=== PATIENT | female | born 1995 | race Caucasian/White ===

== ENCOUNTER 2019-03-22 20:12 | Outpatient (CLI) | payer MEDICAID, SELFPAY ==
[2019-03-22 20:41] VITALS: BMI 41.5
[2019-03-22 21:14] LABS: Color, Urine Yellow (Yellow); Glucose, Dipstick Normal (Normal); Ketone-Dipstick 5 mg/dl (Negative); Leukocyte Esterase-Dipstick 100 /ul (Negative); Nitrite-Dipstick Negative (Negative); Occult Blood-Urine 10 /ul (Negative); Protein-Dipstick 15 mg/dl (Negative); Urine Bilirubin Dipstick Negative (Negative); Urine Clarity Cloudy (Clear); Urine Urobilinogen Normal (Normal)
[2019-03-22] MEDS: Nitrofurantoin Macrocrystals 100 MG Capsule PO (22:02)
--- NOTE | 2019-03-23 09:49 | OB.TRI.HP_ITS ---
- Problem List (1) Pelvic pain affecting in third trimester, antepartum Status: Acute (2) Hematuria due to cystitis Status: Acute History of Present Illness Date of Service: 03/22/19 Was patient seen by the physician?: No Reason For Visit: PAIN/PRESSURE Date of Service: 03/22/19 Final YANCY: 05/05/19 Final YANCY Source: US <20 weeks Gestational age: 33 Weeks and 6 Days History of Present Illness: Patient presents to triage for evaluation today reporting increase in lower pelvic pressure and pain. Patient denies dysuria, denies vaginal bleeding or loss of fluid. Patient reports +FM. Denies any other vaginal discharge at this time. Allergies codeine Adverse Reaction (Verified 03/22/19 20:39) Vomiting naproxen [From Naprosyn] Adverse Reaction (Verified 03/22/19 20:39) Nausea/Vom/Diarrhea Laboratory Studies: Laboratory Tests 03/22/19 Range/Units 20:27 Urine Color Yellow (Yellow) Urine Clarity Cloudy (Clear) Urine pH 6.0 (5.0 - 8.0) Ur Specific [place] 1.020 (1.002-1.030) Urine Protein 15 H (Negative) mg/dl Urine Glucose (UA) Normal (Normal) mg/dl Urine Ketones 5 H (Negative) mg/dl Urine Occult Blood 10 H (Negative) /ul Urine Nitrite Negative (Negative) Urine Bilirubin Negative (Negative) mg/dL Urine Urobilinogen Normal (Normal) mg/dl Ur Leukocyte Esterase 100 H (Negative) /ul Review of Systems Unable to obtain accurate/complete ROS d/t: See nursing note for ROS Physical Exam Vitals: VSS, Afebrile - see nursing note Negative CVAT Mild tenderness in pubic and suprapubic area when palpated Macrodip suggestive of UTI - culture sent NST - FHR Rate Baby A Baseline: 130 Variability:: Moderate Accelerations:: 15 x 15 Decelerations:: None NST Reactive:: Yes, Appropriate for gestational age FHR Category:: Category I Uterine Activity:: Uterine irritability noted on tocometer, per nursing staff irregular contractions moderately palpable. Patient does not feel contractions. Impression/Plan 23 y/o, @ 33+5 weeks, Lower Abdominal/Pelvic pain likely due to UTI, Category I FHT P: 1) Discharge patient to home with UTI precautions - patient to push fluids 2) Macrobid 100mg PO BID x 7 days #14disp no RF to Vishal Downs called in for patient 3) PTL precautions reviewed 4) Patient to follow-up in [facility] office as scheduled Liberty CHAUDHARY
== END 2019-03-22 22:05 | disposition home or self-care (01) ==
LOC: WPOUT 20:20 → WP 20:20
PROVIDERS: Family Provider Pediatrics; PCP Pediatrics; Referring Provider Obstetrics & Gynecology; Visit Provider Obstetrics & Gynecology
DX: O26.893 Other specified pregnancy related conditions, third trimester (principal); R10.2 Pelvic and perineal pain; R10.9 Unspecified abdominal pain; Z3A.33 33 weeks gestation of pregnancy
CPT/HCPCS: 59025; 59050; 81002; 99218; G0378

== ENCOUNTER 2019-04-07 06:32 | Inpatient (IN) | payer MEDICAID, SELFPAY ==
[2019-04-07 06:32] VITALS: BMI 41.8
[2019-04-07 06:53] LABS: Mucous, Urine 0 SEEN /hpf (<or=2+)
[2019-04-07 06:56] LABS: Absolute Lymphocyte Count 1.73 X10^3/ul (0.83-4.51); Absolute Neutrophil Count 13.3 X10^3/uL (2.0-7.7); Basophil# 0.01 X10^3/uL; Basophil% 0.1 % (0-1); Eosinophil# 0.08 X10^3/uL; Eosinophils% 0.5 % (0-5); Hematocrit 37.2 % (37-47); Hemoglobin 12.4 g/dl (12.0-15.0); Lymphocyte # 1.73 X10^3/ul (4.0); Lymphocyte % 10.5 % (19-41); Mean Corp Hgb Conc 33.3 g/gl (32-36); Mean Corpuscular Hgb 28.8 pg (27.0-32.0); Mean Corpuscular Volume 86.3 fL (81-99); Mean Platelet Vol. 10.6 fl (6.2-12.0); Monocyte# 1.21 X10^3/uL; Monocyte% 7.4 % (0-10); Neutrophil # 13.32 X10^3/uL (2.7-7.7); Platelet Count 192 K/mm3 (150-450); RBC Distribution Width CV 14.2 % (11.6-14.6); RBC Distribution Width SD 44.9 fl (35.1-43.9); Red Blood Count 4.31 M/mm3 (4.2-5.4); White Blood Count 16.4 K/mm3 (4.4-11.0)
[2019-04-07 06:57] LABS: POSITIVE COUNT NO; POSITIVE DIFFERENTIAL NO; POSITIVE MORPHOLOGY NO
[2019-04-07] MEDS: Betamethasone/Betamethasone 30 MG/5 ML Vial 12 MG IM (06:57)
[2019-04-07] MEDS: Lactated Ringers 1,000 ML 50 ML IV ×3 (07:00→09:46)
[2019-04-07 07:12] LABS: ALB/GLOB Ratio 0.5 RATIO (0.9-2.4); AST(SGOT) 12 U/L (15-37); Alanine Aminotransfer ALT/SGPT 10 U/L (13-56); Albumin, Serum 2.5 g/dL (3.2-5.0); Alkaline Phosphatase 161 U/L (45-117); Anion Gap 10 (5-15); BUN 11 mg/dL (7-18); BUN/Creat Ratio 16.8 RATIO (10-20); Calcium,Total 9.1 mg/dL (8.5-10.1); Chloride 106 mmol/L (98-107); Creatinine, Serum 0.65 mg/dL (0.55-1.02); EST Glomerular Filtration Rate 121 mL/min (>60); Est Glom Filt Rate - Afr Amer 147 mL/min (>60); Estimated Creatinine Clearance 118.22 ml/min; Globulin 4.6 g/dL (2.2-4.2); Glucose 100 mg/dL (74-106); Protein, Total 7.1 g/dL (6.4-8.2); Sodium Level 136 mmol/L (136-145)
[2019-04-07 07:15] LABS: Color, Urine Yellow (Yellow); Glucose, Dipstick Normal (Normal); Ketone-Dipstick Negative (Negative); Leukocyte Esterase-Dipstick 25 /ul (Negative); Nitrite-Dipstick Negative (Negative); Occult Blood-Urine 250 /ul (Negative); Protein-Dipstick 15 mg/dl (Negative); Urine Bilirubin Dipstick Negative (Negative); Urine Clarity Sl. Cloudy (Clear); Urine Urobilinogen Normal (Normal)
[2019-04-07 07:24] LABS: White Blood Cells 0-5 SEEN /hpf (0-5)
[2019-04-07 07:25] LABS: Bacteria 1+ /hpf (None Seen); Red Blood Cells-Urine 5-10 SEEN /hpf (0-5); Squamous Epithelial Cells - UA 5-10 SEEN /hpf (5-10)
[2019-04-07 07:29] LABS: Amphetamine Urine VISTA NEGATIVE (<1000 ng/mL); Barbiturate Urine VISTA NEGATIVE (< 200 ng/mL); Benzodiazepine Urine VISTA NEGATIVE (< 200 ng/mL); Cocaine Urine VISTA NEGATIVE (< 300 ng/mL); Ecstacy Urine VISTA NEGATIVE (< 500 ng/mL); Methadone Urine VISTA NEGATIVE (< 300 ng/mL); PCP Urine VISTA NEGATIVE (< 25 ng/mL); THC Urine VISTA NEGATIVE (< 50 ng/mL); Vista UDS pH Range 5
[2019-04-07] MEDS: fentaNYL-bupivacaine (epidural) 100 ML BAG EPIDURAL ×2 (07:58→12:02)
[2019-04-07 08:13] LABS: Group B Strep DNA By PCR Negative (Negative); Internal Control PASS; Probe Check PASS; Specimen Processing Control PASS
--- NOTE | 2019-04-07 09:34 | PCM.HP.OB ---
- Problem List (1) premature rupture of membranes Status: Acute (2) Active labor Status: Acute History Date of Admission: 04/07/19 Final YANCY: 05/05/19 Final YANCY Source: US <20 weeks Gestational age: 36 Weeks and 0 Days History of this : This is a 23 year-old, G [1], P [0], at 36 weeks gestational age. Presented with possible ROM yesterday at 2pm. Presented to L&D with complaint of regular uterine contractions that were painful. Allergies azithromycin [From Zithromax] Allergy (Verified 04/07/19 06:36) Hives codeine Adverse Reaction (Verified 03/22/19 20:39) Vomiting naproxen [From Naprosyn] Adverse Reaction (Verified 03/22/19 20:39) Nausea/Vom/Diarrhea Home Medications: Home Medications Omeprazole 20 mg PO DAILY 03/22/19 Vits [Prenatabs FA] 1 tablet PO DAILY 03/22/19 Smoking Status: Former smoker Alcohol: None Substance Use Type: Marijuana Number of Fetus(es): 1 Heart Tracin, moderate variability, accels, no decels, Category 1 TOCO: Irregular mild History Past Pregnancies: Past Pregnancies Delivery Date Name GA/Weeks Outcome Route Weight Gender Labor Length Anesthesia Delivery Location Provider FOB Labs: RPR negative Rubella Immune HBsAG negative HIV negative O positive GC/CT negative GBS unknown. Rapid GBS done upon admission, negative. Review of Systems Constitutional: Denies: Chills, Fever, Weight Change HEENT: Denies: Head Aches, Sinus Congestion, Sinus Drainage Cardiovascular: Denies: Chest Pain, Palpitations Respiratory: Denies: Cough, Shortness of breath at rest, Sputum production Gastrointestinal: Reports: Abdominal Pain Genitourinary: Denies: Dysuria Psychiatric: Denies: Anxiety, Depression, Homicidal Ideations, Suicidal Ideations Physical Exam General: Alert, Oriented x3, Cooperative HEENT: Atraumatic, Normocephalic Cardiovascular: Regular rate, Regular Rhythm, Normal S1, Normal S2 Lungs: Clear to auscultation, Normal air movement, No rhonchi, No wheeze Abdomen: Gravid Extremities:: No edema Estimated gestational size: Appropriate for gestational size Presentation: Cephalic Cervix Dilation (cm): 6 Station: -1 Effacement (%): 90 Assessment/Plan All Active Problems Pelvic pain affecting in third trimester, antepartum (Acute) Hematuria due to cystitis (Acute) premature rupture of membranes (Acute) Active labor (Acute) This is a 23 year-old, G [1], P [0], at 36 weeks gestational age. P: 1) Admit to L&D. Continuous monitoring. 2) Epidural for pain management 3) Consider pitocin due to spacing of uterine contractions. If contractions not regular in next 30 minutes, will start Pitocin. Reviewed risks, benefits, and alternatives with patient. 4) Dr. Saavedra notified of patient in labor.
[2019-04-07] MEDS: Oxytocin 30 units/NS 500 ml 30 UNITS/500 ML IV.SOLN IV (10:37)
[2019-04-07] MEDS: Oxytocin 30 units/NS 500 ml 30 UNITS/500 ML IV.SOLN 334 UNITS IV (12:45)
[2019-04-07] MEDS: Oxytocin 30 units/NS 500 ml 30 UNITS/500 ML IV.SOLN 167 UNITS IV (13:15)
--- NOTE | 2019-04-07 13:21 | PCM.OPRPT ---
Problem List (1) premature rupture of membranes Status: Acute (2) Active labor Status: Acute (3) Vaginal delivery Status: Acute (4) Second degree perineal laceration Status: Acute Vaginal Delivery Maternal Presentation: Active Labor, Spontaneous Rupture of Membranes Amniotic Membrane Rupture Type: Spontaneous at home Amniotic Fluid Description: Clear Final YANCY: 05/05/19 Gestational age: 36 Weeks and 0 Days Date of Procedure: 04/07/19 Pre-Operative Diagnosis: PPROM Post-Operative Diagnosis: Surgery/ Procedure Performed: Spontaneous Vaginal Delivery Type of Anesthesia: Epidural, Local with 1% lidocaine Description of Procedure: Progressed to complete with urge to push. of viable male over 2nd degree perineal laceration. APGARS 8,9. Infant head delivered with maternal effort, body forth coming. placed on maternal abdomen, strong cry. Mouth and nares suctioned for secretions. Cord clamped and cut by grandmother after pulsations ceased, delayed cord clamping. Pitocin started for active 3rd stage management. Placenta delivered with maternal effort, via darion, intact, 3 vessel cord. Perineum inspected and revealed 2nd degree perineal laceration. 1% Lidocaine administered to perineum for patient comfort. Repaired with 3.0 vicryl, well approximated and hemostasis achieved. Patient tolerated well. Fundus firm, EBL 400ml. Vaginal sweep completed. Sponge and instrument count correct. Mother and baby stable, planning to breastfeed. Bonding well. notified of delivery. Presentation: Vertex Placental Delivery Description: Spontaneous Placenta Disposition: [facility] Cord Vessel Description: 3 Vessels Cord Entanglement: None Estimated Blood Loss: 400ml A gender: Male (1 minute): 8 (5 minute): 9 Episiotomy Description: None Laceration: Perineal Extension/lac, 2nd degree Medications given after delivery: IV Pitocin Complications: None
[2019-04-07 19:52] VITALS: BP 128/74; PULSE 108; RESP 18; TEMP 36.6
[2019-04-07 23:50] VITALS: BP 116/68; PULSE 100; RESP 16; TEMP 36.6
[2019-04-08 04:25] VITALS: BP 113/63; PULSE 100; RESP 16; TEMP 36.7
[2019-04-08 05:52] LABS: Hematocrit 30.6 % (37-47); Hemoglobin 10.1 g/dl (12.0-15.0); Mean Corpuscular Hgb 28.5 pg (27.0-32.0); Mean Corpuscular Volume 86.4 fL (81-99); Mean Platelet Vol. 10.4 fl (6.2-12.0); Platelet Count 186 K/mm3 (150-450); RBC Distribution Width CV 14.3 % (11.6-14.6); RBC Distribution Width SD 45.7 fl (35.1-43.9); Red Blood Count 3.54 M/mm3 (4.2-5.4); White Blood Count 18.4 K/mm3 (4.4-11.0)
[2019-04-08 05:53] LABS: Scan Indicated on CBC? Y/N NO
--- NOTE | 2019-04-08 08:22 | PCM.PN.OB ---
Patient Problems: Active and Suspected Problems premature rupture of membranes (Acute) Active labor (Acute) Vaginal delivery (Acute) Second degree perineal laceration (Acute) Subjective: pt seen at bedside, doing well. Patient reports good pain control. Mild lochia. No difficulty with urinating. Denies chest pain shortness of breath or dizziness. She is breast-feeding. Baby is in the special care nursery for blood sugar control. - Physical Exam General: Alert, Oriented x3 Abdomen: Soft, Non Tender, Non-Distended, - - fundus firm Extremities: No Calf Tenderness Vital Signs Temp Pulse Resp BP 98.0 F 100 16 113/63 04/08/19 04:25 04/08/19 04:25 04/08/19 04:25 04/08/19 04:25 Weight: 110.677 kg Body Mass Index (BMI) 41.8 Intake and Output for Last 24 Hours 04/06/19 04/07/19 04/08/19 23:59 23:59 23:59 Intake Total 3081 / 3081 Output Total 1225 / 1225 Balance 1856 / 1856 Laboratory Tests Past 24 Hrs 04/07/19 04/08/19 06:30 05:30 WBC 18.4 H RBC 3.54 L Hgb 10.1 L Hct 30.6 L MCV 86.4 MCH 28.5 MCHC 33.0 RDW 14.3 RDW Differential 45.7 H Plt Count 186 MPV 10.4 Blood Type O POSITIVE Antibody Screen NEGATIVE Medical Necessity - Tobacco Use Smoking Status: Former smoker Assessment/Plan All Active Problems Pelvic pain affecting in third trimester, antepartum (Acute) Hematuria due to cystitis (Acute) premature rupture of membranes (Acute) Active labor (Acute) Vaginal delivery (Acute) Second degree perineal laceration (Acute) PPD#1, doing well routine care pain mgmt ambulation
[2019-04-08] MEDS: Ibuprofen 600 MG Tablet PO ×2 (09:09→21:26)
[2019-04-08] MEDS: Senna/Docusate Sodium 1 Tablet PO (09:10)
[2019-04-08 09:17] VITALS: BP 109/66; PULSE 99; RESP 18; TEMP 36.4
[2019-04-08 13:54] VITALS: BP 115/69; PULSE 113; RESP 16; TEMP 36.2
[2019-04-08 21:00] VITALS: BP 126/81; PULSE 90; RESP 16; TEMP 36.3; O2SAT 97
[2019-04-09 02:00] VITALS: BP 139/62; PULSE 90; RESP 18; TEMP 36.3; O2SAT 97
[2019-04-09 08:30] VITALS: BP 122/73; PULSE 108; RESP 16; TEMP 36.2
[2019-04-09] MEDS: Ibuprofen 600 MG Tablet PO ×2 (08:45→16:56)
--- NOTE | 2019-04-09 08:56 | PCM.PN.OB ---
Patient Problems: Active and Suspected Problems premature rupture of membranes (Acute) Active labor (Acute) Vaginal delivery (Acute) Second degree perineal laceration (Acute) Subjective: pain well controlled, average lochia - Physical Exam General: Alert, Cooperative, No apparent distress Abdomen: Soft, Non-Distended Extremities: Edema - trace Vital Signs Temp Pulse Resp BP Pulse Ox 97.4 F L 90 18 139/62 H 97 04/09/19 02:00 04/09/19 02:00 04/09/19 02:00 04/09/19 02:00 04/09/19 02:00 Oxygen Delivery Method Room Air Weight: 110.677 kg Body Mass Index (BMI) 41.8 Intake and Output for Last 24 Hours 04/07/19 04/08/19 04/09/19 23:59 23:59 23:59 Intake Total 3081 / 3081 Output Total 1225 / 1225 Balance 1856 / 1856 Medical Necessity - Tobacco Use Smoking Status: Former smoker Assessment/Plan All Active Problems Pelvic pain affecting in third trimester, antepartum (Acute) Hematuria due to cystitis (Acute) premature rupture of membranes (Acute) Active labor (Acute) Vaginal delivery (Acute) Second degree perineal laceration (Acute) PPD#2 s/p doing well in SCN
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
[2019-04-09 16:30] VITALS: BP 140/84; PULSE 111; RESP 16; TEMP 36.8; O2SAT 97
--- NOTE | 2019-04-09 17:23 | DCINST_ITS ---
Discharge Diet: No Restrictions Discharge Activity: Return to Normal Activity, May not drive while taking narcotic pain medications., May Shower May resume sexual activity in: 4-6 weeks Additional Activity Instructions:: Nothing in the vagina for 4-6 weeks. You may return to work/school in 6 weeks. Call your doctor if your incision/area has: Continuous Slow Oozing, Sudden Increased Bleeding, Increased Pain/ Swelling, Increased Redness, Foul Smelling Discharge Additional Instructions: If you experience any of the following, contact your healthcare provider. * Bleeding that soaks a pad every hour for 2 hours * Fever 100.4 or higher * Unrelieved incision or abdominal pain * Swelling, redness, discharge or bleeding from your incision or episiotomy site * Your incision begins to separate * Problems urinating (including inability to urinate or burning while urinating). * Visual changes * Severe headache * Flu-like symptoms * Pain or redness in one of both of your breasts * Pain, warmth, tenderness or swelling in your legs, especially the calf area * Frequent nausea and vomiting * Symptoms of depression or anxiety If you experience any of the following, call 911 or go to the nearest Emergency Room. * Chest pain * Problems breathing * Seizure activity * Partial or complete paralysis of a body part, slurred speech, weakness or drooping of the face, or a sudden inability to walk or hold your balance Allergies/Adverse Reactions: Allergies azithromycin [From Zithromax] Allergy (Verified 04/07/19 06:36) Hives codeine Adverse Reaction (Verified 03/22/19 20:39) Vomiting naproxen [From Naprosyn] Adverse Reaction (Verified 03/22/19 20:39) Nausea/Vom/Diarrhea Medications to take at Discharge Omeprazole 20 mg PO DAILY 03/22/19 Vits [Prenatabs FA ] 1 tablet PO DAILY 03/22/19 Ibuprofen [Motrin] 600 mg PO Q6H PRN #60 tablet 04/09/19 Ibuprofen [Motrin] 800 mg PO TID PRN PRN #60 tablet 04/09/19 The following prescriptions were given: Ibuprofen [Motrin] 800 mg PO TID PRN PRN #60 tablet PRN Reason: Pain Ibuprofen [Motrin] 600 mg PO Q6H PRN #60 tablet PRN Reason: Pain Please Follow Up With: Selam Viera CNM - [phone] When: Call to make an appointment with your doctor in 1-2 and 6 weeks Primary Care Physician: Lety Saleh MD [Primary Care Provider] - Test Results: Test results from this visit will be discussed in further detail at your follow-up appointment, if applicable.
== END 2019-04-09 18:00 | disposition home or self-care (01) | DRG 560 ==
LOC: WPOUT 06:32
PROVIDERS: Advanced Practice Midwife; Obstetrics & Gynecology; Admitting Provider Obstetrics & Gynecology; Family Provider Pediatrics; PCP Pediatrics; Referring Provider Obstetrics & Gynecology; Visit Provider Obstetrics & Gynecology
DX: O60.14X0 Preterm labor third trimester with preterm delivery third trimester, not applicable or unspecified (principal); O42.013 Preterm premature rupture of membranes, onset of labor within 24 hours of rupture, third trimester; O70.1 Second degree perineal laceration during delivery; Z3A.36 36 weeks gestation of pregnancy; Z37.0 Single live birth
CPT/HCPCS: 59050; 80053; 80307; 81001; 85025; 85027; 86850; 86900; 87081; 87653; 99218; J7120; G0378; J0702

== ENCOUNTER 2020-06-21 14:03 | Emergency (ER) | payer MEDICAID, SELFPAY ==
[2020-06-21 14:06] VITALS: BP 131/98; PULSE 105; RESP 17; TEMP 36.3; O2SAT 97; BMI 42.7
--- NOTE | 2020-06-21 14:20 | ED.VIS.GEN ---
History of Present Illness Chief Complaint: Complaint Informant: Patient Onset: Days Context: Gradual Onset Current Severity: Mild Maximum Severity: Moderate Narrative: Patient presents with dysuria for the past 4 days. She also describes urinary frequency and a strong odor to her urine. She denies fever or chills. She has back pain secondary to scoliosis but no change from her baseline. She reports her last menstrual cycle was sometime last month. She has been irregular since stopping control recently. - Past Medical History (1) Scoliosis Status: Chronic Past Medical History - Allergies and Home Meds Allergies/Adverse Reactions: Allergies azithromycin [From Zithromax] Allergy (Verified 06/21/20 14:05) Hives codeine Adverse Reaction (Verified 06/21/20 14:05) Vomiting naproxen [From Naprosyn] Adverse Reaction (Verified 06/21/20 14:05) Nausea/Vom/Diarrhea Primary Care Physician: Yves Parker MD [Primary Care Provider] - Prior records reviewed: Yes Lives: With Family Smoking Status: Former smoker Review of Systems General: Denies: Chills, Fever Eyes: Denies: Visual changes - bilaterally ENT: Denies: Bilateral ear pain Cardiovascular: Denies: Chest pain Respiratory: Denies: Dyspnea, Cough Gastrointestinal: Reports: Abdominal pain. Denies: Nausea, Vomiting, Diarrhea Genitourinary: Reports: Dysuria, Frequency Musculoskeletal: Denies: Swelling, Extremity Pain Skin: Denies: Rash Neurological: Denies: Headache Hematologic: Denies: Easy bruising, Easy bleeding Allergy: Denies: Uticaria Physical Exam Vital Signs/Narrative: Vital Signs Temp Pulse Resp BP Pulse Ox 06/21/20 14:06 97.4 F L 105 H 17 131/98 H 97 Inital Vital Signs reviewed: Yes General: Well nourished, Well developed Head: Normocephalic ENT: Moist mucous membranes Neck: Supple Cardiovascular: Regular rate, Regular rhythm Respiratory: No distress, CTA bilaterally Abdomen: Soft, Normal bowel sounds, Tender - Mild suprapubic tenderness. Back: Nontender. Negative for: CVA tenderness Extremities: Nontender Skin: Normal color Neurological: Alert, Oriented x3 Psychological: Normal affect Diagnostic/Tx/Re-eval Laboratory Results 06/21/20 06/21/20 14:30 14:30 Urine Color Yellow Urine Clarity Cloudy Urine pH 6.0 Ur Specific [place] 1.015 Urine Protein 30 H Urine Glucose (UA) Normal Urine Ketones Negative Urine Occult Blood 250 H Urine Nitrite Negative Urine Bilirubin Negative Urine Urobilinogen Normal Ur Leukocyte Esterase 500 H Urine RBC 25-50 SEEN Urine WBC 25-50 SEEN Ur Squamous Epith Cells 5-10 SEEN Urine Bacteria 1+ Urine Mucus RARE Urine Test Negative - Medical Decision Making Test results discussed with the patient. She does have evidence of UTI. She will be treat with a 3-day course of Bactrim, first dose given here. ED Disposition - Plan for ED Patient: Disposition: Home or Assisted Living Instructions: ED CYSTITIS Female Adult Prescriptions: Smz/Tmp Ds [Bactrim Ds] 1 tab PO BID #6 tab Transmission Status: Pending to [facility]30 Referrals: Yves Parker MD [Primary Care Provider] - 1 Week if not improving
[2020-06-21 14:37] LABS: Color, Urine Yellow (Yellow); Glucose, Dipstick Normal (Normal); Ketone-Dipstick Negative (Negative); Leukocyte Esterase-Dipstick 500 /ul (Negative); Nitrite-Dipstick Negative (Negative); Occult Blood-Urine 250 /ul (Negative); Protein-Dipstick 30 mg/dl (Negative); Specific Gravity, Urine 1.015 (1.002-1.030); Urine Bilirubin Dipstick Negative (Negative); Urine Clarity Cloudy (Clear); Urine Urobilinogen Normal (Normal)
[2020-06-21 14:40] LABS: Internal QC Validated? YES +Cl - CLEAR BKGD; Pregnancy, Urine Negative Negative
[2020-06-21 14:44] LABS: Bacteria 1+ /hpf (None Seen); Mucous, Urine RARE /hpf (<or=2+); Red Blood Cells-Urine 25-50 SEEN /hpf (0-5); Squamous Epithelial Cells - UA 5-10 SEEN /hpf (5-10); White Blood Cells 25-50 SEEN /hpf (0-5)
[2020-06-21] MEDS: Smz/Tmp Ds Tablet 1 TABLET PO (15:21)
== END 2020-06-21 15:22 | disposition home or self-care (01) ==
PROVIDERS: Emergency Provider Emergency Medicine; PCP Family Medicine
DX: N39.0 Urinary tract infection, site not specified (principal); Z87.891 Personal history of nicotine dependence
CPT/HCPCS: 81001; 81025; 87086; 87088; 99283

== ENCOUNTER 2020-08-23 17:56 | Emergency (ER) | payer MEDICAID, SELFPAY ==
[2020-08-23 17:56] VITALS: BP 142/81; PULSE 119; RESP 18; TEMP 36.6; O2SAT 100; BMI 42.0
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
[2020-08-23] MEDS: HYDROcodone Bitartrate/Apap 5/325 Tablet PO (19:53)
--- NOTE | 2020-08-23 19:58 | ED.VISSUMM ---
- ER Visit Summary Date of Service: 08/23/20 Chief Complaint: Back pain History of Present Illness: The patient is a [address] Parker. She reports that 3 days ago she was wrestling with someone and landed on her back while doing this. She reports that she had low back pain since that time that is 8 out of 10 in severity. Says sharp, aching pain. Is worsened by movement. She taken Advil with minimal relief. There is no radiation to her legs. No numbness or weakness. No groin numbness. Patient denies any other injuries. No blow to the head or loss of consciousness. No neck pain. She denies red flags. Physical Examination: Vitals: Stable. Afebrile. General: A&O x 3. NAD. Cardiovascular exam: Regular rate and rhythm, no murmur, rub or gallop. Respiratory exam: Clear to auscultation bilaterally. No wheezes or stridor. Abdominal exam: Soft, nontender, nondistended, normal bowel sounds. No peritoneal signs. Back: Diffuse moderate tenderness to palpation over the lumbar spine and the paraspinous musculature in the lumbar region. No point tenderness. Negative straight leg bilaterally. 5/5 DF, PF, EHL bilaterally. Normal sensation to light touch throughout. Extremity: No clubbing, cyanosis, or edema. Test Results: Clinical Impression(s) from Imaging Studies Lumbar Spine X-Ray 08/23/20 19:43 IMPRESSION: No acute or significant process. Electronically Signed: Jerry Reveles MD at 20:42 EDT , Service support , Emergency Department Course and Treatment: An OARRS report was obtained which was negative. She was given a dose of Belmar here. Treatment Plan: Patient will be discharged with prescription for 10 Belmar. Instructed continue ibuprofen. We discussed symptomatic management with warm compresses and a TENS unit. Follow-up with her primary care physician in 3 to 5 days if not improving. The signs and symptoms of cauda equina syndrome were discussed. She is instructed to return for these. Disposition: To home in improved and stable condition. Impression: 1. Low back pain. 2. Fall. This note was generated with SpotMeation software. It may contain incorrect words, spelling, and punctuation that were not noted in review of the chart prior to signing ED Disposition - Plan for ED Patient: Disposition: Home or Assisted Living Instructions: ED Back Pain Acute or Chronic Prescriptions: Hydrocodone Bitart/Apap 5-325 [Belmar 5MG-325MG] 1 tab PO Q4H PRN PRN 2 Days #10 tab PRN Reason: Pain Prescription Printed Referrals: Yves Parker MD [Primary Care Provider] - 1 Week if not improving
[2020-08-23 20:17] VITALS: RESP 16
== END 2020-08-23 20:17 | disposition home or self-care (01) ==
PROVIDERS: Emergency Provider Emergency Medicine; PCP Family Medicine
DX: M54.5 Low back pain (principal); F17.200 Nicotine dependence, unspecified, uncomplicated
CPT/HCPCS: 72100; 99283

== ENCOUNTER 2020-09-05 15:18 | Emergency (ER) | payer MEDICAID, SELFPAY ==
[2020-09-05 15:18] VITALS: BP 118/81; PULSE 111; RESP 16; TEMP 36.2; O2SAT 99; BMI 41.1
--- NOTE | 2020-09-05 15:44 | CT_ITS ---
STUDY: CT ABDOMEN AND PELVIS WITH CONTRAST REASON FOR EXAM: Female, 24 years old. Right lower quadrant pain RADIATION DOSAGE (If Supplied By Facility): CTDIvol = ( 17.05 ) mGy, DLP = ( 1267.95 ) mGycm TECHNIQUE: CT images were obtained from the dome of the diaphragm to the symphysis pubis without oral contrast. IV 100mL Isovue-300 was administered. Sagittal and coronal images were reconstructed. Individualized dose optimization techniques were used for this CT. COMPARISON: None. FINDINGS: The visualized lung bases are unremarkable. The visualized portions of the heart are within normal limits. Normal liver. There are multiple gallstones without biliary dilation or inflammation.. Normal spleen. Normal pancreas. Normal bilateral adrenal glands. 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 There are no renal lesions, stones or hydronephrosis. Normal visualized stomach. Normal small intestine. Normal colon. The appendix is visualized and appears normal. Normal abdominal aorta. Normal inferior vena cava. BMI severely elevated with abdominal lipomatosis. Normal urinary bladder. Normal abdominal wall. Normal osseous structures. CT/Abdomen/Pelvis W IV Cont ONLY IMPRESSION: 1. Cholecystolithiasis. 2. Normal appendix. Electronically Signed: Edi Landis, at 17:57 EDT Tel , Service support ,
--- NOTE | 2020-09-05 15:45 | ED.VIS.GI ---
History of Present Illness Chief Complaint: Abd Pain Informant: Patient - Abdominal Pain/Flank Pain Onset: Days Context: Gradual Onset Timing: Continuous Quality: Sharp, Stabbing Location: RLQ - Nausea/Vomiting/Emesis GI Symptom: Negative for: Nausea, Vomiting - Diarrhea/Melena/Hematochezia GI Symptom: Negative for: Diarrhea, Melena, Hematochezia Associated Symptoms: Negative for: Dysuria, Frequency, Hematuria Narrative: Patient is a 24-year-old female that denies any significant past medical history presented with 3 days of right lower quadrant abdominal pain. She states it progressively has worsened and was significantly worse this morning. She states that sharp and stabbing in nature. It does not radiate. She notes is actually more mild currently and she is feeling better but she figured she might as well get evaluated because her family was concerned she could have appendicitis. She denies any associated symptoms such as nausea or vomiting. She states she had normal bowel movements. She denies any chest pain, shortness of breath, urinary symptoms or back pain. Her last menstrual period was August 25 normal. She has not think she could be . No other complaints at this time. She did not take anything for pain prior to arrival. Past Medical History - Allergies and Home Meds Allergies/Adverse Reactions: Allergies azithromycin [From Zithromax] Allergy (Verified 09/05/20 15:20) Hives codeine Adverse Reaction (Verified 09/05/20 15:20) Vomiting naproxen [From Naprosyn] Adverse Reaction (Verified 09/05/20 15:20) Nausea/Vom/Diarrhea Primary Care Physician: Yves Parker MD [Primary Care Provider] - Past Medical History: None Surgical History: noncontributory Lives: With Family Smoking Status: Current every day smoker Review of Systems General: Denies: Chills, Fever, Sweats Eyes: Denies: Visual changes - bilaterally, Diplopia ENT: Denies: Rhinorrhea, Sore throat Cardiovascular: Denies: Chest pain, Palpitations Respiratory: Denies: Dyspnea, Cough, Dyspnea on exertion Gastrointestinal: Reports: Abdominal pain. Denies: Nausea, Vomiting, Diarrhea, Melena, Hematochezia Genitourinary: Denies: Dysuria, Hematuria, Frequency Musculoskeletal: Denies: Back pain, Extremity Pain Skin: Denies: Rash, Wounds Neurological: Denies: Headache, Weakness, Numbness Physical Exam Vital Signs/Narrative: Vital Signs Temp Pulse Resp BP Pulse Ox 09/05/20 15:18 97.1 F L 111 H 16 118/81 H 99 Inital Vital Signs reviewed: Yes General: Well nourished, Well developed, Obese, No Acute Distress Head: Normocephalic, Atraumatic Eyes: Perrl, EOMI ENT: Moist mucous membranes, No rhinorrhea Neck: Supple, Nontender Cardiovascular: Regular rate, Regular rhythm, No murmurs Respiratory: No distress, CTA bilaterally, Chest nontender Abdomen: Soft, Nondistended, Normal bowel sounds, Tender, - - Pain with palpation of the right lower quadrant. Negative for: Guarding, Rebound tenderness Back: Nontender, Normal Inspection. Negative for: CVA tenderness, Spinal tenderness Extremities: Nontender, No edema Skin: Normal color, No rash Neurological: Alert, Oriented x3, Cranial nerves II-XII grossly intact, Normal Strength, Normal Sensation Psychological: Normal affect, Normal Mood Diagnostic/Tx/Re-eval Clinical Impression(s) from Imaging Studies Abdomen/Pelvis CT 09/05/20 15:44 IMPRESSION: 1. Cholecystolithiasis. 2. Normal appendix. Electronically Signed: Edi Landis, at 17:57 EDT Tel , Service support , Laboratory Data 09/05/20 09/05/20 09/05/20 15:55 15:55 15:55 WBC 10.4 RBC 4.72 Hgb 13.9 Hct 42.9 MCV 90.9 MCH 29.4 MCHC 32.4 RDW Std Deviation 42.1 RDW Coeff of Aaron 12.6 Plt Count 320 MPV 10.0 Immature Gran % (Auto) 0.500 Neut % (Auto) 69.8 Lymph % (Auto) 23.0 [place] % (Auto) 5.2 Eos % (Auto) 0.9 Baso % (Auto) 0.6 Absolute Neuts (auto) 7.3 Absolute Lymphs (auto) 2.39 Nucleated RBC % 0 Sodium 138 Potassium 3.8 Chloride 108 H Carbon Dioxide 25.0 Anion Gap 5 BUN 10 Creatinine 0.89 Estim Creat Clear Calc 85.62 Est GFR (MDRD) Af Amer 101 Est GFR (MDRD) Non-Af 84 BUN/Creatinine Ratio 11.2 Glucose 97 Lactic Acid 1.3 Calcium 8.4 L Total Bilirubin 0.10 L AST 8 L ALT 18 Alkaline Phosphatase 138 H Total Protein 7.7 Albumin 3.5 Globulin 4.2 Albumin/Globulin Ratio 0.8 L Lipase 108 Urine Color Urine Clarity Urine pH Ur Specific [place] U Specif Grav (Refrac) Urine Protein Urine Glucose (UA) Urine Ketones Urine Occult Blood Urine Nitrite Urine Bilirubin Urine Urobilinogen Ur Leukocyte Esterase Urine RBC Urine WBC Ur Squamous Epith Cells Ur Transition Epith Cell Ur Renal Epithelial Cell Calcium Oxalate Crystal Uric Acid Crystals Triple Phos Crystals Other Crystals Amorphous Sediment Urine Bacteria Hyaline Casts Fine Granular Casts Coarse Granular Casts Waxy Casts RBC Casts WBC Casts Urine Mucus Urine Trichomonas Urine Yeast Urine Test 09/05/20 09/05/20 16:03 18:01 WBC RBC Hgb Hct MCV MCH MCHC RDW Std Deviation RDW Coeff of Aaron Plt Count MPV Immature Gran % (Auto) Neut % (Auto) Lymph % (Auto) [place] % (Auto) Eos % (Auto) Baso % (Auto) Absolute Neuts (auto) Absolute Lymphs (auto) Nucleated RBC % Sodium Potassium Chloride Carbon Dioxide Anion Gap BUN Creatinine Estim Creat Clear Calc Est GFR (MDRD) Af Amer Est GFR (MDRD) Non-Af BUN/Creatinine Ratio Glucose Lactic Acid Calcium Total Bilirubin AST ALT Alkaline Phosphatase Total Protein Albumin Globulin Albumin/Globulin Ratio Lipase Urine Color Cancelled Yellow Urine Clarity Cancelled Sl. Cloudy Urine pH Cancelled 6.5 Ur Specific [place] Cancelled 1.010 U Specif Grav (Refrac) Cancelled Urine Protein Cancelled Negative Urine Glucose (UA) Cancelled Normal Urine Ketones Cancelled Negative Urine Occult Blood Cancelled 10 H Urine Nitrite Cancelled Negative Urine Bilirubin Cancelled Negative Urine Urobilinogen Cancelled Normal Ur Leukocyte Esterase Cancelled 100 H Urine RBC Cancelled 0-5 SEEN Urine WBC Cancelled 25-50 SEEN Ur Squamous Epith Cells Cancelled 0-5 SEEN Ur Transition Epith Cell Cancelled Ur Renal Epithelial Cell Cancelled Calcium Oxalate Crystal Cancelled Uric Acid Crystals Cancelled Triple Phos Crystals Cancelled Other Crystals Cancelled Amorphous Sediment Cancelled Urine Bacteria Cancelled RARE Hyaline Casts Cancelled Fine Granular Casts Cancelled Coarse Granular Casts Cancelled Waxy Casts Cancelled RBC Casts Cancelled WBC Casts Cancelled Urine Mucus Cancelled 0 SEEN Urine Trichomonas Cancelled Urine Yeast Cancelled Urine Test Negative - Medical Decision Making Patient is evaluated for 3 days of right lower quadrant abdominal pain. Her pain is actually better currently however given that she had worsening pain and instantly relieved I think she needs to be ruled out for ruptured appendectomy. She is slightly tachycardic on arrival. Abdominal exam is benign. Work-up is largely negative with no signs of any acute surgical process. Urinalysis does show some leukoesterase and white blood cells association we put on a short course of Keflex and urine culture sent this patient also had a questionable UTI 1 month ago. That time she was on Bactrim. Patient will follow up with her primary care doctor. Patient is counseled on signs and symptoms requiring return to the emergency room. Patient verbalizes agreement and understand this plan. Patient discharged home in stable and improved condition. ED Disposition - Plan for ED Patient: Disposition: Home or Assisted Living Diagnosis: Abdominal pain of unknown cause, UTI (urinary tract infection) Instructions: ED Abdominal Pain Unkn Cause Fem, ED CYSTITIS Female Adult Prescriptions: Cephalexin [Keflex] 500 mg PO BID #6 cap Transmission Status: Received by [id number] Referrals: Yves Parker MD [Primary Care Provider] -
[2020-09-05] MEDS: 0.9% Normal Saline 1,000 ML 1000 ML IV (16:16)
[2020-09-05 16:17] LABS: Absolute Lymphocyte Count 2.39 X10^3/uL (0.83-4.51); Absolute Neutrophil Count 7.3 X10^3/uL (2.0-7.7); Basophil# 0.06 X10^3/uL; Basophil% 0.6 % (0-1); Eosinophil# 0.09 X10^3/uL; Eosinophils% 0.9 % (0-5); Hematocrit 42.9 % (37-47); Hemoglobin 13.9 g/dL (12.0-15.0); Lymphocyte # 2.39 X10^3/ul (4.0); Mean Corp Hgb Conc 32.4 g/dL (32-36); Mean Corpuscular Hgb 29.4 pg (27.0-32.0); Mean Corpuscular Volume 90.9 fL (81-99); Monocyte# 0.54 X10^3/uL; Monocyte% 5.2 % (0-10); NRBC Flagged by Analyzer 0 % (0-5); Neutrophil # 7.27 X10^3/uL (2.7-7.7); Neutrophil % 69.8 % (47-70); Platelet Count 320 K/mm3 (150-450); RBC Distribution Width CV 12.6 % (11.6-14.6); RBC Distribution Width SD 42.1 fl (35.1-43.9); Red Blood Count 4.72 M/mm3 (4.2-5.4); White Blood Count 10.4 K/mm3 (4.4-11.0)
[2020-09-05 16:21] LABS: ALB/GLOB Ratio 0.8 RATIO (0.9-2.4); AST(SGOT) 8 U/L (15-37); Alanine Aminotransfer ALT/SGPT 18 U/L (13-56); Albumin, Serum 3.5 g/dL (3.2-5.0); Alkaline Phosphatase 138 U/L (45-117); Anion Gap 5 (5-15); BUN 10 mg/dL (7-18); BUN/Creat Ratio 11.2 RATIO (10-20); Calcium,Total 8.4 mg/dL (8.5-10.1); Chloride 108 mmol/L (98-107); Creatinine, Serum 0.89 mg/dL (0.55-1.02); EST Glomerular Filtration Rate 84 mL/min (>60); Est Glom Filt Rate - Afr Amer 101 mL/min (>60); Estimated Creatinine Clearance 85.62 ml/min; Globulin 4.2 g/dL (2.2-4.2); Glucose 97 mg/dL (74-106); Lipase 108 U/L (73-393); Potassium 3.8 mmol/L (3.5-5.1); Protein, Total 7.7 g/dL (6.4-8.2); Sodium Level 138 mmol/L (136-145)
[2020-09-05 16:28] LABS: Internal QC Validated? YES +Cl - CLEAR BKGD; Pregnancy, Urine Negative Negative
[2020-09-05 16:43] LABS: Lactic Acid 1.3 mmol/L (0.4-1.9)
[2020-09-05 18:10] LABS: Color, Urine Yellow (Yellow); Glucose, Dipstick Normal (Normal); Ketone-Dipstick Negative (Negative); Leukocyte Esterase-Dipstick 100 /ul (Negative); Mucous, Urine 0 SEEN /hpf (<or=2+); Nitrite-Dipstick Negative (Negative); Occult Blood-Urine 10 /ul (Negative); Protein-Dipstick Negative (Negative); Urine Bilirubin Dipstick Negative (Negative); Urine Clarity Sl. Cloudy (Clear); Urine Urobilinogen Normal (Normal); Urine pH 6.5 (5.0 - 8.0)
[2020-09-05 18:22] LABS: Bacteria RARE /hpf (None Seen); Red Blood Cells-Urine 0-5 SEEN /hpf (0-5); Squamous Epithelial Cells - UA 0-5 SEEN /hpf (5-10); White Blood Cells 25-50 SEEN /hpf (0-5)
[2020-09-05 19:05] VITALS: RESP 18
== END 2020-09-05 19:07 | disposition home or self-care (01) ==
PROVIDERS: Emergency Provider Emergency Medicine; PCP Family Medicine
DX: R10.31 Right lower quadrant pain (principal); N39.0 Urinary tract infection, site not specified; E66.9 Obesity, unspecified; F17.200 Nicotine dependence, unspecified, uncomplicated
CPT/HCPCS: 74177; 80053; 81001; 81025; 83605; 83690; 85025; 87086; 87088; 96360; 96361; 99283; J7030; Q9967

== ENCOUNTER 2020-11-01 17:49 | Emergency (ER) | payer MEDICAID, SELFPAY ==
[2020-11-01 17:50] VITALS: BP 141/92; PULSE 82; RESP 16; TEMP 36.3; O2SAT 99; BMI 39.4
--- NOTE | 2020-11-01 18:05 | ED.VIS.GEN ---
History of Present Illness Chief Complaint: Ear Problem Informant: Patient Narrative: Patient states she has right ear pain. She states that she is hears a fizzing bubbling noise in her right ear. No fever cough runny nose. No drainage from the ear. Past Medical History - Allergies and Home Meds Allergies/Adverse Reactions: Allergies azithromycin [From Zithromax] Allergy (Verified 11/01/20 17:52) Hives codeine Adverse Reaction (Verified 11/01/20 17:52) Vomiting naproxen [From Naprosyn] Adverse Reaction (Verified 11/01/20 17:52) Nausea/Vom/Diarrhea Primary Care Physician: Yves Parker MD [Primary Care Provider] - Prior records reviewed: Yes Past Medical History: None Surgical History: noncontributory Lives: With Family Smoking Status: Current every day smoker Drugs: None Review of Systems General: Denies: Chills, Fever, Sweats Eyes: Denies: Visual changes - bilaterally, Diplopia ENT: Reports: Right ear pain. Denies: Rhinorrhea, Sore throat Cardiovascular: Denies: Chest pain, Palpitations Respiratory: Denies: Dyspnea, Cough, Dyspnea on exertion Gastrointestinal: Denies: Abdominal pain, Nausea, Vomiting, Diarrhea, Melena, Hematochezia Genitourinary: Denies: Dysuria, Hematuria, Frequency Musculoskeletal: Denies: Back pain, Extremity Pain Skin: Denies: Rash, Wounds Neurological: Denies: Headache, Weakness, Numbness Physical Exam Vital Signs/Narrative: Vital Signs Temp Pulse Resp BP Pulse Ox 11/01/20 17:50 97.3 F L 82 16 141/92 H 99 Inital Vital Signs reviewed: Yes General: Well nourished, Well developed, No Acute Distress Head: Normocephalic, Atraumatic Eyes: Perrl, EOMI ENT: Moist mucous membranes, No rhinorrhea, - - Right eardrum demonstrates a effusion with some mild erythema. Neck: Supple, Nontender Cardiovascular: Regular rate, Regular rhythm, No murmurs Respiratory: No distress, CTA bilaterally, Chest nontender Abdomen: Soft, Nontender, Nondistended, Normal bowel sounds Back: Nontender, Normal Inspection Extremities: Nontender, No edema Skin: Normal color, No rash Neurological: Alert, Oriented x3, Cranial nerves II-XII grossly intact, Normal Strength, Normal Sensation Psychological: Normal affect, Normal Mood Diagnostic/Tx/Re-eval - Medical Decision Making Patient be started on amoxicillin. Tylenol or Motrin for pain. Follow-up with primary care ED Disposition - Plan for ED Patient: Disposition: Home or Assisted Living Diagnosis: Otitis media Instructions: ED Otitis Media Antibiotic ... Prescriptions: Amoxicillin 875 mg PO BID #20 tab Prescription Printed Referrals: Yves Parker MD [Primary Care Provider] - As Needed
[2020-11-01 18:22] VITALS: O2SAT 98
== END 2020-11-01 18:23 | disposition home or self-care (01) ==
PROVIDERS: Emergency Provider Emergency Medicine; PCP Family Medicine
DX: H66.91 Otitis media, unspecified, right ear (principal); F17.200 Nicotine dependence, unspecified, uncomplicated
CPT/HCPCS: 99282

== ENCOUNTER 2021-03-19 20:07 | Emergency (ER) | payer MEDICAID, SELFPAY ==
[2021-03-19 20:09] VITALS: BP 169/124; PULSE 110; RESP 16; TEMP 36.4; O2SAT 100; BMI 39.9
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
[2021-03-19] MEDS: Acetaminophen 500 MG Tablet 1000 MG PO (20:50)
[2021-03-19 21:23] VITALS: BP 156/60; PULSE 78; RESP 18
== END 2021-03-19 21:23 | disposition home or self-care (01) ==
PROVIDERS: Emergency Provider Emergency Medicine; PCP Family Medicine
DX: S09.90XA Unspecified injury of head, initial encounter (principal); F17.200 Nicotine dependence, unspecified, uncomplicated; V89.2XXA Person injured in unspecified motor-vehicle accident, traffic, initial encounter
CPT/HCPCS: 70450; 99283

== ENCOUNTER 2021-08-10 06:10 | Emergency (ER) | payer MEDICAID, SELFPAY ==
[2021-08-10 06:11] VITALS: BP 121/88; PULSE 88; RESP 18; TEMP 36.2; O2SAT 98; BMI 40.4
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
[2021-08-10] MEDS: DiphenhydrAMINE 25 MG Capsule 50 MG PO (06:25)
== END 2021-08-10 06:40 | disposition home or self-care (01) ==
LOC: ED 06:39
PROVIDERS: Emergency Provider Emergency Medicine; PCP Family Medicine
DX: R21 Rash and other nonspecific skin eruption (principal); F17.200 Nicotine dependence, unspecified, uncomplicated; E66.9 Obesity, unspecified
CPT/HCPCS: 99283

== ENCOUNTER 2021-11-05 14:33 | Emergency (ER) | payer MEDICAID, SELFPAY ==
[2021-11-05 14:35] VITALS: BP 120/88; PULSE 138; RESP 18; TEMP 35.9; O2SAT 97; BMI 39.4
--- NOTE | 2021-11-05 14:42 | EDS_ITS ---
HPI History of Present Illness Chief Complaint: Upper Extremity Injury Narrative Narrative: Patient presenting for evaluation secondary to a left hand injury. Patient reports that she was roughhousing with her child yesterday and stubbed her small digit on her left hand. He developed bruising. Now there is pain on palpation and movement. Patient is right-hand dominant. Pain is sharp and moderate. Patient denies any other injuries. Review of systems otherwise negative. PFSH PFS Home Medications NK 03/19/21 [History Last Taken Unknown] Allergy/AdvReac Type Severity Reaction Status Date / Time azithromycin [From Zithromax] Allergy Hives Verified 11/05/21 14:34 codeine AdvReac Vomiting Verified 11/05/21 14:34 naproxen [From Naprosyn] AdvReac Nausea/Vom/ Verified 11/05/21 14:34 Diarrhea Social History Smoking Status: Former smoker ROS ROS ED Constitutional Constitutional ED: Denies fever(s) Respiratory/Chest Respiratory/Chest: Denies cough or dyspnea Musculoskeletal Musculoskeletal: Reports other Details: Left small digit injury Integumentary Denies Abrasions or rash Neurologic Neurologic: Denies paresthesias or weakness Hematologic/Lymphatic Hematologic/Lymphatic: Denies easy bleeding or easy bruising EXAM Physical Exam Const Vital Signs: 11/05/21 14:35 Temperature 96.7 F L Temperature Source Temporal Pulse Rate 138 H Respiratory Rate 18 Blood Pressure 120/88 H Blood Pressure Mean 98 Pulse Ox 97 Oxygen Delivery Method Room Air Positive well nourished and well developed General Appearance ED: well developed HEENT normocephalic and atraumatic Eyes EOMs intact bilaterally Neck full ROM Resp normal respiratory effort Cardio Rate: tachycardic Extremity Extremity Narrative: Examination of the patient's left hand demonstrates bruising over the distal phalanx of the small digit with tenderness palpation in that area and somewhat limited range of motion of that finger. No signs of m allet finger boutonniere deformity. No skin breakdown. Neuro oriented x3 Sensorium / Orientation: alert Psych mental status grossly normal Skin Rashes: no rashes MDM MDM MDM Narrative Medical decision making narrative: Patient presented secondary to a finger injury. Radiographs from a personal review as well as radiology are negative for bony injury. Patient does not seem to have evidence of a tendon injury, she has limited flexion and extension but does have it intact. Patient was recommended range of motion exercises ice ibuprofen. Patient was discharged. Discharge Plan Triage Chief Complaint: Upper Extremity Injury ED Provider: Bertrand Pope Dx/Rx/DC Orders Clinical Impression: Finger sprain Instructions: ED Finger Sprain Prescriptions: No Action NK RF: 0 Primary Care Provider: Yves Parker Referrals: Yves Parker MD [Primary Care Provider] - As Needed Disposition Disposition: Home, Self Care
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
[2021-11-05 14:56] VITALS: PULSE 112; O2SAT 99
[2021-11-05 15:33] VITALS: RESP 16
--- NOTE | 2021-11-05 15:33 | ED.RN ---
REVIEWED D/C INSTRUCTIONS, FOLLOW UP CARE, AND S/S THAT WOULD WARRANT A RETURN TO THE ED WITH PT. PT VERBALIZED AN UNDERSTANDING AND DENIES FURTHER QUESTIONS FOR THIS RN. PT SKIN P/W/D, RESP EVEN AND UNLABORED, PT A&O X 3, NO DISTRESS NOTED. PT AMBULATED OUT OF ED, GAIT STEADY.
== END 2021-11-05 15:34 | disposition home or self-care (01) ==
PROVIDERS: Emergency Provider Emergency Medicine; PCP Family Medicine
DX: S63.617A Unspecified sprain of left little finger, initial encounter (principal); X58.XXXA Exposure to other specified factors, initial encounter; Z87.891 Personal history of nicotine dependence
CPT/HCPCS: 73130; 99282

== ENCOUNTER 2022-01-15 18:10 | Outpatient (CLI) | payer MEDICAID, SELFPAY ==
[2022-01-15 18:17] VITALS: BMI 19.0
--- NOTE | 2022-01-15 21:23 | OB.TRI.NOTE ---
HPI - General HPI Narrative REMIGIO LEO, is a 26 F at 27.0 weeks gestation who presents to triage for a fall last night. Patient reports that she [place] She did not hit her abdomen. She denies any cramping, loss of fluid or vaginal bleeding. Positive movement. She wanted to just make sure everything was alright. Maternal Data Information YANCY Calculator Estimated Delivery Date Method Current WG Current Estimate 04/16/22 Manual 27w 0d PFSH PFSH Home Medications aspirin 81 mg PO DAILY 01/15/22 [History Last Taken 01/15/22 06:00] famotidine 20 mg PO BID 01/15/22 [History Last Taken 01/14/22 21:00] [id number] [] tab PO 01/15/22 [History Last Taken 01/15/22 06:00] Allergy/AdvReac Type Severity Reaction Status Date / Time azithromycin [From Zithromax] Allergy Hives Verified 01/15/22 18:19 codeine AdvReac Vomiting Verified 01/15/22 18:19 naproxen [From Naprosyn] AdvReac Nausea/Vom/ Verified 01/15/22 18:19 Diarrhea Social History Smoking Status: Former smoker History Elective abortions Hx Para 0 Spontaneous abortions Hx # Term Pregnancies Ectopic pregnancies Hx # Pregnancies Multiple births # of living children ROS Eyes Eyes: Denies blurry vision Cardiovascular Cardiovascular: Reports none; Denies chest pain at rest, chest pain with activity or dizziness Respiratory/Chest Respiratory/Chest: Denies cough or dyspnea Gastrointestinal Gastrointestinal: Reports none and other; Denies diarrhea or vomiting Genitourinary Genitourinary: Denies dysuria Musculoskeletal Musculoskeletal: Reports none Integumentary Integumentary: Reports none; Denies rash Neurologic Neurologic: Denies dizziness, headache(s) or other visual disturbances Psychiatric Psychiatric: Reports none Physical Exam Const alert and no apparent distress General Appearance: cooperative Orientation / Consciousness: awake Exam Limitations: no limitations HEENT normocephalic Eyes General Eye: normal appearance of both eyes Neck full ROM Chest inspection of chest normal Resp normal respiratory effort and normal air movement Effort and Inspection: symmetric chest movement Auscultation: clear to auscultation bilaterally Cardio regular rate GI soft to palpation, non-tender and non-distended Inspection: and other Back/Spine normal ROM Extremity full ROM, normal capillary refill and no calf tenderness Skin no rashes or lesions noted Neuro oriented x3 and CN's II-XII intact bilaterally Psych mental status grossly normal NST FHR Rate Baby A Baseline: 145 Variability:: Moderate Accelerations:: 15 x 15 and 10 x 10 Decelerations:: None NST Reactive:: Yes FHR Category:: Category I Uterine Activity:: None noted via TOCO or palpated Assessment & Plan (1) 27 weeks gestation of : (2) Fall: QUALIFIERS: Encounter type: initial encounter Qualified Code(s): W19.XXXA - Unspecified fall, initial encounter PLAN: NST reactive- No contractions noted via TOCO or palpated Abdomen non-tender On EFM x 60 min D/C home with follow up in office
== END 2022-01-15 23:59 | disposition home or self-care (01) ==
LOC: WPOUT 18:13 → WP 18:13
PROVIDERS: PCP Family Medicine; Visit Provider Advanced Practice Midwife
DX: O26.892 Other specified pregnancy related conditions, second trimester (principal); Z87.891 Personal history of nicotine dependence; Z3A.27 27 weeks gestation of pregnancy; Z79.82 Long term (current) use of aspirin; Z79.899 Other long term (current) drug therapy
CPT/HCPCS: 59025; 59050; 99218; G0378

== ENCOUNTER 2022-01-29 16:55 | Outpatient (CLI) | payer MEDICAID, SELFPAY ==
[2022-01-29] VITALS (23 sets, daily range): BP systolic 123–142; BP diastolic 67–75; PULSE 99–129; TEMP 36.4–36.7; O2SAT 96–98; BMI 41.4
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
== END 2022-01-29 23:59 | disposition home or self-care (01) ==
LOC: WPOUT 16:57 → WP 16:58
PROVIDERS: PCP Family Medicine; Referring Provider Advanced Practice Midwife; Visit Provider Advanced Practice Midwife
DX: O26.93 Pregnancy related conditions, unspecified, third trimester (principal); Z87.891 Personal history of nicotine dependence; Z3A.29 29 weeks gestation of pregnancy; Z79.82 Long term (current) use of aspirin; Z79.899 Other long term (current) drug therapy
CPT/HCPCS: 59025; 59050; 99218; G0378

== ENCOUNTER 2022-02-11 14:05 | Outpatient (CLI) | payer MEDICAID, SELFPAY ==
[2022-02-11 14:21] VITALS: BMI 41.3
[2022-02-11 14:31] VITALS: BP 108/68; PULSE 128; PULSE 130; TEMP 36.2; O2SAT 97
[2022-02-11 15:03] LABS: Fetal Fibronectin Negative
--- NOTE | 2022-02-12 21:04 | OB.TRI.NOTE ---
HPI - General HPI Narrative REMIGIO LEO, is a 26 F who presents for rule out PTL. Maternal Data Information YANCY Calculator Estimated Delivery Date Method Current WG Current Estimate 04/16/22 Manual 31w 0d PFSH PFSH Home Medications aspirin 81 mg PO DAILY 01/15/22 [History Last Taken 01/28/22 11:00 81 mg] famotidine 20 mg PO BID 01/15/22 [History Last Taken 01/28/22 11:00 20 mg] [id number] [] 1 tab PO DAILY 01/15/22 [History Last Taken 01/28/22 11:00 1 tab] Allergy/AdvReac Type Severity Reaction Status Date / Time azithromycin [From Zithromax] Allergy Hives Verified 01/29/22 17:15 codeine AdvReac Vomiting Verified 01/29/22 17:15 naproxen [From Naprosyn] AdvReac Nausea/Vom/ Verified 01/29/22 17:15 Diarrhea Social History Smoking Status: Former smoker History Elective abortions Hx Para 0 Spontaneous abortions Hx # Term Pregnancies Ectopic pregnancies Hx # Pregnancies Multiple births # of living children NST FHR Rate Baby A Baseline: 150 Variability:: Moderate Accelerations:: 15 x 15 Decelerations:: None NST Reactive:: Yes Assessment & Plan (1) 30 weeks gestation of : PLAN: Not in PTL FHT reactive and reassuring D/c home
== END 2022-02-11 23:59 | disposition home or self-care (01) ==
LOC: WPOUT 14:13 → WP 14:13
PROVIDERS: PCP Family Medicine; Visit Provider Obstetrics & Gynecology
DX: O47.03 False labor before 37 completed weeks of gestation, third trimester (principal); Z3A.30 30 weeks gestation of pregnancy; Z87.891 Personal history of nicotine dependence
CPT/HCPCS: 59025; 59050; 82731; 99218; G0378

== ENCOUNTER 2022-02-24 22:57 | Emergency (ER) | payer MEDICAID, SELFPAY ==
[2022-02-24 22:57] VITALS: BP 133/81; PULSE 110; RESP 18; TEMP 36.6; O2SAT 97; BMI 41.5
--- NOTE | 2022-02-24 23:06 | ED.VIS.DENTA ---
HPI History of Present Illness Chief Complaint: Dental Detail of Chief Complaint: Facial swelling that started this afternoon Informant: patient Narrative Narrative: Patient presents to the emergency department complaint of facial swelling that started this afternoon after she woke up from a nap she noticed it. Patient states that she has a broken tooth that she has had for quite some time and it has not been painful. She denies any fevers or chills or sweats. Patient states that her significant other made her come in and get evaluated because she is 33 weeks . Patient does not have a dentist. Prior similar symptoms: No PFSH PFSH Home Medications aspirin 81 mg PO DAILY 01/15/22 [History Last Taken 01/28/22 11:00 81 mg] famotidine 20 mg PO BID 01/15/22 [History Last Taken 01/28/22 11:00 20 mg] [id number]-[id number]-FA [] 1 tab PO DAILY 01/15/22 [History Last Taken 01/28/22 11:00 1 tab] clindamycin HCl [Cleocin HCl] 300 mg PO Q6H #40 capsule 02/24/22 [Rx Last Taken Unknown] Allergy/AdvReac Type Severity Reaction Status Date / Time azithromycin [From Zithromax] Allergy Hives Verified 02/24/22 23:00 codeine AdvReac Vomiting Verified 02/24/22 23:00 naproxen [From Naprosyn] AdvReac Nausea/Vom/ Verified 02/24/22 23:00 Diarrhea Social History Smoking Status: Former smoker ROS [facility] ED Constitutional Constitutional ED: Reports systems reviewed and no addt'l complaints, except as documented; Denies body ache(s), change in weight or chills Eyes Eyes: Denies acute decrease in peripheral vision, change in vision, double vision or loss of vision ENT ENT ED: Reports none and other Details: Facial swelling ; Denies ear pain, lip swelling, loss taste/smell, neck pain, otalgia or sore throat Cardiovascular Cardiovascular: Reports none; Denies abdominal pain, chest pain with activity, leg edema, lightheadedness, palpitations, rapid heart rate or syncope Respiratory/Chest Respiratory/Chest: Reports none; Denies change in mental status, dry cough, dyspnea, hemoptysis, shortness of breath at rest or shortness of breath with exertion Gastrointestinal Gastrointestinal: Reports none; Denies abdominal pain, change in stool character, diarrhea, hematemesis, hematochezia, melena, rectal bleeding or vomiting Genitourinary Genitourinary ED: Reports none; Denies abdominal discomfort, anuria, dysuria, genital pain or polyuria Musculoskeletal Musculoskeletal: Reports none; Denies arthralgias, back pain, difficulty walking, extremity pain, muscle weakness or myalgias Integumentary Reports none; Denies abscess or rash Neurologic Neurologic: Reports none; Denies abnormal gait, confusion, focal weakness, frequent falls, headache(s), loss of vision, numbness, paresthesias, radicular pain, vertigo or weakness Psychiatric Psychiatric: Reports systems reviewed and no addt'l complaints, except as documented and none; Denies behavioral changes, confusion, difficulty concentrating, hallucinations, suicidal ideation, tactile hallucinations or visual hallucinations Endocrine Endocrinology: Denies none, cold intolerance, excessive sweating, fatigue or heat intolerance Hematologic/Lymphatic Hematologic/Lymphatic: Reports none; Denies anemia, easy bleeding or easy bruising Allergic/Immunologic Allergic/Immunologic ED: Denies as per HPI, none, lip swelling, mouth swelling, throat swelling, tongue swelling or hives EXAM Physical Exam Const Vital Signs: 02/24/22 22:57 Temperature 97.9 F Temperature Source Temporal Pulse Rate 110 H Respiratory Rate 18 Blood Pressure 133/81 H Blood Pressure Mean 98 Pulse Ox 97 Oxygen Delivery Method Room Air Positive well nourished and well developed General Appearance ED: well developed and NAD HEENT Reports TM's clear and moist mucous membranes HEENT Narrative: Patient with some mild facial swelling right upper cheek area. Dentition-she does have a broken and carried tooth #3 that slightly tender to palpation. There is some gingival erythema and swelling noted. There is no fluctuance. No facial cellulitis. normocephalic and atraumatic; Negative for trauma or tenderness Tympanic Membrane ED: Yes TM's clear Eyes PERRL and EOMs intact bilaterally General Eye ED: Negative for pale conjunctiva or scleral icterus Neck no lymphadenopathy, supple and no JVD General: Negative for tenderness Chest Wall inspection of chest normal and palpation of chest normal Chest: Negative for tenderness Resp normal respiratory effort and clear to auscultation bilaterally Effort and Inspection: Negative for respiratory distress or pain with movement Auscultation: Negative for rhonchi, wheezes or diminished lung sounds Cardio regular rate, regular rhythm, S1 normal heart sound, S2 normal heart sound and no murmurs Peripheral Pulses: pulses 2+ throughout GI normal to inspection, nondistended, normoactive bowel sounds, soft to palpation, non-tender, non-distended and no masses Back/Spine no CVA tenderness and no thoracic nor lumbar tenderness Extremity normal to inspection General Extremety ED: Negative for edema General Extremity: Negative for edema Neuro oriented x3, CN's II-XII intact bilaterally, no sensory deficits noted and gait normal Sensorium / Orientation: awake, alert, oriented to person, oriented to place and oriented to time Motor Exam: strength 5/5 throughout and strength abnormal Psych mental status grossly normal Skin no rashes or lesions noted and no wounds MDM MDM MDM Narrative Medical decision making narrative: I suspect patient likely has early start of a dental abscess. Patient will be started on clindamycin. Patient to take Tylenol for discomfort as she currently does not have much discomfort. Patient will be given a list of dentists to follow-up with. Discharge Plan Triage Chief Complaint: Dental ED Provider: José Miguel Griffith Dx/Rx/DC Orders Clinical Impression: Abscess, dental Instructions: ED Abscess Antibiotic Treatment Only Prescriptions: New clindamycin HCl [Cleocin HCl] 300 MG capsule 300 mg PO Q6H Qty: 40 RF: 0 No Action 1 mg Tablet 1 tab PO DAILY RF: 0 aspirin 81 mg Tablet 81 mg PO DAILY RF: 0 famotidine 20 mg Tablet 20 mg PO BID RF: 0 Primary Care Provider: Yves Parker Referrals: Yves Parker MD [Primary Care Provider] - Activity Restrictions/Additional Instructions: Follow-up with a dentist for further evaluation and definitive treatment. Disposition Disposition: Home, Self Care
[2022-02-24] MEDS: Clindamycin HCl 150 MG Capsule 300 MG PO (23:21)
== END 2022-02-24 23:25 | disposition home or self-care (01) ==
LOC: ED 23:17
PROVIDERS: Emergency Provider Emergency Medicine; PCP Family Medicine; Visit Provider Emergency Medicine
DX: O99.613 Diseases of the digestive system complicating pregnancy, third trimester (principal); K04.7 Periapical abscess without sinus; Z87.891 Personal history of nicotine dependence; Z3A.33 33 weeks gestation of pregnancy
CPT/HCPCS: 99283

== ENCOUNTER 2022-03-13 19:28 | Outpatient (CLI) | payer MEDICAID, SELFPAY ==
[2022-03-13 19:44] VITALS: BMI 42.3
[2022-03-13 19:50] VITALS: BP 95/73; PULSE 123; TEMP 36.2; O2SAT 97
[2022-03-13 20:50] VITALS: PULSE 114; O2SAT 98
[2022-03-13 20:51] VITALS: PULSE 95
--- NOTE | 2022-03-16 09:20 | OB.TRI.HP_ITS ---
HPI - General HPI Narrative REMIGIO LEO, is a 26-year-old 2 para 1 who presented at 35-1/7 weeks gestation for complaint of contractions. Date of service was 03/13/22 Maternal Data Information YANCY Calculator Estimated Delivery Date Method Current WG Current Estimate 04/16/22 Manual 35w 4d Gestational age: 35 1/7 [facility] Medical History (Updated 03/16/22 @ 09:[address] Melody Hernandez MD) Abscess, dental premature rupture of membranes Scoliosis Second degree perineal laceration Vaginal delivery Home Medications aspirin 81 mg PO DAILY 01/15/22 [History Last Taken 03/10/22 08:00] famotidine 20 mg PO BID 01/15/22 [History Last Taken 03/13/22 19:00] [id number]-ohn-Hh-FA [] 1 tab PO DAILY 01/15/22 [History Last Taken 03/13/22 08:00] Allergy/AdvReac Type Severity Reaction Status Date / Time azithromycin [From Zithromax] Allergy Hives Verified 03/13/22 19:57 codeine AdvReac Vomiting Verified 03/13/22 19:57 naproxen [From Naprosyn] AdvReac Nausea/Vom/ Verified 03/13/22 19:57 Diarrhea Social History Smoking Status: Former smoker History Elective abortions Hx Para 0 Spontaneous abortions Hx # Term Pregnancies Ectopic pregnancies Hx # Pregnancies Multiple births # of living children NST FHR Rate Baby A Baseline: 130 Variability:: Moderate Accelerations:: 15 x 15 Decelerations:: None NST Reactive:: Yes FHR Category:: Category I Uterine Activity:: irreg ctxs Assessment & Plan (1) 35 weeks gestation of : (2) labor in third trimester without delivery: PLAN: 26-year-old 2 para 1 at 35-1/7 weeks gestation complaining of contractions. No evidence of active labor. Discharged home with routine instructions and follow-up in the office as scheduled or as needed.
== END 2022-03-13 21:02 | disposition home or self-care (01) ==
LOC: WPOUT 19:38 → WP 19:39
PROVIDERS: PCP Family Medicine; Visit Provider Advanced Practice Midwife
DX: O60.03 Preterm labor without delivery, third trimester (principal); Z3A.35 35 weeks gestation of pregnancy; Z87.891 Personal history of nicotine dependence; Z79.82 Long term (current) use of aspirin
CPT/HCPCS: 59025; 59050; 99218; G0378

== ENCOUNTER 2022-03-26 04:05 | Outpatient (CLI) | payer MEDICAID, SELFPAY ==
[2022-03-26 04:18] VITALS: TEMP 36.3
[2022-03-26 04:20] VITALS: BP 136/79; PULSE 117
[2022-03-26 04:21] VITALS: BMI 42.0
[2022-03-26 04:50] LABS: ROM Internal Control Test YES-OK TO RESULT pt. (Internal QC); ROM Patient Test Negative (Negative)
--- NOTE | 2022-03-26 06:16 | NURSING ---
0548 AM Pulse ox 88% preductal, 86% postductal, Dr Tello and CPT called to nursery while baby under warmer 0549 AM Blow by initiated via t piece 30% fio2, 86% preductal HR 120, timer restarted. 0235 timer HR 156 92%preductal 94%postductal 0410 blow by d/c to room air 92%preductal,97%postductal, Resp 44, Dr Tello consulting [facility] Adjustable Clerk.Dr Fajardo 0700 Iv inserted with one attempt per [place] 0837 HR 111, 95% preductal, 97% postductal 1439 blood sugar=78 1905 D10 0.20%NaCl @12ml/hr 0628AM ETA for [place] transport 35 min 4322 87%preductal, 86%postductal blow by initiated, Dr Tello updatued 4405 94% preductal, blow by discontinued 5011 95% HR 133, Resp 40 , resting with easy respirations , 98.[address] at warmer to assess
--- NOTE | 2022-03-26 09:13 | OB.TRI.NOTE ---
HPI - General HPI Narrative REMIGIO LEO, is a 26 F at 37 weeks who presents with leaking of fluid. Patient reports waking up in the middle of the night and underwear and sheets were soaked. She went to bathroom and thinks she continues to leak fluid. Positive movement. No vaginal bleeding or contractions. Maternal Data Information YANCY Calculator Estimated Delivery Date Method Current WG Current Estimate 04/16/22 Manual 37w 0d PFSH PFSH Medical History Abscess, dental premature rupture of membranes Scoliosis Second degree perineal laceration Vaginal delivery Home Medications aspirin 81 mg PO DAILY 01/15/22 [History Last Taken 03/25/22 14:00 1 tab] famotidine 20 mg PO BID 01/15/22 [History Last Taken 03/25/22 14:00] [id number] [] 1 tab PO DAILY 01/15/22 [History Last Taken 03/25/22 14:00] Allergy/AdvReac Type Severity Reaction Status Date / Time azithromycin [From Zithromax] Allergy Hives Verified 03/26/22 04:26 codeine AdvReac Vomiting Verified 03/26/22 04:26 naproxen [From Naprosyn] AdvReac Nausea/Vom/ Verified 03/26/22 04:26 Diarrhea Social History Smoking Status: Former smoker History Elective abortions Hx Para 0 Spontaneous abortions Hx # Term Pregnancies Ectopic pregnancies Hx # Pregnancies Multiple births # of living children ROS Eyes Eyes: Denies blurry vision Cardiovascular Cardiovascular: Reports none; Denies chest pain at rest, chest pain with activity or dizziness Respiratory/Chest Respiratory/Chest: Denies cough or dyspnea Gastrointestinal Gastrointestinal: Reports none and other; Denies diarrhea or vomiting Genitourinary Genitourinary: Denies dysuria Musculoskeletal Musculoskeletal: Reports none Integumentary Integumentary: Reports none; Denies rash Neurologic Neurologic: Denies dizziness, headache(s) or other visual disturbances Psychiatric Psychiatric: Reports none NST FHR Rate Baby A Baseline: 155 Variability:: Moderate Accelerations:: 15 x 15 Decelerations:: None NST Reactive:: Yes FHR Category:: Category I Uterine Activity:: None noted Assessment & Plan (1) 37 weeks gestation of : (2) Leakage of amniotic fluid: PLAN: CAT. 1 tracing NST reactive ROM plus- negative D/C home with labor precautions and follow up in office
== END 2022-03-26 05:09 | disposition home or self-care (01) ==
LOC: WPOUT 04:08 → WP 04:08
PROVIDERS: PCP Family Medicine; Visit Provider Advanced Practice Midwife
DX: O47.1 False labor at or after 37 completed weeks of gestation (principal); Z79.82 Long term (current) use of aspirin; Z3A.37 37 weeks gestation of pregnancy; Z87.891 Personal history of nicotine dependence; Z79.899 Other long term (current) drug therapy
CPT/HCPCS: 59025; 59050; 84112; 99218; G0378

== ENCOUNTER 2022-04-04 22:38 | Outpatient (CLI) | payer MEDICAID, SELFPAY ==
[2022-04-04 23:00] VITALS: BP 159/87; PULSE 105
[2022-04-04 23:16] VITALS: BP 126/72; PULSE 97
[2022-04-04 23:36] LABS: ROM Internal Control Test YES-OK TO RESULT pt. (Internal QC); ROM Patient Test Negative (Negative)
[2022-04-04 23:47] VITALS: BMI 42.7
[2022-04-04 23:55] VITALS: BP 132/91; PULSE 96
[2022-04-05] MEDS: Mag Hydrox/Al Hydrox/Simeth 30 ML UDC PO
[2022-04-05 00:12] VITALS: BP 129/81; PULSE 106
--- NOTE | 2022-04-05 07:37 | OB.TRI.HP_ITS ---
HPI - General HPI Narrative REMIGIO LEO, is a 26 F who presents for leakage of fluid and contractions at 38w3d. . Maternal Data Information YANCY Calculator Estimated Delivery Date Method Current WG Current Estimate 04/16/22 Manual 38w 3d PFSH PFS Medical History Abscess, dental premature rupture of membranes Scoliosis Second degree perineal laceration Vaginal delivery Home Medications aspirin 81 mg PO DAILY 01/15/22 [History Last Taken 04/03/22 10:00] famotidine 20 mg PO BID 01/15/22 [History Last Taken 04/03/22 10:00] [id number] [] 1 tab PO DAILY 01/15/22 [History Last Taken 04/03/22 10:00] Allergy/AdvReac Type Severity Reaction Status Date / Time azithromycin [From Zithromax] Allergy Hives Verified 04/04/22 23:21 codeine AdvReac Vomiting Verified 04/04/22 23:21 naproxen [From Naprosyn] AdvReac Nausea/Vom/ Verified 04/04/22 23:21 Diarrhea Social History Smoking Status: Former smoker History Elective abortions Hx Para 0 Spontaneous abortions Hx # Term Pregnancies Ectopic pregnancies Hx # Pregnancies Multiple births # of living children ROS Constitutional Constitutional: Reports systems reviewed and no addt'l complaints, except as documented; Denies headache(s) Eyes Eyes: Denies acute decrease in peripheral vision, blurry vision or change in vision ENT HEENT: Reports systems reviewed and no addt'l complaints, except as documented Cardiovascular Cardiovascular: Denies chest pain or dizziness Respiratory/Chest Respiratory/Chest: Denies cough, dyspnea, dyspnea on exertion, shortness of breath at rest or shortness of breath with exertion Gastrointestinal Gastrointestinal: Denies abdominal pain, diarrhea, nausea or vomiting Genitourinary Genitourinary: Denies abdominal discomfort or movement Musculoskeletal Musculoskeletal: Denies limited range of motion Integumentary Integumentary: Reports systems reviewed and no addt'l complaints, except as docu mented Neurologic Neurologic: Reports systems reviewed and no addt'l complaints, except as documented Psychiatric Psychiatric: Reports systems reviewed and no addt'l complaints, except as documented Endocrine Endocrinology: Reports systems reviewed and no addt'l complaints, except as documented Hematologic/Lymphatic Hematologic/Lymphatic: Reports systems reviewed and no addt'l complaints, except as documented Allergic/Immunologic Allergic/Immunologic: Reports systems reviewed and no addt'l complaints, except as documented Physical Exam Manual OB Exam: dilated 1cm Amniotic Fluid: no amniotic fluid noted and ROM+plus negative - NST FHR Rate Baby A Baseline: 135 Variability:: Moderate Accelerations:: 15 x 15 Decelerations:: None NST Reactive:: Yes Uterine Activity:: Irregular, mild Assessment & Plan (1) Leakage of amniotic fluid: (2) 38 weeks gestation of : (3) False labor: PLAN: 1) False labor, sings and symptoms of labor reviewed 2) NST reactive 3) D/C home
== END 2022-04-05 00:30 | disposition home or self-care (01) ==
LOC: WPOUT 22:45 → WP 22:46
PROVIDERS: PCP Family Medicine; Visit Provider Advanced Practice Midwife
DX: O42.92 Full-term premature rupture of membranes, unspecified as to length of time between rupture and onset of labor (principal); O47.1 False labor at or after 37 completed weeks of gestation; Z87.891 Personal history of nicotine dependence; Z3A.38 38 weeks gestation of pregnancy
CPT/HCPCS: 84112; G0378 ×2; 59050 ×2; 59025; 99218

== ENCOUNTER 2022-04-06 01:30 | Inpatient (IN) | payer MEDICAID, SELFPAY ==
[2022-04-06] VITALS (55 sets, daily range): BP systolic 85–136; BP diastolic 50–92; PULSE 72–214; TEMP 36.1–37.4; O2SAT 82–100; BMI 43.0
[2022-04-06 01:29] LABS: ROM Internal Control Test YES-OK TO RESULT pt. (Internal QC)
[2022-04-06 01:30] LABS: ROM Patient Test POSITIVE (Negative)
[2022-04-06] MEDS: Lactated Ringers 1,000 ML 50 ML IV (02:18)
[2022-04-06 02:27] LABS: Absolute Lymphocyte Count 1.86 X10^3/uL (0.83-4.51); Absolute Neutrophil Count 7.6 X10^3/uL (2.0-7.7); Basophil# 0.02 X10^3/uL; Basophil% 0.2 % (0-1); Eosinophil# 0.08 X10^3/uL; Eosinophils% 0.8 % (0-5); Hematocrit 33.8 % (37-47); Hemoglobin 11.1 g/dL (12.0-15.0); Lymphocyte # 1.86 X10^3/ul (0.83-4.51); Lymphocyte % 18.2 % (19-41); Mean Corp Hgb Conc 32.8 g/dL (32-36); Mean Corpuscular Hgb 29.1 pg (27.0-32.0); Mean Corpuscular Volume 88.7 fL (81-99); Monocyte# 0.65 X10^3/uL; Monocyte% 6.3 % (0-10); NRBC Flagged by Analyzer 0 % (0-5); Neutrophil # 7.59 X10^3/uL (2.7-7.7); Neutrophil % 74.1 % (47-70); Platelet Count 182 K/mm3 (150-450); RBC Distribution Width CV 13.7 % (11.6-14.6); RBC Distribution Width SD 44.3 fl (35.1-43.9); Red Blood Count 3.81 M/mm3 (4.2-5.4); White Blood Count 10.2 K/mm3 (4.4-11.0)
[2022-04-06] MEDS: Acetaminophen 500 MG Tablet PO (03:23)
[2022-04-06 03:25] LABS: Amphetamine Urine VISTA NEGATIVE (<1000 ng/mL); Barbiturate Urine VISTA NEGATIVE (< 200 ng/mL); Benzodiazepine Urine VISTA NEGATIVE (< 200 ng/mL); Cocaine Urine VISTA NEGATIVE (< 300 ng/mL); Ecstacy Urine VISTA NEGATIVE (< 500 ng/mL); Methadone Urine VISTA NEGATIVE (< 300 ng/mL); PCP Urine VISTA NEGATIVE (< 25 ng/mL); THC Urine VISTA NEGATIVE (< 50 ng/mL); Vista UDS pH Range 6
[2022-04-06] MEDS: Oxytocin 30 units/NS 500 ml 30 UNITS/500 ML IV.SOLN IV (04:19)
--- NOTE | 2022-04-06 08:49 | PCM.HP.OB ---
HPI - General General Date of Admission: 04/06/22 HPI Narrative REMIGIO LEO, is a 26 F who presents with LOF. Maternal Data Information YANCY Calculator Estimated Delivery Date Method Current WG Current Estimate 04/16/22 Manual 38w 4d PFSH PFSH Medical History Abscess, dental premature rupture of membranes Scoliosis Second degree perineal laceration Vaginal delivery Home Medications aspirin 81 mg PO DAILY 01/15/22 [History Last Taken 04/05/22 09:00] famotidine 20 mg PO BID 01/15/22 [History Last Taken 04/05/22 09:00] [id number] [] 1 tab PO DAILY 01/15/22 [History Last Taken 04/05/22 09:00] Allergy/AdvReac Type Severity Reaction Status Date / Time azithromycin [From Zithromax] Allergy Hives Verified 04/06/22 02:07 codeine AdvReac Vomiting Verified 04/06/22 02:07 naproxen [From Naprosyn] AdvReac Nausea/Vom/ Verified 04/06/22 02:07 Diarrhea Social History Smoking Status: Former smoker History Elective abortions Hx Para 1 Spontaneous abortions Hx # Term Pregnancies Ectopic pregnancies Hx # Pregnancies Multiple births # of living children NST FHR Rate Baby A Baseline: 130 Variability:: Moderate Accelerations:: 15 x 15 Decelerations:: None Uterine Activity:: Q 3-4 min Vital Signs Vital Signs Vital Signs: 04/06/22 01:03 04/06/22 02:32 04/06/22 03:14 Temperature 98.6 F 98.0 F Temperature Source Temporal Temporal Pulse Rate 108 H 110 H 113 H Blood Pressure 108/58 L 97/53 L 96/52 L BP Systolic 108 97 96 BP Diastolic 58 53 52 Pulse Ox 99 98 04/06/22 04:17 04/06/22 05:31 04/06/22 05:32 Temperature 97.2 F L 97.3 F L Temperature Source Temporal Temporal Pulse Rate 111 H 97 Blood Pressure 104/58 L 94/68 BP Systolic 104 94 BP Diastolic 58 68 Pulse Ox 97 100 98 04/06/22 06:05 04/06/22 06:06 04/06/22 07:32 Temperature 97.0 F L 97.3 F L Temperature Source Temporal Temporal Pulse Rate 110 H 98 Blood Pressure 111/70 136/65 H BP Systolic 111 136 BP Diastolic 70 65 Pulse Ox 98 97 04/06/22 08:23 Temperature Temperature Source Pulse Rate 99 Blood Pressure 120/70 BP Systolic 120 BP Diastolic 70 Pulse Ox Weight Weight: 258 lb 13.163 oz Body Mass Index (BMI) 43.0 Physical Exam Const alert and oriented x3 Resp normal respiratory effort GI soft to palpation, non-tender and non-distended Inspection: gravid Narrative: cvx - 2.5/60/-3 per RN Labs Labs Labs: Blood Type O POSITIVE Antibody Screen NEGATIVE Hct 33.8 % (37-47) L Hgb 11.1 g/dL (12.0-15.0) L Group B Strep DNA Negative (Negative) Rhogam given: No Assessment & Plan (1) 38 weeks gestation of : (2) Leakage of amniotic fluid: COMMENT: @ 38&4 PLAN: Admit to L&D Induction with pitocin for SROM GBS negative COVID negative Pain - epidural as desired EFW - less than 4500g, patient with adequate pelvis Routine care
[2022-04-06] MEDS: Lactated Ringers 500 ML 999 ML IV ×2 (10:52→15:45)
[2022-04-06] MEDS: fentaNYL-bupivacaine (epidural) 100 ML BAG EPIDURAL ×2 (11:35→15:53)
[2022-04-06] MEDS: Lactated Ringers 1,000 ML 200 ML IV ×2 (13:09→19:21)
[2022-04-06] MEDS: Mag Hydrox/Al Hydrox/Simeth 30 ML UDC PO (18:04)
[2022-04-06] MEDS: Oxytocin 30 units/NS 500 ml 30 UNITS/500 ML IV.SOLN 334 UNITS IV (20:42)
--- NOTE | 2022-04-06 20:58 | EX.PCM.OBRPT ---
Maternal Data Information YANCY Calculator Estimated Delivery Date Method Current WG Current Estimate 04/16/22 Manual 38w 4d Vaginal Delivery Maternal Presentation Maternal Presentation: Spontaneous Rupture of Membranes Type of Induction: Pitocin Operative Information Date of Procedure: 04/06/22 Pre-Operative Diagnosis: SROM Post-Operative Diagnosis: SROM Surgery / Procedure Performed: Spontaneous Vaginal Delivery Type of Anesthesia: Epidural Estimated Blood Loss: 300ml Findings Description of Procedure: Patient prepped & draped when C/C/+2. She pushed well to deliver the head. head gently guided to allow delivery of anterior and posterior shoulders. No excess traction placed on head. Body delivered and 3VC clamped & cut in delayed fashion. Placenta delivered with gentle traction and good uterine tone obtained. Presentation: FREIDA Amniotic Membrane Rupture Type: Spontaneous Amniotic Fluid Description: Clear Placental Delivery Description: Expressed Placenta Disposition: [facility] Specimen(s) Removed: Placenta Cord Vessel Description: 3 Vessels Cord Entanglement: None A Gender: Female (Sylvie) (1 minute): 9 (5 minute): 9 Delayed Cord Clamping: Yes Post Vaginal Delivery Medications Given After Delivery: IV Pitocin Episiotomy Description: None Laceration: 1st degree (left vaginal - repaired with 3-0 vicryl) Complication Complications: None
[2022-04-07 00:25] VITALS: BP 127/69; PULSE 103; RESP 16; TEMP 36.7; O2SAT 97
[2022-04-07] MEDS: Ibuprofen 600 MG Tablet PO ×4 (00:35→22:43)
[2022-04-07 04:09] VITALS: BP 124/77; PULSE 101; RESP 16; TEMP 37
[2022-04-07] MEDS: Acetaminophen 500 MG Tablet 1000 MG PO (05:09)
[2022-04-07 08:20] VITALS: BP 127/82; PULSE 83; RESP 16; TEMP 36.3; O2SAT 96
[2022-04-07] MEDS: Senna/Docusate Sodium 1 Tablet PO (08:25)
[2022-04-07 12:05] VITALS: BP 130/79; PULSE 102; RESP 18; TEMP 36.1; O2SAT 98
--- NOTE | 2022-04-07 13:12 | PCM.PN.OB ---
Subjective Subjective She is doing well. Denies any complaints. Per nursing staff no issues. Social work is in the room meeting with the patient currently. Objective Data Objective Data Vital Signs: Vital Signs Temp Pulse Resp BP Pulse Ox 96.9 F L 102 H 18 130/79 H 98 04/07/22 12:05 04/07/22 12:05 04/07/22 12:05 04/07/22 12:05 04/07/22 12:05 Oxygen Delivery Method Room Air Weight: 258 lb 13.163 oz Body Mass Index (BMI) 43.0 Intake & Output: Intake and Output for Last 24 Hours 04/05/22 04/06/22 04/07/22 23:59 23:59 23:59 Intake Total 4093.98 / 4093.98 Output Total 550 / 550 500 / 500 Balance 3543.98 / 3543.98 -500 / -500 Lab / Micro Data Result Diagrams: 04/06/22 02:15 Micro: Microbiology 04/06/22 01:50 Nasal Secretion SARS-CoV-2 Antigen (Rapid) - Final Physical Exam Const alert and no apparent distress General Appearance: comfortable Assessment & Plan (1) Vaginal delivery: PLAN: Is day 1 from a vaginal delivery. Doing well. Social work seeing. Anticipate discharge tomorrow.
[2022-04-07 16:25] VITALS: BP 128/88; PULSE 102; RESP 18; TEMP 36.2; O2SAT 98
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
[2022-04-07 20:44] VITALS: BP 106/75; PULSE 96; RESP 16; TEMP 36.1
[2022-04-08] MEDS: Acetaminophen 500 MG Tablet 1000 MG PO (00:03)
[2022-04-08 01:31] VITALS: BP 121/74; PULSE 97; RESP 16; TEMP 36.6
[2022-04-08 08:32] VITALS: BP 111/72; RESP 16; TEMP 36.3; O2SAT 98
--- NOTE | 2022-04-08 10:10 | PCM.PN.OB ---
Subjective Subjective Patient is doing well. Pain is well controlled. Ambulating voiding without difficulty. Lochia normal. She is bottlefeeding. She denies chest pain, shortness of breath, leg pain. She desires discharge today. Objective Data Objective Data Vital Signs: Vital Signs Temp Pulse Resp BP Pulse Ox 97.4 F L 97 16 111/72 98 04/08/22 08:32 04/08/22 01:31 04/08/22 08:32 04/08/22 08:32 04/08/22 08:32 Oxygen Delivery Method Room Air Weight: 258 lb 13.163 oz Body Mass Index (BMI) 43.0 Intake & Output: Intake and Output for Last 24 Hours 04/06/22 04/07/22 04/08/22 23:59 23:59 23:59 Intake Total 4093.98 / 4093.98 Output Total 550 / 550 500 / 500 Balance 3543.98 / 3543.98 -500 / -500 Lab / Micro Data Result Diagrams: 04/06/22 02:15 Micro: Microbiology 04/06/22 01:50 Nasal Secretion SARS-CoV-2 Antigen (Rapid) - Final Physical Exam Const alert and no apparent distress General Appearance: comfortable HEENT normocephalic Resp normal respiratory effort Assessment & Plan (1) Vaginal delivery: PLAN: Patient is day 2 from a vaginal delivery. She is doing well. Reviewed discharge instructions. Discharge home today.
--- NOTE | 2022-04-08 10:12 | PCM.DC ---
Discharge Instructions Diet Discharge Diet: No restrictions Activity Discharge Activity: May Shower May resume sexual activity in: 6 weeks Ice area for (Minutes): 15 Weight Bearing Status: Weight bearing as tolerated Lifting Restrictions: Nothing heavier than baby Dressing / Incision Call your doctor if you observe: Fever of 101 or Higher, Coldness, Increased Pain, Numbness or Tingling, Change in Color, Inability to urinate, Inability to have a bowel movement, Using more than 1 pad per hour, Shortness of breath, Dizziness, Fainting spells, Swelling in the ankles, Chest pain, Increased palpitations (irregular heartbeat), Calf discomfort and Uncontrolled pain Follow Up Care When: 1-2 weeks for early visit 6 week Test Results: Test results from this visit will be discussed in further detail at your follow-up appointment, if applicable. Discharge Plan Admission Admit Date/Time: 04/06/22 01:30 Primary Reason for Your Visit: delivery Attending Provider: Selam Viera Primary Care Provider: Yves Parker Instructions Patient Instructions: After a Vaginal Discharge Orders/Prescriptions Prescriptions: Continued [id number]-[id number]-[id number]-FA 1 mg Tablet 1 tab PO DAILY RF: 0 Discontinued aspirin 81 mg Tablet 81 mg PO DAILY RF: 0 famotidine 20 mg Tablet 20 mg PO BID RF: 0 Referrals / Follow Up: Yves Parker MD [Primary Care Provider] - Disposition Disposition (needs filled in before D/C Order can be placed): Home, Self Care
--- NOTE | 2022-04-13 14:06 | NURSING ---
Doing well, really liked all her nurses.
--- NOTE | 2022-04-18 16:44 | CASEMGMT ---
Social Work Labor and Delivery unit Help me grow referral submitted through the [facility] assisted care web-based referral system. No other services requested or indicated. -BERNY Birmingham, SENIOR ELECTRONICS DESIGN ENGINEER. *This note was generated with [employer] dictation software. It may contain incorrect words, spelling, and punctuation that were not noted in review of the chart prior to signing*
== END 2022-04-08 10:43 | disposition home or self-care (01) | DRG 560 ==
LOC: WPOUT 01:35 → WP 01:35
PROVIDERS: Admitting Provider Advanced Practice Midwife; PCP Family Medicine; Visit Provider Advanced Practice Midwife
DX: O42.92 Full-term premature rupture of membranes, unspecified as to length of time between rupture and onset of labor (principal); Z37.0 Single live birth; O71.4 Obstetric high vaginal laceration alone; Z3A.38 38 weeks gestation of pregnancy
CPT/HCPCS: 59025; 59050; 80307; 84112; 85025; 86850; 86900; 86901; 87426; 99218; 99406; J7120; G0378

== ENCOUNTER 2022-04-24 17:21 | Emergency (ER) | payer MEDICAID, SELFPAY ==
[2022-04-24 17:22] VITALS: BP 134/76; PULSE 99; RESP 14; TEMP 36.7; O2SAT 100; BMI 38.0
--- NOTE | 2022-04-24 18:00 | EX.ED.DYSGE1 ---
HPI History of Present Illness Chief Complaint: Dizziness Informant: patient Narrative Narrative: Patient is a 26 yof presenting to the ed with 24 h hx of lightheadedness. She notes rhinnorhea, cough, sore throat, nausea and body aches. No fever. Arms and legs feel weak. No V/D. no rashes. No headaches. PFSH PFS Medical History Abscess, dental premature rupture of membranes Scoliosis Second degree perineal laceration Vaginal delivery Vaginal delivery Home Medications [id number] 1 tab PO DAILY 01/15/22 [History Last Taken 04/05/22 09:00] Allergy/AdvReac Type Severity Reaction Status Date / Time azithromycin [From Zithromax] Allergy Hives Verified 04/24/22 17:22 codeine AdvReac Vomiting Verified 04/24/22 17:22 naproxen [From Naprosyn] AdvReac Nausea/Vom/ Verified 04/24/22 17:22 Diarrhea Social History (Updated 04/24/22 @ 18:[address] Olayinka Thompson DO) current gender identity: female Smoking Status: Former smoker ROS ROS ED ROS Narrative fatigue and lightheadedness Constitutional Constitutional ED: Denies chills, fever(s) or weight loss Eyes Eyes: Denies change in vision or diplopia ENT ENT ED: Reports rhinorrhea and sore throat; Denies ear pain Cardiovascular Cardiovascular: Denies chest pain, orthopnea, palpitations or racing heartbeat Respiratory/Chest Respiratory/Chest: Reports cough; Denies dyspnea or orthopnea Gastrointestinal Gastrointestinal: Denies abdominal pain, diarrhea, nausea or vomiting Genitourinary Genitourinary ED: Denies dysuria, hematuria or urinary frequency Musculoskeletal Musculoskeletal: Reports myalgias; Denies arthralgias Integumentary Denies abscess or rash Neurologic Neurologic: Reports weakness; Denies headache(s) Psychiatric Psychiatric: Denies anxiety, depression, suicidal ideation or suicidal thoughts Endocrine Endocrinology: Denies polydipsia, polyphagia or polyuria Allergic/Immunologic Allergic/Immunologic ED: Denies mouth swelling, tongue swelling or urticaria EXAM Physical Exam Const Vital Signs: 04/24/22 17:22 04/24/22 17:30 Temperature 98.1 F Temperature Source Temporal Pulse Rate 99 Respiratory Rate 14 Respiratory Effort Normal Respiratory Pattern Normal Blood Pressure 134/76 H Blood Pressure Mean 95 Pulse Ox 100 Oxygen Delivery Method Room Air Positive well nourished, well developed and obese General Appearance ED: well developed Nutritional Appearance: obese HEENT Reports normocephalic, head/scalp atraumatic, TM's clear and moist mucous membranes Negative for trauma Tympanic Membrane ED: Yes TM's clear Eyes PERRL and EOMs intact bilaterally Neck no lymphadenopathy, supple and no JVD Resp normal respiratory effort and clear to auscultation bilaterally Cardio regular rate, regular rhythm and no murmurs GI normal to inspection, nondistended, normoactive bowel sounds and non-tender Palpation: soft Back/Spine no CVA tenderness and normal ROM Extremity normal to inspection General Extremety ED: Negative for edema General Extremity: Negative for edema Neuro oriented x3 and CN's II-XII intact bilaterally Sensorium / Orientation: alert Motor Exam: strength 5/5 throughout Psych mental status grossly normal Mood & Affect: Negative for depressed or tearful Skin no rashes or lesions noted and no wounds MDM MDM MDM Narrative Medical decision making narrative: Basic blood work was very normal. Urinalysis contaminated but without overt infection test is negative. COVID influenza testing was also negative. At this point patient will be discharged home would recommend rest return if new symptoms or concerns Lab Data Attestation: I reviewed the patient's lab results. Labs: Laboratory Results - last 24 hr 04/24/22 04/24/22 04/24/22 18:20 18:20 18:30 WBC 5.4 RBC 4.57 Hgb 12.8 Hct 40.2 MCV 88.0 MCH 28.0 MCHC 31.8 L RDW Std Deviation 40.5 RDW Coeff of Aaron 12.5 Plt Count 209 MPV 10.8 Immature Gran % (Auto) 0.400 Neut % (Auto) 84.7 H Lymph % (Auto) 6.8 L [place] % (Auto) 7.5 Eos % (Auto) 0.4 Baso % (Auto) 0.2 Absolute Neuts (auto) 4.6 Absolute Lymphs (auto) 0.37 L Nucleated RBC % 0 Sodium 138 Potassium 3.8 Chloride 108 H Carbon Dioxide 24.0 Anion Gap 6 BUN 11 Creatinine 0.86 Estim Creat Clear Calc 90.77 Est GFR (MDRD) Af Amer 104 Est GFR (MDRD) Non-Af 86 BUN/Creatinine Ratio 12.8 Glucose 93 Calcium 8.4 L Total Bilirubin 0.40 AST 18 ALT 19 Alkaline Phosphatase 131 H Total Protein 7.1 Albumin 3.4 Globulin 3.7 Albumin/Globulin Ratio 0.9 Urine Color Yellow Urine Clarity Clear Urine pH 7.0 Ur Specific [place] 1.010 Urine Protein 15 H Urine Glucose (UA) Normal Urine Ketones Negative Urine Occult Blood 10 H Urine Nitrite Negative Urine Bilirubin Negative Urine Urobilinogen Normal Ur Leukocyte Esterase 25 H Urine RBC 0-5 SEEN Urine WBC 0-5 SEEN Ur Squamous Epith Cells 5-10 SEEN Urine Bacteria 1+ Urine Test Negative Discharge Plan Triage Chief Complaint: Dizziness ED Provider: Olayinka Thompson Dx/Rx/DC Orders Clinical Impression: Light-headedness, Acute viral syndrome Instructions: ED Dizziness, Uncertain Cause Prescriptions: No Action [id number] 1 mg Tablet 1 tab PO DAILY RF: 0 Primary Care Provider: Yves Parker Referrals: Yves Parker MD [Primary Care Provider] - As Needed Disposition Disposition: Home, Self Care
[2022-04-24 18:47] LABS: Absolute Lymphocyte Count 0.37 X10^3/uL (0.83-4.51); Absolute Neutrophil Count 4.6 X10^3/uL (2.0-7.7); Basophil# 0.01 X10^3/uL; Basophil% 0.2 % (0-1); Eosinophil# 0.02 X10^3/uL; Eosinophils% 0.4 % (0-5); Hematocrit 40.2 % (37-47); Hemoglobin 12.8 g/dL (12.0-15.0); Lymphocyte # 0.37 X10^3/ul (0.83-4.51); Lymphocyte % 6.8 % (19-41); Mean Corp Hgb Conc 31.8 g/dL (32-36); Mean Platelet Vol. 10.8 fl (6.2-12.0); Monocyte# 0.41 X10^3/uL; Monocyte% 7.5 % (0-10); NRBC Flagged by Analyzer 0 % (0-5); Neutrophil # 4.61 X10^3/uL (2.7-7.7); Neutrophil % 84.7 % (47-70); POSITIVE DIFFERENTIAL YES; Platelet Count 209 K/mm3 (150-450); RBC Distribution Width CV 12.5 % (11.6-14.6); RBC Distribution Width SD 40.5 fl (35.1-43.9); Red Blood Count 4.57 M/mm3 (4.2-5.4); White Blood Count 5.4 K/mm3 (4.4-11.0)
[2022-04-24 18:48] LABS: Differential Indicated SCAN CRITERIA MET
[2022-04-24 18:55] LABS: ALB/GLOB Ratio 0.9 RATIO (0.9-2.4); AST(SGOT) 18 U/L (15-37); Alanine Aminotransfer ALT/SGPT 19 U/L (13-56); Albumin, Serum 3.4 g/dL (3.2-5.0); Alkaline Phosphatase 131 U/L (45-117); Anion Gap 6 (5-15); BUN 11 mg/dL (7-18); BUN/Creat Ratio 12.8 RATIO (10-20); Calcium,Total 8.4 mg/dL (8.5-10.1); Chloride 108 mmol/L (98-107); Creatinine, Serum 0.86 mg/dL (0.55-1.02); EST Glomerular Filtration Rate 86 mL/min (>60); Est Glom Filt Rate - Afr Amer 104 mL/min (>60); Estimated Creatinine Clearance 90.77 ml/min; Globulin 3.7 g/dL (2.2-4.2); Glucose 93 mg/dL (74-106); Potassium 3.8 mmol/L (3.5-5.1); Protein, Total 7.1 g/dL (6.4-8.2); Sodium Level 138 mmol/L (136-145)
[2022-04-24 19:08] LABS: Anisocytosis RARE; Macrocytosis RARE; Platelet Estimate ADEQUATE (ADEQ); Red Cell Morphology N CHROM NORMAL (NORM C&C)
== END 2022-04-24 19:23 | disposition home or self-care (01) ==
PROVIDERS: Emergency Provider Emergency Medicine; PCP Family Medicine; Visit Provider Emergency Medicine
DX: R42 Dizziness and giddiness (principal); B34.9 Viral infection, unspecified; E66.9 Obesity, unspecified; Z87.891 Personal history of nicotine dependence
CPT/HCPCS: 81025; 81001; 80053; 85025; 87428; 99283; A4216

== ENCOUNTER 2022-07-07 12:20 | Emergency (ER) | payer MEDICAID, SELFPAY ==
[2022-07-07 12:21] VITALS: BP 129/90; PULSE 98; RESP 18; TEMP 36.5; O2SAT 99; BMI 37.0
--- NOTE | 2022-07-07 12:55 | EDS_ITS ---
HPI HPI - Female History of Present Illness Chief Complaint: Narrative Narrative: Patient is a G3, P2 who presents with 2 positive home test. She states that she had her last child approximately 3 months ago. She was late on her menses, the last being May 24, and she was having a few regular menses as she had switched dates after the of her second child. She denies any current vaginal bleeding or pelvic cramping. No other symptoms. She states she did 2 home test and called her BRAILLE DUPLICATING MACHINE OPERATOR, Dr. Hernandez, and was told to come to the emergency department for any other testing that may be necessary to see how far along she may be. [facility] Medical History Abscess, dental premature rupture of membranes Scoliosis Second degree perineal laceration Vaginal delivery Vaginal delivery Home Medications fghcnjgq-lnx-Km-FA 1 mg tablet 1 tab PO DAILY pregancy 01/15/22 [History Last Taken 04/05/22 09:00] Allergy/AdvReac Type Severity Reaction Status Date / Time azithromycin [From Zithromax] Allergy Hives Verified 07/07/22 12:22 codeine AdvReac Vomiting Verified 07/07/22 12:22 naproxen [From Naprosyn] AdvReac Nausea/Vom/ Verified 07/07/22 12:22 Diarrhea Social History Smoking Status: Former smoker ROS ROS ED ROS Narrative Constitutional: No fever, no chills. HEENT: No sore throat. No neck pain. No loss of vision. No rhinorrhea. Cardiovascular: No chest pain. No palpitations. No pedal edema. Respiratory: No cough, no shortness of breath. Abdominal: No abdominal pain. No nausea. No vomiting. Genitourinary: No dysuria. No hematuria. Positive home tests. Musculoskeletal: No myalgias. No arthralgias. Neurologic: No headaches. No dizziness. No lightheadedness. Skin: No rash. No change in color. Psychiatric: No depression. No anxiety. EXAM Physical Exam Narrative Exam Narrative: Afebrile. Vital signs noted. HEENT: Normocephalic. Atraumatic. PERRL, EOMI. Neck soft and supple. No point tenderness or step off. Cardiovascular: Regular rate and rhythm. No murmurs, rubs, or gallops appreciated. Respiratory: No tachypnea. Lungs clear to auscultation bilaterally. Gastrointestinal: Abdomen soft, nontender, with normoactive bowel sounds. No rebound or guarding. Neurological: Awake. Alert. Nonfocal, nonlateralizing. Skin: No rash. Normal color. No pallor. Musculoskeletal: No pedal edema. Full range of motion extremities. Const Vital Signs: 07/07/22 12:21 Temperature 97.7 F L Temperature Source Temporal Pulse Rate 98 Respiratory Rate 18 Blood Pressure 129/90 H Blood Pressure Mean 103 Pulse Ox 99 Oxygen Delivery Method Room Air MDM MDM MDM Narrative Medical decision making narrative: Patient did show a picture of 2 positive home tests. I did offer to repeat one here, even perform a serum test but she declined. She is asymptomatic. I do not feel that emergent ultrasound is indicated. Given that her last menstrual period was May 24, I do estimate her to be at approximately 6 weeks and 2 days. She would like to follow-up with her BRAILLE DUPLICATING MACHINE OPERATOR. She was instructed to call them as soon as possible. She will take vitamins and smoking cessation was discussed. As she is not having any pain or bleeding, I feel she be discharged safely home with follow-up. Return instructions to the emergency department were reviewed. Disposition is discharged home in stable condition. Discharge Plan Triage Chief Complaint: ED Provider: Amish Cochran Dx/Rx/DC Orders Clinical Impression: , Encounter for medical screening examination Instructions: ED , New Dx Prescriptions: No Action [id number] 1 mg Tablet 1 tab PO DAILY Primary Care Provider: Yves Parker Referrals: Melody Hernandez MD [Med Staff - Active Staff] - As soon as possible Yves Parker MD [Primary Care Provider] - Disposition Disposition: Home, Self Care
== END 2022-07-07 12:59 | disposition home or self-care (01) ==
LOC: ED 12:57
PROVIDERS: Emergency Provider Emergency Medicine; PCP Family Medicine; Visit Provider Emergency Medicine
DX: Z34.81 Encounter for supervision of other normal pregnancy, first trimester (principal); Z87.891 Personal history of nicotine dependence; Z3A.01 Less than 8 weeks gestation of pregnancy
CPT/HCPCS: 99282

== ENCOUNTER 2022-07-31 01:09 | Emergency (ER) | payer MEDICAID, SELFPAY ==
[2022-07-31 01:11] VITALS: BP 116/78; PULSE 97; RESP 16; TEMP 36.4; O2SAT 98; BMI 36.6
--- NOTE | 2022-07-31 02:00 | RAD_ITS ---
INDICATION: pain EXAMINATION/TECHNIQUE: X-RAY - LEFT XR Foot Min 3 Views 3 VIEWS COMPARISON: None. FINDINGS: SOFT TISSUES: No soft tissue swelling or gas. No radiopaque foreign body. BONES/JOINTS: No acute fracture or subluxation.. Normal alignment. Preservation of the joint space.. No sclerotic or destructive changes observed. RAD/Foot min 3 Views IMPRESSION: No acute fracture or dislocation. Electronically Signed: Douglas Edwards MD at 2:13 EDT ,
--- NOTE | 2022-07-31 02:22 | EX.ED.DYSGE1 ---
HPI History of Present Illness Chief Complaint: Lower Extremity Injury Narrative Narrative: Patient is a 26-year-old female who states she is approximately 10 weeks . She reports about 1 week ago she was walking to the house when she stepped on a toy of her child. This caused her to roll her left ankle inward. She states that since that time when she puts pressure on it there is pain and she has felt a pop. She states her symptoms have not resolved with time and therefore she comes in for evaluation [facility] Medical History Abscess, dental premature rupture of membranes Scoliosis Second degree perineal laceration Vaginal delivery Vaginal delivery Home Medications [id number]-[id number]-Zt-FA 1 mg tablet 1 tab PO DAILY pregancy 01/15/22 [History Last Taken 04/05/22 09:00] Allergy/AdvReac Type Severity Reaction Status Date / Time azithromycin [From Zithromax] Allergy Hives Verified 07/31/22 01:10 codeine AdvReac Vomiting Verified 07/31/22 01:10 naproxen [From Naprosyn] AdvReac Nausea/Vom/ Verified 07/31/22 01:10 Diarrhea Social History Smoking Status: Current every day smoker tobacco type: cigarettes ROS ROS ED Constitutional Constitutional ED: Denies chills or fever(s) ENT ENT ED: Denies sore throat Cardiovascular Cardiovascular: Denies chest pain Respiratory/Chest Respiratory/Chest: Denies cough or dyspnea Gastrointestinal Gastrointestinal: Denies abdominal pain, diarrhea, nausea or vomiting Genitourinary Genitourinary ED: Denies dysuria Musculoskeletal Musculoskeletal: Reports other Details: Positive left foot/ankle pain ; Denies myalgias Integumentary Denies rash Neurologic Neurologic: Denies headache(s) Hematologic/Lymphatic Hematologic/Lymphatic: Denies easy bleeding or easy bruising EXAM Physical Exam Const Vital Signs: 07/31/22 01:11 Temperature 97.5 F L Temperature Source Temporal Pulse Rate 97 Respiratory Rate 16 Blood Pressure 116/78 Blood Pressure Mean 90 Pulse Ox 98 Oxygen Delivery Method Room Air Positive well nourished and well developed General Appearance ED: well developed Eyes PERRL and EOMs intact bilaterally Neck supple Resp normal respiratory effort and clear to auscultation bilaterally Cardio regular rate and regular rhythm Extremity Extremity Narrative: Left lower extremity is neurovascularly intact. There is mild soft tissue swelling to the dorsal lateral aspect of the left foot. No obvious bony deformity or joint effusion. There is pain on palpation over top the fifth metatarsal. Ankle ligaments are stable and Achilles tendon is intact. Active range of motion is decreased secondary to pain. Remainder of the exam is normal Neuro oriented x3 and CN's II-XII intact bilaterally Sensorium / Orientation: alert Psych mental status grossly normal Skin no rashes or lesions noted MDM MDM MDM Narrative Medical decision making narrative: Patient presented to the ER with report of ankle inversion roughly 5 to 7 days ago. She has mild soft tissue swelling and tenderness to palpation and therefore there is concern for 5th metatarsal fracture. Secondary to this and ankle x-ray was obtained. X-ray revealed no acute fracture or dislocation on my exam she has no signs of ligamentous instability. Therefore patient has a mild ankle sprain and foot contusion and can be treated symptomatically and discharged home. Radiography Diagnostic Testing: Clinical Impression(s) from Imaging Studies Foot X-Ray 07/31/22 02:00 IMPRESSION: No acute fracture or dislocation. Electronically Signed: Douglas Edwards MD at 2:13 EDT , X-ray of the left foot as interpreted by the emergency medicine physician reveals no acute fracture or dislocation Discharge Plan Triage Chief Complaint: Lower Extremity Injury ED Provider: Zeke Bryan Dx/Rx/DC Orders Clinical Impression: Contusion of foot, left, Left ankle sprain Instructions: ED Foot Contusion Prescriptions: No Action [id number]-[id number] 1 mg Tablet 1 tab PO DAILY Primary Care Provider: Yves Parker Referrals: Yves Parker MD [Primary Care Provider] - Disposition Disposition: Home, Self Care
[2022-07-31 02:47] VITALS: BP 114/70; PULSE 71; RESP 16; O2SAT 98
== END 2022-07-31 02:49 | disposition home or self-care (01) ==
PROVIDERS: Emergency Provider Emergency Medicine; PCP Family Medicine; Visit Provider Emergency Medicine
DX: O9A.211 Injury, poisoning and certain other consequences of external causes complicating pregnancy, first trimester (principal); O99.331 Smoking (tobacco) complicating pregnancy, first trimester; S90.32XA Contusion of left foot, initial encounter; S93.402A Sprain of unspecified ligament of left ankle, initial encounter; F17.210 Nicotine dependence, cigarettes, uncomplicated; X50.1XXA Overexertion from prolonged static or awkward postures, initial encounter
CPT/HCPCS: 73630; 99283

== ENCOUNTER 2022-09-01 19:50 | Emergency (ER) | payer MEDICAID, SELFPAY ==
[2022-09-01 19:51] VITALS: BP 131/90; PULSE 104; RESP 18; TEMP 36.1; O2SAT 98; BMI 38.0
--- NOTE | 2022-09-01 20:00 | ED.VIS.DENTA ---
HPI <MARE Woodward - Last Filed: 09/01/22 20:05> History of Present Illness Chief Complaint: Dental Narrative Narrative: Patient has 2 days of increased pain in her right upper molar. She has history of dental caries and this tooth is partially eroded and it gets her pain off and on. She denies fever chills or difficulty swallowing or breathing. Of note she is 15 weeks . PFSH <MARE Woodward - Last Filed: 09/01/22 20:05> PFSH Medical History Abscess, dental premature rupture of membranes Scoliosis Second degree perineal laceration Vaginal delivery Vaginal delivery Home Medications [id number]-zku-Xd-FA 1 mg tablet 1 tab PO DAILY pregancy 01/15/22 [History Last Taken 04/05/22 09:00] penicillin V potassium 500 mg tablet 500 mg PO 4X/DAY 10 days #40 tabs 09/01/22 [Rx Last Taken Unknown] Allergy/AdvReac Type Severity Reaction Status Date / Time azithromycin [From Zithromax] Allergy Hives Verified 09/01/22 19:53 codeine AdvReac Vomiting Verified 09/01/22 19:53 naproxen [From Naprosyn] AdvReac Nausea/Vom/ Verified 09/01/22 19:53 Diarrhea Social History Smoking Status: Current every day smoker tobacco type: cigarettes ROS <MARE Woodward - Last Filed: 09/01/22 20:05> ROS ED ROS Narrative Constitutional: Negative for fever, chills, malaise. Eyes: Negative for visual change. ENT: Positive for dental pain. CVS: Negative for palpitations, chest pain, syncope. Respiratory: Negative for shortness of breath, cough, orthopnea. GI: Negative for abdominal pain, nausea, vomiting. : Negative for dysuria, hematuria or frequency. Neuro: Negative for headache. Skin: Negative for rash, abscess, or wound. Musc: Negative for joint pain, swelling, trauma. Heme: Negative for easy bruising, bleeding, lymphadenopathy. EXAM <MARE Woodward Last Filed: 09/01/22 20:05> Physical Exam Narrative Exam Narrative: CONST: Patient sitting in no acute distress. EYES: Normal inspection. ENT: Right upper second molar partially eroded with caries and tenderness, no periapical abscess. Airway patent, no trismus or tongue elevation, sublingual space is soft. No facial or submental or submandibular swelling. NECK: Normal inspection. Trachea midline, no masses or lymphadenopathy. RESP: No respiratory distress, CTAB. CVS: Regular rate and rhythm, no murmur, no gallop. SKIN: Color normal, no rash, warm, dry, intact. EXTREMITIES: Normal appearance, no pedal edema. NEURO: Oriented x4. PSYCH: Normal affect. Const Vital Signs: 09/01/22 19:51 Temperature 96.9 F L Temperature Source Temporal Pulse Rate 104 H Respiratory Rate 18 Blood Pressure 131/90 H Blood Pressure Mean 103 Pulse Ox 98 Oxygen Delivery Method Room Air <Dr. Osman Avalos MD - Last Filed: 09/01/22 20:09> Physical Exam Const Vital Signs: 09/01/22 19:51 Temperature 96.9 F L Temperature Source Temporal Pulse Rate 104 H Respiratory Rate 18 Blood Pressure 131/90 H Blood Pressure Mean 103 Pulse Ox 98 Oxygen Delivery Method Room Air MDM <MARE Woodward - Last Filed: 09/01/22 20:05> [facility] Narrative Medical decision making narrative: Patient has acute pain in the right maxillary second molar #2. Tooth is eroded with caries with no periapical abscess or signs of deep space infection. She will be started on penicillin VK and was advised to take Tylenol because she is . Follow-up with a dentist is advised. She was discharged in stable condition. <Dr. Osman Avalos MD - Last Filed: 09/01/22 20:09> [facility] Narrative Medical decision making narrative: Patient has acute pain in the right maxillary second molar #2. Tooth is eroded with caries with no periapical abscess or signs of deep space infection. She will be started on penicillin VK and was advised to take Tylenol because she is . Follow-up with a dentist is advised. She was discharged in stable condition. Seen and evaluated independently and in conjunction with physician behavioral modification assistant. Agree with notes above unless documented otherwise. Dental pain without drainage, bleeding, fevers. Patient is . Patient does have a significantly diseased tooth that is tender, no associated abscess or trismus, antibiotics and Tylenol and follow-up with dentistry advised. Discharge Plan Triage Chief Complaint: Dental ED Midlevel Provider: Leslie Styles ED Provider: Osman Avalos Dx/Rx/DC Orders Clinical Impression: Pain, dental, Dental abscess Instructions: ED Dental Pain Prescriptions: New penicillin V potassium 500 mg tablet 500 mg PO 4X/DAY 10 Days Qty: 40 0RF No Action [id number]-[id number]-[id number]-FA 1 mg Tablet 1 tab PO DAILY Primary Care Provider: Yves Parker Referrals: Yves Parker MD [Primary Care Provider] - Activity Restrictions/Additional Instructions: You can take Tylenol 1000 mg every 6 hours as needed for pain. Take the antibiotics and follow-up with a dentist. Disposition Disposition: Home, Self Care
[2022-09-01] MEDS: Penicillin Vk 250 MG Tablet 500 MG PO (20:05)
[2022-09-01 20:23] VITALS: BP 118/78; PULSE 78; RESP 16; TEMP 36.9; O2SAT 97
== END 2022-09-01 20:24 | disposition home or self-care (01) ==
PROVIDERS: Emergency Provider Emergency Medicine; PCP Family Medicine; Visit Provider Emergency Medicine
DX: O99.612 Diseases of the digestive system complicating pregnancy, second trimester (principal); O99.332 Smoking (tobacco) complicating pregnancy, second trimester; K04.7 Periapical abscess without sinus; F17.210 Nicotine dependence, cigarettes, uncomplicated; K02.9 Dental caries, unspecified; K08.89 Other specified disorders of teeth and supporting structures; Z3A.15 15 weeks gestation of pregnancy
CPT/HCPCS: 99283

== ENCOUNTER 2022-09-18 12:39 | Emergency (ER) | payer MEDICAID, SELFPAY ==
[2022-09-18 12:40] VITALS: BP 125/78; PULSE 105; RESP 16; TEMP 36.3; O2SAT 98; BMI 38.0
[2022-09-18 13:50] LABS: Bacteria 0 SEEN /hpf (None Seen); Mucous, Urine 0 SEEN /hpf (<or=2+); Red Blood Cells-Urine 0 SEEN /hpf (0-5); Squamous Epithelial Cells - UA 0 SEEN /hpf (5-10)
[2022-09-18 13:51] LABS: Color, Urine Yellow (Yellow); Glucose, Dipstick Normal (Normal); Ketone-Dipstick Negative (Negative); Leukocyte Esterase-Dipstick 25 /ul (Negative); Nitrite-Dipstick Negative (Negative); Occult Blood-Urine Negative /ul (Negative); Protein-Dipstick Negative (Negative); Urine Bilirubin Dipstick Negative (Negative); Urine Clarity Clear (Clear); Urine Urobilinogen Normal (Normal)
[2022-09-18 13:59] LABS: White Blood Cells 5-10 SEEN /hpf (0-5)
[2022-09-18 14:30] VITALS: BP 115/63; PULSE 95
[2022-09-18 14:32] LABS: Anion Gap 7 (5-15); BUN 3 mg/dL (7-18); BUN/Creat Ratio 6.6 RATIO (10-20); Calcium,Total 8.5 mg/dL (8.5-10.1); Chloride 107 mmol/L (98-107); Creatinine, Serum 0.46 mg/dL (0.55-1.02); EST Glomerular Filtration Rate 179 mL/min (>60); Est Glom Filt Rate - Afr Amer 216 mL/min (>60); Estimated Creatinine Clearance 162.84 ml/min; Glucose 88 mg/dL (74-106); Potassium 4.2 mmol/L (3.5-5.1); Sodium Level 137 mmol/L (136-145)
--- NOTE | 2022-09-18 14:37 | EDS_ITS ---
HPI HPI - GI History of Present Illness Chief Complaint: Abd Pain Informant: patient Abdominal Pain/Flank Pain Onset: Today Context: Sudden Onset Timing: Waxes and wanes Quality: Sharp Location: Diffuse Worsened by: - (Certain positions) Relieved by: Nothing Nausea/Vomiting/Emesis GI Symptom: Positive for Nausea and Vomiting Quality: Positive for Nonbilious; Negative for Blood streaks, Coffee ground or Hematemesis Diarrhea/Melena/Hematochezia GI Symptom: Negative for Diarrhea, Melena or Hematochezia Associated Symptoms Associated Symptoms: Positive for Frequency; Negative for Dysuria, Hematuria or Urgency LMP: Patient is approximately 17 weeks . Narrative Narrative: Patient presents with abdominal pain that began this morning. Patient states it began rather suddenly when she woke up today. Patient states it is sharp. Patient states it is diffuse across her abdomen. Patient states it is worse with certain positions. Patient states it improves with other positions. Patient states she is approximately 17 weeks . Patient denies any abnormal vaginal bleeding or discharge. Patient denies any vaginal cramping. Patient admits to some nausea and vomiting. Patient denies any hematemesis or coffee-ground emesis. Patient denies any diarrhea, melena, or hematochezia. Patient admits to some urinary frequency but denies any dysuria or hematuria. PFSH [facility] Medical History Abscess, dental premature rupture of membranes Scoliosis Second degree perineal laceration Vaginal delivery Vaginal delivery Home Medications [id number]-FA 1 mg tablet 1 tab PO DAILY pregancy 01/15/22 [History Last Taken 04/05/22 09:00] Allergy/AdvReac Type Severity Reaction Status Date / Time azithromycin [From Zithromax] Allergy Hives Verified 09/18/22 12:39 codeine AdvReac Vomiting Verified 09/18/22 12:39 naproxen [From Naprosyn] AdvReac Nausea/Vom/ Verified 09/18/22 12:39 Diarrhea Social History Smoking Status: Current every day smoker tobacco type: cigarettes ROS ROS ED Constitutional Constitutional ED: Denies chills or fever(s) Eyes Eyes: Denies blurry vision or change in vision ENT ENT ED: Denies rhinorrhea or sore throat Cardiovascular Cardiovascular: Denies chest pain or palpitations Respiratory/Chest Respiratory/Chest: Reports cough; Denies dyspnea Gastrointestinal Gastrointestinal: Reports abdominal pain, nausea and vomiting; Denies diarrhea or melena Genitourinary Genitourinary ED: Reports urinary frequency; Denies dysuria or hematuria Musculoskeletal Musculoskeletal: Reports back pain; Denies neck pain Integumentary Denies abscess or rash Neurologic Neurologic: Denies headache(s) or weakness Allergic/Immunologic Allergic/Immunologic ED: Denies mouth swelling or urticaria EXAM Physical Exam Const Vital Signs: 09/18/22 12:40 09/18/22 14:30 Temperature 97.4 F L Temperature Source Temporal Pulse Rate 105 H 95 Respiratory Rate 16 Blood Pressure 125/78 H 115/63 Blood Pressure Mean 93 80 Pulse Ox 98 Oxygen Delivery Method Room Air Positive well nourished, well developed and obese General Appearance ED: well developed and NAD Nutritional Appearance: obese HEENT Reports moist mucous membranes normocephalic Neck supple and no JVD Resp normal respiratory effort and clear to auscultation bilaterally Cardio regular rate, regular rhythm and no murmurs GI normal to inspection, nondistended, normoactive bowel sounds Palpation: soft and tender epigastric, LLQ, RLQ, LUQ, RUQ, periumbilical and suprapubic; Negative for guarding or rebound tenderness present Extremity normal to inspection General Extremety ED: Negative for edema or tenderness General Extremity: Negative for edema Neuro oriented x3, CN's II-XII intact bilaterally and no sensory deficits noted Sensorium / Orientation: alert Motor Exam: strength 5/5 throughout Psych mental status grossly normal Skin no rashes or lesions noted MDM MDM MDM Narrative Medical decision making narrative: Patient was given IV fluids and Zofran. CBC shows a mild anemia with a hemoglobin of 11.0 and hematocrit of 32.3. Basic metabolic profile was essentially within normal limits. Quantitative hCG was 15,664. Bxxqb-hz-kose ultrasound was used for transabdominal ultrasound. There is good movement. There is good heart rate. Urinalysis shows a leukocyte esterases of 25 with 5-10 white blood cells. There were no bacteria. Urine culture was ordered. Patient is not having any urinary symptoms. I do not think that the patient requires antibiotics at this time. Patient was instructed to follow-up with her PROFESSIONAL GOLF TOURNAMENT PLAYER in 3 to 5 days. Patient was instructed return if worse in any way. Patient understood and was agreeable with the plan. All questions were answered. Lab Data Attestation: I reviewed the patient's lab results. Labs: Laboratory Results - last 24 hr 09/18/22 09/18/22 09/18/22 13:42 14:10 14:10 WBC Cancelled Corrected WBC Cancelled RBC Cancelled Hgb Cancelled Hct Cancelled MCV Cancelled MCH Cancelled MCHC Cancelled RDW Std Deviation Cancelled RDW Coeff of Aaron Cancelled Plt Count Cancelled MPV Cancelled Immature Gran % (Auto) Cancelled Neut % (Auto) Cancelled Lymph % (Auto) Cancelled [place] % (Auto) Cancelled Eos % (Auto) Cancelled Baso % (Auto) Cancelled Absolute Neuts (auto) Cancelled Absolute Lymphs (auto) Cancelled Total Counted Cancelled Neutrophils % (Manual) Cancelled Band Neutrophils % Cancelled Lymphocytes % (Manual) Cancelled Monocytes % (Manual) Cancelled Eosinophils % (Manual) Cancelled Basophils % (Manual) Cancelled Metamyelocytes % Cancelled Myelocytes % Cancelled Promyelocytes % Cancelled Blast Cells % Cancelled Plasma Cell % (Manual) Cancelled Other Cells % Cancelled Nucleated RBC % Cancelled Nucleated RBCs/100 WBC Cancelled Differential Comment Cancelled Diff Path Review Cancelled Hypersegmented Neuts Cancelled Atypical Lymphocytes Cancelled Reactive Lymphocytes Cancelled Smudge Cells Cancelled Toxic Granulation Cancelled Toxic Vacuolation Cancelled Dohle Bodies Cancelled Cat Rods Cancelled Platelet Estimate Cancelled Plt Morphology Comment Cancelled RBC Morphology Cancelled Polychromasia Cancelled Hypochromasia Cancelled Poikilocytosis Cancelled Basophilic Stippling Cancelled Anisocytosis Cancelled Microcytosis Cancelled Macrocytosis Cancelled Spherocytes Cancelled Sickle Cells Cancelled Target Cells Cancelled Tear Drop Cells Cancelled Ovalocytes Cancelled Stomatocytes Cancelled [place] Bodies Cancelled [place] Cells Cancelled Bite Cells Cancelled Crenated Cell Cancelled Acanthocytes (Spur) Cancelled Rouleaux Cancelled Schistocytes Cancelled Sodium 137 Potassium 4.2 Chloride 107 Carbon Dioxide 23.0 Anion Gap 7 BUN 3 L Creatinine 0.46 L Estim Creat Clear Calc 162.84 Est GFR (MDRD) Af Amer 216 Est GFR (MDRD) Non-Af 179 BUN/Creatinine Ratio 6.6 L Glucose 88 Calcium 8.5 HCG, Quant Urine Color Yellow Urine Clarity Clear Urine pH 8.0 Ur Specific [place] 1.010 Urine Protein Negative Urine Glucose (UA) Normal Urine Ketones Negative Urine Occult Blood Negative Urine Nitrite Negative Urine Bilirubin Negative Urine Urobilinogen Normal Ur Leukocyte Esterase 25 H Urine RBC 0 SEEN Urine WBC 5-10 SEEN Ur Squamous Epith Cells 0 SEEN Urine Bacteria 0 SEEN Urine Mucus 0 SEEN 09/18/22 09/18/22 14:55 14:55 WBC 6.8 Corrected WBC RBC 3.67 L Hgb 11.0 L Hct 32.3 L MCV 88.0 MCH 30.0 MCHC 34.1 RDW Std Deviation 42.7 RDW Coeff of Aaron 13.2 Plt Count 170 MPV 10.5 Immature Gran % (Auto) 0.400 Neut % (Auto) 77.7 H Lymph % (Auto) 13.9 L [place] % (Auto) 7.5 Eos % (Auto) 0.4 Baso % (Auto) 0.1 Absolute Neuts (auto) 5.3 Absolute Lymphs (auto) 0.94 Total Counted Neutrophils % (Manual) Band Neutrophils % Lymphocytes % (Manual) Monocytes % (Manual) Eosinophils % (Manual) Basophils % (Manual) Metamyelocytes % Myelocytes % Promyelocytes % Blast Cells % Plasma Cell % (Manual) Other Cells % Nucleated RBC % 0 Nucleated RBCs/100 WBC Differential Comment Diff Path Review Hypersegmented Neuts Atypical Lymphocytes Reactive Lymphocytes Smudge Cells Toxic Granulation Toxic Vacuolation Dohle Bodies Cat Rods Platelet Estimate Plt Morphology Comment RBC Morphology Polychromasia Hypochromasia Poikilocytosis Basophilic Stippling Anisocytosis Microcytosis Macrocytosis Spherocytes Sickle Cells Target Cells Tear Drop Cells Ovalocytes Stomatocytes [place] Bodies [place] Cells Bite Cells Crenated Cell Acanthocytes (Spur) Rouleaux Schistocytes Sodium Potassium Chloride Carbon Dioxide Anion Gap BUN Creatinine Estim Creat Clear Calc Est GFR (MDRD) Af Amer Est GFR (MDRD) Non-Af BUN/Creatinine Ratio Glucose Calcium HCG, Quant 93530 H Urine Color Urine Clarity Urine pH Ur Specific [place] Urine Protein Urine Glucose (UA) Urine Ketones Urine Occult Blood Urine Nitrite Urine Bilirubin Urine Urobilinogen Ur Leukocyte Esterase Urine RBC Urine WBC Ur Squamous Epith Cells Urine Bacteria Urine Mucus Discharge Plan Triage Chief Complaint: Abd Pain ED Provider: Alex Stovall Dx/Rx/DC Orders Clinical Impression: Abdominal pain, Second trimester Instructions: ED Abdominal Pain Unkn Cause Fem Prescriptions: No Action ccvxiprl-yzz-[id number]-FA 1 mg Tablet 1 tab PO DAILY Primary Care Provider: Yves Parker Referrals: Kristin Freitas DO [Med Staff - Active Staff] - 3-5 Days Yves Parker MD [Primary Care Provider] - 5-7 Days Disposition Disposition: Home, Self Care
[2022-09-18] MEDS: Ondansetron 4 MG/2 ML Vial IV (15:12)
[2022-09-18] MEDS: 0.9% Normal Saline 1,000 ML 1000 ML IV (15:12)
--- NOTE | 2022-09-18 15:14 | ED.RN ---
lab called critical platelets of 11. Dr Stovall was made aware. Lab then called a second time to say that labs were hemolyzed and needed redrawn. Dr small
[2022-09-18 15:20] LABS: Absolute Lymphocyte Count 0.94 X10^3/uL (0.83-4.51); Absolute Neutrophil Count 5.3 X10^3/uL (2.0-7.7); Basophil# 0.01 X10^3/uL; Basophil% 0.1 % (0-1); Eosinophil# 0.03 X10^3/uL; Eosinophils% 0.4 % (0-5); Hematocrit 32.3 % (37-47); Lymphocyte # 0.94 X10^3/ul (0.83-4.51); Lymphocyte % 13.9 % (19-41); Mean Corp Hgb Conc 34.1 g/dL (32-36); Mean Platelet Vol. 10.5 fl (6.2-12.0); Monocyte# 0.51 X10^3/uL; Monocyte% 7.5 % (0-10); NRBC Flagged by Analyzer 0 % (0-5); Neutrophil # 5.26 X10^3/uL (2.7-7.7); Neutrophil % 77.7 % (47-70); Platelet Count 170 K/mm3 (150-450); RBC Distribution Width CV 13.2 % (11.6-14.6); RBC Distribution Width SD 42.7 fl (35.1-43.9); Red Blood Count 3.67 M/mm3 (4.2-5.4); White Blood Count 6.8 K/mm3 (4.4-11.0)
[2022-09-18 15:41] LABS: hCG Titer Quant., Serum 15664 mIU/mL (1-3)
[2022-09-18 15:50] LABS: Internal QC Validated? YES +Cl - CLEAR BKGD
[2022-09-18 15:52] LABS: Pregnancy, Serum, hCG Quali. POSITIVE Negative
== END 2022-09-18 15:59 | disposition home or self-care (01) ==
PROVIDERS: Emergency Provider Emergency Medicine; PCP Family Medicine; Visit Provider Emergency Medicine
DX: O99.891 Other specified diseases and conditions complicating pregnancy (principal); O99.332 Smoking (tobacco) complicating pregnancy, second trimester; O99.212 Obesity complicating pregnancy, second trimester; R10.9 Unspecified abdominal pain; F17.210 Nicotine dependence, cigarettes, uncomplicated; Z3A.17 17 weeks gestation of pregnancy
CPT/HCPCS: 80048; 81001; 84702; 84703; 85025; 96374; 99282; J7030; A4216; J2405

== ENCOUNTER 2022-09-23 22:59 | Emergency (ER) | payer MEDICAID, SELFPAY ==
[2022-09-23 23:00] VITALS: BP 125/74; PULSE 105; RESP 16; TEMP 35.9; O2SAT 99; BMI 38.7
--- NOTE | 2022-09-23 23:13 | EX.ED.VIS.UR ---
HPI HPI - URI History of Present Illness Chief Complaint: Sore Throat Informant: patient Onset/Context/Timing Onset: Today, Yesterday and Days Context: Gradual Onset Timing: Continuous Current Severity: Mild Maximum Severity: Mild Narrative Narrative: 26-year-old female. Currently 18 weeks . Due dates February 24, 2023. She had a sore throat for last 2 days. Denies any vomiting or diarrhea. No dysuria. No fevers. No shortness of breath. No abdominal pain. Prior similar symptoms: Yes Recent Illness/Hospitalization: No ROS ROS ED ROS Narrative Sore throat. Mild right earache. No fever. Review of Systems ROS Unobtainable: Denies due to encephalopathy Constitutional Constitutional ED: Denies chills or fever(s) Eyes Eyes: Denies blurry vision ENT ENT ED: Reports ear pain and sore throat; Denies rhinorrhea Cardiovascular Cardiovascular: Denies chest pain Respiratory/Chest Respiratory/Chest: Denies cough Gastrointestinal Gastrointestinal: Denies abdominal pain Genitourinary Genitourinary ED: Denies dysuria Musculoskeletal Musculoskeletal: Denies arthralgias Integumentary Denies abscess Neurologic Neurologic: Denies headache(s) Psychiatric Psychiatric: Denies anxiety Endocrine Endocrinology: Denies cold intolerance Hematologic/Lymphatic Hematologic/Lymphatic: Denies easy bleeding Allergic/Immunologic Allergic/Immunologic ED: Denies mouth swelling or tongue swelling PFSH PFSH Medical History Abscess, dental premature rupture of membranes Scoliosis Second degree perineal laceration Vaginal delivery Vaginal delivery Home Medications xcyiumxl-czi-Et-FA 1 mg tablet 1 tab PO DAILY pregancy 01/15/22 [History Last Taken 04/05/22 09:00] Allergy/AdvReac Type Severity Reaction Status Date / Time azithromycin [From Zithromax] Allergy Hives Verified 09/23/22 23:00 codeine AdvReac Vomiting Verified 09/23/22 23:00 naproxen [From Naprosyn] AdvReac Nausea/Vom/ Verified 09/23/22 23:00 Diarrhea Social History Smoking Status: Current every day smoker tobacco type: cigarettes EXAM Physical Exam Narrative Exam Narrative: Pleasant female no acute distress vital signs stable afebrile. She does not look septic or toxic. H EENT exam left TM normal. Right mildly red. Posterior pharynx minimal erythema. No exudate. No peritonsillar abscess. No stridor or drooling. No trouble swallowing. Neck nontender no lymphadenopathy. Lungs clear to auscultation bilaterally. Heart regular rhythm no murmur rate about 100. Abdomen soft nondistended normal bowel sounds no peritoneal signs. Gravid nontender uterus. Moving all 4 extremities. Nontender no edema. Skin no rashes. Back nontender. Neurologic exam normal. Const Vital Signs: 09/23/22 23:00 Temperature 96.6 F L Temperature Source Temporal Pulse Rate 105 H Respiratory Rate 16 Blood Pressure 125/74 H Blood Pressure Mean 91 Pulse Ox 99 Oxygen Delivery Method Room Air Positive well nourished and well developed; Negative for cachectic or contractures General Appearance ED: well developed and NAD; Negative for cachectic, contractures, cyanotic, diaphoretic or pallor Nutritional Appearance: Negative for cachectic HEENT Reports moist mucous membranes; Denies dry mucous membranes HEENT Narrative: Mild posterior pharyngeal erythema. Mild right TM redness. normocephalic Face and Sinus: Negative for sinus tenderness, maxillary instability or facial tenderness Mouth ED: No dry mucous membranes Mouth: No dry mucous membranes Throat: posterior oropharynx abnormal Positive for erythema; Negative for cobblestoning, edema, exudates, laceration, foreign body or other; Negative for posterior oropharynx normal Eyes PERRL and EOMs intact bilaterally General Eye ED: Negative for pale conjunctiva or scleral icterus Neck no lymphadenopathy, supple, no meningeal signs and no JVD General: Negative for anterior neck swelling or lymphadenopathy Resp normal respiratory effort and clear to auscultation bilaterally Effort and Inspection: Negative for retractions Auscultation: Negative for rales, rhonchi or wheezes Cardio S1 normal heart sound, S2 normal heart sound and no murmurs Rate: regular rate Rhythm: regular rhythm GI non-tender, non-distended and no masses GI Narrative: Gravid nontender uterus. Auscultation: normoactive bowel sounds Palpation: soft; Negative for tender or guarding Back/Spine no CVA tenderness and normal ROM General Back: Negative for CVA tenderness Cervical Spine: Negative for cervical spine tenderness Thoracic Spine / Upper Back: Negative for thoracic spinal tenderness Lumbar Spine / Lower Back: Negative for lumbar spinal tenderness Sacrum: Negative for tenderness Extremity normal to inspection and full ROM General Extremety ED: Negative for cyanosis, tenderness or other findings General Extremity: Negative for cyanosis or other findings Neuro oriented x3 and CN's II-XII intact bilaterally Sensorium / Orientation: alert, oriented to person, oriented to place and oriented to time; Negative for orientation impaired, lethargic, stuporous or other Motor Exam: strength 5/5 throughout Psych mental status grossly normal Appearance: Negative for other Attitude: No agitated Mood & Affect: Negative for depressed, anxious or tearful Skin General Skin Exam: Negative for jaundice or pallor Lesions: no lesions Rashes: no rashes Trauma: Negative for abrasion or laceration MDM MDM MDM Narrative Medical decision making narrative: 26-year-old with most likely viral pharyngitis. Rapid strep was sent. She clinically looks well. She is achy . Repeat exam benign doing well at 11:46 PM. Will be discharged home and treated as a viral syndrome. Lab Data Attestation: I reviewed the patient's lab results. Lab results narrative: Rapid strep test negative. Discharge Plan Triage Chief Complaint: Sore Throat ED Provider: Dilshad Velazquez Dx/Rx/DC Orders Clinical Impression: Viral syndrome, Second trimester , Acute viral pharyngitis Instructions: ED Viral Syndrome (Adult) Prescriptions: No Action xlckqymh-dsp-Zv-FA 1 mg Tablet 1 tab PO DAILY Primary Care Provider: Yves Parker Referrals: Melody Hernandez MD [Med Staff - Active Staff] - As Needed Yves Parker MD [Primary Care Provider] - As Needed Activity Restrictions/Additional Instructions: Plenty of fluids and rest. Tylenol for body aches or sore throat. Warm salt water gargling. Follow-up with your primary care physician or OB as needed. Disposition Disposition: Home, Self Care
== END 2022-09-23 23:56 | disposition home or self-care (01) ==
PROVIDERS: Emergency Provider Emergency Medicine; PCP Family Medicine; Visit Provider Emergency Medicine
DX: O98.512 Other viral diseases complicating pregnancy, second trimester (principal); O99.512 Diseases of the respiratory system complicating pregnancy, second trimester; O99.332 Smoking (tobacco) complicating pregnancy, second trimester; B34.9 Viral infection, unspecified; F17.210 Nicotine dependence, cigarettes, uncomplicated; J02.8 Acute pharyngitis due to other specified organisms; Z3A.18 18 weeks gestation of pregnancy
CPT/HCPCS: 87880; 99282

== ENCOUNTER 2022-10-14 19:15 | Emergency (ER) | payer MEDICAID, SELFPAY ==
[2022-10-14 19:16] VITALS: BP 121/86; PULSE 106; RESP 16; TEMP 36.1; O2SAT 99; BMI 39.0
[2022-10-14 19:18] VITALS: BP 121/86; PULSE 106; RESP 16; TEMP 36.1; O2SAT 99
== END 2022-10-14 21:30 | disposition left against medical advice (07) ==
LOC: ED 21:41
PROVIDERS: PCP Family Medicine
DX: Z53.21 Procedure and treatment not carried out due to patient leaving prior to being seen by health care provider (principal)

== ENCOUNTER 2022-11-05 14:01 | Emergency (ER) | payer MEDICAID, SELFPAY ==
[2022-11-05 14:02] VITALS: BP 129/84; PULSE 106; RESP 15; TEMP 35.7; O2SAT 100; BMI 39.4
--- NOTE | 2022-11-05 14:37 | CT_ITS ---
HISTORY: Headache. TECHNIQUE: Multiple axial images were obtained of the head without intravenous contrast. A radiation dose optimization technique was used for this scan. 234 images. COMPARISON: 03/19/2021. FINDINGS: BRAIN PARENCHYMA: No significant attenuation abnormality. No acute intra-axial hemorrhage. CSF SPACES: Cerebral ventricles, cortical sulci, and other extra-axial CSF spaces within normal limits in size for patient''s age. No midline shift or other significant mass effect. No acute extra-axial hemorrhage. CALVARIUM: Intact. PARANASAL SINUSES AND MASTOID AIR CELLS: Severe opacification of the right maxillary and frontoethmoid sinuses. Moderate opacification of the left maxillary and left ethmoid air cells. ORBITS: Unremarkable. Small left forehead nodule again noted. CT/Brain/Head without Contrast IMPRESSION: No acute intracranial process identified. Moderate-severe sinusitis. Electronically Signed: Kalani Granados MD at 15:05 EST ,
--- NOTE | 2022-11-05 14:43 | EX.ED.VIS.EY ---
HPI History of Present Illness Chief Complaint: Eye Problem Informant: patient Onset/Context/Timing Location: Right Eye Onset: Days (3) Context: Sudden Onset Timing: Intermittent and Lasts (Several hours) Worsened by: Nothing Relieved by: Nothing Associated Symptoms Associated Symptoms - Eyes: Burning and Pain; Negative for Crusting, Drainage, Eyelid swelling, Foreign body sensation, Itching, Matting, Photophobia or Redness Visual Changes: right: Blurred vision and Visual field cut History of injury: No Visual correction: Glasses Narrative Narrative: Patient presents with visual changes in her right eyes that have been intermittent over the last 3 days. Patient states that she has pressure in her right eye and then developed a headache. Patient states that her vision becomes blurry and sometimes she loses some vision in her right eye. Patient thinks it is over the lateral visual field. Patient states it occurred earlier this morning when it was dark out. Patient is unsure if she actually lost vision or if it was just dark when she got up. Patient admits to some occasional burning in her right eye. Patient denies any trauma or injury. Patient states nothing makes her symptoms better nothing makes them worse. Patient denies any matting crusting discharge or drainage from her eye. Patient is approximately 24 weeks with states her blood pressure has been normal. Patient was seen at [facility] last night for this. Patient states they did not do any testing or CT scans. [facility] Medical History (Updated 11/05/22 @ 15:[address] Alex Stovall DO) Abscess, dental premature rupture of membranes Scoliosis Second degree perineal laceration Vaginal delivery Vaginal delivery Home Medications sfxljzxu-zli-Sb-FA 1 mg tablet 1 tab PO DAILY pregancy 01/15/22 [History Last Taken 04/05/22 09:00] Allergy/AdvReac Type Severity Reaction Status Date / Time azithromycin [From Zithromax] Allergy Hives Verified 11/05/22 14:04 codeine AdvReac Vomiting Verified 11/05/22 14:04 naproxen [From Naprosyn] AdvReac Nausea/Vom/ Verified 11/05/22 14:04 Diarrhea Surgical History (Updated 11/05/22 @ 14:[address] Alex Stovall DO) Hx of hand surgery Social History Smoking Status: Current every day smoker tobacco type: cigarettes ROS ROS ED Constitutional Constitutional ED: Denies chills or fever(s) Eyes Eyes: Denies blurry vision or change in vision ENT ENT ED: Reports rhinorrhea; Denies sore throat Cardiovascular Cardiovascular: Denies chest pain or palpitations Respiratory/Chest Respiratory/Chest: Denies cough or dyspnea Gastrointestinal Gastrointestinal: Reports nausea and vomiting Genitourinary Genitourinary ED: Denies dysuria or hematuria Musculoskeletal Musculoskeletal: Denies back pain or neck pain Integumentary Denies abscess or rash Neurologic Neurologic: Reports headache(s); Denies weakness Allergic/Immunologic Allergic/Immunologic ED: Denies mouth swelling or urticaria EXAM Physical Exam Const Vital Signs: 11/05/22 14:02 Temperature 96.2 F L Temperature Source Temporal Pulse Rate 106 H Respiratory Rate 15 Blood Pressure 129/84 H Blood Pressure Mean 99 Pulse Ox 100 Oxygen Delivery Method Room Air Positive well nourished, well developed and obese General Appearance ED: well developed and NAD Nutritional Appearance: obese HEENT Reports moist mucous membranes Eyes Eyes Narrative: Pupils are equal, round, reactive to light bilaterally. Extraocular muscles are intact. Funduscopic examination was benign bilaterally. There are no foreign bodies visualized. Conjunctiva is clear bilaterally. There is no discharge or drainage. Anterior chambers are clear. Neck supple and no JVD Resp normal respiratory effort and clear to auscultation bilaterally Cardio regular rate, regular rhythm and no murmurs GI normal to inspection, nondistended, normoactive bowel sounds GI Narrative: There is some mild lower abdominal tenderness. There is no rebound or guarding noted. There is a gravid uterus palpated. Palpation: soft Extremity normal to inspection General Extremety ED: Negative for edema or tenderness General Extremity: Negative for edema Neuro oriented x3, CN's II-XII intact bilaterally and no sensory deficits noted Sensorium / Orientation: alert Motor Exam: strength 5/5 throughout Psych mental status grossly normal Skin no rashes or lesions noted MDM MDM MDM Narrative Medical decision making narrative: CBC was within normal limits. Comprehensive metabolic profile was essentially within normal limits. CT scan of the brain was obtained. There is no acute intracranial abnormality. This was interpreted by the radiologist and reviewed by myself. Patient was advised of her findings. Visual acuity was 20/40 in the right eye, 20/25 in the left eye, and 20/40 with both eyes. Since the patient is not having any visual changes at this time, I do not feel that admission to the hospital is necessary. Patient was instructed to follow-up with her [employer]ESS[employer]IC. Patient was also given referral for ophthalmology. Patient was also advised that this could be an ocular migraine headache. Patient was instructed to follow-up with her primary care physician as well. Patient understood and was agreeable with the plan. All questions were answered. Discharge Plan Triage Chief Complaint: Eye Problem ED Provider: Alex Stovall Dx/Rx/DC Orders Clinical Impression: Visual changes, , Headache Instructions: Understanding Vision Problems, ED Established ... Prescriptions: No Action vfdtibrd-ucq-Nf-FA 1 mg Tablet 1 tab PO DAILY Primary Care Provider: Yves Parker Referrals: Selam Viera CNM [Med Staff - Adv Practice Prof] - 3-5 Days Markel Herzog MD [Med Staff - Active Staff] - 1-2 Days if not improving Yves Parker MD [Primary Care Provider] - 3-5 Days Disposition Disposition: Home, Self Care
[2022-11-05 14:58] LABS: Absolute Lymphocyte Count 1.26 X10^3/uL (0.83-4.51); Absolute Neutrophil Count 7.4 X10^3/uL (2.0-7.7); Basophil# 0.01 X10^3/uL; Basophil% 0.1 % (0-1); Eosinophil# 0.05 X10^3/uL; Eosinophils% 0.5 % (0-5); Hematocrit 33.4 % (37-47); Hemoglobin 10.9 g/dL (12.0-15.0); Lymphocyte # 1.26 X10^3/ul (0.83-4.51); Lymphocyte % 13.6 % (19-41); Mean Corp Hgb Conc 32.6 g/dL (32-36); Mean Corpuscular Hgb 28.7 pg (27.0-32.0); Mean Corpuscular Volume 87.9 fL (81-99); Mean Platelet Vol. 10.3 fl (6.2-12.0); Monocyte# 0.58 X10^3/uL; Monocyte% 6.2 % (0-10); NRBC Flagged by Analyzer 0 % (0-5); Neutrophil # 7.35 X10^3/uL (2.7-7.7); Neutrophil % 79.2 % (47-70); Platelet Count 188 K/mm3 (150-450); RBC Distribution Width CV 13.8 % (11.6-14.6); RBC Distribution Width SD 43.8 fl (35.1-43.9); White Blood Count 9.3 K/mm3 (4.4-11.0)
[2022-11-05 15:27] LABS: ALB/GLOB Ratio 0.5 RATIO (0.9-2.4); AST(SGOT) 5 U/L (15-37); Alanine Aminotransfer ALT/SGPT 9 U/L (13-56); Albumin, Serum 2.2 g/dL (3.2-5.0); Alkaline Phosphatase 97 U/L (45-117); Anion Gap 5 (5-15); BUN 6 mg/dL (7-18); BUN/Creat Ratio 11.3 RATIO (10-20); Calcium,Total 8.5 mg/dL (8.5-10.1); Chloride 110 mmol/L (98-107); Creatinine, Serum 0.53 mg/dL (0.55-1.02); EST Glomerular Filtration Rate 150 mL/min (>60); Est Glom Filt Rate - Afr Amer 181 mL/min (>60); Estimated Creatinine Clearance 141.34 ml/min; Globulin 4.1 g/dL (2.2-4.2); Glucose 111 mg/dL (74-106); Potassium 3.7 mmol/L (3.5-5.1); Protein, Total 6.3 g/dL (6.4-8.2); Sodium Level 140 mmol/L (136-145)
[2022-11-05 15:56] VITALS: BP 112/74
== END 2022-11-05 15:57 | disposition home or self-care (01) ==
PROVIDERS: Emergency Provider Emergency Medicine; PCP Family Medicine; Visit Provider Emergency Medicine
DX: O99.891 Other specified diseases and conditions complicating pregnancy (principal); H53.9 Unspecified visual disturbance; R51.9 Headache, unspecified; O99.332 Smoking (tobacco) complicating pregnancy, second trimester; O99.212 Obesity complicating pregnancy, second trimester; E66.9 Obesity, unspecified; F17.210 Nicotine dependence, cigarettes, uncomplicated; Z3A.24 24 weeks gestation of pregnancy
CPT/HCPCS: 70450; 80053; 85025; 99284

== ENCOUNTER 2022-11-23 18:45 | Outpatient (CLI) | payer MEDICAID, SELFPAY ==
[2022-11-23 19:00] VITALS: BMI 38.1
[2022-11-23 19:10] VITALS: TEMP 36.7
[2022-11-23 19:13] VITALS: BP 111/72; PULSE 107
[2022-11-23 19:15] VITALS: PULSE 101; O2SAT 97
[2022-11-23 19:24] VITALS: PULSE 98; O2SAT 98
[2022-11-23 19:26] LABS: Color, Urine Yellow (Yellow); Glucose, Dipstick Normal (Normal); Ketone-Dipstick Negative (Negative); Leukocyte Esterase-Dipstick 100 /ul (Negative); Nitrite-Dipstick Negative (Negative); Occult Blood-Urine 10 /ul (Negative); Protein-Dipstick 15 mg/dl (Negative); Urine Bilirubin Dipstick Negative (Negative); Urine Clarity Cloudy (Clear); Urine Urobilinogen Normal (Normal); Urine pH 6.5 (5.0 - 8.0)
[2022-11-23 19:41] LABS: ROM Internal Control Test YES-OK TO RESULT pt. (Internal QC); ROM Patient Test Negative (Negative)
--- NOTE | 2022-11-23 19:57 | OB.TRI.HP_ITS ---
HPI - General HPI Narrative REMIGIO LEO, is a 26 F at 26.5 weeks gestation who presents with right sided abdominal pain and increased discharge for the past two days. She thinks she may be leaking fluid. She recently completed antibiotics for UTI and wanted urine sent to make sure it is clear. Denies dysuria. Positive move ment. Denies any cramps or contractions. Vague description of right sided abdominal pain. PFSH PFS Medical History (Updated 11/23/22 @ 20:01 by Kimber Mcgarry CNM) Abscess, dental premature rupture of membranes Scoliosis Second degree perineal laceration Vaginal delivery Vaginal delivery Home Medications qnmrfcpd-rxv-Ft-FA 1 mg tablet 1 tab PO DAILY pregancy 01/15/22 [History Last Taken 04/05/22 09:00] Allergy/AdvReac Type Severity Reaction Status Date / Time azithromycin [From Zithromax] Allergy Hives Verified 11/05/22 14:04 codeine AdvReac Vomiting Verified 11/05/22 14:04 naproxen [From Naprosyn] AdvReac Nausea/Vom/ Verified 11/05/22 14:04 Diarrhea Surgical History (Updated 11/05/22 @ 14:[address] Alex Stovall DO) Hx of hand surgery Social History Smoking Status: Current every day smoker tobacco type: cigarettes History 2 Elective abortions Hx Para 2 Spontaneous abortions Hx # Term Pregnancies Ectopic pregnancies Hx # Pregnancies Multiple births # of living children 2 Physical Exam Const alert and no apparent distress General Appearance: cooperative Orientation / Consciousness: awake Exam Limitations: no limitations HEENT normocephalic Eyes General Eye: normal appearance of both eyes Neck full ROM Chest inspection of chest normal Resp normal respiratory effort and normal air movement Effort and Inspection: symmetric chest movement Auscultation: clear to auscultation bilaterally Cardio regular rate GI soft to palpation, non-tender and non-distended Inspection: Back/Spine normal ROM Extremity full ROM, normal capillary refill and no calf tenderness Skin no rashes or lesions noted Neuro oriented x3 and CN's II-XII intact bilaterally Psych mental status grossly normal NST FHR Rate Baby A Baseline: 145 Assessment & Plan (1) 26 weeks gestation of : (2) Abdominal pain affecting : (3) Vaginal discharge: PLAN: Plan Patient seen at bedside FHT- 145 bpm TOCO- no contractions seen or palpated ROM plus- NEGATIVE ABD- non tender with palpation Suspect round ligament pain UA and Culture sent- small amount of blood, and leukocytes- NEGATIVE NITRATES D/C home with follow up in office next week for regularly scheduled visit Dr. Freitas notified
== END 2022-11-23 20:00 | disposition home or self-care (01) ==
LOC: WPOUT 18:51 → WP 18:52
PROVIDERS: PCP Family Medicine; Visit Provider Advanced Practice Midwife
DX: O99.891 Other specified diseases and conditions complicating pregnancy (principal); O99.332 Smoking (tobacco) complicating pregnancy, second trimester; N89.8 Other specified noninflammatory disorders of vagina; F17.210 Nicotine dependence, cigarettes, uncomplicated; R10.9 Unspecified abdominal pain; Z3A.26 26 weeks gestation of pregnancy
CPT/HCPCS: 59050; 81002; 84112; 87086; 87088; 99221; G0378

== ENCOUNTER 2023-02-15 14:12 | Outpatient (CLI) | payer MEDICAID, SELFPAY ==
[2023-02-15] VITALS (7 sets, daily range): BP systolic 119; BP diastolic 70; PULSE 117–126; TEMP 36.5; O2SAT 98; BMI 40.6
--- NOTE | 2023-02-18 10:35 | OB.TRI.PN ---
Progress Notes Progress Note: Prsents to labor and delivery at 38w5d for contractions. No LOF or vaginal bleeding. Laboratory Studies: NST 145, moderate, accels, variable decel Irregular contractions Assessment & Plan (1) False labor: PLAN: Plan False labor, no progression D/C home
== END 2023-02-15 17:15 | disposition home or self-care (01) ==
LOC: WPPAT 14:20 → WP 14:21
PROVIDERS: PCP Family Medicine; Referring Provider Advanced Practice Midwife; Visit Provider Advanced Practice Midwife
DX: O47.1 False labor at or after 37 completed weeks of gestation (principal); Z3A.38 38 weeks gestation of pregnancy
CPT/HCPCS: 59025; 59050; 99221; G0378

== ENCOUNTER 2023-02-19 12:50 | Inpatient (IN) | payer MEDICAID, SELFPAY ==
[2023-02-15 19:52] VITALS: TEMP 37.2; O2SAT 92
[2023-02-15 19:53] VITALS: BP 123/84; PULSE 105
[2023-02-19] VITALS (59 sets, daily range): BP systolic 83–141; BP diastolic 53–74; PULSE 86–132; RESP 18; TEMP 36.3–37.2; O2SAT 97–100; BMI 40.7
[2023-02-19] MEDS: Lactated Ringers 1,000 ML 999 ML IV (13:10)
[2023-02-19 13:25] LABS: Absolute Lymphocyte Count 1.22 X10^3/uL (0.83-4.51); Basophil# 0.02 X10^3/uL; Basophil% 0.2 % (0-1); Eosinophil# 0.02 X10^3/uL; Eosinophils% 0.2 % (0-5); Hematocrit 34.1 % (37-47); Hemoglobin 10.3 g/dL (12.0-15.0); Lymphocyte # 1.22 X10^3/ul (0.83-4.51); Lymphocyte % 9.4 % (19-41); Mean Corp Hgb Conc 30.2 g/dL (32-36); Mean Corpuscular Hgb 24.2 pg (27.0-32.0); Mean Platelet Vol. 10.5 fl (6.2-12.0); Monocyte# 0.64 X10^3/uL; Monocyte% 4.9 % (0-10); NRBC Flagged by Analyzer 0 % (0-5); Neutrophil # 11.04 X10^3/uL (2.7-7.7); Neutrophil % 84.6 % (47-70); Platelet Count 208 K/mm3 (150-450); RBC Distribution Width CV 15.9 % (11.6-14.6); RBC Distribution Width SD 45.4 fl (35.1-43.9); Red Blood Count 4.26 M/mm3 (4.2-5.4)
[2023-02-19] MEDS: LACTATED RINGERS 500 ML 999 ML IV ×3 (13:50→17:25)
--- NOTE | 2023-02-19 14:01 | HP.PCM.OB_ITS ---
HPI - General General Date of Admission: 02/19/23 HPI Narrative REMIGIO LEO, is a 27 F at 39.2 weeks gestation who presents in spontaneous labor. Patient seen in office today and CE completed- . complicated by obesity, and LGA. Maternal Data Information YANCY Calculator Estimated Delivery Date Method Current WG Current Estimate 02/24/23 Manual 39w 2d PFSH PFSH Medical History Abscess, dental premature rupture of membranes Scoliosis Second degree perineal laceration Vaginal delivery Vaginal delivery Home Medications ilwtjpmd-wtn-Lg-FA 1 mg tablet 1 tab PO DAILY pregancy 01/15/22 [History Last Taken 02/18/23 05:30] aspirin 81 mg tablet,delayed release 81 mg DAILY delivery hx 02/19/23 [History Last Taken 02/19/23 04:00] famotidine 20 mg tablet 20 mg DAILY acid reflux 02/19/23 [History Last Taken 02/19/23 04:00] Allergy/AdvReac Type Severity Reaction Status Date / Time azithromycin [From Zithromax] Allergy Hives Verified 02/19/23 12:53 codeine AdvReac Vomiting Verified 02/19/23 12:53 naproxen [From Naprosyn] AdvReac Nausea/Vom/ Verified 02/19/23 12:53 Diarrhea Surgical History Hx of hand surgery Social History Smoking Status: Former smoker History 2 Elective abortions Hx Para 2 Spontaneous abortions Hx # Term Pregnancies Ectopic pregnancies Hx # Pregnancies Multiple births # of living children 2 NST FHR Rate Baby A Baseline: 140 Variability:: Moderate Accelerations:: 15 x 15 Decelerations:: None NST Reactive:: Yes FHR Category:: Category I Uterine Activity:: 3-7 minutes ROS Eyes Eyes: Denies blurry vision, change in vision or spots in vision ENT HEENT: Denies dizziness or headache(s) Cardiovascular Cardiovascular: Denies abdominal pain, chest pain or dyspnea Respiratory/Chest Respiratory/Chest: Denies cough, dyspnea, shortness of breath at rest or shortness of breath with exertion Gastrointestinal Gastrointestinal: Denies abdominal pain, diarrhea or vomiting Genitourinary Genitourinary: Denies change in urinary stream, difficulty urinating or dysuria Musculoskeletal Musculoskeletal: Reports none Integumentary Integumentary: Denies rash Neurologic Neurologic: Denies dizziness, headache(s), memory loss or weakness Psychiatric Psychiatric: Reports none Vital Signs Vital Signs Vital Signs: 02/19/23 14:00 02/19/23 14:00 02/19/23 13:59 Temperature 97.9 F Pulse Rate 113 H Blood Pressure 121/72 H BP Systolic 121 BP Diastolic 72 Pulse Ox 02/19/23 14:05 02/19/23 14:05 02/19/23 14:18 Temperature Pulse Rate 112 H 116 H Blood Pressure BP Systolic BP Diastolic Pulse Ox 100 02/19/23 14:18 02/19/23 14:19 02/19/23 14:19 Temperature Pulse Rate 116 H Blood Pressure 141/74 H BP Systolic 141 BP Diastolic 74 Pulse Ox 99 02/19/23 14:23 02/19/23 14:23 02/19/23 14:25 Temperature Pulse Rate 111 H Blood Pressure 123/68 H BP Systolic 123 BP Diastolic 68 Pulse Ox 99 02/19/23 14:25 02/19/23 14:28 02/19/23 14:28 Temperature Pulse Rate 118 H 107 H Blood Pressure BP Systolic BP Diastolic Pulse Ox 99 02/19/23 14:34 02/19/23 14:34 02/19/23 14:33 Temperature Pulse Rate 98 Blood Pressure 117/70 BP Systolic 117 BP Diastolic 70 Pulse Ox 100 02/19/23 14:38 02/19/23 14:38 02/19/23 14:39 Temperature Pulse Rate 109 H Blood Pressure 115/72 BP Systolic 115 BP Diastolic 72 Pulse Ox 100 02/19/23 14:39 02/19/23 14:43 02/19/23 14:43 Temperature Pulse Rate 116 H 122 H Blood Pressure BP Systolic BP Diastolic Pulse Ox 99 02/19/23 14:45 02/19/23 14:45 02/19/23 14:48 Temperature Pulse Rate 125 H 132 H Blood Pressure 104/59 L BP Systolic 104 BP Diastolic 59 Pulse Ox 02/19/23 14:48 02/19/23 14:51 02/19/23 14:51 Temperature Pulse Rate 129 H Blood Pressure 111/59 L BP Systolic 111 BP Diastolic 59 Pulse Ox 98 02/19/23 14:53 02/19/23 14:53 02/19/23 14:55 Temperature Pulse Rate 119 H Blood Pressure 95/59 L BP Systolic 95 BP Diastolic 59 Pulse Ox 99 02/19/23 14:55 02/19/23 14:58 02/19/23 14:58 Temperature Pulse Rate 126 H 88 Blood Pressure BP Systolic BP Diastolic Pulse Ox 99 02/19/23 14:59 02/19/23 14:59 02/19/23 15:03 Temperature Pulse Rate 112 H 118 H Blood Pressure 89/54 L BP Systolic 89 BP Diastolic 54 Pulse Ox 02/19/23 15:03 02/19/23 15:05 02/19/23 15:05 Temperature Pulse Rate 126 H Blood Pressure 115/57 L BP Systolic 115 BP Diastolic 57 Pulse Ox 99 02/19/23 15:09 02/19/23 15:09 02/19/23 15:08 Temperature Pulse Rate 120 H Blood Pressure 115/57 L BP Systolic 115 BP Diastolic 57 Pulse Ox 100 02/19/23 15:14 02/19/23 15:14 02/19/23 15:13 Temperature Pulse Rate 121 H Blood Pressure 112/54 L BP Systolic 112 BP Diastolic 54 Pulse Ox 100 02/19/23 15:18 02/19/23 15:18 02/19/23 15:23 Temperature Pulse Rate 116 H 119 H Blood Pressure BP Systolic BP Diastolic Pulse Ox 100 02/19/23 15:23 02/19/23 15:24 02/19/23 15:55 Temperature 97.5 F L Pulse Rate Blood Pressure 96/53 L BP Systolic 96 BP Diastolic 53 Pulse Ox 100 02/19/23 15:55 02/19/23 16:25 02/19/23 16:25 Temperature Pulse Rate 107 H 104 H Blood Pressure 111/53 L BP Systolic 111 BP Diastolic 53 Pulse Ox 02/19/23 16:54 02/19/23 16:55 02/19/23 16:55 Temperature 97.9 F Pulse Rate 86 Blood Pressure 88/60 L BP Systolic 88 BP Diastolic 60 Pulse Ox Weight Weight: 245 lb Body Mass Index (BMI) 40.7 Physical Exam Const alert, oriented x3 and no apparent distress General Appearance: cooperative Orientation / Consciousness: awake Exam Limitations: no limitations HEENT normocephalic Head and Scalp: normal to inspection Eyes General Eye: normal appearance of both eyes Neck full ROM and no lymphadenopathy Lymph Lymphatic: no lymphadenopathy noted Chest inspection of chest normal Resp normal respiratory effort, normal air movement and clear to auscultation massimo aterally Effort and Inspection: able to speak in complete sentences and symmetric chest movement Cardio regular rate and regular rhythm GI normal to inspection, nondistended, normoactive bowel sounds Manual OB Exam: presentation cephalic, dilated 4, effaced 80 and station 0 Amniotic Fluid: clear amniotic fluid Back/Spine normal ROM Extremity full ROM and no calf tenderness Skin no rashes or lesions noted General Skin Exam: no breakdown Neuro oriented x3 and CN's II-XII intact bilaterally Psych mental status grossly normal and thought process normal Labs Labs Labs: Blood Type O POSITIVE Antibody Screen NEGATIVE Hct 34.1 % (37-47) L Hgb 10.3 g/dL (12.0-15.0) L Syphilis Total Ab Non-reactive Group B Strep DNA Negative (Negative) Rhogam given: No GBS negative Assessment & Plan (1) 39 weeks gestation of : (2) Large for gestational age fetus: (3) Obesity affecting : (4) Spontaneous onset of labor: PLAN: Plan Admit to labor and delivery Routine labs Start IV fluids and run per orders Epidural when indicated Anticipate Dr. Hernandez notified of admission and is collaborating physician
[2023-02-19 14:30] LABS: Syphilis Antibodies Non-reactive
[2023-02-19] MEDS: Lactated Ringers 1,000 ML 200 ML IV (15:16)
--- NOTE | 2023-02-19 16:57 | PCM.PN.BLA ---
Progress Note Patient seen at bedside. Comfortable with epidural placement. Assessment & Plan Assessment/Plan (1) Spontaneous onset of labor: (2) Obesity affecting : (3) Large for gestational age fetus: (4) 39 weeks gestation of : PLAN: Plan AROM for moderate amount of clear fluid CE- 7/90/-1 Start Pitocin 2 mu/min and increase per policy NST reactive Anticipate
[2023-02-19] MEDS: Oxytocin 15 Units/NS 250ml 15 UNITS/250 ML IV.SOLN 2 UNITS IV (17:22)
[2023-02-19] MEDS: Oxytocin 15 Units/NS 250ml 15 UNITS/250 ML IV.SOLN 364 UNITS IV (18:36)
--- NOTE | 2023-02-19 18:51 | EX.PCM.OBRPT ---
Assessment & Plan (1) 39 weeks gestation of : (2) (spontaneous vaginal delivery): (3) Spontaneous onset of labor: Maternal Data Information YANCY Calculator Estimated Delivery Date Method Current WG Current Estimate 02/24/23 Manual 39w 2d Vaginal Delivery Maternal Presentation Maternal Presentation: at 39.2 weeks gestation presented in spontaneous labor. Type of Induction: Pitocin (augmentation) and Amniotomy (augmentation) Operative Information Date of Procedure: 02/19/23 Pre-Operative Diagnosis: Term gestation, Spontaneous onset of labor Post-Operative Diagnosis: Same, , live female infant Surgery / Procedure Performed: Spontaneous Vaginal Delivery Type of Anesthesia: Epidural Drain: Munoz to straight drain Estimated Blood Loss: 300 Time of Delivery: 18:35 Findings Description of Procedure: Patient progressed to complete dilation. With minimal maternal effort, head delivered over intact perineum followed by anterior shoulder and remainder of infant body. Vigorous female placed on maternal abdomen and was attended to by nursing. Short cord noted. Pitocin IV started for active management of the third stage of labor. 3 vessel cord clamped and cut by FOB after delay. Cord blood collected and sent. Placenta delivered spontaneously and intact. Vagina and perineum intact. Fundus firm 1 below U. EBL 300cc. APGARS 9/9. Patient and infant bonding well at this time. Patient initially desired IUD placement immediately after delivery but is now declining and would like placed after [address] Hernandez notified of delivery. Presentation: Vertex Amniotic Membrane Rupture Type: Artificial Time of Membrane Rupture: 1648 Amniotic Fluid Description: Clear Placental Delivery Description: Spontaneous Placenta Disposition: [facility] Cord Vessel Description: 3 Vessels Cord Entanglement: None A Gender: Female (1 minute): 9 (5 minute): 9 Delayed Cord Clamping: Yes Post Vaginal Delivery Medications Given After Delivery: IV Pitocin Episiotomy Description: None Laceration: None Complication Complications: None
[2023-02-19] MEDS: fentaNYL-bupivacaine (epidural) 100 ML BAG EPIDURAL (19:31)
[2023-02-19] MEDS: Oxytocin 15 Units/NS 250ml 15 UNITS/250 ML IV.SOLN 187 UNITS IV (19:33)
--- NOTE | 2023-02-19 21:32 | NURSING ---
report given to Ramos BRANDON. that RN to assume care [id number]
[2023-02-20 04:36] VITALS: BP 110/77; PULSE 88; RESP 18; TEMP 36.6
[2023-02-20] MEDS: Naproxen 500 MG Tablet PO (04:40)
--- NOTE | 2023-02-20 07:30 | PN.OBGYN_ITS ---
Subjective Subjective Patient seen at bedside. Ambulating and voiding without difficulty. Denies any pain. Denies headache, vision changes, SOB or CP. Formula feeding. Desires discharge home today. Objective Data Objective Data Vital Signs: Vital Signs Temp Pulse Resp BP Pulse Ox O2 Del Method 97.9 F 88 18 110/77 98 Room Air 02/20/23 04:36 02/20/23 04:36 02/20/23 04:36 02/20/23 04:36 02/19/23 20:43 02/20/23 04:36 Oxygen Delivery Method Room Air Weight: 245 lb Body Mass Index (BMI) 40.7 Intake & Output: Intake and Output for Last 24 Hours 02/18/23 02/19/23 02/20/23 23:59 23:59 23:59 Intake Total 3547.16 / 3547.16 Output Total 500 / 500 400 / 400 Balance 3047.16 / 3047.16 -400 / -400 Lab / Micro Data Result Diagrams: 02/19/23 13:10 Labs: Laboratory Results - last 24 hr 02/19/23 13:10: WBC 13.0 H, RBC 4.26, Hgb 10.3 L, Hct 34.1 L, MCV 80.0 L, MCH 24.2 L, MCHC 30.2 L, RDW Std Deviation 45.4 H, RDW Coeff of Aaron 15.9 H, Plt Count 208, MPV 10.5, Immature Gran % (Auto) 0.700, Neut % (Auto) 84.6 H, Lymph % (Auto) 9.4 L, Br[place]ley % (Auto) 4.9, Eos % (Auto) 0.2, Baso % (Auto) 0.2, Absolute Neuts (auto) 11.0 H, Absolute Lymphs (auto) 1.22, Nucleated RBC % 0 02/19/23 13:10: Blood Type O POSITIVE, Antibody Screen NEGATIVE 02/19/23 13:10: Syphilis Total Ab Non-reactive ROS Eyes Eyes: Denies blurry vision, change in vision or spots in vision ENT HEENT: Denies dizziness or headache(s) Cardiovascular Cardiovascular: Denies abdominal pain, chest pain or dyspnea Respiratory/Chest Respiratory/Chest: Denies cough, dyspnea, shortness of breath at rest or shortness of breath with exertion Gastrointestinal Gastrointestinal: Denies abdominal pain, diarrhea or vomiting Genitourinary Genitourinary: Denies change in urinary stream, difficulty urinating or dysuria Musculoskeletal Musculoskeletal: Reports none Integumentary Integumentary: Denies rash Neurologic Neurologic: Denies dizziness, headache(s), memory loss or weakness Physical Exam Const alert and no apparent distress General Appearance: cooperative and comfortable Exam Limitations: no limitations HEENT normocephalic Eyes General Eye: normal appearance of both eyes Neck full ROM General: normal visual inspection Chest Chest: symmetrical chest wall rise Resp normal respiratory effort and normal air movement Effort and Inspection: symmetric chest movement Auscultation: clear to auscultation bilaterally Cardio regular rate and regular rhythm GI normal to inspection, nondistended, normoactive bowel sounds Back/Spine normal ROM Extremity full ROM and no calf tenderness General Extremity: normal exam except as noted Skin no rashes or lesions noted Neuro CN's II-XII intact bilaterally Psych mental status grossly normal Assessment & Plan (1) (spontaneous vaginal delivery): PLAN: Plan PPD 1 Routine care Pain control D/C home with follow up in office Desires IUD placement after 6 weeks
--- NOTE | 2023-02-20 07:34 | PCM.DC ---
Discharge Instructions Diet Discharge Diet: No restrictions Activity Discharge Activity: Return to Normal Activity, May Shower and May Take a Tub Bath May resume sexual activity in: 4-6 weeks Weight Bearing Status: Weight bearing as tolerated Dressing / Incision Call your doctor if you observe: Inability to urinate, Using more than 1 pad per hour, Shortness of breath, Dizziness, Swelling in the ankles, Chest pain, Calf discomfort and Uncontrolled pain Follow Up Care When: Within 10 days Test Results: Test results from this visit will be discussed in further detail at your follow-up appointment, if applicable. Discharge Plan Admission Admit Date/Time: 02/19/23 12:50 Primary Reason for Your Visit: Labor and Delivery Attending Provider: Kimber Mcgarry Primary Care Provider: Yves Parker Discharge Orders/Prescriptions Prescriptions: Continued mfxxaujx-umx-Kk-FA 1 mg Tablet 1 tab PO DAILY Discontinued aspirin 81 mg tablet,delayed release (DR/EC) 81 mg DAILY famotidine 20 mg tablet 20 mg DAILY Label Comments: Take 1 tablet by mouth twice daily. Referrals / Follow Up: Kimber Mcgarry CNM [Med Staff - [facility]] - Yves Parker MD [Primary Care Provider] - Disposition Disposition (needs filled in before D/C Order can be placed): Home, Self Care
[2023-02-20 08:45] VITALS: BP 120/61; PULSE 97; RESP 18; TEMP 35.8
[2023-02-20 11:45] VITALS: BP 123/64; PULSE 108; RESP 17; TEMP 36.4
[2023-02-20 16:05] VITALS: BP 121/63; PULSE 92; RESP 17; TEMP 36.4
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
[2023-02-20 19:48] VITALS: BP 126/84; PULSE 103; RESP 16; TEMP 36.1
--- NOTE | 2023-02-21 11:20 | CASEMGMT ---
Social Work Faxed Early Headstart referral to [facility] at confirmed fax [phone]. -BERNY Birmingham, INCOMING INSPECTOR *This note was generated with [employer] software. It may contain incorrect words, spelling, and punctuation that were not noted in review of the chart prior to signing*
== END 2023-02-20 20:05 | disposition home or self-care (01) | DRG 560 ==
LOC: WPOUT 12:55 → WP 12:55
PROVIDERS: Admitting Provider Advanced Practice Midwife; PCP Family Medicine; Referring Provider Advanced Practice Midwife; Visit Provider Advanced Practice Midwife
DX: O36.63X0 Maternal care for excessive fetal growth, third trimester, not applicable or unspecified (principal); Z37.0 Single live birth; O99.214 Obesity complicating childbirth; Z3A.39 39 weeks gestation of pregnancy; Z79.82 Long term (current) use of aspirin; Z87.891 Personal history of nicotine dependence; Z87.59 Personal history of other complications of pregnancy, childbirth and the puerperium
CPT/HCPCS: 59025; 59050; 85025; 86780; 86850; 86900; 86901; 99221; J7120; G0378

== ENCOUNTER 2023-03-07 20:15 | Emergency (ER) | payer MEDICAID, SELFPAY ==
[2023-03-07 20:16] VITALS: BP 103/76; PULSE 108; RESP 16; TEMP 36.7; O2SAT 100
--- NOTE | 2023-03-07 20:31 | EKG12_ITS ---
Test Reason : DYSRHYTHMIA Blood Pressure : / mmHG Vent. Rate : 088 BPM Atrial Rate : 088 BPM P-R Int : 166 ms QRS Dur : 082 ms QT Int : 372 ms P-R-T Axes : 037 -25 008 degrees QTc Int : 450 ms Normal sinus rhythm Normal ECG Confirmed by DONNA GRUBBS, FADI ([id number]), editorial assistant KELSIE HERNANDEZ ([id number]) on 03/09/2023 2:22:48 PM Referred By: ANISH Confirmed By:FADI THOMPSON MD
[2023-03-07 20:52] LABS: Mucous, Urine 0 SEEN /hpf (<or=2+)
[2023-03-07 20:54] LABS: Absolute Lymphocyte Count 1.03 X10^3/uL (0.83-4.51); Absolute Neutrophil Count 11.8 X10^3/uL (2.0-7.7); Basophil# 0.04 X10^3/uL; Basophil% 0.3 % (0-1); Color, Urine Yellow (Yellow); Eosinophil# 0.03 X10^3/uL; Eosinophils% 0.2 % (0-5); Glucose, Dipstick Normal (Normal); Hematocrit 39.3 % (37-47); Hemoglobin 11.7 g/dL (12.0-15.0); Ketone-Dipstick Negative (Negative); Leukocyte Esterase-Dipstick 500 /ul (Negative); Lymphocyte # 1.03 X10^3/ul (0.83-4.51); Lymphocyte % 7.5 % (19-41); Mean Corp Hgb Conc 29.8 g/dL (32-36); Mean Corpuscular Hgb 24.2 pg (27.0-32.0); Mean Corpuscular Volume 81.2 fL (81-99); Mean Platelet Vol. 10.5 fl (6.2-12.0); Monocyte# 0.69 X10^3/uL; Monocyte% 5.1 % (0-10); NRBC Flagged by Analyzer 0 % (0-5); Neutrophil # 11.82 X10^3/uL (2.7-7.7); Neutrophil % 86.5 % (47-70); Nitrite-Dipstick Negative (Negative); Occult Blood-Urine 250 /ul (Negative); Platelet Count 317 K/mm3 (150-450); Protein-Dipstick 100 mg/dl (Negative); RBC Distribution Width CV 15.7 % (11.6-14.6); RBC Distribution Width SD 46.2 fl (35.1-43.9); Red Blood Count 4.84 M/mm3 (4.2-5.4); Urine Bilirubin Dipstick Negative (Negative); Urine Clarity Cloudy (Clear); Urine Urobilinogen Normal (Normal); White Blood Count 13.7 K/mm3 (4.4-11.0)
[2023-03-07 21:05] VITALS: BMI 38.9
[2023-03-07 21:05] LABS: White Blood Cells 25-50 SEEN /hpf (0-5)
[2023-03-07] MEDS: 0.9% Normal Saline 1,000 ML 50 ML IV (21:05)
[2023-03-07 21:06] LABS: Bacteria 1+ /hpf (None Seen); Red Blood Cells-Urine 0-5 SEEN /hpf (0-5); Squamous Epithelial Cells - UA 0-5 SEEN /hpf (5-10)
[2023-03-07 21:07] LABS: Internal QC Validated? YES +Cl - CLEAR BKGD; Pregnancy, Urine Negative Negative
[2023-03-07 21:08] LABS: Anion Gap 6 (5-15); BUN 10 mg/dL (7-18); BUN/Creat Ratio 10.2 RATIO (10-20); Calcium,Total 8.8 mg/dL (8.5-10.1); Chloride 107 mmol/L (98-107); Creatinine, Serum 0.98 mg/dL (0.55-1.02); EST Glomerular Filtration Rate 73 mL/min (>60); Est Glom Filt Rate - Afr Amer 88 mL/min (>60); Estimated Creatinine Clearance 75.78 ml/min; Glucose 101 mg/dL (74-106); Potassium 3.3 mmol/L (3.5-5.1); Sodium Level 136 mmol/L (136-145)
[2023-03-07 22:13] LABS: Troponin-I HS < 3 pg/mL (3.0-54.0)
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
[2023-03-07 22:31] VITALS: BP 124/65; PULSE 81; RESP 18; O2SAT 100
== END 2023-03-07 22:33 | disposition home or self-care (01) ==
PROVIDERS: Emergency Provider Student in an Organized Health Care Education/Training Program; PCP Family Medicine; Visit Provider Student in an Organized Health Care Education/Training Program
DX: R30.0 Dysuria (principal); R42 Dizziness and giddiness; Z87.891 Personal history of nicotine dependence
CPT/HCPCS: 80048; 81001; 81025; 84484; 85025; 87077; 87086; 87088; 87186; 93005; 99284; J7030; A4216

== ENCOUNTER 2023-06-09 22:12 | Emergency (ER) | payer MEDICAID, SELFPAY ==
[2023-06-09 22:15] VITALS: BP 121/102; PULSE 120; RESP 18; TEMP 36.9; O2SAT 100; BMI 37.1
[2023-06-09 22:47] LABS: Internal QC Validated? YES +Cl - CLEAR BKGD; Pregnancy, Urine Negative Negative
--- NOTE | 2023-06-09 23:11 | EX.ED.DYSGE1 ---
HPI History of Present Illness Chief Complaint: Dental Detail of Chief Complaint: Right-sided dental pain, questionable Informant: patient Narrative Narrative: Patient present secondary to right-sided dental pain. She reports problems with her teeth for some time and has an appointment to see her dentist in 2 months. She states over the past 3 days she has noted increased pain and thought she felt a little pus pocket. She has not had a sour taste in her mouth. Patient states she had a baby in February. She took a home test earlier as she does not have regular periods and thought the test was positive. She would like a test here as she believes it is likely a false positive. [facility] Medical History 39 weeks gestation of Abscess, dental Large for gestational age fetus Obesity affecting premature rupture of membranes Scoliosis Second degree perineal laceration Spontaneous onset of labor (spontaneous vaginal delivery) Vaginal delivery Vaginal delivery Home Medications [id number] 1 mg tablet 1 tab PO DAILY pregancy 01/15/22 [History Last Taken 02/18/23 05:30] penicillin V potassium 250 mg tablet 500 mg (2 x 250 mg) PO 4X/DAY #40 tabs 06/09/23 [Rx Last Taken Unknown] Allergy/AdvReac Type Severity Reaction Status Date / Time azithromycin [From Zithromax] Allergy Hives Verified 03/07/23 20:15 codeine AdvReac Vomiting Verified 03/07/23 20:15 naproxen [From Naprosyn] AdvReac Nausea/Vom/ Verified 03/07/23 20:15 Diarrhea Surgical History Hx of hand surgery Social History Smoking Status: Former smoker ROS ROS ED Constitutional Constitutional ED: Denies chills or fever(s) Eyes Eyes: Denies change in vision ENT ENT ED: Reports other Details: Right-sided dental pain Cardiovascular Cardiovascular: Denies chest pain or palpitations Respiratory/Chest Respiratory/Chest: Denies cough or dyspnea Gastrointestinal Gastrointestinal: Denies abdominal pain, diarrhea or nausea Genitourinary Genitourinary ED: Denies dysuria Musculoskeletal Musculoskeletal: Denies arthralgias Neurologic Neurologic: Denies headache(s) Psychiatric Psychiatric: Denies anxiety or depression Allergic/Immunologic Allergic/Immunologic ED: Denies tongue swelling EXAM Physical Exam Const Vital Signs: 06/09/23 22:15 Temperature 98.5 F Temperature Source Temporal Pulse Rate 120 H Respiratory Rate 18 Blood Pressure 121/102 H Blood Pressure Mean 108 Pulse Ox 100 Oxygen Delivery Method Room Air Positive well nourished and well developed General Appearance ED: well developed HEENT Reports moist mucous membranes HEENT Narrative: No facial edema or erythema. Intraoral examination reveals chronic dental decay to the proximal right maxillary central incisor. Along the right maxillary molars she has malalignment of her teeth with chronic caries. Minimal gum edema. No abscess appreciated at this time. Posterior pharynx exam is unremarkable with no evidence of Velasquez's. Eyes PERRL and EOMs intact bilaterally Neck no lymphadenopathy Chest Wall inspection of chest normal and palpation of chest normal Resp normal respiratory effort and clear to auscultation bilaterally Cardio regular rate and regular rhythm GI non-tender Palpation: soft Extremity normal to inspection Neuro oriented x3 Sensorium / Orientation: alert Psych mental status grossly normal Skin no rashes or lesions noted MDM MDM MDM Narrative Medical decision making narrative: Urine test is obtained and negative. Patient will be given Pen-Vee K for her dental pain. I did recommend she call her dentist and advised that she is currently on an antibiotic. She may be able to be placed on a cancellation list to be seen sooner. She will continue Tylenol or ibuprofen at home for pain. Lab Data Labs: Laboratory Results - last 24 hr 06/09/23 22:36 Urine Test Negative Discharge Plan Triage Chief Complaint: Dental ED Provider: Vida Mendez Dx/Rx/DC Orders Clinical Impression: Pain, dental Instructions: ED Dental Pain Prescriptions: New penicillin V potassium 250 mg tablet 500 mg PO 4X/DAY Qty: 40 0RF No Action [id number]-oek-[id number]-FA 1 mg Tablet 1 tab PO DAILY Primary Care Provider: Yves Parker Referrals: Yves Parker MD [Primary Care Provider] - Activity Restrictions/Additional Instructions: As discussed, check with your dentist to see if you replaced on a cancellation list to be seen sooner. Complete the full course of antibiotics. Disposition Disposition: Home, Self Care Discharge Date/Time: 06/09/23 23:21
[2023-06-09] MEDS: Penicillin Vk 250 MG Tablet 500 MG PO (23:19)
== END 2023-06-09 23:21 | disposition home or self-care (01) ==
PROVIDERS: Emergency Provider Emergency Medicine; PCP Family Medicine; Visit Provider Emergency Medicine
DX: K08.89 Other specified disorders of teeth and supporting structures (principal); Z87.891 Personal history of nicotine dependence
CPT/HCPCS: 81025; 99283

== ENCOUNTER 2023-08-06 16:12 | Emergency (ER) | payer MEDICAID, SELFPAY ==
[2023-08-06 16:13] VITALS: BP 113/82; PULSE 113; RESP 18; TEMP 36.2; O2SAT 99; BMI 37.4
--- NOTE | 2023-08-06 16:46 | EDS_ITS ---
HPI <MARE Peralta - Last Filed: 08/06/23 18:06> History of Present Illness Chief Complaint: Headache Narrative Narrative: Patient presenting today with a headache to the right side of her head behind her right eye that started yesterday evening. She reports that it has gradually worsened especially throughout today. She reports a history of headaches that have felt similar and states, I think I have ocular migraines. She has never followed up with her PCP for this. She reports photophobia. She denies any fever, chills, nausea, vomiting, visual changes, and neck pain. PFSH <MARE Peralta - Last Filed: 08/06/23 18:06> PFSH Medical History 39 weeks gestation of Abscess, dental Large for gestational age fetus Obesity affecting premature rupture of membranes Scoliosis Second degree perineal laceration Spontaneous onset of labor (spontaneous vaginal delivery) Vaginal delivery Vaginal delivery Home Medications [id number]-bft-Sg-FA 1 mg tablet 1 tab PO DAILY pregancy 01/15/22 [H istory Last Taken 02/18/23 05:30] penicillin V potassium 250 mg tablet 500 mg (2 x 250 mg) PO 4X/DAY #40 tabs 06/09/23 [Rx Last Taken Unknown] Allergy/AdvReac Type Severity Reaction Status Date / Time azithromycin [From Zithromax] Allergy Hives Verified 08/06/23 16:14 codeine AdvReac Vomiting Verified 08/06/23 16:14 naproxen [From Naprosyn] AdvReac Nausea/Vom/ Verified 08/06/23 16:14 Diarrhea Surgical History Hx of hand surgery Social History Smoking Status: Former smoker ROS <MARE Peralta - Last Filed: 08/06/23 18:06> ROS ED Constitutional Constitutional ED: Denies chills or fever(s) Eyes Eyes: Denies change in vision or diplopia Cardiovascular Cardiovascular: Denies chest pain Respiratory/Chest Respiratory/Chest: Denies cough or dyspnea Gastrointestinal Gastrointestinal: Denies abdominal pain, nausea or vomiting Musculoskeletal Musculoskeletal: Denies arthralgias or myalgias Integumentary Denies rash Neurologic Neurologic: Reports headache(s); Denies dizziness or weakness EXAM <MARE Peralta - Last Filed: 08/06/23 18:06> Physical Exam Const Vital Signs: 08/06/23 16:13 Temperature 97.1 F L Temperature Source Temporal Pulse Rate 113 H Respiratory Rate 18 Blood Pressure 113/82 H Blood Pressure Mean 92 Pulse Ox 99 Oxygen Delivery Method Room Air Positive well nourished, well developed and no apparent distress General Appearance ED: well developed HEENT Reports normocephalic and head/scalp atraumatic Mouth ED: Yes moist mucous membranes normal Eyes PERRL and EOMs intact bilaterally Neck full ROM and supple Chest Wall inspection of chest normal Resp normal respiratory effort and clear to auscultation bilaterally Cardio regular rate and regular rhythm GI soft to palpation, non-tender, non-distended and no masses Back/Spine normal ROM and normal to inspection Extremity normal to inspection and full ROM Neuro oriented x3, CN's II-XII intact bilaterally, moves all extremities, no focal motor deficits and no sensory deficits noted Sensorium / Orientation: awake and alert Psych mental status grossly normal and thought process normal Skin no rashes or lesions noted and no wounds <Dr. Dilshad Velazquez MD - Last Filed: 08/06/23 17:09> Physical Exam Const Vital Signs: 08/06/23 16:13 Temperature 97.1 F L Temperature Source Temporal Pulse Rate 113 H Respiratory Rate 18 Blood Pressure 113/82 H Blood Pressure Mean 92 Pulse Ox 99 Oxygen Delivery Method Room Air MDM <MARE Peralta - Last Filed: 08/06/23 18:06> [facility] Narrative Medical decision making narrative: Patient presenting today due to a headache that started yesterday. She tried taking Tylenol with minimal relief of her symptoms. She reports similar headaches in the past. This does not sound like a subarachnoid hemorrhage. I do not feel that any imaging is indicated at this time. She will be given Toradol, Compazine, fluids, and Benadryl. She does have a ride home. She is well-appearing and in no acute distress. After receiving the medications, patient reported that her headache resolved and would like to go home due to some family issues. She will be discharged in stable condition and is comfortable with plan. I have personally performed a face to face assessment of the patient and have reviewed the JOHANNA Note. I performed a substantive portion of the visit including all aspects of the following. My dean findings include: History is [id number]-[id number]-[id number] female history of migraine headaches. Complaining of headache behind her eye. No trauma. No fever. No blood thinners. Headache started yesterday. Exam is [HEENT exam is normal. She is already been treated medication headache is resolved. No photophobia currently. Neck nontender no meningismus. Lungs clear. Heart regular rhythm. Abdomen soft nontender. Neurologic exam normal. NIH 0. Bilateral financial management strength. Bilateral dorsi plantarflexion. Fingertip to nose within normal limits.] Medical Decision Making [patient treated with medications and headache resolved. She needs to get home for family issues will be discharged. Repeat exam at 5:05 PM she is doing well neurologic exam remains normal.] Other additions or changes: [None] <Dr. Dilshad Velazquez MD - Last Filed: 08/06/23 17:09> [facility] Narrative Medical decision making narrative: Patient presenting today due to a headache that started yesterday. She tried taking Tylenol with minimal relief of her symptoms. She reports similar headaches in the past. This does not sound like a subarachnoid hemorrhage. I do not feel that any imaging is indicated at this time. She will be given Toradol, Compazine, fluids, and Benadryl. She does have a ride home. She is well-appearing and in no acute distress. I have personally performed a face to face assessment of the patient and have reviewed the JOHANNA Note. I performed a substantive portion of the visit including all aspects of the following. My dean findings include: History is ttik-[id number] female history of migraine headaches. Complaining of headache behind her eye. No trauma. No fever. No blood thinners. Headache started yesterday. Exam is [HEENT exam is normal. She is already been treated medication headache is resolved. No photophobia currently. Neck nontender no meningismus. Lungs clear. Heart regular rhythm. Abdomen soft nontender. Neurologic exam normal. NIH 0. Bilateral financial management strength. Bilateral dorsi plantarflexion. Fingertip to nose within normal limits.] Medical Decision Making [patient treated with medications and headache resolved. She needs to get home for family issues will be discharged. Repeat exam at 5:05 PM she is doing well neurologic exam remains normal.] Other additions or changes: [None] History & Record Review Discussion w/independent historian: Patient Discharge Plan Triage Chief Complaint: Headache ED Midlevel Provider: Mary Rodriguez ED Provider: Dilshad Velazquez Dx/Rx/DC Orders Clinical Impression: Migraine Instructions: ED, Migraine (Classical) Prescriptions: No Action [id number]-byr-[id number]-FA 1 mg Tablet 1 tab PO DAILY penicillin V potassium 250 mg tablet 500 mg PO 4X/DAY Qty: 40 0RF Primary Care Provider: Yves Parker Referrals: Yves Parker MD [Primary Care Provider] - As Needed Activity Restrictions/Additional Instructions: Follow-up with your doctor as needed. Return if worse. Disposition Disposition: Home, Self Care Discharge Date/Time: 08/06/23 17:08
[2023-08-06] MEDS: proCHLORPERazine 10 MG/2 ML Vial IV (16:51)
[2023-08-06] MEDS: 0.9% Normal Saline (1000mL) 1,000 ML 999 ML IV (16:51)
[2023-08-06] MEDS: DiphenhydrAMINE 50 MG/ML Syringe 25 MG IV (16:51)
[2023-08-06] MEDS: Ketorolac 15 MG/ML Vial IV (16:52)
== END 2023-08-06 17:08 | disposition home or self-care (01) ==
LOC: ED 17:09
PROVIDERS: Emergency Provider Emergency Medicine; PCP Family Medicine; Visit Provider Emergency Medicine
DX: G43.909 Migraine, unspecified, not intractable, without status migrainosus (principal); Z87.891 Personal history of nicotine dependence
CPT/HCPCS: 96374; 96375; 99282; J7030

== ENCOUNTER 2023-09-27 16:11 | Emergency (ER) | payer MEDICAID, SELFPAY ==
[2023-09-27 16:11] VITALS: BP 145/108; PULSE 94; RESP 16; TEMP 36; O2SAT 100; BMI 37.4
[2023-09-27 16:26] LABS: Mucous, Urine 0 SEEN /hpf (<or=2+); Red Blood Cells-Urine 0 SEEN /hpf (0-5)
[2023-09-27 16:28] LABS: Absolute Lymphocyte Count 2.01 X10^3/uL (0.83-4.51); Absolute Neutrophil Count 4.7 X10^3/uL (2.0-7.7); Basophil# 0.04 X10^3/uL; Basophil% 0.5 % (0-1); Eosinophil# 0.09 X10^3/uL; Eosinophils% 1.2 % (0-5); Hemoglobin 12.6 g/dL (12.0-15.0); Lymphocyte # 2.01 X10^3/ul (0.83-4.51); Lymphocyte % 27.4 % (19-41); Mean Corp Hgb Conc 31.5 g/dL (32-36); Mean Corpuscular Hgb 26.6 pg (27.0-32.0); Mean Corpuscular Volume 84.4 fL (81-99); Mean Platelet Vol. 10.1 fl (6.2-12.0); Monocyte# 0.48 X10^3/uL; Monocyte% 6.5 % (0-10); NRBC Flagged by Analyzer 0 % (0-5); Neutrophil # 4.69 X10^3/uL (2.7-7.7); Neutrophil % 64.1 % (47-70); Platelet Count 287 K/mm3 (150-450); RBC Distribution Width CV 14.8 % (11.6-14.6); RBC Distribution Width SD 45.6 fl (35.1-43.9); Red Blood Count 4.74 M/mm3 (4.2-5.4); White Blood Count 7.3 K/mm3 (4.4-11.0)
[2023-09-27 16:29] LABS: Color, Urine Yellow (Yellow); Glucose, Dipstick Normal (Normal); Ketone-Dipstick Negative (Negative); Leukocyte Esterase-Dipstick 25 /ul (Negative); Nitrite-Dipstick Positive (Negative); Occult Blood-Urine 25 /ul (Negative); Protein-Dipstick 30 mg/dl (Negative); Urine Bilirubin Dipstick Negative (Negative); Urine Clarity Sl. Cloudy (Clear); Urine Urobilinogen Normal (Normal)
[2023-09-27 16:44] LABS: Internal QC Validated? YES +Cl - CLEAR BKGD; Pregnancy, Serum, hCG Quali. NEGATIVE Negative
[2023-09-27 16:53] LABS: ALB/GLOB Ratio 0.8 RATIO (0.9-2.4); AST(SGOT) 11 U/L (15-37); Alanine Aminotransfer ALT/SGPT 14 U/L (13-56); Albumin, Serum 3.7 g/dL (3.2-5.0); Alkaline Phosphatase 124 U/L (45-117); Anion Gap 4 (5-15); BUN 11 mg/dL (7-18); BUN/Creat Ratio 11.3 RATIO (10-20); Calcium,Total 8.8 mg/dL (8.5-10.1); Chloride 110 mmol/L (98-107); Creatinine, Serum 0.97 mg/dL (0.55-1.02); EST Glomerular Filtration Rate 74 mL/min (>60); Est Glom Filt Rate - Afr Amer 89 mL/min (>60); Estimated Creatinine Clearance 79.78 ml/min; Globulin 4.4 g/dL (2.2-4.2); Glucose 98 mg/dL (74-106); Potassium 3.7 mmol/L (3.5-5.1); Protein, Total 8.1 g/dL (6.4-8.2); Sodium Level 140 mmol/L (136-145)
[2023-09-27 16:54] LABS: Bacteria 1+ /hpf (None Seen); Squamous Epithelial Cells - UA 10-25 SEEN /hpf (5-10); White Blood Cells 5-10 SEEN /hpf (0-5)
--- NOTE | 2023-09-27 17:51 | CT_ITS ---
EXAM: CT ABDOMEN AND PELVIS WITH INTRAVENOUS CONTRAST CLINICAL INDICATION: RLQ pain TECHNIQUE: Helically acquired images were obtained of the abdomen and pelvis with intravenous contrast. This CT exam was performed using one or more of the following dose reduction techniques: automated exposure control, adjustment of the mA and/or kV according to patient size, and/or use of iterative reconstruction technique. CONTRAST: IV 100mL Isovue-370 COMPARISON: 09/05/2020 FINDINGS: LOWER THORAX: Unremarkable. Lung bases are clear. No cardiomegaly. No significant pericardial effusion. ABDOMEN: LIVER: Unremarkable. Homogeneous. No focal mass. GALLBLADDER AND BILE DUCTS: Multiple gallstones present. There is no evidence of inflammation. No gallbladder distention or wall edema. No intra- or extrahepatic biliary ductal dilation. PANCREAS: Unremarkable. No focal cystic or solid mass. SPLEEN: Unremarkable. Normal size without focal cystic or solid mass. ADRENALS: Unremarkable. No nodules. KIDNEYS AND URETERS: Unremarkable. Normal renal size and position. No hydronephrosis. STOMACH AND BOWEL: Unremarkable. No stomach or bowel distention. No focal inflammatory change. PELVIS: APPENDIX: No evidence of acute appendicitis. BLADDER: Unremarkable. REPRODUCTIVE: Unremarkable as visualized. No mass. ABDOMEN and PELVIS: INTRAPERITONEAL SPACE: Unremarkable. No ascites or other fluid collection. No free air. BONES/JOINTS: Unremarkable. No suspicious lytic or blastic abnormality. SOFT TISSUES: Unremarkable. No discrete abdominal or pelvic wall hernia. VASCULATURE: Unremarkable. Abdominal aorta is non-dilated. LYMPH NODES: Unremarkable. No enlarged lymph nodes. CT/Abdomen/Pelvis W IV Cont ONLY IMPRESSION: Cholelithiasis with no evidence of cholecystitis. There are no acute abnormalities. Electronically Signed: Fritz Sands MD at 18:44 EST ,
--- NOTE | 2023-09-27 18:08 | ED.VIS.GI ---
HPI HPI - GI History of Present Illness Chief Complaint: Abd Pain Informant: patient Narrative Narrative: Patient reports abdominal pain for about 4 days. It tends to be in the right lower quadrant. It is off-and-on but never goes completely away. She states her appetite is down but she is able to eat and drink and has no nausea vomiting or diarrhea. When she strains to move her bowels she does have some discomfort though. She denies any urinary symptoms to me. Last menstrual period she thinks was the beginning of this month but is not sure. No prior abdominal surgeries. She denies medications Allergies were reviewed. [facility] Medical History (Updated 09/27/23 @ 20:[address] Elian Salinas MD) Abscess, dental Obesity affecting premature rupture of membranes Scoliosis (spontaneous vaginal delivery) Vaginal delivery Home Medications [id number] 1 mg tablet 1 tab PO DAILY pregancy 01/15/22 [History Last Taken 02/18/23 05:30] penicillin V potassium 250 mg tablet 500 mg (2 x 250 mg) PO 4X/DAY #40 tabs 06/09/23 [Rx Last Taken Unknown] nitrofurantoin monohydrate/macrocrystals 100 mg capsule (Macrobid) 100 mg PO BID #14 caps 09/27/23 [Rx Last Taken Unknown] Allergy/AdvReac Type Severity Reaction Status Date / Time azithromycin [From Zithromax] Allergy Hives Verified 08/06/23 16:14 codeine AdvReac Vomiting Verified 08/06/23 16:14 naproxen [From Naprosyn] AdvReac Nausea/Vom/ Verified 08/06/23 16:14 Diarrhea Surgical History Hx of hand surgery Social History Smoking Status: Unknown if ever smoked ROS ROS ED ROS Narrative A complete review of systems was performed and is negative except as documented in the history of present illness. Some specific details below. Constitutional: No recent fevers or chills. EYE: No visual complaints or pain. ENT: No difficulty swallowing. No swelling. No pain. CV: No chest pain or palpitations. Respiratory: No dyspnea. No hemoptysis. No difficulty taking breaths. GI: Please see history of present illness. : No frequency dysuria or hematuria. No vaginal discharge. Musculoskeletal: No recent trauma. No pains. Skin: No rash. Nondiaphoretic. Neuro: No weakness or numbness. Endocrine: No polyuria or polydipsia. EXAM Physical Exam Narrative Exam Narrative: CONSTITUTIONAL: Patient is nontoxic in appearance. The patient looks comfortable. She is looking at her phone when I walk in the room looks very nontoxic HEENT: No notable trauma. Mucous membranes moist. CARDIOVASCULAR: Regular rate. Regular rhythm. No notable murmur. No JVD. RESPIRATORY: No respiratory distress. Breathing is unlabored. No wheezes. No rhonchi. No rales. No pain with a deep breath. GASTROINTESTINAL: Not distended. Bowel sounds are normal. There is some right lower quadrant tenderness. But no guarding. No rebound. No palpable mass. No bruit. GENITOURINARY: No tenderness over the bladder. No CVA tenderness on either side. MUSCULOSKELETAL: Atraumatic. No peripheral edema. No cord. No tenderness along the deep venous system. No asymmetry. NEUROLOGICAL: Patient is alert and appropriate. No focal deficit noted. SKIN: No noted rashes. No diaphoresis. PSYCHIATRIC: Patient is calm. Mood is appropriate. Const Vital Signs: 09/27/23 16:11 Temperature 96.8 F L Temperature Source Temporal Pulse Rate 94 Respiratory Rate 16 Blood Pressure 145/108 H Blood Pressure Mean 120 Pulse Ox 100 Oxygen Delivery Method Room Air MDM MDM MDM Narrative Medical decision making narrative: CBC is overall normal. Electrolytes show no marked abnormalities. Liver from test show minimal elevation of alkaline phosphatase but normal AST ALT. Patient urine is cloudy with nitrites and 5-10 white cells. My independent interpretation the patient's CT of the abdomen showed no acute process. No sign of appendicitis. Urinalysis was cloudy with positive nitrates and increased white cells. Because she has this urine with some lower abdominal discomfort no other source of her symptoms we will treat this as UTI. We discussed reasons to return and expected course and follow-up Lab Data Attestation: I reviewed the patient's lab results. Labs: Laboratory Results - last 24 hr 09/27/23 16:20 WBC 7.3 RBC 4.74 Hgb 12.6 Hct 40.0 MCV 84.4 MCH 26.6 L MCHC 31.5 L RDW Std Deviation 45.6 H RDW Coeff of Aaron 14.8 H Plt Count 287 MPV 10.1 Immature Gran % (Auto) 0.300 Neut % (Auto) 64.1 Lymph % (Auto) 27.4 [place] % (Auto) 6.5 Eos % (Auto) 1.2 Baso % (Auto) 0.5 Absolute Neuts (auto) 4.7 Absolute Lymphs (auto) 2.01 Nucleated RBC % 0 Sodium 140 Potassium 3.7 Chloride 110 H Carbon Dioxide 26.0 Anion Gap 4 L BUN 11 Creatinine 0.97 Estim Creat Clear Calc 79.78 Est GFR (MDRD) Af Amer 89 Est GFR (MDRD) Non-Af 74 BUN/Creatinine Ratio 11.3 Glucose 98 Calcium 8.8 Total Bilirubin 0.40 AST 11 L ALT 14 Alkaline Phosphatase 124 H Total Protein 8.1 Albumin 3.7 Globulin 4.4 H Albumin/Globulin Ratio 0.8 L Serum , Qual NEGATIVE Urine Color Yellow Urine Clarity Sl. Cloudy Urine pH 7.0 Ur Specific [place] 1.010 Urine Protein 30 H Urine Glucose (UA) Normal Urine Ketones Negative Urine Occult Blood 25 H Urine Nitrite Positive H Urine Bilirubin Negative Urine Urobilinogen Normal Ur Leukocyte Esterase 25 H Urine RBC 0 SEEN Urine WBC 5-10 SEEN Ur Squamous Epith Cells 10-25 SEEN Urine Bacteria 1+ Urine Mucus 0 SEEN Radiography Diagnostic Testing: Clinical Impression(s) from Imaging Studies Abdomen/Pelvis CT 09/27/23 17:51 IMPRESSION: Cholelithiasis with no evidence of cholecystitis. There are no acute abnormalities. Electronically Signed: Fritz Sands MD at 18:44 EST , Discharge Plan Triage Chief Complaint: Abd Pain ED Provider: Elian Salinas Dx/Rx/DC Orders Clinical Impression: UTI (urinary tract infection), Abdominal pain Instructions: Urinary Tract Infections in Women, ED Abdominal Pain Unkn Cause Fem Prescriptions: New nitrofurantoin monohyd/m-cryst [Macrobid] 100 mg capsule 100 mg PO BID Qty: 14 0RF Rx Instructions: must administer with a meal/food No Action sozqgthw-wra-Ai-FA 1 mg Tablet 1 tab PO DAILY penicillin V potassium 250 mg tablet 500 mg PO 4X/DAY Qty: 40 0RF Primary Care Provider: Yves Parker Referrals: Yves Parker MD [Primary Care Provider] - 3-5 Days Disposition Disposition: Home, Self Care
== END 2023-09-27 21:09 | disposition home or self-care (01) ==
PROVIDERS: Emergency Provider Emergency Medicine; PCP Family Medicine; Visit Provider Emergency Medicine
DX: N39.0 Urinary tract infection, site not specified (principal); R10.31 Right lower quadrant pain
CPT/HCPCS: 74177; 80053; 81001; 84703; 85025; 99282; Q9967; A4216

== ENCOUNTER 2023-11-19 16:58 | Emergency (ER) | payer MEDICAID, SELFPAY ==
[2023-11-19 16:59] VITALS: BP 127/86; PULSE 101; RESP 18; TEMP 37.2; O2SAT 100; BMI 39.2
--- NOTE | 2023-11-19 17:20 | EX.ED.VIS.HA ---
HPI History of Present Illness Chief Complaint: Headache Informant: patient and family Onset/Context/Timing Onset: Days (3 days) Context: Gradual Timing: Waxes and wanes Narrative Narrative: Patient presents with 3-day history of headache. She describes a throbbing sensation in her head with mild light sensitivity and nausea. She has tried Tylenol and ibuprofen at home without improvement. She does report a history of migraines but states she is not good at keeping track of them and is not on any preventative medicine. No recent head trauma. She has had a mild runny nose but no fever or cough. [facility] Medical History Abscess, dental Obesity affecting premature rupture of membranes Scoliosis (spontaneous vaginal delivery) Vaginal delivery Home Medications [id number] 1 mg tablet 1 tab PO DAILY pregancy 01/15/22 [History Last Taken 02/18/23 05:30] penicillin V potassium 250 mg tablet 500 mg (2 x 250 mg) PO 4X/DAY #40 tabs 06/09/23 [Rx Last Taken Unknown] nitrofurantoin monohydrate/macrocrystals 100 mg capsule (Macrobid) 100 mg PO BID #14 caps 09/27/23 [Rx Last Taken Unknown] diphenhydramine HCl 50 mg tablet (Benadryl Allergy) 50 mg PO TID PRN migraine headache #10 tabs 11/19/23 [Rx Last Taken Unknown] ibuprofen 600 mg tablet 600 mg PO Q8H PRN PRN pain #20 TABLETS 11/19/23 [Rx Last Taken Unknown] metoclopramide HCl 10 mg tablet (Reglan) 10 mg PO Q8H PRN PRN migraine headache #10 tabs 11/19/23 [Rx Last Taken Unknown] Allergy/AdvReac Type Severity Reaction Status Date / Time azithromycin [From Zithromax] Allergy Hives Verified 11/19/23 16:58 codeine AdvReac Vomiting Verified 11/19/23 16:58 naproxen [From Naprosyn] AdvReac Nausea/Vom/ Verified 11/19/23 16:58 Diarrhea Surgical History Hx of hand surgery Social History Smoking Status: Unknown if ever smoked ROS ROS ED Constitutional Constitutional ED: Denies chills or fever(s) Eyes Eyes: Denies change in vision or discharge from eye(s) ENT ENT ED: Reports rhinorrhea; Denies discharge from eye(s) or sore throat Cardiovascular Cardiovascular: Denies chest pain or palpitations Respiratory/Chest Respiratory/Chest: Denies cough or dyspnea Gastrointestinal Gastrointestinal: Reports nausea; Denies abdominal pain, diarrhea or vomiting Genitourinary Genitourinary ED: Denies dysuria Musculoskeletal Musculoskeletal: Denies back pain or extremity pain Integumentary Denies Abrasions or rash Neurologic Neurologic: Reports headache(s); Denies weakness Psychiatric Psychiatric: Denies anxiety or depression Allergic/Immunologic Allergic/Immunologic ED: Denies lip swelling or urticaria EXAM Physical Exam Const Vital Signs: 11/19/23 16:59 Temperature 99 F Temperature Source Temporal Pulse Rate 101 H Respiratory Rate 18 Blood Pressure 127/86 H Blood Pressure Mean 99 Pulse Ox 100 Oxygen Delivery Method Room Air Positive well nourished and well developed General Appearance ED: well developed HEENT Reports normocephalic and moist mucous membranes Eyes EOMs intact bilaterally Neck no meningeal signs Resp normal respiratory effort and clear to auscultation bilaterally Cardio regular rate and regular rhythm GI non-tender Auscultation: normoactive bowel sounds Extremity normal to inspection Neuro oriented x3 and no sensory deficits noted Motor Exam: strength 5/5 throughout Psych mental status grossly normal MDM MDM MDM Narrative Medical decision making narrative: Patient does have history of similar headaches with no recent trauma. She declines IV or IM medication and just wishes for p.o. treatment. She is given p.o. dose of ibuprofen, Benadryl, and Reglan. Treatment and Re-Evaluation Narrative: Repeat evaluation patient resting comfortably. She does feel comfortable with discharge to home. I will send prescriptions for the medications given here to the pharmacy for her if she should need repeat dosing tomorrow. Return instructions given. Discharge Plan Triage Chief Complaint: Headache ED Provider: Vida Mendez Dx/Rx/DC Orders Clinical Impression: Migraine Instructions: ED, Migraine (Classical) Prescriptions: New ibuprofen 600 mg tablet 600 mg PO Q8H PRN PRN (Reason: pain) Qty: 20 0RF Benadryl Allergy 50 mg tablet 50 mg PO TID PRN (Reason: migraine headache) Qty: 10 0RF metoclopramide HCl [Reglan] 10 mg tablet 10 mg PO Q8H PRN PRN (Reason: migraine headache) Qty: 10 0RF No Action [id number] 1 mg Tablet 1 tab PO DAILY nitrofurantoin monohyd/m-cryst [Macrobid] 100 mg capsule 100 mg PO BID Qty: 14 0RF Rx Instructions: must administer with a meal/food penicillin V potassium 250 mg tablet 500 mg PO 4X/DAY Qty: 40 0RF Primary Care Provider: Yves Parker Referrals: Yves Parker MD [Primary Care Provider] - 1 Week if not improving Disposition Disposition: Home, Self Care
--- OUTSIDE RECORDS SUMMARY | 2023-11-19 17:36 | XMS RPT_ITS | CCD ---
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 there. SEQUENTIAL SCREENINGS The [facility] offers sequential screenings for women who are interested in screenings for chromosomal abnormalities and certain defects during a . The sequential screen combines ultrasound and blood tests to determine the risk of chromosomal abnormalities, including Down's Syndrome (Trisomy 21) and Trisomy 18, as well as open neural tube defects including spina bifida. Ultrasound examination is performed between 11 weeks and 13 weeks gestational age. Blood tests are drawn after the ultrasound and again later in the between 15 and 21 weeks gestational age. Please let your physician know if you are interested in this testing. It will require an appointment with our brewery technician. This is not an ultrasound performed by a physician in our office during a routine visit. SIGNS AND SYMPTOMS OF LABOR 1. Contractions every 10 minutes or more often 2. Clear, pink, or brownish fluid (water) leaking from vagina 3. Feeling that baby is pushing down, pressure 4. Low, dull backache 5. Cramps that feel like a period 6. Cramps with or without diarrhea If you notice any of the above symptoms, contact our office at [phone] and ask to speak with a nurse. After hours, you can call doctors registry at [phone] OR call [facility] at [phone] and ask to have the doctor clinic receptionist paged. If you consider this an emergency, dial or go to your nearest emergency department. NEED HELP? Are you dealing with a violent or abusive relationship? Are you a victim of rape or sexual assult? Call [facility] ([facility] 24 hour Crisis Hotline: 703.516.4323 or 834-293-4666. MANUAL Your Guide to a Healthy manual is now on-line. Visit the [email or web address] ancyGuide to download your free copy documented in this encounter [facility] 02-18-2023 Note HNO ID: [id number] Author: Selam Viera APRN.CNM Service: ? Author Type: Quality Control Coordinator Type: Progress Notes Filed: 02/18/2023 11:49 AM Note Text: NST SUMMARY PROVIDER ASSESSMENT AND INTERPRETATION Remigio Hernandez is a 27 year old female, , who is at 39w1d with an YANCY of 02/24/2023, by Ultrasound dating method. Indications for NST: Obesity Baseline: 145 Variability: Moderate Accelerations: Present 15 X 15 Decelerations: None Contractions: TOCO: None Interpretation: Reactive SIGNATURE: Selam Viera APRN.CNM [facility] 02-18-2023 History of Presen t illness Narrative NST SUMMARY PROVIDER ASSESSMENT AND INTERPRETATION Remigio Hernandez is a 27 year old female, , who is at 39w1d with an YANCY of 02/24/2023, by Ultrasound dating method. Indications for NST: Obesity Baseline: 145 Variability: Moderate Accelerations: Present 15 X 15 Decelerations: None Contractions: TOCO: None Interpretation: Reactive SIGNATURE: Selam Viera APRN.CNM documented in this encounter [facility] 02-18-2023 Miscellaneous Notes BATSHEVA-S: Remigio Hernandez is a 27 year old female who presents at 38w2d with YANCY:02/24/2023, by Ultrasound for a routine visit. Denies headache, visual changes, chest pain, shortness of breath, vaginal bleeding, leakage of fluid, or dysuria. O: See flow sheet Gen: No apparent distress Abd: Gravid, nontender NST reactive ASSESSMENT/PLAN: 1. 38 weeks gestation of P: 1) Labor instructions reviewed and when to call 2) RTO in one week 3) Dilapan insertion on 02/19/23 and IOL on 02/20/23 Selam Viera APRN.CNM documented in this encounter [facility] 02-15-2023 Miscellaneous Notes noted. Thanks. Sobia Rucker MD Patient 38w5d calling with complaints of regular contractions since last night. Per patient her contractions have been every 3-5 minutes lasting around a minute for for the last 3-4 hours. Patient states laying down and resting makes them worse. She has tried hydrating and walking around also makes pain worse. Currently rating the pain at a 8/10. States she can't walk or breathe through contractions. Denies any leaking or bleeding. Instructed patient to go to labor and delivery, verbalizes understanding and states she will be there in 30 minutes. L&D called and notified. EWELINA. Bernie Baltazar RN documented in this encounter [facility] 02-12-2023 Demetris Anne Cma - 02/12/2023 8:54 AM EDT SEQUENTIAL SCREENINGS The [facility] offers sequential screenings for women who are interested in screenings for chromosomal abnormalities and certain defects during a . The sequential screen combines ultrasound and blood tests to determine the risk of chromosomal abnormalities, including Down's Syndrome (Trisomy 21) and Trisomy 18, as well as open neural tube defects including spina bifida. Ultrasound examination is performed between 11 weeks and 13 weeks gestational age. Blood tests are drawn after the ultrasound and again later in the between 15 and 21 weeks gestational age. Please let your physician know if you are interested in this testing. It will require an appointment with our brewery technician. This is not an ultrasound performed by a physician in our office during a routine visit. SIGNS AND SYMPTOMS OF LABOR 1. Contractions every 10 minutes or more often 2. Clear, pink, or brownish fluid (water) leaking from vagina 3. Feeling that baby is pushing down, pressure 4. Low, dull backache 5. Cramps that feel like a period 6. Cramps with or without diarrhea If you notice any of the above symptoms, contact our office at [phone] and ask to speak with a nurse. After hours, you can call doctors registry at [phone] OR call [facility] at [phone] and ask to have the doctor clinic receptionist paged. If you consider this an emergency, dial 9-1-4 or go to your nearest emergency department. NEED HELP? Are you dealing with a violent or abusive relationship? Are you a victim of rape or sexual assult? Call [facility] ([place]) 24 hour Crisis Hotline: 519.970.8589 or 332-033-2708. MANUAL Your Guide to a Healthy manual is now on-line. Visit the [email or web address] ancyGuide to download your free copy documented in this encounter [facility] 02-08-2023 Note HNO ID: [id number] Author: Sobia Rucker MD Service: ? Author Type: Physician Type: Progress Notes Filed: 02/08/2023 4:09 PM Note Text: NST SUMMARY PROVIDER ASSESSMENT AND INTERPRETATION Remigio eHrnandez is a 27 year old female, , who is at 37w5d with an YANCY of 02/24/2023, by Ultrasound dating method. Indications for NST: Obesity Baseline: 150 Variability: Moderate Accelerations: Present 15 X 15 Decelerations: None Contractions: TOCO: Irregular Interpretation: Category I and Reactive SIGNATURE: Sobia Rucker MD [facility] 02-08-2023 History of Presen t illness Narrative NST SUMMARY PROVIDER ASSESSMENT AND INTERPRETATION Remigio Hernandez is a 27 year old female, , who is at 37w5d with an YANCY of 02/24/2023, by Ultrasound dating method. Indications for NST: Obesity Baseline: 150 Variability: Moderate Accelerations: Present 15 X 15 Decelerations: None Contractions: TOCO: Irregular Interpretation: Category I and Reactive SIGNATURE: Sobia Rucker MD documented in this encounter [facility] 02-08-2023 Miscellaneous Notes RR- VB No. LOF No. CTXS No. Movement: present. Other c/o: No. Medication list reviewed. Physical Exam See Flow Sheet Abd: soft, nontender, gravid Ext: edema: Trace A/P 37w5d Estimated Date of Delivery: 02/24/23 OBesity- BMI 42. r/b/a to induction of labor reviewed, desires to proceed. Reviewed dilapan cervical ripening, would like to proceed w/ this. F/u weekly for nST reviewed labor precautions. . Sobia Rucker M.D. documented in this encounter [facility] 02-08-2023 Instructions Selam Viera APRN.BONNIE - 02/08/2023 3:17 PM EDT Patient s Instructions for Outpatient Management: Pre-procedure Do you have any concerns you want to discuss today regarding the You and your provider have planned for an induction of labor. Induction of labor means stimulating labor to start before it begins on its own. About 1 in 4 [place] women have their labors induced. Common reasons for recommending an induction include medical conditions such as diabetes or high blood pressure, or going past your due date. Some women also elect to undergo induction at 39 weeks or later to reduce the risk of complications that may occur after this time. Induction of labor can be a slow process, lasting 1-3 days. The first part of an induction is to ensure that the cervix is ripe, or ready for labor. A ripe cervix is soft, thin (effaced) and may be a few centimeters open (dilated). Having a ripe cervix increases the chance of a successful induction. If your cervix is not ripe yet, then the first step of your induction will likely be to ripen the cervix (more on this below!). Once the cervix is ripe, labor contractions can be stimulated. This can be done with an oxytocin drip through an intravenous (IV) (Pitocin), breaking the bag of water, or both. This handout focuses on cervical ripening for women who may be able to begin the cervical ripening portion of their induction at home. The cervix can be ripened using medications called prostaglandins (e.g. misoprostol) and it can be ripened mechanically with either a cervical balloon catheter or small dilators that absorb moisture from the cervix. Often a combination of both medications and mechanical methods are used. Ripening the cervix with medication requires staying in the hospital for close monitoring since the medicine can also produce contractions and everyone s body responds a bit differently. However, mechanical ripening does not start labor contractions, so it can safely be done at home for many women who don t yet need to be in the hospital. Both methods are similarly effective for ripening the cervix, and both take about the same amount of time, on average. Mechanical ripening is most commonly done with a cervical balloon catheter. This is a soft rubber or plastic tube with one or two inflatable balloons at its tip. When inflated with sterile water, the balloon applies gentle pressure to the inner part of the cervix. This works to ripen the cervix by gradually dilating (opening) the cervix a few centimeters, as well as by stimulating the cervix to release natural prostaglandins, the local hormones that ripen the cervix. Hygroscopic dilators may also be used which are matchstick-like dilators that absorb moisture from the cervix and slowly dilate it at they then expand. What should I expect? You and your provider will decide together if you can start your labor induction at home with the cervical balloon catheter. If so, you will schedule an appointment to have one of them placed approximately 12 hours before you are admitted to Labor & Delivery to have your baby. At the clinic visit, you will have the mechanical dilator placed. The provider will gently guide the catheter or dilators through the natural hole in the cervix. For balloon catheters, they will inflate the balloon(s). This can be done with a speculum exam (the provider places a speculum to open the vagina and see the cervix as the device is inserted), or with a digital exam (the provider wears sterile gloves and uses their fingers to guide the device into place). You may have some cramping and discomfort when the dilator is placed, but most people find it resolves shortly after the procedure is over. Once it is in place, you may not feel it at all, or you may feel some pressure. You can walk and use the bathroom as usual with it in place. We will monitor you and your baby to make sure you are safe to go home. In the unlikely event that you experience heavy vaginal bleeding or had breakage of your bag of water at the time of the placement you would be admitted to Labor & Delivery from your appointment to begin your induction. You will then go home and return to the hospital the following day for your induction. As you are waiting at home, the cervix will soften and open gradually. You may notice some bloody show (blood-tinged mucous). You may also continue to have some mild-moderate cramping from the natural hormones that are being stimulated as your body gets ready for labor. Once the cervix is open enough, the balloon catheter or dilators may fall out. Often women feel cramping when the balloon passes through the cervix into the vagina, after which the sensation tends to fade. If you can feel the balloon or dilators pass into the vagina, you can remove and place them in the plastic bag you were given in the office and bring it with you when you come to the hospital. You may still come in at the planned time for your induction. Complications are extremely rare, especially with low-risk patients. Your provider will screen you to ensure that you are a good candidate for the outpatient cervical ripening. If you have any questions, please talk to your provider! procedure today? Yes No If yes or not sure for any answer, please explain: SIGNS AND SYMPTOMS OF LABOR 1. Contractions every 10 minutes or more often 2. Clear, pink, or brownish fluid (water) leaking from vagina 3. Feeling that baby is pushing down, pressure 4. Low, dull backache 5. Cramps that feel like a period 6. Cramps with or without diarrhea If you notice any of the above symptoms, contact our office at [phone] and ask to speak with a nurse. After hours, you can call doctors registry at [phone] OR call [facility] at [phone] and ask to have the doctor clinic receptionist paged. If you consider this an emergency, dial or go to your nearest emergency department. NEED HELP? Are you dealing with a violent or abusive relationship? Are you a victim of rape or sexual assult? Call [facility] ([place]) 24 hour Crisis Hotline: 388.349.6258 or 482-535-7674. MANUAL Your Guide to a Healthy manual is now on-line. Visit the [email or web address] ancyGuide to download your free copy documented in this encounter [facility] 02-06-2023 Miscellaneous Notes S: Remigio Hernandez is a 27 year old female who presents at 37.3 weeks gestation that is an add on visit for leaking fluid. She woke up around 0330 am and felt like she was leaking fluid. She got up and went to the bathroom and continued to have episodes of fluid coming out. Denies any vaginal bleeding. Positive movement. Denies headache, visual changes, chest pain, shortness of breath, vaginal bleeding, or dysuria. Positive movement O: See flow sheet Gen: No apparent distress Abd: Gravid, nontender SSE completed Amniotic Fluid Test 02/06/2023 3:10 PM Fern: neg ; Nitrazine: neg (pH less than 7) Fern Reference Range: Negative for amniotic fluid Nitrazine Reference Range: Normal vaginal pH is acidic (below 7.0) with pH above 7.0 (basic) indicating the presence of amniotic fluid. Lab Address: Ob/gynecology [address] [facility] [address] Dept: [phone] Provider: Kimber Bee APRN.CNM ASSESSMENT/PLAN: 1. 37 weeks gestation of - ICD9: V22.2, ICD10: Z3A.37 (primary diagnosis) 2. Amniotic fluid leaking - ICD9: 658.10, ICD10: O42.90 3. Obesity during - ICD9: 649.10, ICD10: O99.210 4. Excessive growth affecting management of in third trimester, single or unspecified fetus - ICD9: 656.63, ICD10: O36.63X0 - URINE OB DIP B/O - FERN/ NIT- NEGATIVE - Labor precautions and when to call RTO- for NST/ [place] Kimber Bee APRN.CNM documented in this encounter [facility] 02-06-2023 Instructions Barney Anne Cma - 02/06/2023 2:47 PM EDT SEQUENTIAL SCREENINGS The [facility] offers sequential screenings for women who are interested in screenings for chromosomal abnormalities and certain defects during a . The sequential screen combines ultrasound and blood tests to determine the risk of chromosomal abnormalities, including Down's Syndrome (Trisomy 21) and Trisomy 18, as well as open neural tube defects including spina bifida. Ultrasound examination is performed between 11 weeks and 13 weeks gestational age. Blood tests are drawn after the ultrasound and again later in the between 15 and 21 weeks gestational age. Please let your physician know if you are interested in this testing. It will require an appointment with our brewery technician. This is not an ultrasound performed by a physician in our office during a routine visit. SIGNS AND SYMPTOMS OF LABOR 1. Contractions every 10 minutes or more often 2. Clear, pink, or brownish fluid (water) leaking from vagina 3. Feeling that baby is pushing down, pressure 4. Low, dull backache 5. Cramps that feel like a period 6. Cramps with or without diarrhea If you notice any of the above symptoms, contact our office at [phone] and ask to speak with a nurse. After hours, you can call doctors registry at [phone] OR call [facility] at [phone] and ask to have the doctor clinic receptionist paged. If you consider this an emergency, dial 9-1-4 or go to your nearest emergency department. NEED HELP? Are you dealing with a violent or abusive relationship? Are you a victim of rape or sexual assult? Call [facility] ([facility] 24 hour Crisis Hotline: 801.655.1024 or 202-930-8482. MANUAL Your Guide to a Healthy manual is now on-line. Visit the [email or web address] ancyGuide to download your free copy documented in this encounter [facility] documented as of this encounter (statuses as of 05/03/2023) [facility] History of Past illness Narrative* Problem Noted Date Resolved Date Excessive growth affec ting management of in third trimester 01/31/2023 04/12/2023 Overview: 01/31/23-Recommend growth in 3 weeks if still to determine mode of delivery due to macrosomia. Weekly testing due to obesity with BMI >40. Selam Viera APRN.CNM Short interval between pregn ancies affecting , antepartum 07/26/2022 04/12/2023 Overview: 07/26/2022atient delivered her previous child April 06, 2022. TKRN Supervision of other high risk pregnancies, thir d trimester 02/21/2022 04/12/2023 Overview: 02/21/22-Obesity in , history of PTB. Selam Viera APRN.CNM Abnormal glucose tolerance in 01/27/2011/27/2022 Overview: 02/03/22- Normal 3 hour GTT. Kimber Bee APRN.CNM 01/26/22-Elevated glucose in . 3hr GTT ordered. Selam Viera APRN.CNM Obesity during 08/18/2021 023 Overview: 2Patient is obese. We will plan on early HgbA1C.FINA Patient request for diagnostic testing 04/12/2023 Overview: 07/26/2022 Patient desires aneuploidy screening. She is given contact information for [facility] to check on insurance coverage. Patient declines genetic carrier screening testing.Siobhan Bender RN Encounter for supervision of other normal , second trimester 01/10/2019 02/21/2022 Overview: quit tob use in Tetrahydrocannabinol (THC) use disorder, mild, a buse 01/10/2019 02/21/2022 Thumb sucking 04/09/2013 01/10/2019 Finger pain 07/21/2009 01/10/2019 Closed fracture of unspecified phalanx or phalan ges of hand 05/24/2009 01/10/2019 documented as of this encounter (statuses as of 05/17/2023) [facility] History of Past illness Narrative* Problem Noted Date Resolved Date Excessive growth affec ting management of in third trimester 01/31/2023 04/12/2023 Overview: 01/31/23-Recommend growth in 3 weeks if still to determine mode of delivery due to macrosomia. Weekly testing due to obesity with BMI >40. Selam Viera APRN.CNM Short interval between pregn ancies affecting , antepartum 07/26/2022 04/12/2023 Overview: 07/26/2022atient delivered her previous child April 06, 2022. TKRSonal Supervision of other high risk pregnancies, thir d trimester 02/21/2022 04/12/2023 Overview: 02/21/22-Obesity in , history of PTB. Selam Viera APRN.CNM Abnormal glucose tolerance in 01/27/2011/27/2022 Overview: 02/03/22- Normal 3 hour GTT. Kimber Bee APRN.CNM 01/26/22-Elevated glucose in . 3hr GTT ordered. Selam Viera APRN.CNM Obesity during 08/18/2021 023 Overview: 07/26/2022atient is obese. We will plan on early HgbA1C.LUNARSonal Patient request for diagnostic testing 04/12/2023 Overview: 07/26/2022 Patient desires aneuploidy screening. She is given contact information for [facility] to check on insurance coverage. Patient declines genetic carrier screening testing.Siobhan Bender RN Encounter for supervision of other normal , second trimester 01/10/2019 02/21/2022 Overview: quit tob use in Tetrahydrocannabinol (THC) use disorder, mild, a buse 01/10/2019 02/21/2022 Thumb sucking 04/09/2013 01/10/2019 Finger pain 07/21/2009 01/10/2019 Closed fracture of unspecified phalanx or phalan ges of hand 05/24/2009 01/10/2019 documented as of this encounter (statuses as of 05/19/2023) [facility]03-15-2023 History of Past illness Narrative* Problem Noted Date Diagnosed Date Resolved Date Excessive growth affec ting management of in third trimester 01/31/2023 04/12/20 Overview: 01/31/23-Recommend growth in 3 weeks if still to determine mode of delivery due to macrosomia. Weekly testing due to obesity with BMI >40. Selam Viera APRN.CNM Short interval between pregn ancies affecting , antepartum 07/26/2022 04/12/2023 Overview: 07/26/2022atihortencia delivered her previous child April 06, 2022. TKRN Supervision of other high ri sk pregnancies, third trimester 02/21/2022 04/12/2023 Overview: 02/21/22-Obesity in , history of PTB. Selam Viera APRN.CNM Abnormal glucose tolerance in 01/26/2022 11/27/2022 Overview: 02/03/22- Normal 3 hour GTT. Kimber Bee APRN.CNM 01/26/22-Elevated glucose in . 3hr GTT ordered. Selam Viera APRN.CNM Obesity during 08/18/2021 Overview: 07/26/2022atient is obese. We will plan on early HgbA1C.TKRN Patient request for diagnostic testing 08/18/2021 04/12/2023 Overview: 07/26/2022 Patient desires aneuploidy screening. She is given contact information for [facility] to check on insurance coverage. Patient declines genetic carrier screening testing.Siobhan Bender RN Encounter for supervision of other normal , second trimester 01/10/2019 02/21/2022 Overview: quit tob use in Tetrahydrocannabinol (THC) u se disorder, mild, abuse 01/10/2019 02/21/2022 Thumb sucking 04/09/2013 01/10/2019 Finger pain 07/21/2009 01/10/2019 Closed fracture of unspecifi ed phalanx or phalanges of hand 05/24/2009 01/10/2019 documented as of this encounter (statuses as of 09/06/2023) [facility]03-15-[facility] History of Past illness Narrative* Problem Noted Date Diagnosed Date Resolved Date Excessive growth affec ting management of in third trimester 01/31/2023 04/12/20 Overview: 01/31/23-Recommend growth in 3 weeks if still to determine mode of delivery due to macrosomia. Weekly testing due to obesity with BMI >40. Selam Viera APRN.CNM Short interval between pregn ancies affecting , antepartum 07/26/2022 04/12/2023 Overview: 07/26/2022atient delivered her previous child April 06, 2022. TKRN Supervision of other high ri sk pregnancies, third trimester 02/21/2022 04/12/2023 Overview: 02/21/22-Obesity in , history of PTB. Selam Viera APRN.CNM Abnormal glucose tolerance in 01/26/2022 11/27/2022 Overview: 02/03/22- Normal 3 hour GTT. Kimber Bee APRN.CNM 01/26/22-Elevated glucose in . 3hr GTT ordered. Selam Viera APRN.CNM Obesity during 08/18/2021 Overview: 07/26/2022atient is obese. We will plan on early HgbA1C.TKRN Patient request for diagnostic testing 08/18/2021 04/12/2023 Overview: 07/26/2022 Patient desires aneuploidy screening. She is given contact information for [facility] to check on insurance coverage. Patient declines genetic carrier screening testing.Siobhan Bender RN Encounter for supervision of other normal , second trimester 01/10/2019 02/21/2022 Overview: quit tob use in Tetrahydrocannabinol (THC) u se disorder, mild, abuse 01/10/2019 02/21/2022 Thumb sucking 04/09/2013 01/10/2019 Finger pain 07/21/2009 01/10/2019 Closed fracture of unspecifi ed phalanx or phalanges of hand 05/24/2009 01/10/2019 documented as of this encounter (statuses as of 10/09/2023) [facility]03-15-2023 Miscellaneous Notes* Telephone Encounter - Sandra Mar RN - 01/31/2023 8:58 AM EDT Patient called back and was notified of below. She will schedule f/u u/s when she is in the office tomorrow. Sandra Mar RN * Telephone Encounter - Vida Martinez RN - 01/31/2023 8:42 AM EDT Left message with patient's mother for patient to call the office. Also, sent the below [employer] message. Jeremy Nam, I left a message with your mom to call the office. Tomorrow, 02/01/23, you do not need to come in tot office at 2:30 for the NST since you just had a BPP ultrasound. Come at 3:10 PM for your visit with Dr. Saavedra only. We will be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 to call 2) RTO as scheduled 3) Reassurance offered for decreased movement, reviewed kick counts. 4) Urine culture due to lower pelvic cramping. Patient declines presumptive treatment at this time. Selam Viera APRN.CNM documented in this encounterSt. [facility]01-[facility]-2023 Instructions* Patient Instructions* Barney Anne Cma - 11/29/2022 1:43 PM EST SEQUENTIAL SCREENINGS [facility] offers sequential screenings for women who are interested in screenings for chromosomal abnormalities and certain defects during a . The sequential screen combinesultrasound and blood tests to determine the risk of chromosomal abnormalities, including Down's Syndrome (Trisomy 21) and Trisomy 18, as well as open neural tube defects including spina bifida. Ultrasound examination is performed between 11 weeks and 13 weeks gestational age. Blood tests are drawn after the ultrasound and again later in the between 15 and 21 weeks gestational age. Please let your physician know if you are interested in this testing. It will require an appointment withour brewery technician. This is not an ultrasound performed by a physician in our office during a routine visit. SIGNS AND SYMPTOMS OF LABOR 1. Contractions every 10 minutes or more often 2. Clear, pink, or brownish fluid (water) leaking from vagina 3. Feeling that baby is pushing down, pressure 4. Low, dull backache 5. Cramps that feel like a period 6. Cramps with or without diarrhea If you notice any of the above symptoms, contact our office at [phone] and ask to speak with anurse. After hours, you can call doctors registry at [phone] OR call [facility] at [phone] ask to have the doctor clinic receptionist paged. If you consider this an emergency, dial 9-0-8 or go to your nearest emergency department. NEED HELP? Are you dealing with a violent or abusive relationship? Are you a victim of rape or sexual assult? Call [facility] [place] ([place]) 24 hour Crisis Hotline: 366.582.9695 or 529-997-0173. MANUAL Your Guide to a Healthy manual is now on-line. Visit the [email or web address] to download your free copy documented in this encounterSt. [facility]01-09-2023 Miscellaneous Notes* Quick Notes - Selam Viera APRN.CNM - 11/27/2022 3:15 PM EST GINGERS: Remigio Hernandez is a 26 year old female who presents at 27w2d with YANCY:02/24/2023, by Ultrasound for a routine visit. Good FM. Denies headache, visual changes, chest pain, shortness of breath, vaginal bleeding, leakage of fluid, or dysuria. Feeling well, no complaints. Taking ASA. O: See flow sheet Gen: No apparent distress Abd: Gravid, nontender 6 lb TWG ASSESSMENT/PLAN: 1. Supervision of high risk in second trimester 2. 27 weeks gestation of P: - 1 hour GCT, CBC, and RPR today - O positive - TDAP declines - LARC form reviewed and signed. Planning Mirena Immediate PP - Depression screen negative - Opioid screen negative - plan form discussed and given to patient. Patient desires unmedicated - PTL precautions and kick counts reviewed - RTO- 2 weeks or sooner if needed - Continue ASA SBIRT Remigio Hernandez was given the 4's screening tool. Remigio answered as follows: OB Opioid Screening - Last Recorded (since 03/02/2022) Did any of your parents have a problem with alcohol or other drug use? No Does your partner have a problem with alcohol or other drug use? ! YES In the past, have you had difficulties in your life because of alcohol or other drugs, including prescription medications? No In the past month have you drunk any alcohol or used other drugs? No Are you taking medication for pain during the either prescribed or not? No Based on the screen and further questions, she is considered at Low risk due to:No past or current use. Positive reinforcement of current behavior. Selam Viera APRN.CNM documented in this encounterSt. [facility]01-09-2023 Instructions* Patient Instructions* Ilene Tapia Ma - 11/27/2022 2:28 PM EST SEQUENTIAL SCREENINGS [facility] offers sequential screenings for women who are interested in screenings for chromosomal abnormalities and certain defects during a . The sequential screen combinesultrasound and blood tests to determine the risk of chromosomal abnormalities, including Down's Syndrome (Trisomy 21) and Trisomy 18, as well as open neural tube defects including spina bifida. Ultrasound examination is performed between 11 weeks and 13 weeks gestational age. Blood tests are drawn after the ultrasound and again later in the between 15 and 21 weeks gestational age. Please let your physician know if you are interested in this testing. It will require an appointment withour brewery technician. This is not an ultrasound performed by a physician in our office during a routine visit. SIGNS AND SYMPTOMS OF LABOR 1. Contractions every 10 minutes or more often 2. Clear, pink, or brownish fluid (water) leaking from vagina 3. Feeling that baby is pushing down, pressure 4. Low, dull backache 5. Cramps that feel like a period 6. Cramps with or without diarrhea If you notice any of the above symptoms, contact our office at [phone] and ask to speak with anurse. After hours, you can call doctors registry at [phone] OR call [facility] at [phone] ask to have the doctor clinic receptionist paged. If you consider this an emergency, dial 5-4-8 or go to your nearest emergency department. NEED HELP? Are you dealing with a violent or abusive relationship? Are you a victim of rape or sexual assult? Call [facility] ([place]) 24 hour Crisis Hotline: 442.649.8493 or 809-361-5097. MANUAL Your Guide to a Healthy manual is now on-line. Visit [email or web address] to download your free copy documented in this encounterSt. [facility]01-05-2023 Miscellaneous Notes* Telephone Encounter - Sandra Mar RN - 11/23/2022 4:53 PM EST 26w5d Calling c/o worsening RLQ and right lower back pain. Has been more constant x2 days. Gets worse with certain positions or movements. Having more vaginal discharge- she feels it is watery and worried could be fluid. Having some dysuria. Completed antibiotic last month for UTI. States she feels something is off and wrong. She wants to go to [facility] for evaluation. Charge nurse in L&D notified. Sandra Mar RN documented in this encounterSt. [facility]12-[facility]-2022 Hospital Discharge instructions Patient Education 11/09/2022 21:21:24 Head Injury (Adult) Head Injury (Adult) You have a head injury. It does not appear serious at this time. But symptoms of a more serious problem, such as a mild brain injury (concussion) or bruising or bleeding in the brain, may appear later. For this reason, you or someone caring for you will need to watch for the symptoms listed below. Once you re home, also be sure to follow any care instructions you re given. Home care Watch for the following symptoms Seek emergency medical care if you have any of these symptoms over the next hours to days: Headache Nausea or vomiting Dizziness Sensitivity to light or noise Unusual sleepiness or grogginess Trouble falling asleep Personality changes Vision changes Memory loss Confusion Trouble walking or clumsiness Loss of consciousness (even for a short time) Inability to be awakened Stiff neck Weakness or numbness in any part of the body Seizures General care If you were prescribed medicines for pain, use them as directed. Note: Don t take other medicines for pain without talking to your provider first. To help reduce swelling and pain, apply a cold source to the injured area for up to 20 minutes at atime. Do this as often as directed. Use a cold pack or bag of ice wrapped in a thin towel. Never apply a cold source directly to the skin. If you have cuts or scrapes as a result of your head injury, care for them as directed. For the next 24 hours (or longer, if instructed): oDon t drink alcohol or use sedatives or other medicines that make you sleepy. oDon t drive or operate machinery. oDon t do anything strenuous, such as heavy lifting or straining. oLimit tasks that require concentration. This includes reading, using a smartphone or computer, watching TV, and playing video games. oDon t return to sports or other activities that could result in another head injury. Follow-up care Follow up with your healthcare provider, or as directed. If imaging tests were done, they will be reviewed by a doctor. You will be told the results and any new findings that may affect your care. When to seek medical advice Call your healthcare provider right away if any of these occur: Pain doesn t get better or worsens New or increased swelling or bruising Fever of 100.4 F (38 C) or higher, or as directed by your provider Increased redness, warmth, drainage, or bleeding from the injured area Fluid drainage or bleeding from the nose or ears Any depression or bony abnormality in the injured area Persistent confusion or lethargy Bruising behind the ears or bruising around the eyes [phone] [employer]. [address], [place] [address]. All rights reserved. This information is not intended as a substitute for professional medical care. Always follow yourhealthcare professional's instructions. 11/09/2022 21:21:19 Domestic Violence Domestic Violence If you are a victim of domestic violence (emotional, physical, or sexual abuse, or threat of such abuse), you may be feeling confused, frightened, sad, angry, or ashamed. You are not alone. Unfortunately, what happened to you is very common. Once it starts, domestic violence usually does not go away without help. It tends to get worse and more frequent over time. There are people who can help you! If you want to begin talking about this problem, or need a safe place to stay, or want legal advice, contact our staff for a referral. Domestic violence is a crime and as a victim you have legal rights. If the police have not yet been involved, consider calling the police for assistance. You can also obtain a court order prohibiting your partner from contacting you in any way (including in person or by phone). Contact a local domestic violence program or an compliance attorney for more information. Before you leave here Decide if it is safe to return home. If you know the situation is so dangerous that your life is indanger, let our staff know so that we can call one of the local domestic violence shelters or help you arrange to stay with a friend or relative. Domestic violence shelters can help with issues related to the safety of children and pets, housing, and financial issues. When you get home Develop an exit plan or a safety plan in advance. Know exactly where you could go even in the middle of the night. Pack an overnight bag in case you have to leave home in a hurry. Either hide it yourself or give itto a friend to keep for you. This should include: oToilet articles, medicines, extra set of keys to the house and car, extra set of clothing and a special toy for each child oExtra gan, checks or savings account book oImportant papers, such as social security cards, certificates, green cards, passports, work authorization and any other immigration documents, medical cards, regional company hazmat tanker driver's license, title to the car, proof of car insurance, etc. If you ever feel your safety is in danger, get out of the home, even if you did not have a chance to plan the above. Calling the police When someone has injured you or violated a restraining order, a criminal stay away-order, or an emergency protective order, then do the following: Call the police: use 911 if it is an emergency. Tell them you are in danger and you need help immediately. Let them know if you have a court order. If the police do not come quickly, call again and say, This is my second call. Take note of the time and date of your call(s) and who you spoke with. When the police arrive, tell them only what the attacker did. Describe your injuries, how you were injured, if weapons were used, or if a restraining order was violated. Ask the police to file a report and give you a reporting number. If you do not already have a restraining order, ask the officer for an emergency protective order. This is an order that may protect you until you obtain a criminal stay away order or restraining order. Always get the police officers' names and badge numbers. If you have trouble with a police commissioner,you can complain to the officer's felling bucking supervisor. Arrest If the attacker is arrested and taken to the police station, he will probably be released with or without bail until the hearing. This may only take a few hours. Use this time to get to a safe place.Ask that a condition of his release be that he should not come near you. No arrest If the police refuse to make an arrest, you may ask to make a private citizen's arrest. Tell the officers that you fear the attacker will return and injure you unless an arrest is made. Call the Hand Bobbin Cleaner's office or the Police Department about how to follow up with your complaint. For more information, call the National Domestic Violence Hotline at 2-526-448-PYEC (1160) or visittheir website at www.[facility].org. They will make certain you are in a safe situation before talking with you. 3182-9096 [employer]. [address] [place] [address]. All rights reserved. This information is not intended as a substitute for professional medical care. Always follow yourhealthcare professional's instructions. Follow Up Care 11/09/2022 20:44:12 With:YANNA LÓPEZ DO Address: [address] [place] [address] [phone] When:2-4 days With:Call Physician Referral Address:Unknown When:2-4 days [facility] 12-22-2022 Hospital Discharge instructions Patient Education 11/09/2022 21:18:00 Intimate Partner Violence Information Intimate Partner Violence Information Intimate partner violence, also called domestic abuse or relationship abuse, is a pattern of behaviors used by one partner to gain or maintain power and control over the other partner. Intimate partner violence can happen to women and men and can happen between people who are or were: . Dating. Living together. What are the types of intimate partner violence? Intimate partner violence can involve physical, emotional, psychological, sexual, and economic abuse, or stalking by a current or former partner. Different types of abuse can occur at the same time within the same relationship. Physical abuse. This includes rough handling, threats with a weapon, throwing objects, pushing, or hitting. Emotional and psychological abuse. This includes verbal attacks, rejection, humiliation, intimidation, social isolation, or threats. Abuse may also include limiting contact with family and friends. Sexual assault. Sexual assault is any unwanted sexual activity that occurs without clear permission(consent) from both people. This includes unwanted touching and sexual harassment. Economic abuse. This includes controlling money, food, transportation, or other belongings. Stalking. This involves such things as repeated, unwanted phone calls, e-mails, or text messages, or watching the victim from a distance. What are some warning signs of intimate partner violence? Physical signs Bruises. Broken bones. Tracey or cuts. Physical pain. Head injury. Emotional and psychological signs Crying. Depression. Hopelessness. Desperation. Trouble sleeping. Fear of the partner. Anxiety. Suicidal thoughts or behavior. Antisocial behavior. Low self-esteem. Fear of intimacy. Flashbacks. Sexual signs Bruising, swelling, or bleeding of the genital or rectal area. Signs of an STI, such as genital sores, warts, or discharge coming from the genital area. Pain in the genital area. Unintended . Problems with . What are common behaviors of those affected by intimate partner violence? Those affected by intimate partner violence may: Be late to work or other events. Not show up to places as promised. Have to let their partner know where they are and who they are with. Be isolated or kept from seeing friends or family. Make comments about their partner's temper or behavior. Make excuses for their partner. Engage in high-risk sexual behaviors. Use drugs or alcohol. Have unhealthy eating behaviors. What are common feelings of those affected by intimate partner violence? Victims of intimate partner violence may feel that they: Must be careful not to say or do things that trigger their partner's anger. Cannot do anything right. Deserve to be treated badly. Overreact to their partner's behavior or temper. Cannot trust their own feelings. Cannot trust other people. Are trapped. May have their children taken away by their partner. Are emotionally drained or numb. Are in danger. Might have to kill their partner to survive. Where can you get help? If you do not feel safe searching for help online at home, use a computer at a [employer] to access the Internet. Call 911 if you are in immediate danger or need medical help. Intimate partner violence hotlines and websites The National Domestic Violence Hotline. ?24-hour phone hotline: (SAFE) or (TTY). ?Videophone: available Sunday through Sunday, 9 a.m. to 5 p.m. Call . ?[employer].Nu3 The National Sexual Assault Hotline. ?24-hour phone hotline: . ?safehelplITM Power.org Shelters for victims of intimate partner violence If you are a victim of intimate partner violence, there are resources to help you find a temporary place for you and your children to live (correction). The specific address of these shelters is often not known to the public. Police Report assaults, threats, and stalking to the police. Counselors and counseling centers Counseling can help you cope with difficult emotions and empower you to plan for your future safety. The topics you discuss with a counselor are private and confidential. Children of intimate partnerviolence victims also might need counseling to manage stress and anxiety. The court system You can work with a residential support worker or an advocate to get legal protection against an abuser. Protection includes restraining orders and private addresses. Crimes against you, such as assault, can also be prosecuted through the courts. Laws vary by state. Follow these instructions at home: Create a safety plan that includes ways to remain safe while you are in an abusive relationship, while you are planning to leave, or after you leave. This plan may be created by the victim alone or with assistance from the domestic violence hotline staff or local correction staff. Your safety plan mayinclude: ?How to cope with emotions. ?How to tell friends and family about the abuse. ?How to take legal action. ?How to create a safe home environment. ?How to keep your children safe. ?Emergency plans for life-threatening situations. Get help right away if you: Feel like you are in immediate danger. Feel like you may hurt yourself or others. If you ever feel like you may hurt yourself or others, or have thoughts about taking your own life,get help right away. You can go to your nearest emergency department or call: Your local emergency services (911 in the [place] A suicide crisis helpline, such as the National Suicide Prevention Lifeline at . Thisis open 24 hours a day. Summary If you are a victim of intimate partner violence, there are resources to help you find a temporary place for you and your children to live (correction). Create a safety plan that includes ways to remain safe while you are in an abusive relationship, while you are planning to leave, or after you leave. This information is not intended to replace advice given to you by your health care provider. Make sure you discuss any questions you have with your health care provider. Document Released: 01/25/2005 Document Revised: 04/13/2020 Document Reviewed: 12/20/2018 [employer] Patient Education 2020 [employer] 11/09/2022 21:17:55 Domestic Violence and Domestic Violence and Domestic violence is any type of physical, sexual, or emotional harm done by a current or former partner. Emotional abuse includes threatening and controlling behavior. Stalking is an example of threatening behavior. This type of abuse can happen to anyone, at any time in a relationship. Domestic violence is also called intimate partner violence. Intimate partner violence is especially dangerous during because the abuse may affect both you and your developing baby. Call a domestic violence hotline or let your health care provider know if you are being physically or sexually abused, or if your partner's threatening or controlling behavior is making you feel unsafe. Getting help and support protects you, your , and your baby. How does this affect me? For you, the negative effects of intimate partner violence can include: Physical injury or (homicide). Emotional stress and fear. Trouble sleeping. Loss of appetite. Digestion problems. Frequent infections, including sexually transmitted infections. High blood pressure. Depression. Anxiety. Thoughts of hurting yourself or committing suicide. Intimate partner violence may negatively affect your in these ways: You are more likely to be injured or have poor health. You may be less likely to get care. You may not have good nutrition or gain a healthy amount of weight. You may be more likely to smoke, use drugs, and drink alcohol during to relieve stress. You may be at higher risk of losing your (miscarriage or stillbirth). Your baby may be born before 37 weeks of (premature). How does this affect my baby? If you experience intimate partner violence during : Your baby may be injured. Your baby may not survive (miscarriage or stillbirth). Your baby may be born premature, which can cause mental and physical problems. Your baby may not grow well in your womb and may be born small (small for gestational age). If you use alcohol, your baby may be born with alcohol syndrome, which can cause defects and other problems. You may have trouble bonding with your baby, which can lead to neglect. You may be less likely to breastfeed, which is the healthiest way to feed your baby. Follow these instructions at home: Let your health care provider know that you are experiencing intimate partner violence. Do not bring an abusive partner with you to your visits. This will allow you to speak freely with your provider. Learn about and use resources on intimate partner violence, such as the National Domestic Violence Hotline: Netlogon. Consider counseling. Consider getting a legal document that says your partner has to stay away from you (restraining order). Have a support person stay with you in your home. Have an escape plan to get to a safe place. Do not smoke,use drugs, or drink alcohol to relieve stress. Keep all your visits as told by your health care provider. This is important. Where to find more information Futures Without Violence: futureswithoutviolence.org National Coalition Against Domestic Violence: ncadv.org National Network to End Domestic Violence: nnedv.org National Resource Center on Domestic Violence: nrcdv.org The U.S. Department of Justice, Office on Violence Against Women: justice.gov/ovw Contact a health care provider if: You experience any type of intimate partner violence at home. You need help to quit smoking, drinking, or taking drugs. Get help right away if: You do not feel safe at home. You have thoughts of hurting yourself or committing suicide. If you ever feel like you may hurt yourself or others, or have thoughts about taking your own life,get help right away. You can go to your nearest emergency department or call: Your local emergency services (911 in the [place] A suicide crisis helpline, such as the National Suicide Prevention Lifeline at . Thisis open 24 hours a day. Summary Domestic violence is also called intimate partner violence. Intimate partner violence can be physical, sexual, or emotional. This type of abuse can happen to anyone at any time in a relationship, but the effects are especially dangerous during . Intimate partner violence increases your baby's risk of miscarriage, stillbirth, and premature . Tell your health care provider if you experience any type of intimate partner violence. Get help right away if you do not feel safe at home. This information is not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 Prescription Unchanged multivitamin, ( AD oral tablet) 1 tab(s) by mouth Every day Please take this list to your next doctor s visit. Bring all medications you take, including over the counter medications, herbals and other supplements with you to your doctor s visit. Patients and families are reminded to discard old lists and to update any records with all medication providers or retail pharmacies. Medication Leaflets cephalexin (sef a ROLAND in) Keflex What is the most important information I should know about cephalexin? You should not use this medicine if you are allergic to cephalexin or to similar antibiotics, such as Ceftin, Cefzil, Omnicef, and others. Tell your doctor if you are allergic to any drugs, especially penicillins or other antibiotics. What is cephalexin? Cephalexin is a cephalosporin (SEF a low spor in) antibiotic that is used to treat bacterial infections of the lungs, ear, skin, bones, bladder, and kidneys. Cephalexin is used to treat infections in adults and children who are at least 1 year old. Cephalexin may also be used for purposes not listed in this medication guide. What should I discuss with my healthcare provider before taking cephalexin? You should not use this medicine if you are allergic to cephalexin or any other cephalosporin antibiotic (cefdinir, cefadroxil, cefoxitin, cefprozil, ceftriaxone, cefuroxime, Omnicef, and others). Tell your doctor if you have ever had: an allergy to any drug (especially penicillin); liver or kidney disease; or intestinal problems, such as colitis. The liquid form of cephalexin may contain sugar. This may affect you if you have diabetes. Tell your doctor if you are or breast-feeding. How should I take cephalexin? Follow all directions on your prescription label and read all medication guides or instruction sheets. Use the medicine exactly as directed. Do not use cephalexin to treat any condition that has not been checked by your doctor. Measure liquid medicine carefully. Use the dosing syringe provided, or use a medicine dose-measuring device (not a kitchen spoon). Use this medicine for the full prescribed length of time, even if your symptoms quickly improve. Skipping doses can increase your risk of infection that is resistant to medication. Cephalexin will not treat a viral infection such as the flu or a common cold. Do not share cephalexin with another person, even if they have the same symptoms you have. This medicine can affect the results of certain medical tests. Tell any doctor who treats you that you are using cephalexin. Store the tablets and capsules at room temperature away from moisture, heat, and light. Store the liquid medicine in the refrigerator. Throw away any unused liquid after 14 days. What happens if I miss a dose? Take the medicine as soon as you can, but skip the missed dose if it is almost time for your next dose. Do not take two doses at one time. What happens if I overdose? Seek emergency medical attention or call the Poison Help line at . Overdose symptoms may include nausea, vomiting, stomach pain, diarrhea, and blood in your urine. What should I avoid while taking cephalexin? Antibiotic medicines can cause diarrhea, which may be a sign of a new infection. If you have diarrhea that is watery or bloody, call your doctor before using anti-diarrhea medicine. What are the possible side effects of cephalexin? Get emergency medical help if you have signs of an allergic reaction (hives, difficult breathing, swelling in your face or throat) or a severe skin reaction (fever, sore throat, burning eyes, skin pain, red or purple skin rash with blistering and peeling). Call your doctor at once if you have: severe stomach pain, diarrhea that is watery or bloody (even if it occurs months after your last dose); unusual tiredness, feeling light-headed or short of breath; easy bruising, unusual bleeding, purple or red spots under your skin; a seizure; pale skin, cold hands and feet; yellowed skin, dark colored urine; fever, weakness; or pain in your side or lower back, painful urination. Common side effects may include: diarrhea; nausea, vomiting; indigestion, stomach pain; or vaginal itching or discharge. This is not a complete list of side effects and others may occur. Call your doctor for medical advice about side effects. You may report side effects to FDA at 3-984-IOT-8936. What other drugs will affect cephalexin? Tell your doctor about all your other medicines, especially: metformin; or probenecid. This list is not complete. Other drugs may affect cephalexin, including prescription and phuv-zuk-uyzcjel medicines, vitamins, and herbal products. Not all possible drug interactions are listed here. Where can I get more information? Your pharmacist can provide more information about cephalexin. Remember, keep this and all other medicines out of the reach of children, never share your medicines with others, and use this medication only for the indication prescribed. Every effort has been made to ensure that the information provided by [employer]. [employer]') is accurate, up-to-date, and complete, but no guarantee is made to that effect. Drug information contained herein may be time sensitive. [employer] information has been compiled for use by healthcare practitioners and consumers in the [place] and therefore [employer] does not warrant that uses outside of the [place] are appropriate, unless specifically indicated otherwise. [employer] drug information does not endorse drugs, diagnose patients or recommend therapy. [employer] drug information isan informational resource designed to assist licensed healthcare practitioners in caring for their p atients and/or to serve consumers viewing this service as a supplement to, and not a substitute for, the expertise, skill, knowledge and judgment of healthcare practitioners. The absence of a warningfor a given drug or drug combination in no way should be construed to indicate that the drug or drug combination is safe, effective or appropriate for any given patient. [employer] does not assume any responsibility for any aspect of healthcare administered with the aid of information [employer] provides. The information contained herein is not intended to cover all possible uses, directions, precautions, warnings, drug interactions, allergic reactions, or adverse effects. If you have questions about the drugs you are taking, check with your doctor, nurse or pharmacist. Copyright 1251-8738 [employer]. Version: 10.. Revision Date: 11/22/2020. metoclopramide (oral/injection) (MET oh KLOE pra mide) Metozolv ODT, Reglan What is the most important information I should know about metoclopramide? Do not use this medicine if you've ever had muscle movement problems after using metoclopramide or similar medicines, or if you've had a movement disorder called tardive dyskinesia. You also should not use metoclopramide if you've had stomach or intestinal problems (a blockage, bleeding, or a hole or tear), epilepsy or other seizure disorder, or an adrenal gland tumor (pheochromocytoma). NEVER USE METOCLOPRAMIDE IN LARGER AMOUNTS THAN RECOMMENDED, OR FOR LONGER THAN 12 WEEKS. High doses or long-term use of metoclopramide can cause a serious movement disorder that may not be reversible. The longer you use metoclopramide, the more likely you are to develop this movement disorder. Therisk of this side effect is higher in diabetics and older adults (especially women). Call your doctor at once if you have uncontrollable muscle movements in your lips, tongue, eyes, face, arms, or legs. What is metoclopramide? Metoclopramide increases muscle contractions in the upper digestive tract. This speeds up the rate at which the stomach empties into the intestines. Metoclopramide oral (taken by mouth) is used for 4 to 12 weeks to treat heartburn caused by gastroesophageal reflux in people who have used other medications without relief. Metoclopramide oral is also used to treat gastroparesis (slow stomach emptying) in people with diabetes, which can cause heartburn and stomach discomfort after meals. Metoclopramide injection is used to treat severe diabetic gastroparesis. The injection is also usedto prevent nausea and vomiting caused by chemotherapy or surgery, or to aid in certain medical procedures involving the stomach or intestines. Metoclopramide may also be used for purposes not listed in this medication guide. What should I discuss with my healthcare provider before using metoclopramide? You should not use metoclopramide if you are allergic to it, or if you have: tardive dyskinesia (a disorder of involuntary movements); stomach or intestinal problems such as a blockage, bleeding, or perforation (a hole or tear in yourstomach or intestines); epilepsy or other seizure disorder; an adrenal gland tumor (pheochromocytoma); or if you've ever had muscle movement problems after using metoclopramide or similar medicines. Tell your doctor if you have ever had: liver or kidney disease; problems with muscle movements; congestive heart failure or a heart rhythm disorder; high blood pressure; seizures; breast cancer; Parkinson's disease; diabetes; or depression or mental illness. This medicine may contain phenylalanine. Check the medication label if you have phenylketonuria (PKU). Tell your doctor if you are . Metoclopramide may harm an unborn baby if you use the medicine during late . It may not be safe to breast-feed a baby while you are using this medicine. Ask your doctor about any risks. Metoclopramide is not approved for use by anyone younger than 18 years old. How should I use metoclopramide? Follow the directions on your prescription label and read all medication guides. Use the medicine exactly as directed. A metoclopramide injection is given into a muscle or as an infusion into a vein. A healthcare provider will give the injection, usually during surgery, chemotherapy, or a medical procedure. Metoclopramide oral is taken for only 4 to 12 weeks. NEVER USE METOCLOPRAMIDE IN LARGER AMOUNTS THAN RECOMMENDED, OR FOR LONGER THAN 12 WEEKS. High doses or long-term use of metoclopramide can cause a serious movement disorder that may not be reversible. The longer you use metoclopramide, the more likely you are to develop this movement disorder. Therisk of this side effect is higher in diabetics and older adults (especially women). Metoclopramide is usually taken 30 minutes before meals and at bedtime, or only with meals that usually cause heartburn. Follow your doctor's dosing instructions very carefully. Do not use two different forms of metoclopramide (such as tablets and oral syrup) at the same time. Measure liquid medicine carefully. Use the dosing syringe provided, or use a medicine dose-measuring device (not a kitchen spoon). To take the orally disintegrating tablet (ODT): Remove a tablet from its blister pack only when you are ready to take the tablet. Use dry hands andtake care not to damage a tablet while pushing it out of the blister. Place the tablet in your mouth and allow it to dissolve, without chewing or swallowing it whole. You may sip liquid if needed to help swallow the dissolved tablet. Store at room temperature in a tightly-closed container, away from moisture and heat. Keep the bottle tightly closed. After you stop taking metoclopramide, you may have unpleasant withdrawal symptoms such as headache,dizziness, or nervousness. What happens if I miss a dose? Take the medicine as soon as you can, but skip the missed dose if it is almost time for your next dose. Do not take two doses at one time. What happens if I overdose? Seek emergency medical attention or call the Poison Help line at . Overdose symptoms may include drowsiness, confusion, or uncontrolled muscle movements. What should I avoid while taking metoclopramide? Drinking alcohol with this medicine can cause side effects. Avoid driving or hazardous activity until you know how this medicine will affect you. Your reactions could be impaired. What are the possible side effects of metoclopramide? Get emergency medical help if you have signs of an allergic reaction: hives; difficult breathing; swelling of your face, lips, tongue, or throat. Stop taking metoclopramide and call your doctor at once if you have any of these SIGNS OF A SERIOUSMOVEMENT DISORDER, which may occur within the first 2 days of treatment: tremors or shaking in your arms or legs; uncontrolled muscle movements in your face (chewing, lip smacking, frowning, tongue movement, blinking or eye movement); or any new or unusual muscle movements you cannot control. Call your doctor at once if you have: confusion, depression, thoughts of suicide or hurting yourself; slow or jerky muscle movements, problems with balance or walking; mask-like appearance in your face; a seizure; anxiety, agitation, jittery feeling, trouble staying still, trouble sleeping; swelling, feeling short of breath, rapid weight gain; or severe nervous system reaction--very stiff (rigid) muscles, high fever, sweating, confusion, fast or uneven heartbeats, tremors, feeling like you might pass out. Common side effects may include: feeling restless; feeling drowsy or tired; lack of energy; nausea, vomiting; headache, confusion; or sleep problems (insomnia). This is not a complete list of side effects and others may occur. Call your doctor for medical advice about side effects. You may report side effects to FDA at 8-200-SVD-7391. What other drugs will affect metoclopramide? Using metoclopramide with other drugs that make you drowsy can worsen this effect. Ask your doctor before you take opioid pain medication, a sleeping pill, a muscle relaxer, or medicine for anxiety, depression, or seizures. Tell your doctor about all your current medicines. Many drugs can affect metoclopramide, especially: an antidepressant; antipsychotic medication; blood pressure medication; insulin; medicine to treat Parkinson's disease or restless leg syndrome; or an MAO inhibitor--isocarboxazid, linezolid, methylene blue injection, phenelzine, tranylcypromine, and others. This list is not complete and many other drugs may affect metoclopramide. This includes prescription and [id number] medicines, vitamins, and herbal products. Not all possible drug interactions are listed here. Where can I get more information? Your pharmacist can provide more information about metoclopramide. Remember, keep this and all other medicines out of the reach of children, never share your medicines with others, and use this medication only for the indication prescribed. Every effort has been made to ensure that the information provided by [employer] is accurate, up-to-date, and complete, but no guarantee is made to that effect. Drug information contained herein may be time sensitive. [employer] information has been compiled for use by healthcare practitioners and consumers in the [place] and therefore [employer] does not warrant that uses outside of the [place] are appropriate, unless specifically indicated otherwise. [employer] drug information does not endorse drugs, diagnose patients or recommend therapy. [employer] drug information isan informational resource designed to assist licensed healthcare practitioners in caring for their p atients and/or to serve consumers viewing this service as a supplement to, and not a substitute for, the expertise, skill, knowledge and judgment of healthcare practitioners. The absence of a warningfor a given drug or drug combination in no way should be construed to indicate that the drug or drug combination is safe, effective or appropriate for any given patient. [employer] does not assume any responsibility for any aspect of healthcare administered with the aid of information [employer] provides. The information contained herein is not intended to cover all possible uses, directions, precautions, warnings, drug interactions, allergic reactions, or adverse effects. If you have questions about the drugs you are taking, check with your doctor, nurse or pharmacist. Copyright [id number] [facility] [employer]. Version: 12.. Revision Date: 01/24/2018. Education [employer] Headache, Unspecified A number of things can cause headaches. The cause of your headache isn t clear. But it doesn t seemto be a sign of any serious illness. Headache affects almost everyone at some time. It is the most common reason people miss days from work or school. You could have a tension headache or a migraine headache. Stress can cause a tension headache. This can happen if you tense the muscles of your shoulders, neck, and scalp without knowing it. If this stress lasts long enough, you may develop a tension headache. It is not clear why migraines occur, but certain things called triggers can raise the risk of having a migraine attack. Migraine triggers may include emotional stress or depression, or by hormone changes during the menstrual cycle. Other triggers include control pills and other medicines, alcohol or caffeine, foods with tyramine (such as aged cheese, wine), eyestrain, weather changes, missed meals, and lack of sleep or oversleeping. Other causes of headache include: Viral illness with high fever Head injury with concussion Sinus, ear, or throat infection Dental pain and jaw joint (TMJ) pain More serious but less common causes of headache include stroke, brain hemorrhage, brain tumor, meningitis, and encephalitis. Home care Follow these tips when taking care of yourself at home: Don t drive yourself home if you were given pain medicine for your headache. Instead, have someone else drive you home. Try to sleep when you get home. You should feel much better when you wake up. Apply heat to the back of your neck to ease a neck muscle spasm. Take care of a migraine headache by putting an ice pack on your forehead or at the base of your skull. If you have nausea or vomiting, eat a light diet until your headache eases. If you have a migraine headache, use sunglasses when in the daylight or around bright indoor lighting until your symptoms get better. Bright glaring light can make this type of headache worse. Follow-up care Follow up with your healthcare provider, or as advised. Talk with your provider if you have frequent headaches. He or she can help figure out a treatment plan. By knowing the earliest signs of headache, and starting treatment right away, you may be able to stop the pain yourself. When to seek medical advice Call your healthcare provider right away if any of these occur: Your head pain suddenly gets worse after sexual intercourse or strenuous activity Your head pain doesn t get better within 24 hours You aren t able to keep liquids down (repeated vomiting) Fever of 100.4 F (38 C) or higher, or as directed by your healthcare provider Stiff neck Extreme drowsiness, confusion, or fainting Dizziness or dizziness with spinning sensation (vertigo) Weakness in an arm or leg or one side of your face You have trouble talking or seeing 5065-1157 [employer]. [address] [place] [address]. All rights reserved. This information is not intended as a substitute for professional medical care. Always follow yourhealthcare professional's instructions. Additional Information VACCINATE! IT SAVES LIVES! Members of the community who have not yet received the COVID-19 vaccine and would like to receive it can visit one of [facility] vaccine clinics. There are many vaccine clinic locations within the [facility]. For locations and available times, please visit [email or web address]. It is important to note that some COVID mobile vaccine clinics are held outdoors and may be canceled in rainy orstormy conditions. To learn more about pediatric vaccinations (ages 5-11), we invite you to visit the [facility] webpage. https://www.[email or web address]/pages/9642-Mracd-Kddpqlznzhp-Gswmhubhcq-Iiqxn-Rai stions.htmlTo learn more about the COVID-19 vaccine, we invite you to visit the [facility] website for a list of frequently asked questions. [email or web address]/[email or web address]-[email or web address] _Asked-Questions.pdf [facility] [employer] Patient Portal Access Instructions: Stay connected with your healthcare team and access your personal medical information anytime with the [facility] Patient Portal. If you would like a full copy of your medical records please contact the [facility] Medical Records Department Sunday through Sunday between 8a.m. and 4:30p.m. Please follow the directions below to access the portal: 1.Access the email account you [facility].2.Look for an invitation email from [facility].3.Open the email and access the invitation link: Accept Invitation to [facility]4.Fill in the required garcia to create your account. Sign into [email or web address] App with your username and password that you created in the above steps to stay up to date. You can then view a summary of results, a summary of your visits, and the ability to download your summaries to your computer or send the information securely to a physician. Remember that your healthcare information is confidential, so carefully consider who you will allow to register on the [facility] Patient Portal for access to your information. You can also access the [facility] Patient Portal on the [employer]. Simply click on Health Records under [employer] and then click on the [employer] logo. HOW TO SAFELY DISPOSE OF PRESCRIPTION MEDICATIONS Please use one of the following methods to safely dispose of your unused medications. 1.Use a drug disposal kit: the drug disposal pouch allows you to safely discard your old and unuseddrugs. Ask your nurse to give you one when you are discharged.2.Visit a local take-back location: Many local pharmacies and police departments have programs that collect old and unwanted prescriptiondrugs. Call your local pharmacy or go to http://bit.Canal do Credito/5J7Hb6n to find one close to you.3.Make use of household items: Use cat litter or old coffee grounds to dispose medications if other options arenot available. Mix your drugs with these household products, seal them in an airtight container andthrow it into the garbage. Call [facility]: [phone] to be sure your drugs can be disposed of in this way. Some medicines may require a different approach.4.Never flush your medications down the toilet. IF YOU HAVE BEEN PRESCRIBED AN OPIOIDS FOR PAIN If you have been prescribed an opioid (such as hydrocodone, oxycodone or morphine), it is critical to understand the possible side effects and risks of opioid pain medications. Even when taken as directed, opioids can have several side effects including: Tolerance, meaning you might need to take more of a medication for the same pain relief. Nausea, vomiting and/or constipation. Sleepiness, dizziness, dry mouth, confusion, depression or itching. Physical dependence, meaning you have withdrawal symptoms when a medication is stopped ? this can develop within a few days. KNOW YOUR RESPONSIBILITIES It is important to know exactly how much and how often to take the opioid pain medications you are prescribed. Never take opioids in higher amounts or more often than prescribed. Do not combine opioids with alcohol or other drugs that cause drowsiness, such as benzodiazepines, also known as benzos,including diazepam and alprazolam, muscle relaxants or sleep aids. Never sell or share prescriptionopioids. This is illegal. Store opioids in a secure place and out of reach of others (including children, family, friends and visitors). The last page(s) of this document has been signed and retained as a CHART COPY Signatures Patient Education Materials Headache, Unspecified Medication Leaflets cephalexin, metoclopramide (oral/injection) My discharge plan and instructions have been reviewed and explained to me and I,REMIGIO HERNANDEZ understand my current condition and have read and understand these discharge instructions. I have received a written copy of the plan/instructions. If I have questions, I am aware that I should contact my doctor. 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 diagnosis) - Reviewed risk of and recommend control. 2. Encounter for initial prescription of injectable contraceptive - ICD9: V25.02, ICD10: Z30.013 -Reviewed control options and patient would like Depo. Discussed with the patient the risks, benefits, mechanism of action and alternatives to combined hormonal contraceptive use. Reviewed delayed fertility and increased weight gain. Reviewed to take calcium and vitamin D supplement, No medical contraindications. Reviewed risk of blood clot, stroke and heart attack with hormonal contraception. Reviewed warning signs ACHES . I reviewed with her the administration options and when to start. Her questions were answered and she desired to start. Return for injection and 6 week PP visit. Selam Viera APRN.CNM documented in this encounterSt. Charles Hospital06-09-2022 Miscellaneous Notes* Telephone Encounter - Sandra Mar RN - 04/27/2022 2:[address] [facility] was 1-2 weeks ago already. Patient notified and appointment scheduled with . Sandra Mar RN * Telephone Encounter - Carlota Gonsalez MD - 04/27/2022 1:36 PM EDT If had intercourse within 5 days I can send in Meghan (emergency contraception). I would have her schedule an in person visit to discuss contraception options. Carlota Gonsalez MD * Telephone Encounter - Sandra Mar RN - 04/27/2022 12:49 PM EDT Patient delivered via 04/06/22. Calling because she had unprotected intercourse and wants contraception. Reviewed recommendations of nothing in vagina x6 weeks after delivery. She knows she wants Mirena IUD. How soon can she get that PP? Asking if there is anything she can use sooner for contraception or if she needs anything now since she had unprotected intercourse. Very concerned about chance of . She will need 6 week PP visit scheduled yet. Please advise. Sandra Mar RN documented in this encounterSt. Charles Hospital05-24-2022 Miscellaneous Notes* Telephone Encounter - Carlota Gonsalez MD - 04/11/2022 10:52 AM EDT Done Carlota Gonsalez MD * Telephone Encounter - Vida Martinez RN - 04/11/2022 10:37 AM EDT Patient delivered on 04/06/22. Mother called to request a prescription for pads. States [place] [employer] will cover. RX pending to be sent to [facility] pharmacy. Thank you. Vida Martinez RN documented in this encounterSt. Charles Hospital05-20-2022 History of Present illness Narrative* Sandra Mar RN - 04/07/2022 8:01 AM EDT Patient delivered via by Dr. Gonsalez on 04/06/22 at [facility]. See OB history. Sandra Mar RN documented in this encounterSt. Charles Hospital05-16-2022 History of Present illness Narrative* Sobia Rucker MD - 04/03/2022 3:26 PM EDT NST SUMMARY PROVIDER ASSESSMENT AND INTERPRETATION Remigio Hernandez is a 26 year old female, , who is at 38w1d with an YANCY of 04/16/2022, by Ultrasound dating method. Indications for NST: Obesity Baseline: 135 Variability: Moderate Accelerations: Present 15 X 15 Decelerations: None Contractions: TOCO: Irregular Interpretation: Category I and Reactive SIGNATURE: Sobia Rucker MD documented in this encounterSt. Charles Hospital05-16-2022 Miscellaneous Notes* Quick Notes - Sobia Rucker MD - 04/03/2022 3:24 PM EDT RR- VB No. LOF No. CTXS yes for a couple of weeks. Movement: present. Other c/o: uncomfortable, pressure Medication list reviewed. Physical Exam See Flow Sheet Abd: soft, nontender, gravid Ext: edema: Trace A/P 38w1d Estimated Date of Delivery: 04/16/22 NST for obesity plans mirena but not at delivery kick counts desires induction of labor at 39 weeks for BMI>40. R/B/A reviewed, consent signed Sobia Rucker M.D. documented in this encounterSt. Charles Hospital05-16-2022 Instructions* Patient Instructions* Ilene Tapia Ma - 04/03/2022 3:11 PM EDT SEQUENTIAL SCREENINGS [facility] offers sequential screenings for women who are interested in screenings for chromosomal abnormalities and certain defects during a . The sequential screen combinesultrasound and blood tests to determine the risk of chromosomal abnormalities, including Down's Syndrome (Trisomy 21) and Trisomy 18, as well as open neural tube defects including spina bifida. Ultrasound examination is performed between 11 weeks and 13 weeks gestational age. Blood tests are drawn after the ultrasound and again later in the between 15 and 21 weeks gestational age. Please let your physician know if you are interested in this testing. It will require an appointment withour brewery technician. This is not an ultrasound performed by a physician in our office during a routine visit. SIGNS AND SYMPTOMS OF LABOR 1. Contractions every 10 minutes or more often 2. Clear, pink, or brownish fluid (water) leaking from vagina 3. Feeling that baby is pushing down, pressure 4. Low, dull backache 5. Cramps that feel like a period 6. Cramps with or without diarrhea If you notice any of the above symptoms, contact our office at [phone] and ask to speak with anurse. After hours, you can call doctors registry at [phone] OR call [facility] at [phone] ask to have the doctor clinic receptionist paged. If you consider this an emergency, dial 9-1-4 or go to your nearest emergency department. NEED HELP? Are you dealing with a violent or abusive relationship? Are you a victim of rape or sexual assult? Call [facility] ([place]) 24 hour Crisis Hotline: 753.100.2492 or 069-230-1987. MANUAL Your Guide to a Healthy manual is now on-line. Visit the [email or web address] to download your free copy documented in this encounterSt. Charles Hospital05-11-2022 History of Present illness Narrative* Guru Freitas MD - 03/29/2022 1:20 PM EDT NST SUMMARY PROVIDER ASSESSMENT AND INTERPRETATION Indications for NST: Other: tachycardia noted on doppler Baseline: Baseline was initially 180 bpm, then baseline of 155 bpm Variability: Moderate Accelerations: Present 15 X 15 Decelerations: None Interpretation: Reactive SIGNATURE: Guru Freitas DO documented in this encounterSt. Charles Hospital05-11-2022 Miscellaneous Notes* Quick Notes - Guru Freitas MD - 03/29/2022 11:28 AM EDT SW- Add on visit for vaginal pressure and cramping. Cramping she feels may be ctx's q 10-15 min apart. No vb, lof. Good FM. Having dysuria that started yesterday. No discharge, constipation or diarrhea. PE: Gen- NAD, well appearing, comfortable Abd- Soft, gravid, NT Cvx 1/t/h See flowsheet - tachycardia on doppler. NST performed and reactive - Cvx unchanged and pt does not appear to be in labor at this time. Discussed labor precautions andreasons to call - Dysuria: Urine dip and cx - Keep routine scheduled follow up Guru Freitas DO documented in this encounterSt. Charles Hospital05-11-2022 Instructions* Patient Instructions* Sigrid Grayson Ma - 03/29/2022 11:13 AM EDT SEQUENTIAL SCREENINGS [facility] offers sequential screenings for women who are interested in screenings for chromosomal abnormalities and certain defects during a . The sequential screen combinesultrasound and blood tests to determine the risk of chromosomal abnormalities, including Down's Syndrome (Trisomy 21) and Trisomy 18, as well as open neural tube defects including spina bifida. Ultrasound examination is performed between 11 weeks and 13 weeks gestational age. Blood tests are drawn after the ultrasound and again later in the between 15 and 21 weeks gestational age. Please let your physician know if you are interested in this testing. It will require an appointment withour brewery technician. This is not an ultrasound performed by a physician in our office during a routine visit. SIGNS AND SYMPTOMS OF LABOR 1. Contractions every 10 minutes or more often 2. Clear, pink, or brownish fluid (water) leaking from vagina 3. Feeling that baby is pushing down, pressure 4. Low, dull backache 5. Cramps that feel like a period 6. Cramps with or without diarrhea If you notice any of the above symptoms, contact our office at [phone] and ask to speak with anurse. After hours, you can call doctors registry at [phone] OR call [facility] at [phone] ask to have the doctor clinic receptionist paged. If you consider this an emergency, dial or go to your nearest emergency department. NEED HELP? Are you dealing with a violent or abusive relationship? Are you a victim of rape or sexual assult? Call [facility] ([place]) 24 hour Crisis Hotline: 679.796.9119 or 378-617-7965. MANUAL Your Guide to a Healthy manual is now on-line. Visit the [email or web address] to download your free copy documented in this encounterSt. Charles Hospital05-09-2022 Miscellaneous Notes* Quick Notes - Selam Viera APRN.CNM - 03/27/2022 3:00 PM EDT BATSHEVA-S: Remigio Hernandez is a 26 year old female who presents at 37w1d with YANCY:04/16/2022, by Ultrasound for a routine visit. Good FM. Denies headache, visual changes, chest pain, shortness of breath, vaginal bleeding, leakage of fluid, or dysuria. Feeling well, no complaints. O: See flow sheet Gen: No apparent distress Abd: Gravid, nontender S=D, 22lb, cephalic ASSESSMENT/PLAN: 1. 37 weeks gestation of P: 1) Labor instructoins reviewed and when to call 2) RTO in 1 week with NST for Prepregnancy BMI 39 3) BPP 8/8, SYLVIA 11, EFW 70th percentile Selam Viera APRN.CNM documented in this encounterSt. Charles Hospital05-09-2022 Instructions* Patient Instructions* Essie Mason MA - 03/27/2022 2:21 PM EDT SEQUENTIAL SCREENINGS [facility] offers sequential screenings for women who are interested in screenings for chromosomal abnormalities and certain defects during a . The sequential screen combinesultrasound and blood tests to determine the risk of chromosomal abnormalities, including Down's Syndrome (Trisomy 21) and Trisomy 18, as well as open neural tube defects including spina bifida. Ultrasound examination is performed between 11 weeks and 13 weeks gestational age. Blood tests are drawn after the ultrasound and again later in the between 15 and 21 weeks gestational age. Please let your physician know if you are interested in this testing. It will require an appointment withour brewery technician. This is not an ultrasound performed by a physician in our office during a routine visit. SIGNS AND SYMPTOMS OF LABOR 1. Contractions every 10 minutes or more often 2. Clear, pink, or brownish fluid (water) leaking from vagina 3. Feeling that baby is pushing down, pressure 4. Low, dull backache 5. Cramps that feel like a period 6. Cramps with or without diarrhea If you notice any of the above symptoms, contact our office at [phone] and ask to speak with anurse. After hours, you can call doctors registry at [phone] OR call [facility] at [phone] ask to have the doctor clinic receptionist paged. If you consider this an emergency, dial [phone]- or go to your nearest emergency department. NEED HELP? Are you dealing with a violent or abusive relationship? Are you a victim of rape or sexual assult? Call [facility] ([place]) 24 hour Crisis Hotline: 924.532.8584 or 139-975-6971. MANUAL Your Guide to a Healthy manual is now on-line. Visit [email or web address] to download your free copy documented in this encounterSt. Charles Hospital05-03-2022 History of Present illness Narrative* Selam Viera APRN.CNM - 03/21/2022 11:06 AM EDT NST SUMMARY PROVIDER ASSESSMENT AND INTERPRETATION Remigio Hernandez is a 26 year old female, , who is at 36w2d with an YANCY of 04/16/2022, by Ultrasound dating method. Indications for NST: Decreased Movement Baseline: 155 Variability: Moderate Accelerations: Present 15 X 15 Decelerations: None Contractions: TOCO: None Interpretation: Reactive SIGNATURE: Selam Viera APRN.CNM documented in this encounterSt. Charles Hospital05-03-2022 Miscellaneous Notes* Quick Notes - Selam Viera APRN.CNM - 03/21/2022 10:20 AM EDT BATSHEVA-S: Remigio Hernandez is a 26 year old female who presents at 36w2d with YANCY:04/16/2022, by Ultrasound for a routine visit. Denies headache, visual changes, chest pain, shortness of breath, vaginal bleeding, leakage of fluid, or dysuria. Here today with complaint of decreased movement and pelvicshooting pains. Pains come and go, increased with walking. Sharp and shoot into vagina. Denies contractions or signs of labor. Had a hash brown and orange juice for breakfast. O: See flow sheet Gen: No apparent distress Abd: Gravid, nontender NST reactive P: 1) PTL precautions reviewed and when to call 2) RTO as scheduled 3) Reactive NST. Discussed increased hydration 4) Reviewed pelvic pain and normal discomforts of . Reviewed relief measures and when to call. No signs of labor at this time. Selam Viera APRN.CNM I spent a total of 30 minutes on the date of the service which included preparing to see the patient, [id number] patient care, completing clinical documentation, obtaining and/or reviewing separately obtained history, performing a medically appropriate examination, counseling and educating the pat ient/family/caregiver and ordering medications, tests, or procedures. documented in this encounterSt. Charles Hospital05-02-2022 History of Present illness Narrative* Kimber Bee APRN.CNM - 03/20/2022 3:20 PM EDT NST SUMMARY PROVIDER ASSESSMENT AND INTERPRETATION Remigio Hernandez is a 26 year old female, , who is at 36w1d with an YANCY of 04/16/2022, by Ultrasound dating method. Indications for NST: Obesity Baseline: 150 Variability: Moderate Accelerations: Present 15 X 15 Decelerations: None Contractions: TOCO: None Interpretation: Category I and Reactive SIGNATURE: Kimber Bee APRN.CNM documented in this encounterSt. Charles Hospital05-02-2022 Miscellaneous Notes* Quick Notes - Kimber Bee APRN.CNM - 03/20/2022 3:14 PM EDT CP-S: Remigio Hernandez is a 26 year old female who presents at 36.1 weeks gestation for a routine visit. Just completed NST- reactive and category 1 tracing. Positive movement. Denies any crampingor contractions. Denies headache, visual changes, chest pain, shortness of breath, vaginal bleeding, leakage of fluid, or dysuria. Feeling well, no complaints. O: See flow sheet Gen: No apparent distress Abd: Gravid, non tender S>D TAUS confirms cephalic ASSESSMENT/PLAN: 1. 36 weeks gestation of - ICD9: V22.2, ICD10: Z3A.36 (primary diagnosis) - URINE OB DIP B/O - ROUTINE, GROUP B STREP PCR 2. Uterine size-date discrepancy, third trimester - ICD9: 649.63, ICD10: O26.843 - OBSTETRIC ULTRASOUND WHI- follow up growth US next visit P: 1) PTL precautions reviewed and when to call 2) RTO 1 week or sooner Kimber Bee APRN.CNM documented in this encounterSt. Charles Hospital05-02-2022 Instructions* Patient Instructions* Dasia Buck Ma - 03/20/2022 2:15 PM EDT SEQUENTIAL SCREENINGS The [facility] offers sequential screenings for women who are interested in screenings for chromosomal abnormalities and certain defects during a . The sequential screen combinesultrasound and blood tests to determine the risk of chromosomal abnormalities, including Down's Syndrome (Trisomy 21) and Trisomy 18, as well as open neural tube defects including spina bifida. Ultrasound examination is performed between 11 weeks and 13 weeks gestational age. Blood tests are drawn after the ultrasound and again later in the between 15 and 21 weeks gestational age. Please let your physician know if you are interested in this testing. It will require an appointment withour brewery technician. This is not an ultrasound performed by a physician in our office during a routine visit. SIGNS AND SYMPTOMS OF LABOR 1. Contractions every 10 minutes or more often 2. Clear, pink, or brownish fluid (water) leaking from vagina 3. Feeling that baby is pushing down, pressure 4. Low, dull backache 5. Cramps that feel like a period 6. Cramps with or without diarrhea If you notice any of the above symptoms, contact our office at [phone] and ask to speak with anurse. After hours, you can call doctors registry at [phone] OR call [facility] at [phone] ask to have the doctor clinic receptionist paged. If you consider this an emergency, dial [phone] or go to your nearest emergency department. NEED HELP? Are you dealing with a violent or abusive relationship? Are you a victim of rape or sexual assult? Call [facility] ([place]) 24 hour Crisis Hotline: 985.785.8074 or 111-246-9705. MANUAL Your Guide to a Healthy manual is now on-line. Visit [email or web address] to download your free copy documented in this encounterSt. [facility]04-[facility]22 Miscellaneous Notes* Quick Notes - Selam Viera APRN.BONNIE - 03/13/2022 3:15 PM EDT BATSHEVA-S: Remigio Hernandez is a 26 year old female who presents at 36w1d with YANCY: 04/16/2022, by Ultrasound for a routine visit. Good FM. Denies headache, visual changes, chest pain, shortness of breath, vaginal bleeding, or dysuria. Presenting with contractions and possible leakage of fluid. O: See flow sheet Gen: No apparent distress Abd: Gravid, nontender PACE ANALYST:vagina pink, rugae, physiologic discharge. No pooling Amniotic Fluid Test 03/20/2022 3:01 PM Fern: neg ; Nitrazine: neg (pH less than 7) Fern Reference Range: Negative for amniotic fluid Nitrazine Reference Range: Normal vaginal pH is acidic (below 7.0) with pH above 7.0 (basic) indicating the presence of amniotic fluid. Lab Address: Ob/gynecology [address] [facility] [address] Dept: [phone] Provider: Selam Viera APRN.CNM ASSESSMENT/PLAN: 1. 35 weeks gestation of P: 1) PTL precautions reviewed and when to call 2) RTO as scheduleed 3) No signs of labor or ROM. Reassurance offered. Selam Viera APRN.CNM documented in this encounterSt. [facility]04-25-2022 Instructions* Patient Instructions* Essie Mason MA - 03/13/2022 2:29 PM EDT SEQUENTIAL SCREENINGS The [facility] offers sequential screenings for women who are interested in screenings for chromosomal abnormalities and certain defects during a . The sequential screen combinesultrasound and blood tests to determine the risk of chromosomal abnormalities, including Down's Syndrome (Trisomy 21) and Trisomy 18, as well as open neural tube defects including spina bifida. Ultrasound examination is performed between 11 weeks and 13 weeks gestational age. Blood tests are drawn after the ultrasound and again later in the between 15 and 21 weeks gestational age. Please let your physician know if you are interested in this testing. It will require an appointment withour brewery technician. This is not an ultrasound performed by a physician in our office during a routine visit. SIGNS AND SYMPTOMS OF LABOR 1. Contractions every 10 minutes or more often 2. Clear, pink, or brownish fluid (water) leaking from vagina 3. Feeling that baby is pushing down, pressure 4. Low, dull backache 5. Cramps that feel like a period 6. Cramps with or without diarrhea If you notice any of the above symptoms, contact our office at [phone] and ask to speak with anurse. After hours, you can call doctors registry at [phone] OR call [facility] at [phone] ask to have the doctor clinic receptionist paged. If you consider this an emergency, dial 9-1-1 or go to your nearest emergency department. NEED HELP? Are you dealing with a violent or abusive relationship? Are you a victim of rape or sexual assult? Call [facility] ([place]) 24 hour Crisis Hotline: 691.540.5691 or 631-614-0138. MANUAL Your Guide to a Healthy manual is now on-line. Visit the [email or web address] to download your free copy documented in this encounterSt. Charles Hospital04-18-2022 Miscellaneous Notes* Quick Notes - Selam Viera APRN.CNM - 03/06/2022 2:30 PM EDT BATSHEVA-S: Remigio Hernandez is a 26 year old female who presents at 34w1d with YANCY:04/16/2022, by Ultrasoundfor a routine visit. Good FM. Denies headache, visual changes, chest pain, shortness of breath, vaginal bleeding, leakage of fluid, or dysuria. Feeling well, no complaints. O: See flow sheet Gen: No apparent distress Abd: Gravid, nontender S=D, 23 lb TWG, cephalic. Limited bedside US confirms ASSESSMENT/PLAN: 1. 34 weeks gestation of 2. Supervision of other high risk pregnancies, third trimester P: 1) PTL precautions reviewed and when to call 2) RTO in 2 weeks 3) NST starting next visit 4) GBS next visit 5) Continue ASA 6) Growth US at 32 weeks EFW 60th percentile, SYLVIA 22 Selam Viera APRN.CNM documented in this encounterSt. [facility] Hospital04-18-2022 Instructions* Patient Instructions* Sarita Arellano MA - 03/06/2022 2:10 PM EDT SEQUENTIAL SCREENINGS [facility] offers sequential screenings for women who are interested in screenings for chromosomal abnormalities and certain defects during a . The sequential screen combinesultrasound and blood tests to determine the risk of chromosomal abnormalities, including Down's Syndrome (Trisomy 21) and Trisomy 18, as well as open neural tube defects including spina bifida. Ultrasound examination is performed between 11 weeks and 13 weeks gestational age. Blood tests are drawn after the ultrasound and again later in the between 15 and 21 weeks gestational age. Please let your physician know if you are interested in this testing. It will require an appointment withour brewery technician. This is not an ultrasound performed by a physician in our office during a routine visit. SIGNS AND SYMPTOMS OF LABOR 1. Contractions every 10 minutes or more often 2. Clear, pink, or brownish fluid (water) leaking from vagina 3. Feeling that baby is pushing down, pressure 4. Low, dull backache 5. Cramps that feel like a period 6. Cramps with or without diarrhea If you notice any of the above symptoms, contact our office at [phone] and ask to speak with anurse. After hours, you can call doctors registry at [phone] OR call [facility] at [phone] ask to have the doctor clinic receptionist paged. If you consider this an emergency, dial 9-1-4 or go to your nearest emergency department. NEED HELP? Are you dealing with a violent or abusive relationship? Are you a victim of rape or sexual assult? Call [facility] [place] ([place]) 24 hour Crisis Hotline: 462.142.5005 or 464-866-1242. MANUAL Your Guide to a Healthy manual is now on-line. Visit [email or web address] to download your free copy documented in this encounterSt. Charles Hospital04-13-2022 Miscellaneous Notes* Telephone Encounter - Sandra Mar RN - 03/01/2022 4:58 PM EDT Spoke to CP. Advised to continue to rest and push fluids. Could be a virus. Patient to call tomorrow if she has any worsening symptoms. Patient notified of all. Also discussed kick counts and when tocall or go to L&D for that. Sandra Mar RN * Telephone Encounter - Sandra Mar RN - 03/01/2022 3:43 PM EDT Patient notified. Does not have access to BP cuff. She has been drinking [employer] drinks today too. Feeling slightly better since initial call, but anytime she is standing for more then 2 minutes she starts getting dizzy still. Sandra Mar RN * Telephone Encounter - Kimber Bee APRN.CNM - 03/01/2022 3:40 PM EDT If patient is able- she can check her blood pressure. Try adding in drinks with electrolytes. Slow movement with position changes and keep feet elevated when sitting. Keep scheduled appointment. Kimber Bee APRN.CNM * Telephone Encounter - Sandra Mar RN - 03/01/2022 2:07 PM EDT 33w3d Patient calling c/o hot flashes and dizziness when upright today. Every time she stands symptoms worsen again and she feels like she is going to pass out. If she is sitting or laying down symptoms are manageable. No sick contacts that she knows of. Has not checked temperature. Drinking plenty of water and eaten today. Next visit scheduled for 03/06/22. Please advise. Sandra Mar RN documented in this encounterSt. [facility] Hospital04-05-2022 Miscellaneous Notes* Quick Notes - Selam Viera APRN.CNM - 02/21/2022 9:14 AM EDT BATSHEVA-S: Remigio Hernandez is a 26 year old female who presents at 32w3d with YANCY:04/16/2022, by Ultrasoundfor a routine visit. Good FM. Denies headache, visual changes, chest pain, shortness of breath, vaginal bleeding, leakage of fluid, or dysuria. Feeling well, no complaints. O: See flow sheet Gen: No apparent distress Abd: Gravid, nontender S>D, 21 lb TWG, breech Growth US 60th%, SYLVIA 23 ASSESSMENT/PLAN: 1. 32 weeks gestation of P: 1) PTL precautions reviewed and when to call 2) RTO in 2 weeks 3) Breech exercises given 4) Continue ASA 5) NST starting at 36 week for pregravid BMI 39 Selam Viera APRN.CNM documented in this encounterSt. Charles Hospital04-05-2022 Instructions* Patient Instructions* Essie Mason MA - 02/21/2022 8:31 AM EDT SEQUENTIAL SCREENINGS [facility] offers sequential screenings for women who are interested in screenings for chromosomal abnormalities and certain defects during a . The sequential screen combinesultrasound and blood tests to determine the risk of chromosomal abnormalities, including Down's Syndrome (Trisomy 21) and Trisomy 18, as well as open neural tube defects including spina bifida. Ultrasound examination is performed between 11 weeks and 13 weeks gestational age. Blood tests are drawn after the ultrasound and again later in the between 15 and 21 weeks gestational age. Please let your physician know if you are interested in this testing. It will require an appointment withour brewery technician. This is not an ultrasound performed by a physician in our office during a routine visit. SIGNS AND SYMPTOMS OF LABOR 1. Contractions every 10 minutes or more often 2. Clear, pink, or brownish fluid (water) leaking from vagina 3. Feeling that baby is pushing down, pressure 4. Low, dull backache 5. Cramps that feel like a period 6. Cramps with or without diarrhea If you notice any of the above symptoms, contact our office at [phone] and ask to speak with anurse. After hours, you can call doctors registry at [phone] OR call [facility] at [phone] ask to have the doctor clinic receptionist paged. If you consider this an emergency, dial -4 or go to your nearest emergency department. NEED HELP? Are you dealing with a violent or abusive relationship? Are you a victim of rape or sexual assult? Call [facility] ([facility] 24 hour Crisis Hotline: 326.653.6055 or 972-652-7880. MANUAL Your Guide to a Healthy manual is now on-line. Visit the [email or web address] to download your free copy documented in this encounterSt. Charles Hospital03-28-2022 Miscellaneous Notes* Quick Notes - Selam Viera APRN.CNM - 02/13/2022 4:07 PM EDT BATSHEVA-S: Remigio Hernandez is a 26 year old female who presents at 31w1d by YANCY:04/16/2022 for a problem visit. Denies headache, visual changes, chest pain, shortness of breath, vaginal bleeding. No contractions or cramping. Noticed upon waking fluid that leaked out and was not urine Thinner and unsure of color, no odor. Happened once and not again. O: See flow sheet Gen: No apparent distress Abd: Gravid, nontender VE:pink, rugated, large amount of thin white vaginal discharge, no odor Amniotic Fluid Test 02/13/2022 4:07 PM Fern: neg ; Nitrazine: neg (pH less than 7) Fern Reference Range: Negative for amniotic fluid Nitrazine Reference Range: Normal vaginal pH is acidic (below 7.0) with pH above 7.0 (basic) indicating the presence of amniotic fluid. Lab Address: Ob/gynecology [address] [place], [place] [id number] Dept: [phone] Provider: Selam Viera APRN.CNM Wet Prep 02/13/2022 4:07 PM Yeast: Negative: No yeast observed Clue Cells: Positive: Moderate ph 4.5, negative whiff Trichomonas: Negative Provider: Selam Viera APRN.CNM Reference Range Negative Trichomonas and Clue cells Prisca Albicans is considered normal vaginal maryana, but may proliferate to cause an infection Lab Address: Ob/gynecology [address] [place] [id number] Dept: [phone] ASSESSMENT/PLAN: 1. 31 weeks gestation of 2. Supervision of other high risk pregnancies, third trimester 3. Vaginal discharge 4. BV (bacterial vaginosis) P: 1) PTL precautions reviewed and when to call 2) RTO as scheduled 3) Reviewed BV and treatment. Flagyl 500mg PO BID x 7days And Florajen women's Health probiotic for 30 days Selam Viera APRN.CNM Medical Decision Making: Problems: Low: Acute, uncomplicated illness or injury Data: Unique test result(s) reviewed: 2 Assessment requiring an independent historian(s) Risk: Moderate: Drug management Medical Decision Making Level: 4 - Moderate documented in this encounterSt. Charles Hospital03-28-2022 Instructions* Patient Instructions* Essie Mason MA - 02/13/2022 3:08 PM EDT SEQUENTIAL SCREENINGS The [facility] offers sequential screenings for women who are interested in screenings for chromosomal abnormalities and certain defects during a . The sequential screen combinesultrasound and blood tests to determine the risk of chromosomal abnormalities, including Down's Syndrome (Trisomy 21) and Trisomy 18, as well as open neural tube defects including spina bifida. Ultrasound examination is performed between 11 weeks and 13 weeks gestational age. Blood tests are drawn after the ultrasound and again later in the between 15 and 21 weeks gestational age. Please let your physician know if you are interested in this testing. It will require an appointment withour brewery technician. This is not an ultrasound performed by a physician in our office during a routine visit. SIGNS AND SYMPTOMS OF LABOR 1. Contractions every 10 minutes or more often 2. Clear, pink, or brownish fluid (water) leaking from vagina 3. Feeling that baby is pushing down, pressure 4. Low, dull backache 5. Cramps that feel like a period 6. Cramps with or without diarrhea If you notice any of the above symptoms, contact our office at [phone] and ask to speak with anurse. After hours, you can call doctors registry at [phone] OR call [facility] at [phone] ask to have the doctor clinic receptionist paged. If you consider this an emergency, dial 9-1-1 or go to your nearest emergency department. NEED HELP? Are you dealing with a violent or abusive relationship? Are you a victim of rape or sexual assult? Call [facility] ([place]) 24 hour Crisis Hotline: 984.565.4026 or 274-893-7988. MANUAL Your Guide to a Healthy manual is now on-line. Visit the [email or web address] to download your free copy Bacterial Vaginosis What is bacterial vaginosis? Bacterial vaginosis (BV) is a common infection that occurs in a woman's vagina. Bacterial vaginosisdoes not usually cause serious health problems, except in women. What causes BV? Health care providers do not yet fully understand what causes BV. Bacteria are a natural part of the vagina. For some reason, something upsets the normal balance of bacteria. Some of the bacteria grow too rapidly and cause infection. What are the symptoms of BV? Unfortunately, almost 50 percent of the women who have bacterial vaginosis do not have any symptoms. Common symptoms of BV include: White or discolored discharge Discharge that smells fishy Fishy smell that is strongest after sex Other symptoms can include: Itchy vagina Sore vagina Because BV has symptoms that are similar to other infections, it is important that you visit your health care provider if you think you have an infection in your vagina. Who can get BV? Any woman can get BV. The infection is most common in women between the ages of 18 and 44. BV is most common in sexually active women, although sexual transmission of BV has never been proven. Women who are not engaging in sex can also get BV. You may have a higher risk of getting BV if you: Have many sex partners Have a sexually transmitted infection (STI) How can I know if I have BV? Your health care provider can tell you if you have BV. He or she will examine you and will take a sample of fluid from your vagina. The fluid is viewed under a microscope. In most cases, your health care provider can tell right away if you have BV. How is BV treated? Bacterial vaginosis is treated using medicines that kill the infection. The most common medicine ordered for BV is called metronidazole. Common product names for this medicine are Flagyl and Protostat . Metronidazole may be given as a pill that is taken by mouth. It may also be given as a vaginal gel. Does the medication have side effects? Yes. You may have: Upset stomach Metal taste in your mouth Heartburn Don't drink alcohol while you are taking metronidazole. You can become very sick to your stomach. Call your health care provider if you have these or any other side effects. Can I treat myself for BV? No. Bacterial vaginosis can only be treated with medicines ordered by your health care provider. You cannot purchase [id number] products to treat BV. Products for douching and treating yeast infections will not cure BV. Should I be treated for BV if I am ? Yes, but not during the first three months of . Some studies have shown that having the infection during may cause early labor and premature . Tell your health care provider if you are . Also let your health care provider know if you think that you might be . You and your health care provider should discuss whether or not the infection should be treated. How can I protect myself from BV? Ways to prevent BV are not yet known. Female hygiene products like douches and deodorants will not cure the infection. These products may make the infection worse. To maintain your overall good health: Eat a well-balanced diet Exercise Manage stress levels Get a pelvic exam as directed by your provider When should I call my doctor? You should call your health care provider any time if: Your vaginal discharge changes color, becomes heavier, or smells different You notice itching, burning, swelling, or soreness around the vagina Copyright 0526-4814 [facility]. All rights reserved. This information is provided by the [facility] and is not intended to replace the medical advice of your doctor or health care provider. Please consult your health care provider for advice about a specific medical condition. For additional written health information, please contact the [facility] at the [facility] or toll-free extension [phone] or visit [email or web address] This document was last reviewed on: 2010 documented in this encounterSt. Charles Hospital03-10-2022 History of Past illness Narrative* Problem Noted Date Resolved Date Abnormal glucose tolerance in 01/27/20 22 11/27/2022 Overview: 02/03/22- Normal 3 hour GTT. Kimber Bee APRN.CNM 01/26/22-Elevated glucose in . 3hr GTT ordered. Selam Viera APRN.CNM Encounter for supervision of other normal , second trimester 01/10/2019 02/21/2022 Overview: quit tob use in Tetrahydrocannabinol (THC) use disorder, mild, a buse 01/10/2019 02/21/2022 Thumb sucking 04/09/2013 01/10/2019 Finger pain 07/21/2009 01/10/2019 Closed fracture of unspecified phalanx or phalan ges of hand 05/24/2009 01/10/2019 documented as of this encounter (statuses as of 11/28/2022) [facility] of Past illness Narrative* Problem Noted Date Resolved Date Abnormal glucose tolerance in 01/27/2011/27/2022 Overview: 02/03/22- Normal 3 hour GTT. Kimber Bee APRN.CNM 01/26/22-Elevated glucose in . 3hr GTT ordered. Selam Viera APRN.CNM Encounter for supervision of other normal , second trimester 01/10/2019 02/21/2022 Overview: quit tob use in Tetrahydrocannabinol (THC) use disorder, mild, a buse 01/10/2019 02/21/2022 Thumb sucking 04/09/2013 01/10/2019 Finger pain 07/21/2009 01/10/2019 Closed fracture of unspecified phalanx or phalan ges of hand 05/24/2009 01/10/2019 documented as of this encounter (statuses as of 11/30/2022) [facility] of Past illness Narrative* Problem Noted Date Resolved Date Abnormal glucose tolerance in 01/27/2011/27/2022 Overview: 02/03/22- Normal 3 hour GTT. Kimber Bee APRN.CNM 01/26/22-Elevated glucose in . 3hr GTT ordered. Selam Viera APRN.CNM Encounter for supervision of other normal , second trimester 01/10/2019 02/21/2022 Overview: quit tob use in Tetrahydrocannabinol (THC) use disorder, mild, a buse 01/10/2019 02/21/2022 Thumb sucking 04/09/2013 01/10/2019 Finger pain 07/21/2009 01/10/2019 Closed fracture of unspecified phalanx or phalan ges of hand 05/24/2009 01/10/2019 documented as of this encounter (statuses as of 11/30/2022) [facility] of Past illness Narrative* Problem Noted Date Resolved Date Abnormal glucose tolerance in 01/27/20 22 11/27/2022 Overview: 02/03/22- Normal 3 hour GTT. Kimber Bee APRN.CNM 01/26/22-Elevated glucose in . 3hr GTT ordered. Selam Viera APRN.CNM Encounter for supervision of other normal , second trimester 01/10/2019 02/21/2022 Overview: quit tob use in Tetrahydrocannabinol (THC) use disorder, mild, a buse 01/10/2019 02/21/2022 Thumb sucking 04/09/2013 01/10/2019 Finger pain 07/21/2009 01/10/2019 Closed fracture of unspecified phalanx or phalan ges of hand 05/24/2009 01/10/2019 documented as of this encounter (statuses as of 12/12/2022) [facility] of Past illness Narrative* Problem Noted Date Resolved Date Abnormal glucose tolerance in 01/27/20 22 11/27/2022 Overview: 02/03/22- Normal 3 hour GTT. Kimber Bee APRN.CNM 01/26/22-Elevated glucose in . 3hr GTT ordered. Selam Viera APRN.CNM Encounter for supervision of other normal , second trimester 01/10/2019 02/21/2022 Overview: quit tob use in Tetrahydrocannabinol (THC) use disorder, mild, a buse 01/10/2019 02/21/2022 Thumb sucking 04/09/2013 01/10/2019 Finger pain 07/21/2009 01/10/2019 Closed fracture of unspecified phalanx or phalan ges of hand 05/24/2009 01/10/2019 documented as of this encounter (statuses as of 12/12/2022) [facility] of Past illness Narrative* Problem Noted Date Resolved Date Abnormal glucose tolerance in 01/27/20 22 11/27/2022 Overview: 02/03/22- Normal 3 hour GTT. Kimber Bee APRN.CNM 01/26/22-Elevated glucose in . 3hr GTT ordered. Selam Viera APRN.CNM Encounter for supervision of other normal , second trimester 01/10/2019 02/21/2022 Overview: quit tob use in Tetrahydrocannabinol (THC) use disorder, mild, a buse 01/10/2019 02/21/2022 Thumb sucking 04/09/2013 01/10/2019 Finger pain 07/21/2009 01/10/2019 Closed fracture of unspecified phalanx or phalan ges of hand 05/24/2009 01/10/2019 documented as of this encounter (statuses as of 12/26/2022) [facility] of Past illness Narrative* Problem Noted Date Resolved Date Abnormal glucose tolerance in 01/27/2011/27/2022 Overview: 02/03/22- Normal 3 hour GTT. Kimber Bee APRN.CNM 01/26/22-Elevated glucose in . 3hr GTT ordered. Selam Viera APRN.CNM Encounter for supervision of other normal , second trimester 01/10/2019 02/21/2022 Overview: quit tob use in Tetrahydrocannabinol (THC) use disorder, mild, a buse 01/10/2019 02/21/2022 Thumb sucking 04/09/2013 01/10/2019 Finger pain 07/21/2009 01/10/2019 Closed fracture of unspecified phalanx or phalan ges of hand 05/24/2009 01/10/2019 documented as of this encounter (statuses as of 01/05/2023) [facility] of Past illness Narrative* Problem Noted Date Resolved Date Abnormal glucose tolerance in 01/27/20 22 11/27/2022 Overview: 02/03/22- Normal 3 hour GTT. Kimber Bee APRN.CNM 01/26/22-Elevated glucose in . 3hr GTT ordered. Selam Viera APRN.CNM Encounter for supervision of other normal , second trimester 01/10/2019 02/21/2022 Overview: quit tob use in Tetrahydrocannabinol (THC) use disorder, mild, a buse 01/10/2019 02/21/2022 Thumb sucking 04/09/2013 01/10/2019 Finger pain 07/21/2009 01/10/2019 Closed fracture of unspecified phalanx or phalan ges of hand 05/24/2009 01/10/2019 documented as of this encounter (statuses as of 01/11/2023) [facility] of Past illness Narrative* Problem Noted Date Resolved Date Abnormal glucose tolerance in 01/27/20 22 11/27/2022 Overview: 02/03/22- Normal 3 hour GTT. Kimber Bee APRN.CNM 01/26/22-Elevated glucose in . 3hr GTT ordered. Selam Viera APRN.CNM Encounter for supervision of other normal , second trimester 01/10/2019 02/21/2022 Overview: quit tob use in Tetrahydrocannabinol (THC) use disorder, mild, a buse 01/10/2019 02/21/2022 Thumb sucking 04/09/2013 01/10/2019 Finger pain 07/21/2009 01/10/2019 Closed fracture of unspecified phalanx or phalan ges of hand 05/24/2009 01/10/2019 documented as of this encounter (statuses as of 01/18/2023) [facility]03-10-2022 History of Past illness Narrative* Problem Noted Date Resolved Date Abnormal glucose tolerance in 01/27/20 22 11/27/2022 Overview: 02/03/22- Normal 3 hour GTT. Kimber Bee APRN.CNM 01/26/22-Elevated glucose in . 3hr GTT ordered. Selam Viera APRN.CNM Encounter for supervision of other normal , second trimester 01/10/2019 02/21/2022 Overview: quit tob use in Tetrahydrocannabinol (THC) use disorder, mild, a buse 01/10/2019 02/21/2022 Thumb sucking 04/09/2013 01/10/2019 Finger pain 07/21/2009 01/10/2019 Closed fracture of unspecified phalanx or phalan ges of hand 05/24/2009 01/10/2019 documented as of this encounter (statuses as of 01/25/2023) [facility]2022 History of Past illness Narrative* Problem Noted Date Resolved Date Abnormal glucose tolerance in 01/27/2011/27/2022 Overview: 02/03/22- Normal 3 hour GTT. Kimber Bee APRN.CNM 01/26/22-Elevated glucose in . 3hr GTT ordered. Selam Viera APRN.CNM Encounter for supervision of other normal , second trimester 01/10/2019 02/21/2022 Overview: quit tob use in Tetrahydrocannabinol (THC) use disorder, mild, a buse 01/10/2019 02/21/2022 Thumb sucking 04/09/2013 01/10/2019 Finger pain 07/21/2009 01/10/2019 Closed fracture of unspecified phalanx or phalan ges of hand 05/24/2009 01/10/2019 documented as of this encounter (statuses as of 01/28/2023) [facility]2022 History of Past illness Narrative* Problem Noted Date Resolved Date Abnormal glucose tolerance in 01/27/20 22 11/27/2022 Overview: 02/03/22- Normal 3 hour GTT. Kimber Bee APRN.CNM 01/26/22-Elevated glucose in . 3hr GTT ordered. Selam Viera APRN.CNM Encounter for supervision of other normal , second trimester 01/10/2019 02/21/2022 Overview: quit tob use in Tetrahydrocannabinol (THC) use disorder, mild, a buse 01/10/2019 02/21/2022 Thumb sucking 04/09/2013 01/10/2019 Finger pain 07/21/2009 01/10/2019 Closed fracture of unspecified phalanx or phalan ges of hand 05/24/2009 01/10/2019 documented as of this encounter (statuses as of 01/30/2023) [facility] History of Past illness Narrative* Problem Noted Date Resolved Date Abnormal glucose tolerance in 01/27/20 22 11/27/2022 Overview: 02/03/22- Normal 3 hour GTT. Kimber Bee APRN.CNM 01/26/22-Elevated glucose in . 3hr GTT ordered. Selam Viera APRN.CNM Encounter for supervision of other normal , second trimester 01/10/2019 02/21/2022 Overview: quit tob use in Tetrahydrocannabinol (THC) use disorder, mild, a buse 01/10/2019 02/21/2022 Thumb sucking 04/09/2013 01/10/2019 Finger pain 07/21/2009 01/10/2019 Closed fracture of unspecified phalanx or phalan ges of hand 05/24/2009 01/10/2019 documented as of this encounter (statuses as of 01/31/2023) [facility] History of Past illness Narrative* Problem Noted Date Resolved Date Abnormal glucose tolerance in 01/27/20 22 11/27/2022 Overview: 02/03/22- Normal 3 hour GTT. Kimber Bee APRN.CNM 01/26/22-Elevated glucose in . 3hr GTT ordered. Selam Viera APRN.CNM Encounter for supervision of other normal , second trimester 01/10/2019 02/21/2022 Overview: quit tob use in Tetrahydrocannabinol (THC) use disorder, mild, a buse 01/10/2019 02/21/2022 Thumb sucking 04/09/2013 01/10/2019 Finger pain 07/21/2009 01/10/2019 Closed fracture of unspecified phalanx or phalan ges of hand 05/24/2009 01/10/2019 documented as of this encounter (statuses as of 02/07/2023) [facility] History of Past illness Narrative* Problem Noted Date Resolved Date Abnormal glucose tolerance in 01/27/2011/27/2022 Overview: 02/03/22- Normal 3 hour GTT. Kimber Bee APRN.CNM 01/26/22-Elevated glucose in . 3hr GTT ordered. Selam Viera APRN.CNM Encounter for supervision of other normal , second trimester 01/10/2019 02/21/2022 Overview: quit tob use in Tetrahydrocannabinol (THC) use disorder, mild, a buse 01/10/2019 02/21/2022 Thumb sucking 04/09/2013 01/10/2019 Finger pain 07/21/2009 01/10/2019 Closed fracture of unspecified phalanx or phalan ges of hand 05/24/2009 01/10/2019 documented as of this encounter (statuses as of 02/08/2023) [facility]03[facility]2022 History of Past illness Narrative* Problem Noted Date Resolved Date Abnormal glucose tolerance in 01/27/2011/27/2022 Overview: 02/03/22- Normal 3 hour GTT. Kimber Bee APRN.CNM 01/26/22-Elevated glucose in . 3hr GTT ordered. Selam Viera APRN.CNM Encounter for supervision of other normal , second trimester 01/10/2019 02/21/2022 Overview: quit tob use in Tetrahydrocannabinol (THC) use disorder, mild, a buse 01/10/2019 02/21/2022 Thumb sucking 04/09/2013 01/10/2019 Finger pain 07/21/2009 01/10/2019 Closed fracture of unspecified phalanx or phalan ges of hand 05/24/2009 01/10/2019 documented as of this encounter (statuses as of 02/15/2023) [facility] History of Past illness Narrative* Problem Noted Date Resolved Date Abnormal glucose tolerance in 01/27/2011/27/2022 Overview: 02/03/22- Normal 3 hour GTT. Kimber Bee APRN.CNM 01/26/22-Elevated glucose in . 3hr GTT ordered. Selam Viera APRN.CNM Encounter for supervision of other normal , second trimester 01/10/2019 02/21/2022 Overview: quit tob use in Tetrahydrocannabinol (THC) use disorder, mild, a buse 01/10/2019 02/21/2022 Thumb sucking 04/09/2013 01/10/2019 Finger pain 07/21/2009 01/10/2019 Closed fracture of unspecified phalanx or phalan ges of hand 05/24/2009 01/10/2019 documented as of this encounter (statuses as of 02/18/2023) [facility] History of Past illness Narrative* Problem Noted Date Resolved Date Abnormal glucose tolerance in 01/27/2011/27/2022 Overview: 02/03/22- Normal 3 hour GTT. Kimber Bee APRN.CNM 01/26/22-Elevated glucose in . 3hr GTT ordered. Selam Viera APRN.CNM Encounter for supervision of other normal , second trimester 01/10/2019 02/21/2022 Overview: quit tob use in Tetrahydrocannabinol (THC) use disorder, mild, a buse 01/10/2019 02/21/2022 Thumb sucking 04/09/2013 01/10/2019 Finger pain 07/21/2009 01/10/2019 Closed fracture of unspecified phalanx or phalan ges of hand 05/24/2009 01/10/2019 documented as of this encounter (statuses as of 02/20/2023) [facility] History of Past illness Narrative* Problem Noted Date Resolved Date Abnormal glucose tolerance in 01/27/2011/27/2022 Overview: 02/03/22- Normal 3 hour GTT. Kimber Bee APRN.CNM 01/26/22-Elevated glucose in . 3hr GTT ordered. Selam Viera APRN.CNM Encounter for supervision of other normal , second trimester 01/10/2019 02/21/2022 Overview: quit tob use in Tetrahydrocannabinol (THC) use disorder, mild, a buse 01/10/2019 02/21/2022 Thumb sucking 04/09/2013 01/10/2019 Finger pain 07/21/2009 01/10/2019 Closed fracture of unspecified phalanx or phalan ges of hand 05/24/2009 01/10/2019 documented as of this encounter (statuses as of 02/22/2023) [facility] History of Past illness Narrative* Problem Noted Date Resolved Date Abnormal glucose tolerance in 01/27/2011/27/2022 Overview: 02/03/22- Normal 3 hour GTT. Kimber Bee APRN.CNM 01/26/22-Elevated glucose in . 3hr GTT ordered. Selam Viera APRN.CNM Encounter for supervision of other normal , second trimester 01/10/2019 02/21/2022 Overview: quit tob use in Tetrahydrocannabinol (THC) use disorder, mild, a buse 01/10/2019 02/21/2022 Thumb sucking 04/09/2013 01/10/2019 Finger pain 07/21/2009 01/10/2019 Closed fracture of unspecified phalanx or phalan ges of hand 05/24/2009 01/10/2019 documented as of this encounter (statuses as of 02/23/2023) [facility] History of Past illness Narrative* Problem Noted Date Resolved Date Abnormal glucose tolerance in 01/27/2011/27/2022 Overview: 02/03/22- Normal 3 hour GTT. Kimber Bee APRN.CNM 01/26/22-Elevated glucose in . 3hr GTT ordered. Selam Viera APRN.CNM Encounter for supervision of other normal , second trimester 01/10/2019 02/21/2022 Overview: quit tob use in Tetrahydrocannabinol (THC) use disorder, mild, a buse 01/10/2019 02/21/2022 Thumb sucking 04/09/2013 01/10/2019 Finger pain 07/21/2009 01/10/2019 Closed fracture of unspecified phalanx or phalan ges of hand 05/24/2009 01/10/2019 documented as of this encounter (statuses as of 03/05/2023) [facility] History of Past illness Narrative* Problem Noted Date Resolved Date Abnormal glucose tolerance in 01/27/20 22 11/27/2022 Overview: 02/03/22- Normal 3 hour GTT. Kimber Bee APRN.CNM 01/26/22-Elevated glucose in . 3hr GTT ordered. Selam Viera APRN.CNM Encounter for supervision of other normal , second trimester 01/10/2019 02/21/2022 Overview: quit tob use in Tetrahydrocannabinol (THC) use disorder, mild, a buse 01/10/2019 02/21/2022 Thumb sucking 04/09/2013 01/10/2019 Finger pain 07/21/2009 01/10/2019 Closed fracture of unspecified phalanx or phalan ges of hand 05/24/2009 01/10/2019 documented as of this encounter (statuses as of 03/15/2023) [facility] History of Past illness Narrative* Problem Noted Date Resolved Date Patient request for diagnostic testing 1 11/28/2021 Overview: 1Patient desires nuchal ultrasound. Declines genetic carrier screening testing.TKRN Thumb sucking 04/09/2013 01/10/2019 Finger pain 07/21/2009 01/10/2019 Closed fracture of unspecified phalanx or phalan ges of hand 05/24/2009 01/10/2019 documented as of this encounter (statuses as of 02/19/2022) [facility] History of Past illness Narrative* Problem Noted Date Resolved Date Patient request for diagnostic testing 1 11/28/2021 Overview: 1Patient desires nuchal ultrasound. Declines genetic carrier screening testing.TKRN Encounter for supervision of other normal , second trimester 01/10/2019 02/21/2022 Overview: quit tob use in Tetrahydrocannabinol (THC) use disorder, mild, a buse 01/10/2019 02/21/2022 Thumb sucking 04/09/2013 01/10/2019 Finger pain 07/21/2009 01/10/2019 Closed fracture of unspecified phalanx or phalan ges of hand 05/24/2009 01/10/2019 documented as of this encounter (statuses as of 02/21/2022) [facility] History of Past illness Narrative* Problem Noted Date Resolved Date Patient request for diagnostic testing 1 11/28/2021 Overview: 1Patient desires nuchal ultrasound. Declines genetic carrier screening testing.TKRN Encounter for supervision of other normal , second trimester 01/10/2019 02/21/2022 Overview: quit tob use in Tetrahydrocannabinol (THC) use disorder, mild, a buse 01/10/2019 02/21/2022 Thumb sucking 04/09/2013 01/10/2019 Finger pain 07/21/2009 01/10/2019 Closed fracture of unspecified phalanx or phalan ges of hand 05/24/2009 01/10/2019 documented as of this encounter (statuses as of 02/22/2022) [facility] History of Past illness Narrative* Problem Noted Date Resolved Date Patient request for diagnostic testing 1 11/28/2021 Overview: 1Patient desires nuchal ultrasound. Declines genetic carrier screening testing.TKRN Encounter for supervision of other normal , second trimester 01/10/2019 02/21/2022 Overview: quit tob use in Tetrahydrocannabinol (THC) use disorder, mild, a buse 01/10/2019 02/21/2022 Thumb sucking 04/09/2013 01/10/2019 Finger pain 07/21/2009 01/10/2019 Closed fracture of unspecified phalanx or phalan ges of hand 05/24/2009 01/10/2019 documented as of this encounter (statuses as of 03/01/2022) [facility] History of Past illness Narrative* Problem Noted Date Resolved Date Patient request for diagnostic testing 1 11/28/2021 Overview: 1Patient desires nuchal ultrasound. Declines genetic carrier screening testing.TKRN Encounter for supervision of other normal , second trimester 01/10/2019 02/21/2022 Overview: quit tob use in Tetrahydrocannabinol (THC) use disorder, mild, a buse 01/10/2019 02/21/2022 Thumb sucking 04/09/2013 01/10/2019 Finger pain 07/21/2009 01/10/2019 Closed fracture of unspecified phalanx or phalan ges of hand 05/24/2009 01/10/2019 documented as of this encounter (statuses as of 03/06/2022) [facility] History of Past illness Narrative* Problem Noted Date Resolved Date Patient request for diagnostic testing 1 11/28/2021 Overview: 1Patient desires nuchal ultrasound. Declines genetic carrier screening testing.TKRN Encounter for supervision of other normal , second trimester 01/10/2019 02/21/2022 Overview: quit tob use in Tetrahydrocannabinol (THC) use disorder, mild, a buse 01/10/2019 02/21/2022 Thumb sucking 04/09/2013 01/10/2019 Finger pain 07/21/2009 01/10/2019 Closed fracture of unspecified phalanx or phalan ges of hand 05/24/2009 01/10/2019 documented as of this encounter (statuses as of 03/20/2022) [facility] History of Past illness Narrative* Problem Noted Date Resolved Date Patient request for diagnostic testing 1 11/28/2021 Overview: 1Patient desires nuchal ultrasound. Declines genetic carrier screening testing.TKRN Encounter for supervision of other normal , second trimester 01/10/2019 02/21/2022 Overview: quit tob use in Tetrahydrocannabinol (THC) use disorder, mild, a buse 01/10/2019 02/21/2022 Thumb sucking 04/09/2013 01/10/2019 Finger pain 07/21/2009 01/10/2019 Closed fracture of unspecified phalanx or phalan ges of hand 05/24/2009 01/10/2019 documented as of this encounter (statuses as of 03/20/2022) [facility] History of Past illness Narrative* Problem Noted Date Resolved Date Patient request for diagnostic testing 1 11/28/2021 Overview: 1Patient desires nuchal ultrasound. Declines genetic carrier screening testing.TKRN Encounter for supervision of other normal , second trimester 01/10/2019 02/21/2022 Overview: quit tob use in Tetrahydrocannabinol (THC) use disorder, mild, a buse 01/10/2019 02/21/2022 Thumb sucking 04/09/2013 01/10/2019 Finger pain 07/21/2009 01/10/2019 Closed fracture of unspecified phalanx or phalan ges of hand 05/24/2009 01/10/2019 documented as of this encounter (statuses as of 03/21/2022) [facility] History of Past illness Narrative* Problem Noted Date Resolved Date Patient request for diagnostic testing 1 11/28/2021 Overview: 1Patient desires nuchal ultrasound. Declines genetic carrier screening testing.TKRN Encounter for supervision of other normal , second trimester 01/10/2019 02/21/2022 Overview: quit tob use in Tetrahydrocannabinol (THC) use disorder, mild, a buse 01/10/2019 02/21/2022 Thumb sucking 04/09/2013 01/10/2019 Finger pain 07/21/2009 01/10/2019 Closed fracture of unspecified phalanx or phalan ges of hand 05/24/2009 01/10/2019 documented as of this encounter (statuses as of 03/27/2022) [facility] History of Past illness Narrative* Problem Noted Date Resolved Date Patient request for diagnostic testing 1 11/28/2021 Overview: 1Patient desires nuchal ultrasound. Declines genetic carrier screening testing.TKRN Encounter for supervision of other normal , second trimester 01/10/2019 02/21/2022 Overview: quit tob use in Tetrahydrocannabinol (THC) use disorder, mild, a buse 01/10/2019 02/21/2022 Thumb sucking 04/09/2013 01/10/2019 Finger pain 07/21/2009 01/10/2019 Closed fracture of unspecified phalanx or phalan ges of hand 05/24/2009 01/10/2019 documented as of this encounter (statuses as of 03/27/2022) [facility] History of Past illness Narrative* Problem Noted Date Resolved Date Patient request for diagnostic testing 1 11/28/2021 Overview: 1Patient desires nuchal ultrasound. Declines genetic carrier screening testing.TKRN Encounter for supervision of other normal , second trimester 01/10/2019 02/21/2022 Overview: quit tob use in Tetrahydrocannabinol (THC) use disorder, mild, a buse 01/10/2019 02/21/2022 Thumb sucking 04/09/2013 01/10/2019 Finger pain 07/21/2009 01/10/2019 Closed fracture of unspecified phalanx or phalan ges of hand 05/24/2009 01/10/2019 documented as of this encounter (statuses as of 03/29/2022) [facility] History of Past illness Narrative* Problem Noted Date Resolved Date Patient request for diagnostic testing 1 11/28/2021 Overview: 1Patient desires nuchal ultrasound. Declines genetic carrier screening testing.TKRN Encounter for supervision of other normal , second trimester 01/10/2019 02/21/2022 Overview: quit tob use in Tetrahydrocannabinol (THC) use disorder, mild, a buse 01/10/2019 02/21/2022 Thumb sucking 04/09/2013 01/10/2019 Finger pain 07/21/2009 01/10/2019 Closed fracture of unspecified phalanx or phalan ges of hand 05/24/2009 01/10/2019 documented as of this encounter (statuses as of 04/03/2022) [facility] History of Past illness Narrative* Problem Noted Date Resolved Date Patient request for diagnostic testing 1 11/28/2021 Overview: 1Patient desires nuchal ultrasound. Declines genetic carrier screening testing.TKRN Encounter for supervision of other normal , second trimester 01/10/2019 02/21/2022 Overview: quit tob use in Tetrahydrocannabinol (THC) use disorder, mild, a buse 01/10/2019 02/21/2022 Thumb sucking 04/09/2013 01/10/2019 Finger pain 07/21/2009 01/10/2019 Closed fracture of unspecified phalanx or phalan ges of hand 05/24/2009 01/10/2019 documented as of this encounter (statuses as of 04/07/2022) [facility] History of Past illness Narrative* Problem Noted Date Resolved Date Patient request for diagnostic testing 1 11/28/2021 Overview: 1Patient desires nuchal ultrasound. Declines genetic carrier screening testing.TKRN Encounter for supervision of other normal , second trimester 01/10/2019 02/21/2022 Overview: quit tob use in Tetrahydrocannabinol (THC) use disorder, mild, a buse 01/10/2019 02/21/2022 Thumb sucking 04/09/2013 01/10/2019 Finger pain 07/21/2009 01/10/2019 Closed fracture of unspecified phalanx or phalan ges of hand 05/24/2009 01/10/2019 documented as of this encounter (statuses as of 04/11/2022) [facility] History of Past illness Narrative* Problem Noted Date Resolved Date Patient request for diagnostic testing 1 11/28/2021 Overview: 1Patient desires nuchal ultrasound. Declines genetic carrier screening testing.TKRN Encounter for supervision of other normal , second trimester 01/10/2019 02/21/2022 Overview: quit tob use in Tetrahydrocannabinol (THC) use disorder, mild, a buse 01/10/2019 02/21/2022 Thumb sucking 04/09/2013 01/10/2019 Finger pain 07/21/2009 01/10/2019 Closed fracture of unspecified phalanx or phalan ges of hand 05/24/2009 01/10/2019 documented as of this encounter (statuses as of 04/27/2022) [facility] History of Past illness Narrative* Problem Noted Date Resolved Date Patient request for diagnostic testing 1 11/28/2021 Overview: 1Patient desires nuchal ultrasound. Declines genetic carrier screening testing.TKRN Encounter for supervision of other normal , second trimester 01/10/2019 02/21/2022 Overview: quit tob use in Tetrahydrocannabinol (THC) use disorder, mild, a buse 01/10/2019 02/21/2022 Thumb sucking 04/09/2013 01/10/2019 Finger pain 07/21/2009 01/10/2019 Closed fracture of unspecified phalanx or phalan ges of hand 05/24/2009 01/10/2019 documented as of this encounter (statuses as of 05/03/2022) [facility] History of Past illness Narrative* Problem Noted Date Resolved Date Patient request for diagnostic testing 1 11/28/2021 Overview: 1Patient desires nuchal ultrasound. Declines genetic carrier screening testing.TKRN Encounter for supervision of other normal , second trimester 01/10/2019 02/21/2022 Overview: quit tob use in Tetrahydrocannabinol (THC) use disorder, mild, a buse 01/10/2019 02/21/2022 Thumb sucking 04/09/2013 01/10/2019 Finger pain 07/21/2009 01/10/2019 Closed fracture of unspecified phalanx or phalan ges of hand 05/24/2009 01/10/2019 documented as of this encounter (statuses as of 07/07/2022) [facility] History of Past illness Narrative* Problem Noted Date Resolved Date Encounter for supervision of other normal , second trimester 01/10/2019 02/21/2022 Overview: quit tob use in Tetrahydrocannabinol (THC) use disorder, mild, a buse 01/10/2019 02/21/2022 Thumb sucking 04/09/2013 01/10/2019 Finger pain 07/21/2009 01/10/2019 Closed fracture of unspecified phalanx or phalan ges of hand 05/24/2009 01/10/2019 documented as of this encounter (statuses as of 07/26/2022) [facility] History of Past illness Narrative* Problem Noted Date Resolved Date Encounter for supervision of other normal , second trimester 01/10/2019 02/21/2022 Overview: quit tob use in Tetrahydrocannabinol (THC) use disorder, mild, a buse 01/10/2019 02/21/2022 Thumb sucking 04/09/2013 01/10/2019 Finger pain 07/21/2009 01/10/2019 Closed fracture of unspecified phalanx or phalan ges of hand 05/24/2009 01/10/2019 documented as of this encounter (statuses as of 07/26/2022) [facility] History of Past illness Narrative* Problem Noted Date Resolved Date Encounter for supervision of other normal , second trimester 01/10/2019 02/21/2022 Overview: quit tob use in Tetrahydrocannabinol (THC) use disorder, mild, a buse 01/10/2019 02/21/2022 Thumb sucking 04/09/2013 01/10/2019 Finger pain 07/21/2009 01/10/2019 Closed fracture of unspecified phalanx or phalan ges of hand 05/24/2009 01/10/2019 documented as of this encounter (statuses as of 07/26/2022) [facility] History of Past illness Narrative* Problem Noted Date Resolved Date Encounter for supervision of other normal , second trimester 01/10/2019 02/21/2022 Overview: quit tob use in Tetrahydrocannabinol (THC) use disorder, mild, a buse 01/10/2019 02/21/2022 Thumb sucking 04/09/2013 01/10/2019 Finger pain 07/21/2009 01/10/2019 Closed fracture of unspecified phalanx or phalan ges of hand 05/24/2009 01/10/2019 documented as of this encounter (statuses as of 08/01/2022) [facility] History of Past illness Narrative* Problem Noted Date Resolved Date Encounter for supervision of other normal , second trimester 01/10/2019 02/21/2022 Overview: quit tob use in Tetrahydrocannabinol (THC) use disorder, mild, a buse 01/10/2019 02/21/2022 Thumb sucking 04/09/2013 01/10/2019 Finger pain 07/21/2009 01/10/2019 Closed fracture of unspecified phalanx or phalan ges of hand 05/24/2009 01/10/2019 documented as of this encounter (statuses as of 08/23/2022) [facility] History of Past illness Narrative* Problem Noted Date Resolved Date Encounter for supervision of other normal , second trimester 01/10/2019 02/21/2022 Overview: quit tob use in Tetrahydrocannabinol (THC) use disorder, mild, a buse 01/10/2019 02/21/2022 Thumb sucking 04/09/2013 01/10/2019 Finger pain 07/21/2009 01/10/2019 Closed fracture of unspecified phalanx or phalan ges of hand 05/24/2009 01/10/2019 documented as of this encounter (statuses as of 09/13/2022) [place] [id number] History of Past illness Narrative* Problem Noted Date Resolved Date Encounter for supervision of other normal , second trimester 01/10/2019 02/21/2022 Overview: quit tob use in Tetrahydrocannabinol (THC) use disorder, mild, a buse 01/10/2019 02/21/2022 Thumb sucking 04/09/2013 01/10/2019 Finger pain 07/21/2009 01/10/2019 Closed fracture of unspecified phalanx or phalan ges of hand 05/24/2009 01/10/2019 documented as of this encounter (statuses as of 09/19/2022) [facility] History of Past illness Narrative* Problem Noted Date Resolved Date Encounter for supervision of other normal , second trimester 01/10/2019 02/21/2022 Overview: quit tob use in Tetrahydrocannabinol (THC) use disorder, mild, a buse 01/10/2019 02/21/2022 Thumb sucking 04/09/2013 01/10/2019 Finger pain 07/21/2009 01/10/2019 Closed fracture of unspecified phalanx or phalan ges of hand 05/24/2009 01/10/2019 documented as of this encounter (statuses as of 09/20/2022) [place] [id number] History of Past illness Narrative* Problem Noted Date Resolved Date Encounter for supervision of other normal , second trimester 01/10/2019 02/21/2022 Overview: quit tob use in Tetrahydrocannabinol (THC) use disorder, mild, a buse 01/10/2019 02/21/2022 Thumb sucking 04/09/2013 01/10/2019 Finger pain 07/21/2009 01/10/2019 Closed fracture of unspecified phalanx or phalan ges of hand 05/24/2009 01/10/2019 documented as of this encounter (statuses as of 10/03/2022) [facility] History of Past illness Narrative* Problem Noted Date Resolved Date Encounter for supervision of other normal , second trimester 01/10/2019 02/21/2022 Overview: quit tob use in Tetrahydrocannabinol (THC) use disorder, mild, a buse 01/10/2019 02/21/2022 Thumb sucking 04/09/2013 01/10/2019 Finger pain 07/21/2009 01/10/2019 Closed fracture of unspecified phalanx or phalan ges of hand 05/24/2009 01/10/2019 documented as of this encounter (statuses as of 10/03/2022) [facility] History of Past illness Narrative* Problem Noted Date Resolved Date Encounter for supervision of other normal , second trimester 01/10/2019 02/21/2022 Overview: quit tob use in Tetrahydrocannabinol (THC) use disorder, mild, a buse 01/10/2019 02/21/2022 Thumb sucking 04/09/2013 01/10/2019 Finger pain 07/21/2009 01/10/2019 Closed fracture of unspecified phalanx or phalan ges of hand 05/24/2009 01/10/2019 documented as of this encounter (statuses as of 10/13/2022) [place] [address]-22-2019 History of Past illness Narrative* Problem Noted Date Resolved Date Encounter for supervision of other normal , second trimester 01/10/2019 02/21/2022 Overview: quit tob use in Tetrahydrocannabinol (THC) use disorder, mild, a buse 01/10/2019 02/21/2022 Thumb sucking 04/09/2013 01/10/2019 Finger pain 07/21/2009 01/10/2019 Closed fracture of unspecified phalanx or phalan ges of hand 05/24/2009 01/10/2019 documented as of this encounter (statuses as of 10/13/2022) [facility] History of Past illness Narrative* Problem Noted Date Resolved Date Encounter for supervision of other normal , second trimester 01/10/2019 02/21/2022 Overview: quit tob use in Tetrahydrocannabinol (THC) use disorder, mild, a buse 01/10/2019 02/21/2022 Thumb sucking 04/09/2013 01/10/2019 Finger pain 07/21/2009 01/10/2019 Closed fracture of unspecified phalanx or phalan ges of hand 05/24/2009 01/10/2019 documented as of this encounter (statuses as of 11/04/2022) [facility] History of Past illness Narrative* Problem Noted Date Resolved Date Encounter for supervision of other normal , second trimester 01/10/2019 02/21/2022 Overview: quit tob use in Tetrahydrocannabinol (THC) use disorder, mild, a buse 01/10/2019 02/21/2022 Thumb sucking 04/09/2013 01/10/2019 Finger pain 07/21/2009 01/10/2019 Closed fracture of unspecified phalanx or phalan ges of hand 05/24/2009 01/10/2019 documented as of this encounter (statuses as of 11/07/2022) [facility] History of Past illness Narrative* Problem Noted Date Resolved Date Encounter for supervision of other normal , second trimester 01/10/2019 02/21/2022 Overview: quit tob use in Tetrahydrocannabinol (THC) use disorder, mild, a buse 01/10/2019 02/21/2022 Thumb sucking 04/09/2013 01/10/2019 Finger pain 07/21/2009 01/10/2019 Closed fracture of unspecified phalanx or phalan ges of hand 05/24/2009 01/10/2019 documented as of this encounter (statuses as of 11/24/2022) [facility] Diagnosis 31 weeks gestation of - Primary state, incidental Supervision of other high risk pregnancies, third trimester Vaginal discharge Leukorrhea, not specified as infective BV (bacterial vaginosis) Vaginitis and vulvovaginitis, unspecified [facility] this [facility]* Diagnosis Obesity during - Primary Suspected problem with growth not found 32 weeks gestation of state, incidental [facility] this [facility]* Diagnosis 32 weeks gestation of - Primary state, incidental Supervision of other high risk pregnancies, third trimester [facility] this [facility]* Diagnosis 34 weeks gestation of - Primary state, incidental Supervision of other high risk pregnancies, third trimester [facility] this [facility]* Diagnosis 35 weeks gestation of - Primary state, incidental [facility] Diagnosis 36 weeks gestation of - Primary state, incidental Uterine size-date discrepancy, third trimester [facility] Diagnosis Decreased movements in third trimester, single or unspecified fetus- Primary Pelvic pressure in Other specified complication, antepartum [facility] this [facility]* Diagnosis Supervision of other high risk pregnancies, third trimester- Primary Obesity during 37 weeks gestation of state, incidental [facility] this [facility]* Diagnosis 37 weeks gestation of - Primary state, incidental [facility] this [facility]* Diagnosis Supervision of other high risk pregnancies, third trimester- Primary 37 weeks gestation of state, incidental Dysuria Uterine contractions [facility] this [facility]* Diagnosis Supervision of other high risk pregnancies, third trimester- Primary 38 weeks gestation of state, incidental BMI 40.0-44.9, adult (HCC) Body Mass Index 40.0-44.9, adult Maternal obesity syndrome in third trimester [facility] this [facility]* Diagnosis Lactating mother- Primary care and examination of lactating mother [facility] this [facility]* Diagnosis Unprotected sexual intercourse- Primary Problems related to high-risk sexual behavior Encounter for initial prescription of injectable contraceptive General counseling for initiation of other contraceptive measures Encounter for screening for maternal depression [facility] this [facility]* Diagnosis Encounter for test, result positive- Primary examination or test, positive result [facility] this [facility]* Diagnosis Missed menses- Primary Absence of menstruation [facility] this [facility]* Diagnosis Short interval between pregnancies affecting , antepartum- Primary Hx of delivery, currently with history of pre-term labor Obesity during History of depression Patient request for diagnostic testing Other specified examination [facility] this [facility]* Diagnosis care in first trimester- Primary [facility]* Diagnosis Short interval between pregnancies affecting , antepartum- Primary Hx of delivery, currently with history of pre-term labor History of depression care in first trimester 13 weeks gestation of state, incidental [facility]* Diagnosis URI, acute- Primary Acute upper respiratory infections of unspecified site [facility] this [facility]* Diagnosis Encounter for anatomic survey- Primary Short interval between pregnancies affecting , antepartum Hx of delivery, currently with history of pre-term labor History of depression Obesity complicating , second trimester 19 weeks gestation of state, incidental [facility]* Diagnosis Supervision of high risk in second trimester- Primary Unspecified high-risk 19 weeks gestation of state, incidental [facility]* Diagnosis Acute cystitis with hematuria- Primary Acute cystitis 20 weeks gestation of state, incidental [facility] this [facility]* Diagnosis 23 weeks gestation of - Primary state, incidental Dysuria [facility] this [facility]* Diagnosis Supervision of high risk in second trimester- Primary Unspecified high-risk 27 weeks gestation of state, incidental [facility]* Diagnosis 27 weeks gestation of - Primary state, incidental Lower abdominal pain Abdominal pain, other specified site [facility] this [facility]* Diagnosis Rhinosinusitis- Primary Unspecified sinusitis (chronic) [facility] this [facility]* Diagnosis 29 weeks gestation of - Primary state, incidental Antepartum anemia Anemia, antepartum [facility] this [facility]* Diagnosis 31 weeks gestation of - Primary state, incidental [facility] this [facility]* Diagnosis 32 weeks gestation of - Primary state, incidental Supervision of high risk in second trimester Unspecified high-risk Vaginal itching Pruritus of genital organs documented [facility] this [facility]* Diagnosis Obesity complicating , third trimester- Primary 29 weeks gestation of state, incidental [facility] Diagnosis Obesity during - Primary documented [facility] this [facility]* Diagnosis 35 weeks gestation of - Primary state, incidental Obesity affecting in third trimester [facility] this [facility]* Diagnosis 36 weeks gestation of - Primary state, incidental Obesity affecting in third trimester [facility] this [facility]* Diagnosis 37 weeks gestation of - Primary state, incidental Amniotic fluid leaking Premature rupture of membranes in , unspecified as to episode of care Obesity during Excessive growth affecting management of in third trimester, single or unspecified fetus [facility] this [facility]* Diagnosis Supervision of other high risk pregnancies, third trimester- Primary 37 weeks gestation of state, incidental Obesity during BMI 40.0-44.9, adult ([facility]) Body Mass Index 40.0-44.9, adult documented [facility] this [facility]* Diagnosis 38 weeks gestation of - Primary state, incidental [facility]* Diagnosis 39 weeks gestation of - Primary state, incidental [facility]* Diagnosis Strep pharyngitis- Primary Streptococcal sore throat documented in this encounter [facility] note* Diagnosis Dysuria- Primary Strep pharyngitis Streptococcal sore throat documented in this encounter [facility] note* Diagnosis Dental infection- Primary Acute apical periodontitis of pulpal origin documented in this encounter [facility] course Narrative No data available for this section [facility] Progress note No data available for this section [facility] Reason for referral (narrative)* Diagnostic Procedure Only (Routine) - Authorized Specialty Diagnoses / Procedures Referred By Contac t Referred To Contact [facility] Diagnoses 36 weeks gestation of Uterine size-date discrepancy, third trimester Procedures OBSTETRIC ULTRASOUND WHI US PREG UTERUS AFTER 1ST TRIMEST GESTATION Kimber Bee APRN.CNM [address] [place] [address] [facility] [address] [place] [id number] Referral ID Status Reason Start Date Expiration Date Visits Requested Visits Authorized [id number] Authorized Auto-Generat ed Referral 03/20/2022 03/20/2023 1 1 [facility] for referral (narrative)* Diagnostic Procedure Only (Routine) - Closed Specialty Diagnoses / Procedures Referred By Contac t Referred To Contact [facility] Diagnoses Missed menses Procedures OBSTETRIC ULTRASOUND WHI US PREG UTERUS AFTER 1ST TRIMEST GESTATION Sobia Rucker MD [address] [place] [address] [address] [place] [address] Referral ID Status Reason Start Date Expiration Date V isits Requested Visits Authorized [id number] Closed Auto-Generate d Referral 07/26/2022 07/25/2023 1 1 [facility] for referral (narrative)* Diagnostic Procedure Only (Routine) - Authorized Specialty Diagnoses / Procedures Referred By Contac t Referred To Contact [facility] Diagnoses Short interval between pregnancies affecting , antepartum Hx of delivery, currently 13 weeks gestation of Procedures NUCHAL TRANSLUCENCY WHI US NUCHAL TRANSLUCENCY 1ST GESTATION Sobia Rucker MD [address] [place] [address] [address] [place] [address] Referral ID Status Reason Start Date Expiration Date Visits Requested Visits Authorized [id number] Authorized Auto-Generat ed Referral 08/23/2022 08/23/2023 1 1 * Diagnostic Procedure Only (Routine) - Pending Review Specialty Diagnoses / Procedures Referred By Contac t Referred To Contact [facility] Diagnoses Short interval between pregnancies affecting , antepartum Hx of delivery, currently History of depression care in first trimester 13 weeks gestation of Procedures OBSTETRIC ULTRASOUND WHI US PREG UTERUS AFTER 1ST TRIMEST GESTATION Sobia Rucker MD [address] [place] [address] [address] Referral ID Status Reason Start Date Expiration Date Visits Requested Visits Authorized [id number] Pending Review Auto-Generat ed Referral 08/23/2022 08/23/2023 1 1 [facility] for referral (narrative)* Diagnostic Procedure Only (Routine) - Pending Review Specialty Diagnoses / Procedures Referred By Contac t Referred To Contact [facility] Diagnoses 29 weeks gestation of Procedures OBSTETRIC ULTRASOUND WHI US PREG UTERUS AFTER 1ST TRIMEST GESTATION Selam Viera APRN.CNM [address] [place] [address] [facility] [address] [place] [address] Referral ID Status Reason Start Date Expiration Date Visits Requested Visits Authorized [id number] Pending Review Auto-Generat ed Referral 12/12/2022 12/12/2023 1 [facility] Diagnostic Procedure Only (Routine) - Authorized Specialty Diagnoses / Procedures Referred By Contac t Referred To Contact [facility] Diagnoses Obesity during Procedures OBSTETRIC ULTRASOUND WHI US PREG UTERUS AFTER 1ST TRIMEST GESTATION Selam Viera APRN.CNM [address] [place] [address] [facility] [address] [place] [address] Referral ID Status Reason Start Date Expiration Date Visits Requested Visits Authorized [id number] Authorized Auto-Generat ed Referral 01/18/2023 01/18/2024 1 1 [facility] Summary Purpose Family History No Family History Records FoundNo Family History Records FoundNo Family History Records Found Advance Directives No Advanced Directives Records FoundNo Advanced Directives Records FoundNo Advanced Directives Records Found Health Concerns Problem Noted Date OB Reminders 07/31/2022 Problem Noted Date OB Reminders 07/31/2022 Problem Noted Date OB Reminders 07/31/2022 Infection Onset Date Last Indicated Resolved Time COVID-19 Confirmed 09/19/2022 09/19/2022 Problem Noted Date OB Reminders 07/31/2022 Problem Noted Date OB Reminders 07/31/2022 Problem Noted Date OB Reminders 07/31/2022 Problem Noted Date OB Reminders 07/31/2022 Problem Noted Date OB Reminders 07/31/2022 Problem Noted Date OB Reminders 07/31/2022 Problem Noted Date OB Reminders 07/31/2022 Problem Noted Date OB Reminders 07/31/2022 Problem Noted Date OB Reminders 07/31/2022 Problem Noted Date OB Reminders 07/31/2022 Problem Noted Date Diagnosed Date OB Reminders 07/31/2022 Additional Source Comments INFORMATION SOURCE (unrecogn ized section and content) DATE CREATED AUTHOR AUTHOR'S ORGANIZ ATION 12/04/2022 [facility] ([place]) DATE CREATED AUTHOR AUTHOR'S ORGANIZ ATION 10/10/2023 [facility] Source Comments (unrecognize d section and content) In the event this informatio n is protected by the Federal Confidentiality of Alcohol and Drug Abuse Patient Records regulations: The Federal rules restrict any use of the information to criminally investigate or prosecute any alcohol or drug abuse patient.[facility] event this information is protected by the Federal Confidentiality of Alcohol and Drug Abuse Patient Records regulations: The Federal rules restrict any use of the information to criminally investigate or prosecute any alcohol or drug abuse patient.[facility] the event this information is protected by the Federal Confidentiality of Alcohol and Drug Abuse Patient Records regulations: The Federal rules restrict any use of the information to criminally investigate or prosecute any alcohol or drug abuse patient.[facility] the event this information is protected by the Federal Confidentiality of Alcohol and Drug Abuse Patient Records regulations: The Federal rules restrict any use of the information to criminally investigate or prosecute any alcohol or drug abuse patient.[facility] the event this information is protected by the Federal Confidentiality of Alcohol and Drug Abuse Patient Records regulations: The Federal rules restrict any use of the information to criminally investigate or prosecute any alcohol or drug abuse patient.[facility] the event this information is protected by the Federal Confidentiality of Alcohol and Drug Abuse Patient Records regulations: The Federal rules restrict any use of the information to criminally investigate or prosecute any alcohol or drug abuse patient.[facility] the event this information is protected by the Federal Confidentiality of Alcohol and Drug Abuse Patient Records regulations: The Federal rules restrict any use of the information to criminally investigate or prosecute any alcohol or drug abuse patient.[facility] the event this information is protected by the Federal Confidentiality of Alcohol and Drug Abuse Patient Records regulations: The Federal rules restrict any use of the information to criminally investigate or prosecute any alcohol or drug abuse patient.[facility] the event this information is protected by the Federal Confidentiality of Alcohol and Drug Abuse Patient Records regulations: The Federal rules restrict any use of the information to criminally investigate or prosecute any alcohol or drug abuse patient.[facility] the event this information is protected by the Federal Confidentiality of Alcohol and Drug Abuse Patient Records regulations: The Federal rules restrict any use of the information to criminally investigate or prosecute any alcohol or drug abuse patient.[facility] the event this information is protected by the Federal Confidentiality of Alcohol and Drug Abuse Patient Records regulations: The Federal rules restrict any use of the information to criminally investigate or prosecute any alcohol or drug abuse patient.[facility] the event this information is protected by the Federal Confidentiality of Alcohol and Drug Abuse Patient Records regulations: The Federal rules restrict any use of the information to criminally investigate or prosecute any alcohol or drug abuse patient.[facility] the event this information is protected by the Federal Confidentiality of Alcohol and Drug Abuse Patient Records regulations: The Federal rules restrict any use of the information to criminally investigate or prosecute any alcohol or drug abuse patient.[facility] the event this information is protected by the Federal Confidentiality of Alcohol and Drug Abuse Patient Records regulations: The Federal rules restrict any use of the information to criminally investigate or prosecute any alcohol or drug abuse patient.[facility] the event this information is protected by the Federal Confidentiality of Alcohol and Drug Abuse Patient Records regulations: The Federal rules restrict any use of the information to criminally investigate or prosecute any alcohol or drug abuse patient.[facility] the event this information is protected by the Federal Confidentiality of Alcohol and Drug Abuse Patient Records regulations: The Federal rules restrict any use of the information to criminally investigate or prosecute any alcohol or drug abuse patient.[facility] the event this information is protected by the Federal Confidentiality of Alcohol and Drug Abuse Patient Records regulations: The Federal rules restrict any use of the information to criminally investigate or prosecute any alcohol or drug abuse patient.[facility] the event this information is protected by the Federal Confidentiality of Alcohol and Drug Abuse Patient Records regulations: The Federal rules restrict any use of the information to criminally investigate or prosecute any alcohol or drug abuse patient.[facility] the event this information is protected by the Federal Confidentiality of Alcohol and Drug Abuse Patient Records regulations: The Federal rules restrict any use of the information to criminally investigate or prosecute any alcohol or drug abuse patient.[facility] the event this information is protected by the Federal Confidentiality of Alcohol and Drug Abuse Patient Records regulations: The Federal rules restrict any use of the information to criminally investigate or prosecute any alcohol or drug abuse patient.[facility] the event this information is protected by the Federal Confidentiality of Alcohol and Drug Abuse Patient Records regulations: The Federal rules restrict any use of the information to criminally investigate or prosecute any alcohol or drug abuse patient.[facility] the event this information is protected by the Federal Confidentiality of Alcohol and Drug Abuse Patient Records regulations: The Federal rules restrict any use of the information to criminally investigate or prosecute any alcohol or drug abuse patient.[facility] the event this information is protected by the Federal Confidentiality of Alcohol and Drug Abuse Patient Records regulations: The Federal rules restrict any use of the information to criminally investigate or prosecute any alcohol or drug abuse patient.[facility] the event this information is protected by the Federal Confidentiality of Alcohol and Drug Abuse Patient Records regulations: The Federal rules restrict any use of the information to criminally investigate or prosecute any alcohol or drug abuse patient.[facility] the event this information is protected by the Federal Confidentiality of Alcohol and Drug Abuse Patient Records regulations: The Federal rules restrict any use of the information to criminally investigate or prosecute any alcohol or drug abuse patient.[facility] the event this information is protected by the Federal Confidentiality of Alcohol and Drug Abuse Patient Records regulations: The Federal rules restrict any use of the information to criminally investigate or prosecute any alcohol or drug abuse patient.[facility] HospitalIn the event this information is protected by the Federal Confidentiality of Alcohol and Drug Abuse Patient Records regulations: The Federal rules restrict any use of the information to criminally investigate or prosecute any alcohol or drug abuse patient.[facility] HospitalIn the event this information is protected by the Federal Confidentiality of Alcohol and Drug Abuse Patient Records regulations: The Federal rules restrict any use of the information to criminally investigate or prosecute any alcohol or drug abuse patient.[facility] HospitalIn the event this information is protected by the Federal Confidentiality of Alcohol and Drug Abuse Patient Records regulations: The Federal rules restrict any use of the information to criminally investigate or prosecute any alcohol or drug abuse patient.[facility] HospitalIn the event this information is protected by the Federal Confidentiality of Alcohol and Drug Abuse Patient Records regulations: The Federal rules restrict any use of the information to criminally investigate or prosecute any alcohol or drug abuse patient.[facility] HospitalIn the event this information is protected by the Federal Confidentiality of Alcohol and Drug Abuse Patient Records regulations: The Federal rules restrict any use of the information to criminally investigate or prosecute any alcohol or drug abuse patient.[facility] HospitalIn the event this information is protected by the Federal Confidentiality of Alcohol and Drug Abuse Patient Records regulations: The Federal rules restrict any use of the information to criminally investigate or prosecute any alcohol or drug abuse patient.[facility] HospitalIn the event this information is protected by the Federal Confidentiality of Alcohol and Drug Abuse Patient Records regulations: The Federal rules restrict any use of the information to criminally investigate or prosecute any alcohol or drug abuse patient.[facility] HospitalIn the event this information is protected by the Federal Confidentiality of Alcohol and Drug Abuse Patient Records regulations: The Federal rules restrict any use of the information to criminally investigate or prosecute any alcohol or drug abuse patient.[facility] HospitalIn the event this information is protected by the Federal Confidentiality of Alcohol and Drug Abuse Patient Records regulations: The Federal rules restrict any use of the information to criminally investigate or prosecute any alcohol or drug abuse patient.[facility] HospitalIn the event this information is protected by the Federal Confidentiality of Alcohol and Drug Abuse Patient Records regulations: The Federal rules restrict any use of the information to criminally investigate or prosecute any alcohol or drug abuse patient.[facility] HospitalIn the event this information is protected by the Federal Confidentiality of Alcohol and Drug Abuse Patient Records regulations: The Federal rules restrict any use of the information to criminally investigate or prosecute any alcohol or drug abuse patient.[facility] HospitalIn the event this information is protected by the Federal Confidentiality of Alcohol and Drug Abuse Patient Records regulations: The Federal rules restrict any use of the information to criminally investigate or prosecute any alcohol or drug abuse patient.[facility] HospitalIn the event this information is protected by the Federal Confidentiality of Alcohol and Drug Abuse Patient Records regulations: The Federal rules restrict any use of the information to criminally investigate or prosecute any alcohol or drug abuse patient.[facility] HospitalIn the event this information is protected by the Federal Confidentiality of Alcohol and Drug Abuse Patient Records regulations: The Federal rules restrict any use of the information to criminally investigate or prosecute any alcohol or drug abuse patient.[facility] HospitalIn the event this information is protected by the Federal Confidentiality of Alcohol and Drug Abuse Patient Records regulations: The Federal rules restrict any use of the information to criminally investigate or prosecute any alcohol or drug abuse patient.[facility] HospitalIn the event this information is protected by the Federal Confidentiality of Alcohol and Drug Abuse Patient Records regulations: The Federal rules restrict any use of the information to criminally investigate or prosecute any alcohol or drug abuse patient.[facility] HospitalIn the event this information is protected by the Federal Confidentiality of Alcohol and Drug Abuse Patient Records regulations: The Federal rules restrict any use of the information to criminally investigate or prosecute any alcohol or drug abuse patient.[facility] HospitalIn the event this information is protected by the Federal Confidentiality of Alcohol and Drug Abuse Patient Records regulations: The Federal rules restrict any use of the information to criminally investigate or prosecute any alcohol or drug abuse patient.[facility] HospitalIn the event this information is protected by the Federal Confidentiality of Alcohol and Drug Abuse Patient Records regulations: The Federal rules restrict any use of the information to criminally investigate or prosecute any alcohol or drug abuse patient.[facility] HospitalIn the event this information is protected by the Federal Confidentiality of Alcohol and Drug Abuse Patient Records regulations: The Federal rules restrict any use of the information to criminally investigate or prosecute any alcohol or drug abuse patient.[facility] HospitalIn the event this information is protected by the Federal Confidentiality of Alcohol and Drug Abuse Patient Records regulations: The Federal rules restrict any use of the information to criminally investigate or prosecute any alcohol or drug abuse patient.[facility] HospitalIn the event this information is protected by the Federal Confidentiality of Alcohol and Drug Abuse Patient Records regulations: The Federal rules restrict any use of the information to criminally investigate or prosecute any alcohol or drug abuse patient.[facility] HospitalIn the event this information is protected by the Federal Confidentiality of Alcohol and Drug Abuse Patient Records regulations: The Federal rules restrict any use of the information to criminally investigate or prosecute any alcohol or drug abuse patient.[facility] HospitalIn the event this information is protected by the Federal Confidentiality of Alcohol and Drug Abuse Patient Records regulations: The Federal rules restrict any use of the information to criminally investigate or prosecute any alcohol or drug abuse patient.[facility] HospitalIn the event this information is protected by the Federal Confidentiality of Alcohol and Drug Abuse Patient Records regulations: The Federal rules restrict any use of the information to criminally investigate or prosecute any alcohol or drug abuse patient.[facility] HospitalIn the event this information is protected by the Federal Confidentiality of Alcohol and Drug Abuse Patient Records regulations: The Federal rules restrict any use of the information to criminally investigate or prosecute any alcohol or drug abuse patient.[facility] HospitalIn the event this information is protected by the Federal Confidentiality of Alcohol and Drug Abuse Patient Records regulations: The Federal rules restrict any use of the information to criminally investigate or prosecute any alcohol or drug abuse patient.[facility] HospitalIn the event this information is protected by the Federal Confidentiality of Alcohol and Drug Abuse Patient Records regulations: The Federal rules restrict any use of the information to criminally investigate or prosecute any alcohol or drug abuse patient.[facility] HospitalIn the event this information is protected by the Federal Confidentiality of Alcohol and Drug Abuse Patient Records regulations: The Federal rules restrict any use of the information to criminally investigate or prosecute any alcohol or drug abuse patient.[facility] HospitalIn the event this information is protected by the Federal Confidentiality of Alcohol and Drug Abuse Patient Records regulations: The Federal rules restrict any use of the information to criminally investigate or prosecute any alcohol or drug abuse patient.[facility] HospitalIn the event this information is protected by the Federal Confidentiality of Alcohol and Drug Abuse Patient Records regulations: The Federal rules restrict any use of the information to criminally investigate or prosecute any alcohol or drug abuse patient.[facility] HospitalIn the event this information is protected by the Federal Confidentiality of Alcohol and Drug Abuse Patient Records regulations: The Federal rules restrict any use of the information to criminally investigate or prosecute any alcohol or drug abuse patient.[facility] HospitalIn the event this information is protected by the Federal Confidentiality of Alcohol and Drug Abuse Patient Records regulations: The Federal rules restrict any use of the information to criminally investigate or prosecute any alcohol or drug abuse patient.[facility] Reason for Visit (unrecogniz ed section and content) Reason Comments US Specialty Diagnoses / Procedures Referred By James carnes Referred To Contact [facility] Diagnoses 28 weeks gestation of Uterine size-date discrepancy, third trimester Procedures OBSTETRIC ULTRASOUND WHI US PREG UTERUS AFTER 1ST TRIMEST GESTATION Kimber Bee APRN.BONNIE [address] [place] [address] [facility] [address] [place] [address] Referral ID Status Reason Start Date Expiration Date V isits Requested Visits Authorized [id number] Closed Auto-Generate d Referral 01/23/2022 01/23/2023 1 1 Reason Onset Date Comments Care 02/21/2022 Reason Comments Question (OB Question) Reason Onset Date Comments Care 03/06/2022 Reason Onset Date Comments Care 03/13/2022 Reason Onset Date Comments Care 03/20/2022 Specialty Diagnoses / Procedures Referred By Contac t Referred To Contact [facility] Diagnoses 36 weeks gestation of Uterine size-date discrepancy, third trimester Procedures OBSTETRIC ULTRASOUND WHI US PREG UTERUS AFTER 1ST TRIMEST GESTATION Kimber Bee APRN.[facility] [address] [place] [address] [facility] [address] [place] [address] Referral ID Status Reason Start Date Expiration Date V isits Requested Visits Authorized [id number] Closed Auto-Generate d Referral 03/20/2022 03/20/2023 1 1 Reason Onset Date Comments Care 03/27/2022 Reason Onset Date Comments Care 03/29/2022 Reason Onset Date Comments Care 04/03/2022 Reason Comments Ob Delivery Note Reason Comments Breast Pads Reason Comments Care Reason Comments Contraception Reason Comments +UPT Reason Comments Orders Reason Comments Care Reason Comments Appointment Reason Comments Results Reason Comments Head Congestion cough and sore throa t x 3 days-17 weeks Specialty Diagnoses / Procedures Referred By Contac t Referred To Contact [facility] Diagnoses Short interval between pregnancies affecting , antepartum Hx of delivery, currently History of depression care in first trimester 13 weeks gestation of Procedures OBSTETRIC ULTRASOUND WHI US PREG UTERUS AFTER 1ST TRIMEST GESTATION Sobia Rucker MD [address] [place] [address] [facility] [address] [place] [address] Referral ID Status Reason Start Date Expiration Date V isits Requested Visits Authorized [id number] Closed Auto-Generate d Referral 08/23/2022 08/23/2023 1 1 Reason Onset Date Comments Care 10/03/2022 Reason Onset Date Comments Care 10/13/2022 Reason Comments Dysuria Reason Onset Date Comments Care 10/30/2022 Reason Comments Pain Reason Onset Date Comments Care 11/27/2022 Reason Onset Date Comments Care 11/29/2022 Reason Comments Nasal Congestion drainage x over 3 we eks, right ear clogged x 1 day-29 weeks Reason Onset Date Comments Care 12/12/2022 Reason Onset Date Comments Care 12/26/2022 Reason Onset Date Comments Care 01/04/2023 Specialty Diagnoses / Procedures Referred By James carnes Referred To Contact [facility] Diagnoses 29 weeks gestation of Procedures OBSTETRIC ULTRASOUND WHI US PREG UTERUS AFTER 1ST TRIMEST GESTATION Selam Viera APRN.[facility] [address] [place] [address] [facility] [address] [place] [address] Referral ID Status Reason Start Date Expiration Date V isits Requested Visits Authorized [id number] Closed Auto-Generate d Referral 12/12/2022 12/12/2023 1 1 Reason Comments Orders Reason Comments Patient Update Reason Onset Date Comments Care 01/26/2023 Reason Onset Date Comments Care 01/29/2023 Reason Onset Date Comments Appointment 01/31/2023 Reason Onset Date Comments Care 02/06/2023 Reason Onset Date Comments Care 02/08/2023 Reason Comments Contractions Reason Onset Date Comments Care 02/12/2023 Reason Onset Date Comments Care 02/19/2023 Reason Onset Date Comments Patient Question 02/22/2023 Reason Comments Patient Question Reason Comments Sore Throat Fatigue x 2 days Reason Comments Urinary Problem Pt reported painful urination x1 mth, cough, throat pain. Reason Comments Mood Swings Reason Comments Dental Problem Abscess tooth/gum up per right side x 1 week Care Teams (unrecognized sec tion and content) Dietetic Technician Registered Relationship Specialty Start Date End Date Kamar Mcnamara PA-C [address] [place], [place] [id number] PCP - General Family Practice 10/06/19 Dietetic Technician Registered Relationship Specialty Start Date End Date Kamar Mcnamara PA-C [address] [place], [place] [id number] PCP - General Family Practice 10/06/19 Dietetic Technician Registered Relationship Specialty Start Date End Date Kamar Mcnamara PA-C [address] [facility] [place] [address] PCP - General Family Practice 10/06/19 Dietetic Technician Registered Relationship Specialty Start Date End Date Kamar Mcnamara PA-C [address] [facility] [place] [address] PCP - General Family Practice 10/06/19 Dietetic Technician Registered Relationship Specialty Start Date End Date Kamar Mcnamara PA-C [address] [facility] [place] [address] PCP - General Family Practice 10/06/19 Dietetic Technician Registered Relationship Specialty Start Date End Date Kamar Mcnamara PA-C 174 [facility] [place] [address] PCP - General Family Practice 10/06/19 Dietetic Technician Registered Relationship Specialty Start Date End Date Kamar Mcnamara PA-C 174 [facility] [place] [address] PCP - General Family Practice 10/06/19 Dietetic Technician Registered Relationship Specialty Start Date End Date Kamar Mcnamara PA-C 174 [facility] [place] [address] PCP - General Family Practice 10/06/19 Dietetic Technician Registered Relationship Specialty Start Date End Date Kamar Mcnamara PA-C 174 [facility] [place] [address] PCP - General Family Practice 10/06/19 Dietetic Technician Registered Relationship Specialty Start Date End Date Kamar Mcnamara PA-C [address] [facility] [place] [address] PCP - General Family Practice 10/06/19 Dietetic Technician Registered Relationship Specialty Start Date End Date Kamar Mcnamara PA-C 174 [facility] [place] [address] PCP - General Family Practice 10/06/19 Dietetic Technician Registered Relationship Specialty Start Date End Date Kamar Mcnamara PA-C [address] [facility] [place] [address] PCP - General Family Practice 10/06/19 Dietetic Technician Registered Relationship Specialty Start Date End Date Kamar Mcnamara PA-C [address] [facility] [place] [address] PCP - General Family Practice 10/06/19 Dietetic Technician Registered Relationship Specialty Start Date End Date Kamar Mcnamara PA-C [address] [facility] [place] [address] PCP - General Family Medicine 10/06/19 Dietetic Technician Registered Relationship Specialty Start Date End Date Kamar Mcnamara PA-C [address] [facility] [place] [address] PCP - General Family Medicine 10/06/19 Dietetic Technician Registered Relationship Specialty Start Date End Date Kamar Mcnamara PA-C 174 [facility] [place] [address] PCP - General Family Medicine 10/06/19 Dietetic Technician Registered Relationship Specialty Start Date End Date Kamar Mcnamara PA-C 174 [facility] [place] [address] PCP - General Family Medicine 10/06/19 Dietetic Technician Registered Relationship Specialty Start Date End Date Kamar Mcnamara PA-C [address] [facility] [place] [address] PCP - General Family Medicine 10/06/19 Dietetic Technician Registered Relationship Specialty Start Date End Date Kamar Mcnamara PA-C [address] [facility] [place] [address] PCP - General Family Medicine 10/06/19 Dietetic Technician Registered Relationship Specialty Start Date End Date Kamar Mcnamara PA-C [address] [place] [address] PCP - General Family Medicine 10/06/19 Dietetic Technician Registered Relationship Specialty Start Date End Date Kamar Mcnamara PA-C [address] [place] [address] PCP - General Family Medicine 10/06/19 Dietetic Technician Registered Relationship Specialty Start Date End Date Kamar Mcnamara PA-C [address] [place] [address] PCP - General Family Medicine 10/06/19 Dietetic Technician Registered Relationship Specialty Start Date End Date Kamar Mcnamara PA-C 174 [facility] [place] [address] PCP - General Family Medicine 10/06/19 Dietetic Technician Registered Relationship Specialty Start Date End Date Kamar Mcnamara PA-C 174 [facility] [place] [address] PCP - General Family Medicine 10/06/19 Dietetic Technician Registered Relationship Specialty Start Date End Date Kamar Mcnamara PA-C 174 [facility] [place] [address] PCP - General Family Medicine 10/06/19 Dietetic Technician Registered Relationship Specialty Start Date End Date Kamar Mcnamara PA-C 174 [facility] [place] [address] PCP - General Family Medicine 10/06/19 Dietetic Technician Registered Relationship Specialty Start Date End Date Kamar Mcnamara PA-C 174 [facility] [place] [address] PCP - General Family Medicine 10/06/19 Dietetic Technician Registered Relationship Specialty Start Date End Date Kamar Mcnamara PA-C 174 [facility] [place] [address] PCP - General Family Medicine 10/06/19 Dietetic Technician Registered Relationship Specialty Start Date End Date Kamar Mcnamara PA-C [address] [place] [address] PCP - General Family Medicine 10/06/19 Care Team (unrecognized sect ion and content) Care Team Personnel Name: ESPERANZA VELAZQUEZ DO Position: ED Physician Member Role: ED Physician Address: Address: [address] [place] [address] [facility] [address] Name: ROMA Rubin Position: AO RN Member Role: RN Care Team Personnel Name: Danielle Shaikh RN Position: OB RN Member Role: RN Care Team Personnel Name: JERSON FOSTER DO Position: AH Resident Member Role: Resident Address: Address: [address] [place] [address] Emergency Resident [address] Name: Krystal Canas RN Position: AO RN Member Role: RN Care Team Personnel Name: ZAKI SWANSON MD Position: ED Physician Member Role: Attending Physician Address: Address: [facility] [address] [place] [address] FOR RECORDS PERTAINING TO PATIENTS WHO ARE OR HAVE BEEN ENROLLED IN A CHEMICAL DEPENDENCY/SUBSTANCEABUSE PROGRAM, SOME INFORMATION MAY BE OMITTED. This clinical summary was aggregated from multiple sources. Caution should be exercised in using it in the provision of clinical care. This summary normalizes information from multiple sources, and as a consequence, information in this document may materially change the coding, format and clinical context of patient data. In addition, data may be omitted in some cases. CLINICAL DECISIONS SHOULD BE BASED ON THE PRIMARY CLINICAL RECORDS. [employer] provides no warranty or guarantee of the accuracy or completeness of information in this document.
[2023-11-19] MEDS: DiphenhydrAMINE 25 MG Capsule 50 MG PO (17:39)
[2023-11-19] MEDS: Metoclopramide 10 MG/10 ML UDC PO (17:39)
[2023-11-19] MEDS: Ibuprofen 600 MG Tablet PO (17:39)
== END 2023-11-19 18:20 | disposition home or self-care (01) ==
PROVIDERS: Emergency Provider Emergency Medicine; PCP Family Medicine; Visit Provider Emergency Medicine
DX: G43.909 Migraine, unspecified, not intractable, without status migrainosus (principal)
CPT/HCPCS: 99283

== ENCOUNTER 2024-03-20 11:39 | Emergency (ER) | payer SELFPAY ==
[2024-03-20 11:40] VITALS: BP 125/87; PULSE 102; RESP 16; TEMP 36.6; O2SAT 98; BMI 40.6
--- NOTE | 2024-03-20 12:19 | US_ITS ---
STUDY: ULTRASOUND OF THE FEMALE PELVIS - COMPLETE REASON FOR EXAM: Female, 28 years old. Pelvic pain. test not back yet. LMP: March 14, 2024. TECHNIQUE: Transvaginal TECHNICAL QUALITY: Adequate. COMPARISON: None. FINDINGS: The uterus is anteverted and is in a midline position. The uterus measures 9.3 cm x 5.9 cm x 4.3 cm. There is a Nabothian cyst of the cervix. The endometrium measures 12.3 mm in thickness, and is heterogeneous (striated). There is no demonstrated endometrial mass. Heterogeneous echotexture of the myometrium although no focal fibroid is seen. I.U.D. - The patient does not have an I.U.D. The right ovary is visualized. The right ovary measures 2.1 cm x 1.6 x 2.9 cm. There is no right ovarian cyst or ovarian mass. There is no visualized right adnexal mass or complex lesion. There is normal arterial and normal venous vascularity. The left ovary is visualized. The left ovary measures 2 cm x 1.9 cm x 2.3 cm. There is no left ovarian cyst or ovarian mass. There is no visualized left adnexal mass or complex lesion. There is normal arterial and normal venous vascularity. There is no fluid in the cul-de-sac. US/Transvaginal Non- IMPRESSION: Heterogeneous appearance of the myometrium suggestive of fibrotic change although no focal fibroid is seen. Electronically Signed: Jama Cottrell MD at 14:14 EDT ,
--- NOTE | 2024-03-20 12:20 | ED.VIS.FEGU ---
HPI HPI - Female History of Present Illness Chief Complaint: Female C/O Detail of Chief Complaint: Suprapubic pelvic pain since around 430 this morning. Informant: patient Pain Pain: Positive for Pelvic Pain Onset: Today and Hours Context: Gradual Onset Timing: Continuous Quality: Positive for Cramping Current Severity: Mild Maximum Severity: Mild Bleeding Issue: Negative for Vaginal bleeding Associated Symptoms Associated Symptoms: Negative for Dysuria, Frequency, Urgency, Hematuria, Missed Period or Irregular Period Sexually: Positive for Active P: 3 Ab: 2 Narrative Narrative: 28-year-old female complaining of suprapubic pelvic pain since around 430 this morning. Denies nausea, vomiting, diarrhea or constipation. No fever. No dysuria or hematuria. Last menstrual period was about a week ago around 12 March. She has had no vaginal bleeding or discharge. No history of STD or PID. She has had no pelvic or abdominal surgeries. She denies any fever. No trauma. Prior similar symptoms: No Recent Illness/Hospitalization: No PFSH PFSH Medical History Abscess, dental Obesity affecting premature rupture of membranes Scoliosis (spontaneous vaginal delivery) Vaginal delivery Home Medications NK 03/20/24 [History Last Taken Unknown] Allergy/AdvReac Type Severity Reaction Status Date / Time azithromycin [From Zithromax] Allergy Hives Verified 11/19/23 16:58 codeine AdvReac Vomiting Verified 11/19/23 16:58 naproxen [From Naprosyn] AdvReac Nausea/Vom/ Verified 11/19/23 16:58 Diarrhea Surgical History Hx of hand surgery Social History Smoking Status: Unknown if ever smoked ROS ROS ED ROS Narrative Suprapubic abdominal/pelvic pain for the last 8 hours. No dysuria. No fever. No diarrhea constipation. No vaginal bleeding or discharge. Review of Systems ROS Unobtainable: Denies due to encephalopathy Constitutional Constitutional ED: Denies chills or fever(s) Eyes Eyes: Denies blurry vision ENT ENT ED: Denies ear pain Cardiovascular Cardiovascular: Denies chest pain or palpitations Respiratory/Chest Respiratory/Chest: Denies cough, dyspnea or dyspnea on exertion Gastrointestinal Gastrointestinal: Reports other Details: Pelvic pain ; Denies abdominal pain, constipation, diarrhea, melena, nausea or vomiting Genitourinary Genitourinary ED: Denies dysuria or hematuria Musculoskeletal Musculoskeletal: Denies arthralgias or myalgias Integumentary Denies abscess or Abrasions Neurologic Neurologic: Denies headache(s) Psychiatric Psychiatric: Denies anxiety Endocrine Endocrinology: Denies heat intolerance Hematologic/Lymphatic Hematologic/Lymphatic: Denies easy bleeding or easy bruising Allergic/Immunologic Allergic/Immunologic ED: Denies mouth swelling, tongue swelling or urticaria EXAM Physical Exam Narrative Exam Narrative: 28-year-old female no acute distress. Vital signs stable afebrile. HEENT exam unremarkable. Neck nontender. Lungs clear to auscultation bilaterally. Heart regular rhythm no murmur rate about 100. Chest wall and ribs nontender. Abdomen soft nondistended normal bowel sounds no peritoneal signs. Only abdominal pelvic tenderness she has a suprapubic. No right upper or right lower quadrant tenderness. No left-sided abdominal tenderness. No hernia or mass. No distention. No peritoneal signs. Moving all 4 extremities. Nontender no edema. Neurologically she is awake and alert. Back no CVA tenderness. Const Vital Signs: 03/20/24 11:40 Temperature 98 F Temperature Source Temporal Pulse Rate 102 H Respiratory Rate 16 Blood Pressure 125/87 H Blood Pressure Mean 99 Pulse Ox 98 Oxygen Delivery Method Room Air Positive well nourished and well developed; Negative for cachectic, contractures or unkempt General Appearance ED: well developed and NAD; Negative for unkempt, cachectic, contractures or pallor Nutritional Appearance: Negative for cachectic HEENT Reports moist mucous membranes; Denies dry mucous membranes Negative for trauma or tenderness Mouth ED: No dry mucous membranes Mouth: No dry mucous membranes Eyes PERRL and EOMs intact bilaterally General Eye ED: Negative for pale conjunctiva, scleral icterus or other Neck no lymphadenopathy, supple and no JVD General: Negative for other Thyroid: Negative for tender Lymph Lymphatic: Negative for other Chest Wall inspection of chest normal and palpation of chest normal Chest: Negative for other Resp normal respiratory effort and clear to auscultation bilaterally Effort and Inspection: Negative for pain with movement Auscultation: Negative for rales, rhonchi, wheezes or diminished lung sounds Cardio regular rate, regular rhythm, S1 normal heart sound, no murmurs and no JVD Rate: Negative for bradycardia or tachycardic Rhythm: Negative for abnormal rhythm GI normal to inspection, nondistended, normoactive bowel sounds, soft to palpation, non-distended and no masses; Negative for non-tender GI Narrative: Suprapubic tenderness only. Auscultation: normoactive bowel sounds Palpation: tender Back/Spine no CVA tenderness General Back: Negative for CVA tenderness Cervical Spine: Negative for cervical spine tenderness Thoracic Spine / Upper Back: Negative for thoracic spinal tenderness Lumbar Spine / Lower Back: Negative for lumbar spinal tenderness Sacrum: Negative for other Extremity normal to inspection and full ROM General Extremety ED: Negative for edema or tenderness General Extremity: Negative for edema Neuro oriented x3 and CN's II-XII intact bilaterally Sensorium / Orientation: alert, oriented to person, oriented to place and oriented to time; Negative for confused or lethargic Motor Exam: strength 5/5 throughout Psych mental status grossly normal Appearance: Negative for unkempt Attitude: No agitated Speech: No other Mood & Affect: Negative for depressed, anxious or tearful Skin no rashes or lesions noted and no wounds General Skin Exam: Negative for jaundice or pallor Rashes: No rashes noted Trauma: Negative for other MDM MDM MDM Narrative Medical decision making narrative: 28-year-old female with suprapubic pelvic pain today. Ultrasound being obtained along with urine and urine test. Patient is G5, P3 with Ab2 prior miscarriages. Repeat exam at 3 PM patient unchanged. Still has mild suprapubic discomfort on exam. No right lower quadrant or right upper quadrant. Discussed with patient her test results and her ultrasound. I offered her a pelvic exam she is not having any bleeding or discharge she wanted to defer and follow-up with her [facility] Dr. Melody Hernandez. She will be discharged home. Motrin and Tylenol for pain. Return if increasing pain, fever or feeling worse otherwise follow-up with her OB. History & Record Review Discussion w/independent historian: Patient Lab Data Attestation: I reviewed the patient's lab results. Lab results narrative: Urinalysis is negative. Epithelial cells. No infection. No nitrates or white cells. Rare bacteria. Urine test negative. Labs: Laboratory Results - last 24 hr 03/20/24 12:26 Urine Color Yellow Urine Clarity Clear Urine pH 6.0 Ur Specific [place] 1.015 Urine Protein Negative Urine Glucose (UA) Normal Urine Ketones Negative Urine Occult Blood 25 H Urine Nitrite Negative Urine Bilirubin Negative Urine Urobilinogen Normal Ur Leukocyte Esterase Negative Urine RBC 0-5 SEEN Urine WBC 0-5 SEEN Ur Squamous Epith Cells 5-10 SEEN Urine Bacteria RARE Urine Mucus 0 SEEN Urine Test Negative Radiography Diagnostic Testing: Clinical Impression(s) from Imaging Studies Transvaginal US 03/20/24 12:19 IMPRESSION: Heterogeneous appearance of the myometrium suggestive of fibrotic change although no focal fibroid is seen. Electronically Signed: Jama Cottrell MD at 14:14 EDT , Discharge Plan Triage Chief Complaint: Female C/O ED Provider: Dilshad Velazquez Dx/Rx/DC Orders Clinical Impression: Pelvic pain Instructions: ED Pelvic Pain, Unknown Cause Prescriptions: No Action NK Primary Care Provider: Yves Parker Referrals: Melody Hernandez MD [Med Staff - Active Staff] - As soon as possible Yves Parker MD [Primary Care Provider] - Activity Restrictions/Additional Instructions: Motrin and Tylenol for pain. Follow-up with your [facility] Dr. Melody Hernandez for a pelvic exam or further evaluation if you have continued pain. Return if increasing pain, fever or feeling worse. Today your urinalysis and urine test were negative. Your ultrasound did not show anything specific. Disposition Disposition: Home, Self Care
[2024-03-20 12:30] LABS: Mucous, Urine 0 SEEN /hpf (<or=2+)
[2024-03-20 12:38] LABS: Color, Urine Yellow (Yellow); Glucose, Dipstick Normal (Normal); Ketone-Dipstick Negative (Negative); Leukocyte Esterase-Dipstick Negative /ul (Negative); Nitrite-Dipstick Negative (Negative); Occult Blood-Urine 25 /ul (Negative); Protein-Dipstick Negative (Negative); Specific Gravity, Urine 1.015 (1.002-1.030); Urine Bilirubin Dipstick Negative (Negative); Urine Clarity Clear (Clear); Urine Urobilinogen Normal (Normal)
[2024-03-20 12:55] LABS: Bacteria RARE /hpf (None Seen); Internal QC Validated? YES +Cl - CLEAR BKGD; Pregnancy, Urine Negative Negative; Red Blood Cells-Urine 0-5 SEEN /hpf (0-5); Squamous Epithelial Cells - UA 5-10 SEEN /hpf (5-10); White Blood Cells 0-5 SEEN /hpf (0-5)
== END 2024-03-20 15:14 | disposition home or self-care (01) ==
PROVIDERS: Emergency Provider Emergency Medicine; PCP Family Medicine; Visit Provider Emergency Medicine
DX: R10.2 Pelvic and perineal pain (principal)
CPT/HCPCS: 76830; 81001; 81025; 99282

== ENCOUNTER 2024-08-06 09:58 | Emergency (ER) | payer SELFPAY ==
[2024-08-06 09:59] VITALS: BP 132/92; PULSE 87; RESP 16; TEMP 36.4; O2SAT 98; BMI 40.1
--- NOTE | 2024-08-06 10:46 | EX.ED.DYSGE1 ---
HPI History of Present Illness Chief Complaint: Abd Pain Narrative Narrative: Patient is a 28-year-old female G4, P3 currently 6 weeks who presents to the emergency department chief complaint of abdominal pain. Patient states that yesterday she developed some abdominal pain in the left upper portion of her abdomen and she states that it feels like a knot. Patient states that this will come and go. States that some of her family members have been ill recently. Patient denies any vaginal bleeding or spotting denies any urinary symptoms. States that she has a OB appointment on Sunday of this coming week. PFSH PFS Medical History (spontaneous vaginal delivery) Obesity affecting Vaginal delivery Abscess, dental Scoliosis premature rupture of membranes Home Medications ?Medication ?Instructions ?Recorded ?Last Taken ?Type cephalexin 500 mg capsule 500 mg PO BID 5 days #10 caps 08/06/24 Unknown Rx Allergy/AdvReac Type Severity Reaction Status Date / Time azithromycin (From Zithromax) Allergy Hives Verified 08/06/24 09:59 codeine AdvReac Vomiting Verified 08/06/24 09:59 naproxen (From Naprosyn) AdvReac Nausea/Vom/ Verified 08/06/24 09:59 Diarrhea Surgical History Hx of hand surgery Social History Smoking Status: Current every day smoker tobacco type: e-cigarettes ROS ROS ED ROS Narrative Constitutional: Complains of lightheadedness denies fevers, chills, headaches, dizziness Eyes: Denies double vision blurry vision change in vision Cardiovascular: Denies chest pain Respiratory: Denies coughing wheezing shortness of breath Abdomen: Complains of abdominal pain as noted above states that she is chronically nauseous from this is not new denies vomiting or diarrhea : Denies any painful urination, hematuria, polyuria, vaginal discharge Neurological: Denies numbness, weakness, tingling Musculoskeletal: Denies back pain Skin: Denies rashes or lesions EXAM Physical Exam Narrative Exam Narrative: General: Patient lying in bed rest comfortably did not appear to be in acute distress Head: Atraumatic, normocephalic Eyes: PERRL bilateral, EOMI bilateral, no conjunctival injection noted Neck: Soft, supple, trachea midline Cardiovascular: Regular rate and rhythm no murmurs gallops rubs noted Respiratory: Clear to auscultation bilaterally no rales rhonchi or wheezes noted Abdomen: Soft, nontender to palpation, no rebound or guarding on exam, bowel sounds present MS 4 Extremities: +5/5 strength noted in the bilateral upper and lower extremities Neurological: Denies numbness, weakness, tingling Skin: Warm, dry, intact Const Vital Signs: 08/06/24 09:59 08/06/24 11:58 Temperature 97.6 F L Temperature Source Temporal Pulse Rate 87 75 Respiratory Rate 16 16 Blood Pressure 132/92 H 113/83 H Blood Pressure Mean 105 93 Pulse Ox 98 97 Oxygen Delivery Method Room Air Room Air MDM MDM MDM Narrative Medical decision making narrative: Patient is a 28-year-old female currently 6 weeks who presented to the emergency department chief complaint of left upper quadrant abdominal pain. Patient blood work performed here on the differential diagnose includes but not limited to GERD, pancreatitis, gastritis. Once workup is obtained reviewed she will be reevaluated. Patient be given IV fluids for hydration. Patient CBC reviewed showed no evidence of leukocytosis white blood count normal 10.7, hemoglobin was 11.5, platelet count normal at 191. Patient sodium was noted be normal at 138, potassium normal 3.9, creatinine normal at 0.66. Patient AST and ALT were 9 and 11 respectively, urinalysis reviewed and showed 100 leukocyte esterase 50-100 white cells with 1+ bacteria this was sent for culture she will be sent a prescription for Keflex for urinary tract infection in the setting of . Did discuss results with the patient and she states that she feels much improved from when she arrived and she would like to go home at this point time. She is encouraged to follow-up on urine culture with her [employer] or her primary care physician. She was advised return with worsening symptoms or other concerns. Patient states that she does have appointment on Sunday with them now and was advised to follow-up with them and return with worsening symptoms or any concerns. All question concerns answered patient was discharged home in stable condition. Lab Data Labs: Laboratory Results - last 24 hr 08/06/24 08/06/24 10:40 11:18 WBC 7.7 RBC 4.09 L Hgb 11.5 L Hct 35.8 L MCV 87.5 MCH 28.1 MCHC 32.1 RDW Std Deviation 45.5 H RDW Coeff of Aaron 14.2 Plt Count 191 MPV 10.6 Immature Gran % (Auto) 0.400 Neut % (Auto) 69.5 Lymph % (Auto) 23.4 [place] % (Auto) 5.5 Eos % (Auto) 0.8 Baso % (Auto) 0.4 Absolute Neuts (auto) 5.4 Absolute Lymphs (auto) 1.80 Nucleated RBC % 0 Sodium 138 Potassium 3.9 Chloride 108 H Carbon Dioxide 23.0 Anion Gap 7 BUN 6 L Creatinine 0.66 Estim Creat Clear Calc 158.87 Est GFR (MDRD) Af Amer 138 Est GFR (MDRD) Non-Af 114 BUN/Creatinine Ratio 9.0 L Glucose 90 Calcium 8.7 Total Bilirubin 0.30 AST 9 L ALT 11 L Alkaline Phosphatase 99 Total Protein 6.8 Albumin 2.9 L Globulin 3.9 Albumin/Globulin Ratio 0.7 L Lipase 23 Urine Color Yellow Urine Clarity Sl. Cloudy Urine pH 7.0 Ur Specific [place] 1.010 Urine Protein Negative Urine Glucose (UA) Normal Urine Ketones Negative Urine Occult Blood 10 H Urine Nitrite Negative Urine Bilirubin Negative Urine Urobilinogen Normal Ur Leukocyte Esterase 100 H Urine RBC 0-5 SEEN Urine WBC 50-100 SEEN Ur Squamous Epith Cells 0-5 SEEN Urine Bacteria 1+ Urine Mucus 0 SEEN Urine Test Positive H Discharge Plan Triage Chief Complaint: Abd Pain ED Provider: Chi Santos Dx/Rx/DC Orders Clinical Impression: Urinary tract infection, Prescriptions: New cephalexin 500 mg capsule 500 mg PO BID 5 Days Qty: 10 0RF Primary Care Provider: Yves Parker Referrals: Yves Parker MD [Primary Care Provider] - Activity Restrictions/Additional Instructions: Follow-up on urine culture with your [employer]. Follow-up with your next appointment on Sunday. Return with worsening symptoms or other concerns. Take antibiotics as prescribed. Print Language: And[place]ran Disposition Disposition: Home, Self Care
[2024-08-06 10:55] LABS: Internal QC Validated? YES +Cl - CLEAR BKGD
[2024-08-06 10:56] LABS: Color, Urine Yellow (Yellow); Glucose, Dipstick Normal (Normal); Ketone-Dipstick Negative (Negative); Leukocyte Esterase-Dipstick 100 /ul (Negative); Nitrite-Dipstick Negative (Negative); Occult Blood-Urine 10 /ul (Negative); Protein-Dipstick Negative (Negative); Urine Bilirubin Dipstick Negative (Negative); Urine Clarity Sl. Cloudy (Clear); Urine Urobilinogen Normal (Normal)
[2024-08-06 10:58] LABS: Pregnancy, Urine Positive Negative
[2024-08-06 11:04] LABS: Bacteria 1+ /hpf (None Seen); Mucous, Urine 0 SEEN /hpf (<or=2+); Red Blood Cells-Urine 0-5 SEEN /hpf (0-5); Squamous Epithelial Cells - UA 0-5 SEEN /hpf (5-10); White Blood Cells 50-100 SEEN /hpf (0-5)
[2024-08-06] MEDS: 0.9% Normal Saline (1000mL) 1,000 ML 15 ML IV (11:19)
[2024-08-06 11:28] LABS: Absolute Neutrophil Count 5.4 X10^3/uL (2.0-7.7); Basophil# 0.03 X10^3/uL; Basophil% 0.4 % (0-1); Eosinophil# 0.06 X10^3/uL; Eosinophils% 0.8 % (0-5); Hematocrit 35.8 % (37-47); Hemoglobin 11.5 g/dL (12.0-15.0); Lymphocyte % 23.4 % (19-41); Mean Corp Hgb Conc 32.1 g/dL (32-36); Mean Corpuscular Hgb 28.1 pg (27.0-32.0); Mean Corpuscular Volume 87.5 fL (81-99); Mean Platelet Vol. 10.6 fl (6.2-12.0); Monocyte# 0.42 X10^3/uL; Monocyte% 5.5 % (0-10); NRBC Flagged by Analyzer 0 % (0-5); Neutrophil # 5.36 X10^3/uL (2.7-7.7); Neutrophil % 69.5 % (47-70); Platelet Count 191 K/mm3 (150-450); RBC Distribution Width CV 14.2 % (11.6-14.6); RBC Distribution Width SD 45.5 fl (35.1-43.9); Red Blood Count 4.09 M/mm3 (4.2-5.4); White Blood Count 7.7 K/mm3 (4.4-11.0)
[2024-08-06 11:44] LABS: ALB/GLOB Ratio 0.7 RATIO (0.9-2.4); AST(SGOT) 9 U/L (15-37); Alanine Aminotransfer ALT/SGPT 11 U/L (13-56); Albumin, Serum 2.9 g/dL (3.2-5.0); Alkaline Phosphatase 99 U/L (45-117); Anion Gap 7 (5-15); BUN 6 mg/dL (7-18); Calcium,Total 8.7 mg/dL (8.5-10.1); Chloride 108 mmol/L (98-107); Creatinine, Serum 0.66 mg/dL (0.55-1.02); EST Glomerular Filtration Rate 114 mL/min (>60); Est Glom Filt Rate - Afr Amer 138 mL/min (>60); Estimated Creatinine Clearance 158.87 ml/min; Globulin 3.9 g/dL (2.2-4.2); Glucose 90 mg/dL (74-106); Lipase 23 U/L (13-75); Potassium 3.9 mmol/L (3.5-5.1); Protein, Total 6.8 g/dL (6.4-8.2); Sodium Level 138 mmol/L (136-145)
[2024-08-06 11:58] VITALS: BP 113/83; PULSE 75; RESP 16; O2SAT 97
[2024-08-06 12:09] VITALS: BP 115/74; PULSE 87; RESP 16; TEMP 36.7; O2SAT 100
== END 2024-08-06 12:13 | disposition home or self-care (01) ==
PROVIDERS: Emergency Provider Emergency Medicine; PCP Family Medicine; Visit Provider Emergency Medicine
DX: O23.41 Unspecified infection of urinary tract in pregnancy, first trimester (principal); Z3A.01 Less than 8 weeks gestation of pregnancy
CPT/HCPCS: 80053; 81001; 81025; 83690; 85025; 87077; 87086; 87088; 87186; 87631; 99283; J7030; A4216

== ENCOUNTER 2024-10-22 13:31 | Emergency (ER) | payer SELFPAY ==
[2024-10-22 13:32] VITALS: BP 128/74; PULSE 121; RESP 18; TEMP 36.6; O2SAT 97; BMI 41.8
--- NOTE | 2024-10-22 13:47 | EKG12_ITS ---
Test Reason : CP Blood Pressure : */* mmHG Vent. Rate : 103 BPM Atrial Rate : 103 BPM P-R Int : 156 ms QRS Dur : 66 ms QT Int : 340 ms P-R-T Axes : 39 -15 17 degrees QTcB Int : 445 ms Sinus tachycardia Low voltage QRS Borderline Confirmed by Bertrand Roger ([id number]), advertising editor KELSIE HERNANDEZ ([id number]) on 10/23/2024 1:09:00 PM Referred By: Dilshad Velazquez Confirmed By: Bertrand Roger
[2024-10-22 14:07] LABS: Absolute Lymphocyte Count 1.45 X10^3/uL (0.83-4.51); Absolute Neutrophil Count 6.8 X10^3/uL (2.0-7.7); Basophil# 0.02 X10^3/uL; Basophil% 0.2 % (0-1); Eosinophil# 0.08 X10^3/uL; Eosinophils% 0.9 % (0-5); Hematocrit 35.9 % (37-47); Hemoglobin 11.9 g/dL (12.0-15.0); Lymphocyte # 1.45 X10^3/ul (0.83-4.51); Lymphocyte % 16.2 % (19-41); Mean Corp Hgb Conc 33.1 g/dL (32-36); Mean Corpuscular Hgb 28.8 pg (27.0-32.0); Mean Corpuscular Volume 86.9 fL (81-99); Mean Platelet Vol. 10.5 fl (6.2-12.0); Monocyte# 0.54 X10^3/uL; NRBC Flagged by Analyzer 0 % (0-5); Neutrophil # 6.84 X10^3/uL (2.7-7.7); Neutrophil % 76.4 % (47-70); Platelet Count 196 K/mm3 (150-450); RBC Distribution Width CV 13.8 % (11.6-14.6); RBC Distribution Width SD 43.7 fl (35.1-43.9); Red Blood Count 4.13 M/mm3 (4.2-5.4)
[2024-10-22 14:27] LABS: Anion Gap 6 (5-15); BUN 5 mg/dL (7-18); BUN/Creat Ratio 9.9 RATIO (10-20); Calcium,Total 8.8 mg/dL (8.5-10.1); Chloride 108 mmol/L (98-107); EST Glomerular Filtration Rate 156 mL/min (>60); Est Glom Filt Rate - Afr Amer 188 mL/min (>60); Glucose 86 mg/dL (74-106); Potassium 4.1 mmol/L (3.5-5.1); Sodium Level 138 mmol/L (136-145); Troponin-I HS (w/2H Reflex) < 3 pg/mL (3.0-54.0)
--- NOTE | 2024-10-22 14:38 | RAD_ITS ---
STUDY: X-RAY CHEST REASON FOR EXAM: Female, 28 years old. Chest pain TECHNIQUE: Single AP portable view of the chest. COMPARISON: None. FINDINGS: The lungs are clear and expanded. There is no demonstrated pleural abnormality. Normal size heart. Normal mediastinum and rl. Normal visualized pulmonary arteries. Normal visualized aortic arch and descending thoracic aorta. Normal visualized thoracic spine. Normal visualized ribs, clavicles, and shoulders. There is no demonstrated abnormality of the visualized soft tissue structures of the upper abdomen. RAD/Chest 1 View (Portable) IMPRESSION: Normal x-ray examination of the chest. Electronically Signed: Jama Cottrell MD at 14:51 EST ,
--- NOTE | 2024-10-22 14:49 | ED.VIS.DYS ---
HPI History of Present Illness Chief Complaint: Shortness of Breath Informant: patient Onset/Context/Timing Onset: Today Timing: Continuous Current Severity: Mild Maximum Severity: Mild Associated Symptoms Negative for cough Narrative Narrative: 28-year-old female currently 18 weeks . G5, P3 with 1 prior miscarriage. No history of prior DVT or PE. States today at work she started get midsternal chest pain with mild shortness of breath. No history of fever chills or cough. No hemoptysis. No leg pain or swelling. No recent surgery, hospitalization or immobilization. Denies any recent exertional dyspnea or chest pain with exertion. PE Risk Factors: Negative for Cancer, OCP + Smoking + > 35, Prior DVT or PE, Recent immobilization, Recent surgery or Recent travel Prior similar symptoms: No Recent Illness/Hospitalization: No PFSH PFSH Medical History (spontaneous vaginal delivery) Obesity affecting Vaginal delivery Abscess, dental Scoliosis premature rupture of membranes Home Medications ?Medication ?Instructions ?Recorded ?Last Taken ?Type cephalexin 500 mg capsule 500 mg PO BID 5 days #10 caps 08/06/24 Unknown Rx Allergy/AdvReac Type Severity Reaction Status Date / Time azithromycin (From Zithromax) Allergy Hives Verified 10/22/24 13:32 codeine AdvReac Vomiting Verified 10/22/24 13:32 naproxen (From Naprosyn) AdvReac Nausea/Vom/ Verified 10/22/24 13:32 Diarrhea Surgical History Hx of hand surgery Social History Smoking Status: Current every day smoker tobacco type: e-cigarettes ROS ROS ED ROS Narrative Midsternal chest pain today. Mild shortness of breath. No fever nor chills nor cough. No leg pain or swelling. No hemoptysis. Constitutional Constitutional ED: Denies chills or fever(s) Eyes Eyes: Denies blurry vision ENT ENT ED: Denies ear pain Cardiovascular Cardiovascular: Denies chest pain, orthopnea or paroxysmal nocturnal dyspnea Respiratory/Chest Respiratory/Chest: Reports dyspnea; Denies cough, orthopnea, paroxysmal nocturnal dyspnea or sputum Gastrointestinal Gastrointestinal: Denies abdominal pain or constipation Genitourinary Genitourinary ED: Denies dysuria Musculoskeletal Musculoskeletal: Denies arthralgias Integumentary Denies abscess Neurologic Neurologic: Denies headache(s) Psychiatric Psychiatric: Denies anxiety Endocrine Endocrinology: Denies cold intolerance Hematologic/Lymphatic Hematologic/Lymphatic: Denies easy bleeding Allergic/Immunologic Allergic/Immunologic ED: Denies mouth swelling EXAM Physical Exam Narrative Exam Narrative: Well-appearing 28-year-old female. Sitting upright in bed. Vital signs are stable. She is afebrile. She does not look septic toxic any distress. Pulse ox 97% on room air no signs of hypoxia. H EENT exam unremarkable. Mytrex members. Neck nontender no JVD. Back nontender. Lungs clear to auscultation bilaterally. Heart regular rhythm rate about 105 no murmur. Chest wall ribs nontender. No reproducible pain. Chest wall is unremarkable. Abdomen soft, nontender, nondistended normal bowel sounds. Gravid nontender uterus. Moving all 4 extremities. 5 out of 5 airbrush painter strength. Dorsi plantarflexion intact. Calves are nontender without edema or cords. Neurologically she is awake and alert no focal motor deficits. Very benign exam. Const Vital Signs: 10/22/24 13:32 10/22/24 14:54 10/22/24 14:59 Temperature 98 F Temperature Source Temporal Pulse Rate 121 H Respiratory Rate 18 Respiratory Effort Normal Non-Labored Respiratory Depth Normal Respiratory Pattern Normal Blood Pressure 128/74 H Blood Pressure Mean 92 Pulse Ox 97 95 Oxygen Delivery Method Room Air Room Air Room Air 10/22/24 15:00 10/22/24 16:00 Temperature 98.4 F Temperature Source Oral Pulse Rate 82 86 Respiratory Rate 16 23 H Respiratory Effort Respiratory Depth Respiratory Pattern Blood Pressure 120/71 117/77 Blood Pressure Mean 87 90 Pulse Ox 97 96 Oxygen Delivery Method Room Air Room Air Positive well nourished and well developed; Negative for cachectic, contractures or unkempt General Appearance ED: well developed and NAD; Negative for unkempt, cachectic, contractures or pallor Nutritional Appearance: Negative for cachectic HEENT Reports moist mucous membranes atraumatic; Negative for trauma or tenderness Eyes PERRL and EOMs intact bilaterally General Eye ED: Negative for pale conjunctiva or scleral icterus Neck no lymphadenopathy, supple, no meningeal signs and no JVD Resp normal respiratory effort and clear to auscultation bilaterally Effort and Inspection: Negative for pain with movement Auscultation: Negative for rales, rhonchi, wheezes or diminished lung sounds Cardio regular rhythm, S1 normal heart sound, S2 normal heart sound and no murmurs; Negative for regular rate Rate: tachycardic Rhythm: Negative for abnormal rhythm GI non-tender, non-distended and no masses GI Narrative: Gravid nontender uterus. Inspection: Negative for other Palpation: soft; Negative for tender, guarding, mass or rebound tenderness present Back/Spine no CVA tenderness and normal to inspection Extremity normal to inspection General Extremety ED: Negative for edema, tenderness or other findings General Extremity: Negative for edema or other findings Neuro CN's II-XII intact bilaterally Sensorium / Orientation: alert, oriented to person, oriented to place and oriented to time Speech: speech normal Motor Exam: strength 5/5 throughout Psych mental status grossly normal Appearance: Negative for unkempt Attitude: No agitated Mood & Affect: Negative for depressed, anxious or tearful Skin no wounds and skin turgor normal General Skin Exam: Negative for jaundice or pallor Lesions: no lesions Rashes: no rashes Trauma: Negative for abrasion, laceration or puncture MDM MDM MDM Narrative Medical decision making narrative: 28-year-old female with no reproducible chest pain or shortness of breath. Exam is benign. I think is unlikely be cardiac due to her young age. DVT PE is a possibility. Leg exam is normal with no pain or swelling. No cords. Cardiac workup with a D-dimer will be obtained. Could also be reflux. Repeat exam patient is doing well at 5:19 PM. Went over all of her test results. They are basically unremarkable. She be discharged home with outpatient follow-up. Chest pain uncertain etiology. Second trimester . History & Record Review Discussion w/independent historian: Patient Additional record(s) reviewed:: Prior inpatient record, Prior outpatient record, Prior ED visit and Prior labs Lab Data Attestation: I reviewed the patient's lab results. Lab results narrative: CBC white count 9 H&H 11.9 and 35.9. Platelets 196. Electrolytes show a gap 6 BUN of 5 creatinine 0.5. Glucose 86. Troponin less than 3. D-dimer equals 0.32 which is normal. 2-hour troponin is 3. Chest x-ray normal. Labs: Laboratory Results - last 24 hr 10/22/24 10/22/24 14:00 16:04 WBC 9.0 RBC 4.13 L Hgb 11.9 L Hct 35.9 L MCV 86.9 MCH 28.8 MCHC 33.1 RDW Std Deviation 43.7 RDW Coeff of Aaron 13.8 Plt Count 196 MPV 10.5 Immature Gran % (Auto) 0.300 Neut % (Auto) 76.4 H Lymph % (Auto) 16.2 L Archer % (Auto) 6.0 Eos % (Auto) 0.9 Baso % (Auto) 0.2 Absolute Neuts (auto) 6.8 Absolute Lymphs (auto) 1.45 Nucleated RBC % 0 D-Dimer Quant (PE/DVT) 0.32 Sodium 138 Potassium 4.1 Chloride 108 H Carbon Dioxide 24.0 Anion Gap 6 BUN 5 L Creatinine 0.50 L Estim Creat Clear Calc 207.50 Est GFR (MDRD) Af Amer 188 Est GFR (MDRD) Non-Af 156 BUN/Creatinine Ratio 9.9 L Glucose 86 Calcium 8.8 Troponin I High Sens < 3 L 3 Radiography Chest X-Ray - ED: 1 View, Read by ED Physician, Read by Radiologist, Normal, Heart, Lungs, Mediastinum, Bony Structures and No Acute Disease Diagnostic Testing: Clinical Impression(s) from Imaging Studies Chest X-Ray 10/22/24 14:38 IMPRESSION: Normal x-ray examination of the chest. Electronically Signed: Jama Cottrell MD at 14:51 EST Reading Location ID and State: [address] [place] [address] , Service support , Chest is right, portable, single view interpreted by myself and the radiologist shows no acute abnormality. Normal cardiac silhouette. Normal lung garcia. Rhythm Strip Rhythm Strip: Sinus Tach Rate: 103 Ectopy: None EKG Initial EKG: Attestation: I personally reviewed and interpreted this EKG as follows: Interpretation: No Acute Injury Pattern and Sinus Tachycardia Comments: Sinus tachycardia rate 103 no acute signs of IA or ischemia. No S1 Q3 T3. Discharge Plan Triage Chief Complaint: Shortness of Breath ED Provider: Dilshad Velazquez Dx/Rx/DC Orders Clinical Impression: Chest pain of uncertain etiology, Second trimester Instructions: ED Chest Pain, Uncertain Cause Prescriptions: No Action cephalexin 500 mg capsule 500 mg PO BID 5 Days Qty: 10 0RF Primary Care Provider: Yves Parker Referrals: Yves Parker MD [Primary Care Provider] - 3-5 Days if not improving Activity Restrictions/Additional Instructions: Your tests are unremarkable. EKG and chest x-ray are normal. Your test for heart or Captique is negative as is your test for blood clot. This may be secondary to reflux. Tums as needed for indigestion. Follow-up with your ORGANIZATIONAL PSYCHOLOGIST and/or primary care physician as needed. Print Language: Uruguayan Disposition Disposition: Home, Self Care
[2024-10-22 14:54] VITALS: O2SAT 95
[2024-10-22 14:59] VITALS: O2SAT 98
[2024-10-22 15:00] VITALS: BP 120/71; PULSE 82; RESP 16; TEMP 36.9; O2SAT 97
[2024-10-22 15:06] LABS: D-Dimer Quantitative (DVT/PE) 0.32 FEU/ug/m (0.27-0.49)
[2024-10-22 16:00] VITALS: BP 117/77; PULSE 86; RESP 23; O2SAT 96
[2024-10-22 16:03] LABS: Reflex Troponin-HS? (from REC) Y
[2024-10-22 16:29] LABS: Troponin-I HS 3 pg/mL (3.0-54.0)
[2024-10-22 17:27] VITALS: BP 116/78; PULSE 100; RESP 19; TEMP 36.6; O2SAT 96
== END 2024-10-22 17:29 | disposition home or self-care (01) ==
PROVIDERS: Emergency Provider Emergency Medicine; PCP Family Medicine; Referring Provider Emergency Medicine; Visit Provider Emergency Medicine
DX: O99.891 Other specified diseases and conditions complicating pregnancy (principal); R07.89 Other chest pain; R06.02 Shortness of breath; O99.332 Smoking (tobacco) complicating pregnancy, second trimester; F17.290 Nicotine dependence, other tobacco product, uncomplicated; O99.212 Obesity complicating pregnancy, second trimester; M41.9 Scoliosis, unspecified; Z88.1 Allergy status to other antibiotic agents; Z3A.18 18 weeks gestation of pregnancy
CPT/HCPCS: 71045; 80048; 84484; 85025; 85379; 93005; 99284; A4216

== ENCOUNTER 2024-10-28 13:40 | Emergency (ER) | payer SELFPAY ==
[2024-10-28 13:42] VITALS: BP 116/76; PULSE 106; RESP 18; TEMP 36.6; O2SAT 99
--- NOTE | 2024-10-28 14:21 | RAD_ITS ---
STUDY: X-RAY - LEFT KNEE REASON FOR EXAM: Female, 28 years old. Injury/Pain TECHNIQUE: 4 view(s) of the knee. COMPARISON: None. FINDINGS: Normal visualized distal femur. Normal visualized proximal tibia and fibula. Normal proximal tibiofibular articulation. Normal medial femorotibial compartment. Normal lateral femorotibial compartment. Normal patellofemoral articulation. The soft tissue structures are unremarkable. RAD/Knee 4 or More Views IMPRESSION: Normal x-ray examination of the knee. Electronically Signed: Jama Cottrell MD at 14:53 EST ,
--- NOTE | 2024-10-28 14:49 | EDS_ITS ---
HPI History of Present Illness Chief Complaint: Lower Extremity Injury Detail of Chief Complaint: Left knee pain due to mechanical fall Informant: patient Occured/Mechanism Mechanism/Context: Yes injury Comment: Twisting mechanism injury left knee Onset/Context/Timing Onset: Yesterday Context: Sudden Onset Timing: Continuous Quality of Pain: Dull and Aching Location: Left knee Current Severity: Mild Maximum Severity: Moderate Worsened by: Weightbearing and movement Relieved by: Nothing Associated Symptoms Associated Symptoms: Negative for Parasthesia, Weakness or Loss of Funtion Narrative Narrative: Patient is a 28-year-old female who presents with injury to her left knee. She denies prior injury to the knee. She denies direct trauma. She believes she had a twisting mechanism injury. She missed the last couple of steps. She states her knee is swollen. She denies paresthesia, anesthesia or motor weakness. She is able to bear weight and walk. She denies head trauma. Denies loss conscious. She denies neck pain. She has no other complaints. Prior similar symptoms: No Recent Illness/Hospitalization: No PFSH PFSH Medical History (spontaneous vaginal delivery) Obesity affecting Vaginal delivery Abscess, dental Scoliosis premature rupture of membranes Home Medications ?Medication ?Instructions ?Recorded ?Last Taken ?Type cephalexin 500 mg capsule 500 mg PO BID 5 days #10 caps 08/06/24 Unknown Rx amoxicillin 500 mg capsule 500 mg PO TID 10/28/24 Unknown History hydrocodone-acetaminophen 5-325mg 1 tab PO Q6H PRN PRN Pain 3 days 10/28/24 Unknown Rx 5mg-325mg #10 TABLETS Allergy/AdvReac Type Severity Reaction Status Date / Time azithromycin (From Zithromax) Allergy Hives Verified 10/28/24 13:42 codeine AdvReac Vomiting Verified 10/28/24 13:42 naproxen (From Naprosyn) AdvReac Nausea/Vom/ Verified 10/28/24 13:42 Diarrhea Surgical History Hx of hand surgery Social History Smoking Status: Current every day smoker tobacco type: e-cigarettes ROS ROS ED Constitutional Constitutional ED: Denies chills, fever(s), subjective or sweats Cardiovascular Cardiovascular: Denies chest pain Respiratory/Chest Respiratory/Chest: Denies cough or dyspnea Gastrointestinal Gastrointestinal: Denies nausea or vomiting Musculoskeletal Musculoskeletal: Reports other Details: Per HPI narrative Neurologic Neurologic: Denies headache(s) or paresthesias Hematologic/Lymphatic Hematologic/Lymphatic: Denies easy bleeding or easy bruising EXAM Physical Exam Const Vital Signs: 10/28/24 13:42 Temperature 97.8 F Temperature Source Temporal Pulse Rate 106 H Respiratory Rate 18 Blood Pressure 116/76 Blood Pressure Mean 89 Pulse Ox 99 Oxygen Delivery Method Room Air Positive well nourished and well developed General Appearance ED: well developed and NAD HEENT normocephalic and atraumatic Eyes PERRL Eyes Narrative: Extraocular muscles are intact. Neck full ROM and supple Resp normal respiratory effort, no retractions and clear to auscultation bilaterally Cardio regular rate, regular rhythm, S1 normal heart sound, S2 normal heart sound and no murmurs GI GI Narrative: There is no pain ovation of the pelvis. There is no lower abdominal pain. Back/Spine no CVA tenderness Thoracic Spine / Upper Back: Negative for thoracic spinal tenderness Lumbar Spine / Lower Back: Negative for lumbar spinal tenderness Extremity Negative for normal to inspection or full ROM Extremity Narrative: There is slight swelling to left knee compared to the right. Patella is not ballotable. There is no obvious effusion. Varus valgus stress testing causes discomfort medially with cyst give but endpoint MCL. Savannah's test was negative. Modified Liban's test causes pain medially however there was no click appreciated. There is no pain or fullness in the popliteal fossa. DP pulses 2+. There is no pain ovation over the lateral or medial malleolus. She is able to extend to 170 degrees and flex to approximately 90 degrees. Neuro oriented x3 and CN's II-XII intact bilaterally Sensorium / Orientation: alert Plantar Reflex: Downgoing: bilateral Psych mental status grossly normal Skin no wounds MDM MDM MDM Narrative Medical decision making narrative: Patient with second-degree MCL strain. Will obtain x-ray to evaluate for davi fracture or effusion which is not appreciated clinically due to body habitus. Will medicate with pain medicine since she has a ride home. Radiography Chest X-Ray - ED: Read by ED Physician (4 view x-ray of the left knee reveals no fracture, subluxation dislocation. There is no obvious effusion noted. This independently reviewed interpreted by me at 1455.) Treatment and Re-Evaluation Narrative: Patient declined crutches. She was referred to Dr. Matias since she has not seen an orthopedist in the area. Discharge Plan Triage Chief Complaint: Lower Extremity Injury ED Provider: Lester Kohler Dx/Rx/DC Orders Clinical Impression: MCL sprain of left knee, BMI greater than 30 Instructions: ED Knee Sprain Prescriptions: New hydrocodone-acetaminophen 5-325 mg tablet 1 tab PO Q6H PRN PRN (Reason: Pain) 3 Days Qty: 10 0RF No Action cephalexin 500 mg capsule 500 mg PO BID 5 Days Qty: 10 0RF amoxicillin 500 mg capsule 500 mg PO TID Primary Care Provider: Yves Parker Referrals: Zenon Dorantes MD [Med Staff - Active Staff] - 5-7 Days Yves Parker MD [Primary Care Provider] - Print Language: Portuguese Disposition Disposition: Home, Self Care
== END 2024-10-28 15:06 | disposition home or self-care (01) ==
PROVIDERS: Emergency Provider Emergency Medicine; PCP Family Medicine; Visit Provider Emergency Medicine
DX: S83.412A Sprain of medial collateral ligament of left knee, initial encounter (principal); X50.1XXA Overexertion from prolonged static or awkward postures, initial encounter; M41.9 Scoliosis, unspecified; Z88.1 Allergy status to other antibiotic agents; F17.290 Nicotine dependence, other tobacco product, uncomplicated
CPT/HCPCS: 73564; 99282

== ENCOUNTER 2025-02-15 17:45 | Outpatient (CLI) | payer MEDICAID, SELFPAY ==
[2025-02-15 18:13] VITALS: BP 123/77; PULSE 220; RESP 16; TEMP 36.5; O2SAT 99
[2025-02-15 18:24] VITALS: BMI 43.2
[2025-02-15] MEDS: Lactated Ringers 1,000 ML 999 ML IV (18:49)
[2025-02-15] MEDS: Famotidine 20 MG Tablet PO (18:56)
[2025-02-15 19:01] LABS: Absolute Lymphocyte Count 0.47 X10^3/uL (0.83-4.51); Basophil# 0.01 X10^3/uL; Basophil% 0.1 % (0-1); Eosinophil# 0.01 X10^3/uL; Eosinophils% 0.1 % (0-5); Hematocrit 28.1 % (37-47); Lymphocyte # 0.47 X10^3/ul (0.83-4.51); Lymphocyte % 5.8 % (19-41); Mean Corpuscular Hgb 25.4 pg (27.0-32.0); Mean Corpuscular Volume 79.4 fL (81-99); Mean Platelet Vol. 10.6 fl (6.2-12.0); Monocyte# 0.55 X10^3/uL; Monocyte% 6.8 % (0-10); NRBC Flagged by Analyzer 0 % (0-5); Neutrophil # 6.99 X10^3/uL (2.7-7.7); Neutrophil % 86.7 % (47-70); POSITIVE DIFFERENTIAL YES; Platelet Count 144 K/mm3 (150-450); RBC Distribution Width CV 16.2 % (11.6-14.6); RBC Distribution Width SD 46.8 fl (35.1-43.9); Red Blood Count 3.54 M/mm3 (4.2-5.4); White Blood Count 8.1 K/mm3 (4.4-11.0)
[2025-02-15 19:32] VITALS: PULSE 111; O2SAT 99
[2025-02-15 19:33] LABS: AST(SGOT) 12 U/L (<=31); Alanine Aminotransfer ALT/SGPT < 5 U/L (<=34); Albumin, Serum 3.3 g/dL (3.5-5.0); Alkaline Phosphatase 131 U/L (35-104); Anion Gap 13 (5-15); BUN 4 mg/dL (4-19); BUN/Creat Ratio 6.8 RATIO (10-20); Calcium,Total 8.6 mg/dL (7.6-11.0); Carbon Dioxide 17.3 mmol/L (21.0-32.0); Chloride 104 mmol/L (98-108); Creatinine, Serum 0.64 mg/dL (0.70-1.20); EST Glomerular Filtration Rate 124 (>60); Estimated Creatinine Clearance 163.56 ml/min (50-250); Globulin 3.2 g/dL (2.2-4.2); Glucose 85 mg/dL (70-99); Potassium 3.1 mmol/L (3.3-5.1); Protein, Total 6.4 g/dL (5.9-8.4); Sodium Level 134 mmol/L (133-145)
--- NOTE | 2025-02-15 19:33 | OB.TRI.NOTE ---
HPI - General General Date of Service: 02/15/25 HPI Narrative REMIGIO LEO, is a 29 F who presents with back pain. Also she has only urinated 2 times today. Maternal Data Information YANCY Calculator Estimated Delivery Date Method Current WG Current Estimate 03/23/25 Manual 34w 6d Final YANCY: 03/23/25 [facility] Medical History (Updated 02/15/25 @ 19:[address] Nic Malik MD) Instability of left patellofemoral joint Left knee pain (spontaneous vaginal delivery) Obesity affecting Vaginal delivery Abscess, dental Scoliosis premature rupture of membranes Home Medications ?Medication ?Instructions ?Recorded ?Last Taken ?Type vit no.95-ferrous 1 tab PO DAILY 02/15/25 Unknown History fumarate 28 mg-folic acid 800 mcg tablet () Allergy/AdvReac Type Severity Reaction Status Date / Time azithromycin (From Zithromax) Allergy Hives Verified 11/04/24 10:35 codeine AdvReac Vomiting Verified 11/04/24 10:35 naproxen (From Naprosyn) AdvReac Nausea/Vom/ Verified 11/04/24 10:35 Diarrhea Surgical History Hx of hand surgery Social History Smoking Status: Current every day smoker tobacco type: e-cigarettes History 2 Elective abortions Hx Para 2 Spontaneous abortions Hx # Term Pregnancies Ectopic pregnancies Hx # Pregnancies Multiple births # of living children 2 Physical Exam Const alert, oriented x3 and no apparent distress Chest inspection of chest normal Resp normal respiratory effort GI soft to palpation, non-tender and non-distended Inspection: gravid Back/Spine no CVA tenderness Back/Spine Narrative: low back mildly tender NST FHR Rate Baby A Baseline: 150 Variability:: Moderate Accelerations:: 15 x 15 Decelerations:: None NST Reactive:: Yes Uterine Activity:: Irregular Assessment & Plan (1) Back pain affecting : PLAN: Plan Patient with musculoskeletal pain in . Will give Tylenol & Flexeril. Advised on heat to back and Tylenol at home. Office will arrange PT. Await UA but at this time there is no evidence of pyelonephritis. Anemia - plan for IV iron as outpatient.
[2025-02-15 19:35] VITALS: BP 126/75; PULSE 118; RESP 14; TEMP 37
[2025-02-15] MEDS: Acetaminophen 500 MG Tablet 1000 MG PO (19:45)
[2025-02-15] MEDS: cycloBENZAPRine HCl 10 MG Tablet PO (19:45)
[2025-02-15] MEDS: Potassium Chloride 10mEq/100mL 10 MEQ/100 ML IV.SOLN. 100 MEQ IV BOLUS ×3 (20:02→22:07)
[2025-02-15 20:10] LABS: Color, Urine Yellow (Yellow); Glucose, Dipstick Normal (Normal); Ketone-Dipstick 5 mg/dl (Negative); Leukocyte Esterase-Dipstick 500 /ul (Negative); Nitrite-Dipstick Positive (Negative); Occult Blood-Urine 25 /ul (Negative); Protein-Dipstick 100 mg/dl (Negative); Specific Gravity, Urine 1.015 (1.002-1.030); Urine Bilirubin Dipstick Negative (Negative); Urine Clarity Sl. Cloudy (Clear); Urine Urobilinogen Normal (Normal); Urine pH 6.5 (5.0 - 8.0)
[2025-02-15 21:24] VITALS: PULSE 113; O2SAT 98
[2025-02-15 21:36] VITALS: PULSE 120; O2SAT 99
[2025-02-15] MEDS: Cefazolin 2 GM in Syringe 10 ML IV (23:07)
== END 2025-02-15 23:15 | disposition home or self-care (01) ==
LOC: WPOUT 17:56 → WP 17:56
PROVIDERS: PCP Family Medicine; Visit Provider Obstetrics & Gynecology
DX: O99.891 Other specified diseases and conditions complicating pregnancy (principal); M54.9 Dorsalgia, unspecified; O99.333 Smoking (tobacco) complicating pregnancy, third trimester; F17.290 Nicotine dependence, other tobacco product, uncomplicated; O99.013 Anemia complicating pregnancy, third trimester; Z3A.34 34 weeks gestation of pregnancy
CPT/HCPCS: 96365; 96366; 96361; 96375; 59025; 59050; 80053; 81002; 85025; 87077; 87086; 87088; 87186; 99221; G0378

== ENCOUNTER 2025-03-09 19:50 | Outpatient (CLI) | payer MEDICAID, SELFPAY ==
--- NOTE | 2025-03-09 20:03 | OB.TRI.NOTE ---
HPI - General General Date of Admission: 03/09/25 Date of Service: 03/09/25 Chief Complaint: back pain HPI Narrative REMIGIO LEO, is a 29 F who presents with constant back. No bleeding No leaking Maternal Data Information YANCY Calculator Estimated Delivery Date Method Current WG Current Estimate 03/23/25 Manual 38w 0d Final YANCY: 03/23/25 Gestational age: 38 PFSH PFSH Medical History (Updated 03/09/25 @ 21:[address] Vida García MD) Instability of left patellofemoral joint Left knee pain (spontaneous vaginal delivery) Obesity affecting Vaginal delivery Abscess, dental Scoliosis premature rupture of membranes Home Medications ?Medication ?Instructions ?Recorded ?Last Taken ?Type vit no.95-ferrous 1 tab PO DAILY 02/15/25 03/09/25 08:16 History fumarate 28 mg-folic acid 800 mcg tablet () aspirin 81 mg capsule 81 mg PO DAILY 03/09/25 Unknown History Allergy/AdvReac Type Severity Reaction Status Date / Time azithromycin (From Zithromax) Allergy Hives Verified 03/09/25 20:15 codeine AdvReac Vomiting Verified 03/09/25 20:15 naproxen (From Naprosyn) AdvReac Nausea/Vom/ Verified 03/09/25 20:15 Diarrhea Surgical History Hx of hand surgery Social History Smoking Status: Current every day smoker tobacco type: e-cigarettes History 4 Elective abortions Hx Para 2 Spontaneous abortions Hx # Term Pregnancies Ectopic pregnancies Hx # Pregnancies Multiple births # of living children 2 NST FHR Rate Baby A Baseline: 150 Variability:: Moderate Accelerations:: 15 x 15 Decelerations:: None NST Reactive:: Yes Uterine Activity:: occasional Assessment & Plan (1) Back pain affecting : (2) 38 weeks gestation of : (3) UTI in , antepartum: PLAN: Plan Keflex to pharmacy
[2025-03-09 20:06] VITALS: PULSE 110; O2SAT 98
[2025-03-09 20:08] VITALS: BP 117/66; PULSE 112
[2025-03-09 20:11] VITALS: PULSE 109; O2SAT 98
[2025-03-09 20:16] VITALS: PULSE 107; O2SAT 98; BMI 42.9
[2025-03-09 21:06] LABS: Color, Urine Yellow (Yellow); Glucose, Dipstick Normal (Normal); Ketone-Dipstick 5 mg/dl (Negative); Leukocyte Esterase-Dipstick 100 /ul (Negative); Nitrite-Dipstick Positive (Negative); Occult Blood-Urine 10 /ul (Negative); Protein-Dipstick 30 mg/dl (Negative); Specific Gravity, Urine 1.015 (1.002-1.030); Urine Bilirubin Dipstick Negative (Negative); Urine Clarity Cloudy (Clear); Urine Urobilinogen Normal (Normal); Urine pH 6.5 (5.0 - 8.0)
[2025-03-09] MEDS: Ceftriaxone 500 MG Vial 250 MG IM (21:52)
[2025-03-09 22:25] VITALS: RESP 16; TEMP 36.6
== END 2025-03-09 22:25 | disposition home or self-care (01) ==
LOC: WPOUT 19:51 → WP 19:51
PROVIDERS: PCP Family Medicine; Referring Provider Obstetrics & Gynecology; Visit Provider Obstetrics & Gynecology
DX: O23.43 Unspecified infection of urinary tract in pregnancy, third trimester (principal); O99.891 Other specified diseases and conditions complicating pregnancy; M54.9 Dorsalgia, unspecified; O99.333 Smoking (tobacco) complicating pregnancy, third trimester; F17.290 Nicotine dependence, other tobacco product, uncomplicated; Z3A.38 38 weeks gestation of pregnancy; Z79.82 Long term (current) use of aspirin
CPT/HCPCS: 59025; 59050; 81002; 87077; 87086; 87088; 87186; 96372; 99221; G0378

== ENCOUNTER 2025-03-11 17:04 | Outpatient (CLI) | payer MEDICAID, SELFPAY ==
[2025-03-11 17:29] VITALS: BMI 44.2
[2025-03-11 17:30] VITALS: PULSE 118; RESP 16; TEMP 36.7; O2SAT 98
[2025-03-11 17:35] VITALS: BP 136/78; PULSE 118
--- NOTE | 2025-03-11 17:40 | OB.TRI.NOTE ---
HPI - General General Date of Service: 03/11/25 HPI Narrative REMIGIO LEO, is a 29 F @ 38.2 weeks who presents c/o SROM at 2pm- woke up with wet underwear - denies having intercourse recently. reports is being treated for UTI- just started ABX Maternal Data Information YANCY Calculator Estimated Delivery Date Method Current WG Current Estimate 03/23/25 Manual 38w 3d PFSH PFSH Medical History (Updated 03/12/25 @ 10:[address] Sally Puente MD) Instability of left patellofemoral joint Left knee pain (spontaneous vaginal delivery) Obesity affecting Vaginal delivery Abscess, dental Scoliosis premature rupture of membranes Home Medications ?Medication ?Instructions ?Recorded ?Last Taken ?Type vit no.95-ferrous 1 tab PO DAILY 02/15/25 03/11/25 10:00 History fumarate 28 mg-folic acid 800 mcg tablet () aspirin 81 mg capsule 81 mg PO DAILY 03/09/25 03/11/25 10:00 History cephalexin 500 mg capsule 500 mg PO Q8H 7 days #21 caps 03/09/25 03/11/25 10:00 Rx Allergy/AdvReac Type Severity Reaction Status Date / Time azithromycin (From Zithromax) Allergy Hives Verified 03/11/25 17:31 codeine AdvReac Vomiting Verified 03/11/25 17:31 naproxen (From Naprosyn) AdvReac Nausea/Vom/ Verified 03/11/25 17:31 Diarrhea Surgical History Hx of hand surgery Social History Smoking Status: Current every day smoker tobacco type: e-cigarettes History 4 Elective abortions Hx Para 2 Spontaneous abortions Hx # Term Pregnancies Ectopic pregnancies Hx # Pregnancies Multiple births # of living children 2 Physical Exam Narrative VE: 0.5/50/-4 NST FHR Rate Baby A Baseline: 150 Variability:: Moderate Accelerations:: 15 x 15 Decelerations:: None NST Reactive:: Yes FHR Category:: Category I Uterine Activity:: none Assessment & Plan (1) UTI in , antepartum: (2) False labor after 37 completed weeks of gestation: (3) Obesity affecting : PLAN: Plan 29 yo @ 38.2 weeks, membranes intact. false labor 1) rom plus- negative- d/c home 2) NST well being established 3) follow up in office as scheduled
[2025-03-11 18:23] LABS: ROM Internal Control Test YES-OK TO RESULT pt. (Internal QC)
[2025-03-11 18:24] LABS: ROM Patient Test Negative (Negative); Record Kit Lot#, ROM+ K3358
== END 2025-03-11 18:45 | disposition home or self-care (01) ==
LOC: WPOUT 17:26 → WP 17:27
PROVIDERS: PCP Family Medicine; Referring Provider Obstetrics & Gynecology; Visit Provider Obstetrics & Gynecology
DX: O47.1 False labor at or after 37 completed weeks of gestation (principal); O23.43 Unspecified infection of urinary tract in pregnancy, third trimester; O99.213 Obesity complicating pregnancy, third trimester; O99.333 Smoking (tobacco) complicating pregnancy, third trimester; F17.290 Nicotine dependence, other tobacco product, uncomplicated; Z3A.38 38 weeks gestation of pregnancy; Z79.82 Long term (current) use of aspirin
CPT/HCPCS: 59025; 59050; 84112; 99221; G0378

== ENCOUNTER 2025-03-16 19:20 | Inpatient (IN) | payer MEDICAID, SELFPAY ==
[2025-03-16 19:17] VITALS: BMI 43.8
--- NOTE | 2025-03-16 20:02 | PCM.HP.OB ---
HPI - General General Date of Admission: 03/16/25 Date of Service: 03/16/25 Chief Complaint: induction of labor HPI Narrative REMIGIO LEO, is a 29 F who presents IOL at 39 with poly and obesity. Maternal Data Information YANCY Calculator Estimated Delivery Date Method Current WG Current Estimate 03/23/25 Manual 39w 0d Final YANCY: 03/23/25 Gestational age: 39 PFSH PFSH Medical History Instability of left patellofemoral joint Left knee pain (spontaneous vaginal delivery) Obesity affecting Vaginal delivery Abscess, dental Scoliosis premature rupture of membranes Home Medications ?Medication ?Instructions ?Recorded ?Last Taken ?Type vit no.95-ferrous 1 tab PO DAILY 02/15/25 03/11/25 10:00 History fumarate 28 mg-folic acid 800 mcg tablet () aspirin 81 mg capsule 81 mg PO DAILY 03/09/25 03/11/25 10:00 History cephalexin 500 mg capsule 500 mg PO Q8H 7 days #21 caps 03/09/25 03/11/25 10:00 Rx Allergy/AdvReac Type Severity Reaction Status Date / Time azithromycin (From Zithromax) Allergy Hives Verified 03/11/25 17:31 codeine AdvReac Vomiting Verified 03/11/25 17:31 naproxen (From Naprosyn) AdvReac Nausea/Vom/ Verified 03/11/25 17:31 Diarrhea Surgical History Hx of hand surgery Social History Smoking Status: Current every day smoker tobacco type: e-cigarettes History 4 Elective abortions Hx Para 3 Spontaneous abortions Hx # Term Pregnancies Ectopic pregnancies Hx # Pregnancies Multiple births # of living children 2 NST FHR Rate Baby A Baseline: 135 Variability:: Moderate Accelerations:: 15 x 15 Decelerations:: None NST Reactive:: Yes Uterine Activity:: quiet ROS Constitutional Constitutional: Denies fatigue, fever(s) or malaise Eyes Eyes: Denies change in vision ENT HEENT: Denies dizziness or headache(s) Cardiovascular Cardiovascular: Denies chest pain, dyspnea or lightheadedness Respiratory/Chest Respiratory/Chest: Denies cough or dyspnea Gastrointestinal Gastrointestinal: Denies change in bowel habits Genitourinary Genitourinary: Denies burning urination or genital lesions Integumentary Integumentary: Denies rash Neurologic Neurologic: Denies confusion, dizziness, headache(s), numbness or weakness Vital Signs Vital Signs Vital Signs: Weight Weight: 115.757 kg Body Mass Index (BMI) 43.8 Physical Exam Const alert and no apparent distress General Appearance: cooperative HEENT normocephalic Resp normal respiratory effort Cardio regular rate GI soft to palpation GI Narrative: gravid, nontender, appropriate for gestational age Manual OB Exam: dilated 1, effaced 50 and station -2 Extremity no calf tenderness General Extremity: edema Skin no wounds Rashes: No rashes noted Psych activity/motor behavior normal Labs Labs Labs: Blood Type O POSITIVE Antibody Screen NEGATIVE Hct 29.4 % (37-47) L Hgb 9.0 g/dL (12.0-15.0) L Syphilis Total Ab Non-reactive Group B Strep DNA Negative (Negative) Rhogam given: No Assessment & Plan (1) Elective induction of labor planned: (2) 39 weeks gestation of : PLAN: Plan Munoz bulb placed without difficulty
[2025-03-16 20:03] VITALS: BP 135/90; PULSE 111
[2025-03-16] MEDS: Lactated Ringers 1,000 ML 50 ML IV (20:17)
[2025-03-16] MEDS: 0.9% Normal Saline Single 100 ML IV.SOLN. INTRA-UTER (20:17)
[2025-03-16 20:44] LABS: Absolute Lymphocyte Count 1.26 X10^3/uL (0.83-4.51); Absolute Neutrophil Count 6.5 X10^3/uL (2.0-7.7); Basophil# 0.03 X10^3/uL; Basophil% 0.4 % (0-1); Eosinophil# 0.05 X10^3/uL; Eosinophils% 0.6 % (0-5); Hematocrit 29.4 % (37-47); Lymphocyte # 1.26 X10^3/ul (0.83-4.51); Lymphocyte % 15.1 % (19-41); Mean Corp Hgb Conc 30.6 g/dL (32-36); Mean Corpuscular Hgb 23.7 pg (27.0-32.0); Mean Corpuscular Volume 77.6 fL (81-99); Mean Platelet Vol. 10.2 fl (6.2-12.0); NRBC Flagged by Analyzer 0 % (0-5); Neutrophil # 6.47 X10^3/uL (2.7-7.7); Neutrophil % 77.4 % (47-70); Platelet Count 190 K/mm3 (150-450); RBC Distribution Width CV 16.3 % (11.6-14.6); RBC Distribution Width SD 46.5 fl (35.1-43.9); Red Blood Count 3.79 M/mm3 (4.2-5.4); White Blood Count 8.4 K/mm3 (4.4-11.0)
[2025-03-16] MEDS: miSOPROStol 25 MCG TABLET PO (21:10)
[2025-03-16 21:40] LABS: Syphilis Antibodies Nonreactive (Nonreactive)
[2025-03-16 21:50] VITALS: PULSE 100; O2SAT 99
[2025-03-16 22:43] LABS: ROM Internal Control Test YES-OK TO RESULT pt. (Internal QC); ROM Patient Test Negative (Negative)
[2025-03-16 22:44] LABS: Record Kit Lot#, ROM+ K3358
[2025-03-16 22:46] LABS: Amphetamine Urine NEGATIVE (<1000 ng/mL); Barbiturate Urine NEGATIVE (< 200 ng/mL); Benzodiazepine Urine NEGATIVE (< 200 ng/mL); Buprenorphine Urine NEGATIVE (< 200 ng/mL); Cocaine Urine NEGATIVE (< 300 ng/mL); Fentanyl, Urine NEGATIVE; Methadone Urine NEGATIVE (< 300 ng/mL); Opiates Urine NEGATIVE (< 300 ng/mL); Oxycodone, Urine NEGATIVE (< 100 ng/mL); PCP Urine NEGATIVE (< 25 ng/mL); THC Urine PRESUMPTIVE POSITIVE (< 50 ng/mL)
[2025-03-16 23:37] VITALS: BP 144/67; PULSE 92; RESP 16; TEMP 36.4; O2SAT 98
[2025-03-17] VITALS (41 sets, daily range): BP systolic 90–135; BP diastolic 51–90; PULSE 72–107; RESP 13–20; TEMP 36–37.1; O2SAT 89–100
[2025-03-17] MEDS: Lactated Ringers 1,000 ML 999 ML IV (00:40)
[2025-03-17] MEDS: fentaNYL-bupivacaine (epidural) 100 ML BAG EPIDURAL (01:05)
--- NOTE | 2025-03-17 01:26 | PCM.PN.OB ---
Subjective Subjective AROM for yellow fluid with FSE. IUPC placed without difficulty. heart rate decel to 80s with AROM. Placed on right side for recovery. Objective Data Objective Data Vital Signs: Vital Signs Temp Pulse Resp BP Pulse Ox 97.1 F L 103 H 16 131/87 H 93 03/17/25 00:53 03/17/25 01:23 03/17/25 00:53 03/17/25 01:18 03/17/25 01:23 Weight: 115.757 kg Body Mass Index (BMI) 43.8 Intake & Output: Intake and Output for Last 24 Hours 03/15/25 03/16/25 03/17/25 23:59 23:59 23:59 Output Total 200 / 200 Balance -200 / -200 Lab / Micro Data 03/16/25 20:00 Labs: Laboratory Results - last 24 hr 03/16/25 20:00: WBC 8.4, RBC 3.79 L, Hgb 9.0 L, Hct 29.4 L, MCV 77.6 L, MCH 23.7 L, MCHC 30.6 L, RDW Std Deviation 46.5 H, RDW Coeff of Aaron 16.3 H, Plt Count 190, MPV 10.2, Immature Gran % (Auto) 0.500, Neut % (Auto) 77.4 H, Lymph % (Auto) 15.1 L, Green % (Auto) 6.0, Eos % (Auto) 0.6, Baso % (Auto) 0.4, Absolute Neuts (auto) 6.5, Absolute Lymphs (auto) 1.26, Nucleated RBC % 0, Syphilis Total Ab Nonreactive, Blood Type O POSITIVE, Antibody Screen NEGATIVE 03/16/25 22:00: Vag Amniotic Fld Detect Negative, Urine Opiates Screen NEGATIVE, U Buprenorphine Qual NEGATIVE, Ur Oxycodone Screen NEGATIVE, Urine Methadone Screen NEGATIVE, Urine Fentanyl Screen NEGATIVE, Ur Barbiturates Screen NEGATIVE, Ur Phencyclidine Scrn NEGATIVE, Ur Amphetamines Screen NEGATIVE, U Benzodiazepines Scrn NEGATIVE, Urine Cocaine Screen NEGATIVE, U Cannabinoids Screen PRESUMPTIVE POSITIVE NST FHR Rate Baby A Baseline: 115 Variability:: Moderate Accelerations:: 15 x 15 Decelerations:: Prolonged NST Reactive:: Yes FHR Category:: Category II Assessment & Plan (1) Elective induction of labor planned: (2) Obesity affecting : (3) 39 weeks gestation of : PLAN: Plan Pitocin prn. Epidural in place
[2025-03-17] MEDS: Mag Hydrox/Al Hydrox/Simeth 30 ML UDC PO (02:22)
[2025-03-17] MEDS: Amnioinfusion- 0.9% NS 1,000 ML IV.SOLN. 1 ML INTRA-UTER (02:23)
[2025-03-17] MEDS: Cefazolin 3 GM in 0.9% Normal Saline (100mL Bag) 100 ML IV (04:09)
--- NOTE | 2025-03-17 04:17 | RAD_ITS ---
PROCEDURE: PELVIS 1 OR 2 VIEWS 03/17/2025 REASON FOR EXAM: JAMES TECHNIQUE: 1 view(s) of the pelvis. FINDINGS: No radiopaque foreign body identified. The patient is rotated to the left. Visualized osseous structures appear within limits. Visualized bowel gas pattern appears nonspecific. RAD/Pelvis 1 or 2 Views IMPRESSION: No radiopaque foreign body identified. Reading Location: [id number]
--- NOTE | 2025-03-17 04:53 | PCM.PN.OB ---
Subjective Subjective Variables with contractions. Initially improved with position change and then amnio infusion. Contractions q3-[address]. [address] in place. Hands and knees increased the frequency of variables. On cervical exam. 5-6 cm. cord circumferentially around head and between cervix. JAMES called. RN switched with me to elevated vertx Objective Data Objective Data Vital Signs: Vital Signs Temp Pulse Resp BP Pulse Ox O2 Del Method 97.5 F L 89 14 119/55 L 100 Room Air 03/17/25 03:08 03/17/25 03:15 03/17/25 03:08 03/17/25 03:08 03/17/25 03:15 03/17/25 03:08 Oxygen Delivery Method Room Air Weight: 115.757 kg Body Mass Index (BMI) 43.8 Intake & Output: Intake and Output for Last 24 Hours 03/15/25 03/16/25 03/17/25 23:59 23:59 23:59 Intake Total 297.5 / 297.5 Output Total 200 / 200 Balance -200 / -200 297.5 / 297.5 Lab / Micro Data 03/16/25 20:00 Labs: Laboratory Results - last 24 hr 03/16/25 20:00: WBC 8.4, RBC 3.79 L, Hgb 9.0 L, Hct 29.4 L, MCV 77.6 L, MCH 23.7 L, MCHC 30.6 L, RDW Std Deviation 46.5 H, RDW Coeff of Aaron 16.3 H, Plt Count 190, MPV 10.2, Immature Gran % (Auto) 0.500, Neut % (Auto) 77.4 H, Lymph % (Auto) 15.1 L, [place] % (Auto) 6.0, Eos % (Auto) 0.6, Baso % (Auto) 0.4, Absolute Neuts (auto) 6.5, Absolute Lymphs (auto) 1.26, Nucleated RBC % 0, Syphilis Total Ab Nonreactive, Blood Type O POSITIVE, Antibody Screen NEGATIVE 03/16/25 22:00: Vag Amniotic Fld Detect Negative, Urine Opiates Screen NEGATIVE, U Buprenorphine Qual NEGATIVE, Ur Oxycodone Screen NEGATIVE, Urine Methadone Screen NEGATIVE, Urine Fentanyl Screen NEGATIVE, Ur Barbiturates Screen NEGATIVE, Ur Phencyclidine Scrn NEGATIVE, Ur Amphetamines Screen NEGATIVE, U Benzodiazepines Scrn NEGATIVE, Urine Cocaine Screen NEGATIVE, U Cannabinoids Screen PRESUMPTIVE POSITIVE Assessment & Plan (1) Umbilical cord prolapse: QUALIFIERS: Fetus number: single or unspecified fetus Qualified Code(s): O69.0XX0 - Labor and delivery complicated by prolapse of cord, not applicable or unspecified (2) Polyhydramnios affecting : (3) 39 weeks gestation of : (4) Obesity affecting : QUALIFIERS: Trimester: third trimester Obesity type affecting : unspecified obesity Qualified Code(s): O99.213 - Obesity complicating , third trimester PLAN: Plan STAT section
--- NOTE | 2025-03-17 04:58 | EX.PCM.OBRPT ---
Assessment & Plan (1) Polyhydramnios affecting : (2) Umbilical cord prolapse: QUALIFIERS: Fetus number: single or unspecified fetus Qualified Code(s): O69.0XX0 - Labor and delivery complicated by prolapse of cord, not applicable or unspecified (3) 39 weeks gestation of : (4) Obesity affecting : QUALIFIERS: Trimester: third trimester Obesity type affecting : unspecified obesity Qualified Code(s): O99.213 - Obesity complicating , third trimester Maternal Data Information YANCY Calculator Estimated Delivery Date Method Current WG Current Estimate 03/23/25 Manual 39w 1d Final YANCY: 03/23/25 Gestational age: 39+1 Operative Report (OB) Details Procedure Type: low transverse Date of Procedure: 03/17/25 Procedure Start Time: 03:48 Procedure Stop Time: 04:27 Time of Delivery: 03:49 Pre-Operative Diagnosis: Prolapsed Cord Post-Operative Diagnosis: Same as Pre-operative diagnosis Classification: Stat Type of Anesthesia: Epidural Antibiotic Given: Ancef 3 grams IV x1 Drain: Munoz to straight drain Estimated Blood Loss: 1100 cc Findings Description of surgery: Patient taken to the OR with epidural and Munoz in place. Epidural was dosed for . She was prepped with betadine and draped in the normal sterile fashion. A Pfannenstiel incision was made and carried down to the underlying fascia. The fascia was incised in the midline and extended laterally. The fascia was dissected from the muscle. The muscles divided in the midline. The peritoneum was entered bluntly and extended manually. A bladder blade was placed. A low transverse incision was made and extended bluntly. The head was elevated to the incision. The shoulders delivered easily. There was a cord around the crown of the head x 1. The cord was cut and clamped. The placenta was delivered with kendrick traction. The uterus was exteriorized and cleared of all clot and debris. The incision was repaired with 1-0 Vicryl x 2. The uterus was returned the abdomen, The gutter cleared of all clots. The peritoneum was closed with 2-0 Monocryl. The fascia was closed with 1-0 Vicryl. The subcutaneous tissue was reapproximated with 2-0 Monocryl The skin was closed with 4-0. I performed the major parts of the procedure with the RFNA assisting with retraction and closing the skin. 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
[2025-03-17] MEDS: Oxytocin 15 Units/NS 250ml 15 UNITS/250 ML IV.SOLN 83 UNITS IV (05:10)
[2025-03-17] MEDS: Ketorolac 30 MG/ML Syringe IV ×3 (06:05→17:54)
[2025-03-17] MEDS: Acetaminophen 500 MG Tablet 1000 MG PO ×3 (06:05→17:54)
[2025-03-17] MEDS: 0.9% Saline Lock 10 ML Syringe IV ×3 (08:19→17:54)
[2025-03-17] MEDS: Enoxaparin 40 MG/0.4 ML Syringe SC (09:13)
[2025-03-17] MEDS: Senna/Docusate Sodium 1 Tablet PO (09:13)
--- NOTE | 2025-03-17 09:23 | NURSING ---
Epidural catheter removed. blue tip intact.
[2025-03-17] MEDS: Cefazolin 1 GM/50 ML BAG IV ×2 (11:30→20:15)
[2025-03-18] VITALS (12 sets, daily range): BP systolic 102–135; BP diastolic 72–93; PULSE 78–115; RESP 14–18; TEMP 35.8–36.5; O2SAT 97–100
[2025-03-18] MEDS: Ketorolac 30 MG/ML Syringe IV
--- NOTE | 2025-03-18 00:09 | NURSING ---
pt requesting IV to be removed after last dose of toradol and antibiotics completed. this RN explained about drawing a CBC in AM and with EBL, the concern for a lower hemoglobin and possible need for an IV if the physician decides to order something for treatment. pt states she doesn't care and wants it removed regardless. no further needs noted.
[2025-03-18] MEDS: Acetaminophen 500 MG Tablet 1000 MG PO ×5 (05:11→23:36)
[2025-03-18] MEDS: Ibuprofen 600 MG Tablet PO ×4 (05:11→23:36)
[2025-03-18 05:23] LABS: Hematocrit 22.5 % (37-47); Hemoglobin 6.9 g/dL (12.0-15.0); Mean Corp Hgb Conc 30.7 g/dL (32-36); Mean Corpuscular Hgb 23.7 pg (27.0-32.0); Mean Corpuscular Volume 77.3 fL (81-99); Mean Platelet Vol. 10.1 fl (6.2-12.0); Platelet Count 170 K/mm3 (150-450); RBC Distribution Width CV 16.4 % (11.6-14.6); RBC Distribution Width SD 46.4 fl (35.1-43.9); Red Blood Count 2.91 M/mm3 (4.2-5.4); White Blood Count 9.4 K/mm3 (4.4-11.0)
--- NOTE | 2025-03-18 08:22 | PCM.PN.CNM ---
Subjective Subjective Patient seen at bedside. Very sleepy- stated just wants to sleep. Pain is controlled. Up to bathroom with assistance. Objective Data Objective Data Vital Signs: Vital Signs Temp Pulse Resp BP Pulse Ox O2 Del Method 97.7 F L 88 16 128/83 H 98 Room Air 03/18/25 03:26 03/18/25 03:26 03/18/25 03:26 03/18/25 03:26 03/18/25 03:26 03/18/25 03:26 Oxygen Delivery Method Room Air Weight: 255 lb 3.2 oz Body Mass Index (BMI) 43.8 Intake & Output: Intake and Output for Last 24 Hours 03/16/25 03/17/25 03/18/25 23:59 23:59 23:59 Intake Total 2459.17 / 2459.17 Output Total 200 / 200 1300 / 1300 1300 / 1300 Balance -200 / -200 1159.17 / 1159.17 -1300 / -1300 Lab / Micro Data Attestation: I reviewed the patient's lab results. 03/18/25 05:10 Labs: Laboratory Results - last 24 hr 03/18/25 05:10: WBC 9.4, RBC 2.91 L, Hgb 6.9 L, Hct 22.5 L, MCV 77.3 L, MCH 23.7 L, MCHC 30.7 L, RDW Std Deviation 46.4 H, RDW Coeff of Aaron 16.4 H, Plt Count 170, MPV 10.1 ROS Eyes Eyes: Denies blurry vision, spots in vision or tunnel vision ENT HEENT: Denies dizziness or headache(s) Cardiovascular Cardiovascular: Reports systems reviewed and no addt'l complaints, except as documented, dizziness and dyspnea Respiratory/Chest Respiratory/Chest: Reports systems reviewed and no addt'l complaints, except as documented Gastrointestinal Gastrointestinal: Reports systems reviewed and no addt'l complaints, except as documented Genitourinary Genitourinary: Reports systems reviewed and no addt'l complaints, except as documented Neurologic Neurologic: Denies abnormal speech, dizziness, headache(s), syncope or vertigo Psychiatric Psychiatric: Reports systems reviewed and no addt'l complaints, except as documented Physical Exam Const alert and no apparent distress General Appearance: cooperative Orientation / Consciousness: awake, oriented to person and oriented to place Exam Limitations: no limitations HEENT normocephalic Eyes General Eye: normal appearance of both eyes Neck full ROM Chest Chest: symmetrical chest wall rise Resp normal respiratory effort, normal air movement and clear to auscultation bilaterally Auscultation: clear to auscultation bilaterally Cardio regular rate and regular rhythm GI normal to inspection, nondistended, normoactive bowel sounds Uterus Palpation: uterus fundus firm Extremity full ROM and no calf tenderness Skin no rashes or lesions noted Neuro oriented x3 Psych mental status grossly normal and activity/motor behavior normal Assessment & Plan (1) Status post section routine follow-up: (2) Obesity affecting : QUALIFIERS: Trimester: third trimester Obesity type affecting : unspecified obesity Qualified Code(s): O99.213 - Obesity complicating , third trimester (3) Anemia due to blood loss: PLAN: Plan POD 1 Primary C/S Pain control HGB 6.9 from 9.0 Restart IV and give dose of IV iron Repeat CBC tomorrow AM
[2025-03-18] MEDS: Enoxaparin 40 MG/0.4 ML Syringe SC (09:16)
[2025-03-18] MEDS: Senna/Docusate Sodium 1 Tablet PO (09:17)
[2025-03-18] MEDS: Iron Sucrose Complex 200 MG in 0.9% Normal Saline (100mL Bag) 100 ML 220 MG IV (09:20)
[2025-03-18] MEDS: 0.9% Normal Saline (500mL Bag) 500 ML 15 ML IV (11:32)
[2025-03-18] MEDS: Ferrous Sulfate 325 MG Tablet PO (16:16)
[2025-03-18] MEDS: 0.9% Saline Lock 10 ML Syringe IV ×2 (16:18)
[2025-03-19 02:36] VITALS: BP 120/60; PULSE 96; RESP 16; TEMP 36.4; O2SAT 98
[2025-03-19] MEDS: Ibuprofen 600 MG Tablet PO (05:47)
[2025-03-19] MEDS: Acetaminophen 500 MG Tablet 1000 MG PO (05:47)
[2025-03-19 06:13] LABS: Absolute Lymphocyte Count 0.92 X10^3/uL (0.83-4.51); Basophil# 0.03 X10^3/uL; Basophil% 0.4 % (0-1); Eosinophil# 0.23 X10^3/uL; Eosinophils% 2.9 % (0-5); Hematocrit 26.8 % (37-47); Hemoglobin 8.5 g/dL (12.0-15.0); Lymphocyte # 0.92 X10^3/ul (0.83-4.51); Lymphocyte % 11.7 % (19-41); Mean Corp Hgb Conc 31.7 g/dL (32-36); Mean Corpuscular Hgb 25.3 pg (27.0-32.0); Mean Corpuscular Volume 79.8 fL (81-99); Mean Platelet Vol. 10.1 fl (6.2-12.0); Monocyte# 0.52 X10^3/uL; Monocyte% 6.6 % (0-10); NRBC Flagged by Analyzer 0 % (0-5); Neutrophil # 6.04 X10^3/uL (2.7-7.7); Platelet Count 189 K/mm3 (150-450); RBC Distribution Width SD 49.3 fl (35.1-43.9); Red Blood Count 3.36 M/mm3 (4.2-5.4); White Blood Count 7.9 K/mm3 (4.4-11.0)
--- NOTE | 2025-03-19 06:44 | PCM.DC.SUM ---
Providers Date of Admission: 03/16/25 Primary Care Physician: Dr. Yves Parker MD Reason For Visit: C SECTION Diagnosis Discharge Diagnosis (1) Status post section routine follow-up: Status: Acute Code(s): Z39.2 - Encounter for routine follow-up; Z98.891 - History of uterine scar from previous surgery (2) Obesity affecting : Status: Acute Code(s): O99.210 - Obesity complicating , unspecified trimester Qualifiers: Trimester: third trimester Obesity type affecting : unspecified obesity Qualified Code(s): O99.213 - Obesity complicating , third trimester (3) Anemia due to blood loss: Status: Acute Code(s): D50.0 - Iron deficiency anemia secondary to blood loss (chronic) Plan POD 2 Primary C/S Pain control HGB 8.5 from 6.9 S/P 2 units of PRB Pain controlled D/C home with follow up in office next week Medications at Discharge Home Medications vit no.95-ferrous fumarate 28 mg-folic acid 800 mcg tablet () 1 tab PO DAILY 02/15/25 acetaminophen 500 mg tablet 1,000 mg (2 x 500 mg) PO Q6H #0 tabs 03/19/25 ferrous sulfate 325 mg (65 mg iron) tablet (FeroSul) 325 mg PO 1200,1700 #0 tabs 03/19/25 ibuprofen 600 mg tablet 600 mg PO Q6H #0 tabs 03/19/25 sennosides 8.6 mg-docusate sodium 50 mg tablet (Stimulant Laxative Plus) 1 - 2 tab PO DAILY #0 tabs 03/19/25 Hospital Course Operations section Procedures None Summary of Care Provided Minutes Spent on Discharge: 15 Hospital Course: Patient had section. Hospital course was uneventful. Physical Exam Narrative Patient seen at bedside. Denies any dizziness, headache, SOB, or CP. Ambulating and voiding without difficulty. Desires discharge home. Const alert and no apparent distress General Appearance: cooperative and comfortable Exam Limitations: no limitations HEENT normocephalic Eyes General Eye: normal appearance of both eyes Neck full ROM General: normal visual inspection Chest Chest: symmetrical chest wall rise Resp normal respiratory effort and normal air movement Effort and Inspection: symmetric chest movement Auscultation: clear to auscultation bilaterally Cardio regular rate and regular rhythm GI normal to inspection, nondistended, normoactive bowel sounds Back/Spine normal ROM Extremity full ROM and no calf tenderness General Extremity: normal exam except as noted Skin no rashes or lesions noted Wound Narrative: Dressing is dry and intact. Neuro CN's II-XII intact bilaterally Psych mental status grossly normal Weight / BMI Weight Weight: 255 lb 3.2 oz Body Mass Index (BMI) 43.8 ABG / Lab / Microbiology Data 03/19/25 06:00 Laboratory: Laboratory Results - last 24 hr 03/16/25 20:00: Crossmatch See Detail 03/19/25 06:00: WBC 7.9, RBC 3.36 L, Hgb 8.5 L, Hct 26.8 L, MCV 79.8 L, MCH 25.3 L, MCHC 31.7 L, RDW Std Deviation 49.3 H, RDW Coeff of Aaron 17.0 H, Plt Count 189, MPV 10.1, Immature Gran % (Auto) 1.400 H, Neut % (Auto) 77.0 H, Lymph % (Auto) 11.7 L, [place] % (Auto) 6.6, Eos % (Auto) 2.9, Baso % (Auto) 0.4, Absolute Neuts (auto) 6.0, Absolute Lymphs (auto) 0.92, Nucleated RBC % 0 D/C Instructions Discharge Diet: No restrictions Discharge Activity: May Drive (2 weeks) and May Shower May resume sexual activity in: 6-8 weeks Weight Bearing Status: Weight bearing as tolerated Lifting Restricted to (Lbs): 25 Call your doctor if your incision/area has: Continuous Slow Oozing, Sudden Increased Bleeding, Increased Pain/ Swelling, Increased Redness, Foul Smelling Discharge and Swelling at the incision site Call your doctor if you observe: Fever of 101 or Higher, Numbness or Tingling, Using more than 1 pad per hour, Shortness of breath, Dizziness, Swelling in the ankles, Chest pain, Calf discomfort and Uncontrolled pain Suture Line Care: Avoid Pulling/Pushing Remove Dressing in: 5 days (Remove yourself or call office and schedule appointment for dressing removal.) DC O2, CPAP, BIPAP Needs Home O2 Discharge instructions: No When: 5 days for dressing removal or 2 weeks for post appointment. Meaningful Use Info Meaningful Use Meaningful Use Diagnoses (Choose all that apply): None applicable Ischemic Stroke Statin Dosing Therapy Reference: STATIN DOSE THERAPY REFERENCE: * Patients > 75 years receive moderate or high dose statin therapy. * Patients 75 years or YOUNGER should receive HIGH intensity statin dose unless contraindicated. You will be required to document reason for non-treatment if statin daily dose does not meet guidelines. HIGH DOSE STATIN THERAPY DAILY Atorvastatin > than or = to 40 mg Rosuvastatin > than or = to 20 mg Amlodipine + Atorvastatin > than or = to 2.5/40 mg Ezetimibe + Simvastatin 10/80 mg Simvastatin 80mg Discharge Plan Admission Admit Date/Time: 03/16/25 19:20 Primary Reason for Your Visit: Labor and Delivery Attending Provider: Vida García Primary Care Provider: Yves Parker Discharge Orders/Prescriptions Prescriptions: New sennosides-docusate sodium [Stimulant Laxative Plus] 8.6-50 mg Tablet 1 - 2 tab PO DAILY Qty: 0 0RF acetaminophen 500 mg Tablet 1,000 mg PO Q6H Qty: 0 0RF ferrous sulfate [FeroSul] 325 mg (65 mg iron) Tablet 325 mg PO 1200,1700 Qty: 0 0RF ibuprofen 600 mg Tablet 600 mg PO Q6H Qty: 0 0RF Discontinued aspirin 81 mg capsule 81 mg PO DAILY cephalexin 500 mg capsule 500 mg PO Q8H 7 Days Qty: 21 0RF No Action PNV cmb#95-ferrous fumarate-FA [] 28 mg iron- 800 mcg tablet 1 tab PO DAILY Referrals / Follow Up: Yves Parker MD [Primary Care Provider] - Disposition Disposition (needs filled in before D/C Order can be placed): Home, Self Care
[2025-03-19 07:44] VITALS: BP 136/85; RESP 16; TEMP 36; O2SAT 99
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
--- NOTE | 2025-03-19 10:52 | CASEMGMT ---
Social Work Brief Assessment - Labor and Delivery Unit Date and time of intervention:? 03/19/25, 0900- ongoing Reason for Referral:?? other need for referral to be made to [facility] History:? On 03/18/25 niko called [facility] 04/12: Sw informed that MOB and baby are medically ready for discharge. Sw called [facility] to determine whether it was okay for MOB and baby to be discharged. Hotline screenerViv, reported to sw that the referral made by this professor of social work yesterday was screened in and a worker will be meeting with parents. At this time it is okay for MOB and baby to be discharged if medically ready. Niko informed Charge nurse and bedside RN that per [facility] it is okay for MOB and baby to be discharged, and that a worker will be following up with family once discharged to home. Assessment:? Children Services opened the referral made by this professor of social work on 03/18. They will meet with family once home. No other needs or concerns identified at this time. Nina Ayala, EMERGING TECHNOLOGIES DIRECTOR, BUFFER MACHINE
--- NOTE | 2025-03-24 15:38 | NURSING ---
follow up phone call made, no answer, left voicemail
== END 2025-03-19 10:10 | disposition home or self-care (01) | DRG 540 ==
PROVIDERS: Advanced Practice Midwife; Admitting Provider Obstetrics & Gynecology; PCP Family Medicine; Referring Provider Obstetrics & Gynecology; Visit Provider Obstetrics & Gynecology
DX: O40.3XX0 Polyhydramnios, third trimester, not applicable or unspecified (principal); O99.214 Obesity complicating childbirth; D50.0 Iron deficiency anemia secondary to blood loss (chronic); F17.290 Nicotine dependence, other tobacco product, uncomplicated; O69.0XX0 Labor and delivery complicated by prolapse of cord, not applicable or unspecified; O69.1XX0 Labor and delivery complicated by cord around neck, with compression, not applicable or unspecified; O99.334 Smoking (tobacco) complicating childbirth; O76 Abnormality in fetal heart rate and rhythm complicating labor and delivery; O90.81 Anemia of the puerperium; O99.03 Anemia complicating the puerperium; Z37.0 Single live birth; Z3A.39 39 weeks gestation of pregnancy; Z79.82 Long term (current) use of aspirin
CPT/HCPCS: 59025; 59050; 72170; 80307; 84112; 85025; 85027; 86780; 86850; 86900; 86901; 99221; J1756; P9016; A4216; G0378